=== PATIENT | female | born 1985 | race Caucasian/White ===

== ENCOUNTER 2020-10-06 16:06 | Emergency (ER) | payer MEDICARE, MEDICAID, SELFPAY ==
[2020-10-06 16:07] VITALS: BP 93/52; PULSE 62; RESP 19; TEMP 36.5; O2SAT 97; BMI 42.5
--- NOTE | 2020-10-06 16:35 | HMH.EDGENADL ---
ED Disposition Clinical Impression: Pleural effusion, Atypical chest pain Disposition: Home, Self-Care Condition on Discharge: Fair Instructions: DI for Atypical Chest Pain, DI for Pleural Effusion Additional Instructions: You have been evaluated for atypical chest pain. Possibly due to small pneumothorax on the right. Please follow-up with your ballistic technician as soon as available. Return to the emergency department at once if you have any new or worsening symptoms, difficulty breathing, worsening pain, other concerns. Referrals: PCP,No [Non-Staff] - Time of Disposition: 20:33 - Critical Care Critical Care Time: No Attestation: On 10/06/20, the high probability of a clinically significant, sudden or life threatening deterioration of the following system(s) required my full and direct attention, intervention and personal management. The time I documented below is in addition to time spent performing reported procedures but includes the following listed in this critical care notation. Medical Decision Making - Medical Records Medical records reviewed: Yes: I reviewed the patient's medical records. - Michele Inquiry Pt receiving controlled substance: No Vital Signs: 10/06/20 16:07 10/06/20 21:07 Temperature 97.7 F 97.9 F Temperature Source Oral Oral Pulse Rate 62 Pulse Rate [Left Radial] 62 Respiratory Rate 19 16 Blood Pressure 108/75 L Blood Pressure [Right Arm] 93/52 L Blood Pressure Mean [Right Arm] 65 Blood Pressure Source [Right Arm] Automatic Cuff Blood Pressure Position [Right Arm] Sitting 02 Sat by Pulse Oximetry 97 Oxygen Delivery Method Room Air Room Air - Lab Data Lab Results 10/06/20 16:57: WBC 9.4, RBC 4.58, Hgb 13.5, Hct 41.1, MCV 89.8, MCH 29.6, MCHC 32.9, RDW 14.0, Plt Count 184, MPV 7.9, Neut % (Auto) 56.4, Lymph % (Auto) 33.5, Burn[place] % (Auto) 6.9, Eos % (Auto) 2.7, Baso % (Auto) 0.6, Neut # (Auto) 5.3, Lymph # (Auto) 3.1, Burnet # (Auto) 0.6, Eos # (Auto) 0.3, Baso # (Auto) 0.1 10/06/20 16:57: Sodium 140, Potassium 4.0, Chloride 105, Carbon Dioxide 29, Anion Gap 10.0, BUN 13, Creatinine 1.00, Estimated Creat Clear 64, Estimated GFR 62, Est GFR ( Amer) 75, Glucose 74, Calcium 9.5, Total Bilirubin 1.0, AST 39 H, ALT 17, Alkaline Phosphatase 78, Total Protein 8.1, Albumin 4.3, Globulin 3.8 H, Albumin/Globulin Ratio 1.1, Lipase 54 10/06/20 18:10: Urine Color Yellow, Urine Appearance Clear, Urine pH 7.0, Ur Specific [place] 1.015, Urine Protein Negative, Urine Glucose (UA) Negative, Urine Ketones Negative, Urine Blood 1+, Urine Nitrate Negative, Urine Bilirubin Negative, Urine Urobilinogen 0.2, Ur Leukocyte Esterase Negative, Urine RBC 3-5, Urine WBC 5-10, Ur Squamous Epith Cells Tntc, Amorphous Sediment 1+, Urine Bacteria Trace 10/06/20 18:10: Urine HCG, Qual Negative Result diagrams: 10/06/20 16:57 10/06/20 16:57 Orders (Tests/Meds): ED MEDICATIONS Discontinued Medications Generic Name Dose Route Start Last Admin Trade Name Freq PRN Reason Stop Dose Admin Iopamidol 75 ml 10/06/20 19:10 10/06/20 19:11 Iopamidol-370 (76%);100ml Bottle IV 10/06/20 19:11 75 ml ONCE ONE Administration Ketorolac Tromethamine 15 mg 10/06/20 20:34 10/06/20 20:41 Ketorolac 30mg/Ml Vial IV 10/06/20 20:35 15 mg ONCE ONE Administration Lidocaine 1 each 10/06/20 20:34 10/06/20 20:41 Lidocaine 5% Transdermal Patch TP 10/06/20 20:35 1 each ONCE ONE Administration Sodium Chloride 10 ml 10/06/20 19:10 10/06/20 19:11 Sodium Chloride 0.9% 10ml Syr (Rad Only) IV 10/06/20 19:11 10 ml ONCE ONE Administration ORDERS Category Date Time Status CT abdomen pelvis w con Stat Cat Scan 10/06/20 18:[address] chest wo con Stat Cat Scan 10/06/20 20:02 Taken Medical Decision Narrative: In summary this is a 35-year-old female presenting to the emergency department with right upper quadrant abdominal pain and right flank pain. Patient clinically stable on
[2020-10-06 17:06] LABS: Basophils # 0.1 K/mm3 (0-0.2); Basophils % 0.6 % (0.1-2.0); Eosinophils # 0.3 K/mm3 (0.0-0.4); Eosinophils % 2.7 % (0.1-12.0); Hematocrit 41.1 % (37.0-47.0); Hemoglobin 13.5 g/dL (12.2-16.2); Lymphocytes # 3.1 K/mm3 (0.7-4.5); Lymphocytes % 33.5 % (10-50); Mean Corpuscular HGB Conc 32.9 g/dL (31.8-35.4); Mean Corpuscular Hemoglobin 29.6 pg (27.0-31.2); Mean Corpuscular Volume 89.8 fl (81-99); Mean Platelet Volume 7.9 fl (7.4-10.4); Monocytes # 0.6 K/mm3 (0.1-1.0); Monocytes % 6.9 % (1.7-9.3); Neutrophils # 5.3 K/mm3 (1.8-7.8); Neutrophils % 56.4 % (37.0-80.0); Platelet Count 184 K/mm3 (142-424); Red Blood Count 4.58 M/mm3 (4.20-5.40); White Blood Count 9.4 K/mm3 (4.8-10.8)
[2020-10-06 17:09] LABS: Chloride 105 mmol/L (98-107); Sodium 140 mmol/L (136-145)
[2020-10-06 17:11] LABS: Blood Urea Nitrogen 13 mg/dl (7-17); Creatinine Clearance Estimated 64 mL/min (50-200); Estimated Glomerular Filt Rate 62 ml/min (>60); GFR (African American) 75 ML/MIN (>60)
[2020-10-06 17:12] LABS: Alanine Aminotransferase 17 U/L (12-78); Albumin Level 4.3 g/dl (3.5-5.0); Albumin/Globulin Ratio 1.1 (1.1-1.8); Alkaline Phosphatase 78 U/L (38-126); Aspartate Amino Transferase 39 U/L (14-36); Calcium 9.5 mg/dl (8.4-10.2); Carbon Dioxide 29 mmol/L (22.0-30.0); Globulin 3.8 g/dL (1.3-3.2); Glucose 74 mg/dl (74-100); Lipase 54 U/L (23-300); Total Protein,Serum 8.1 g/dl (6.3-8.2)
--- NOTE | 2020-10-06 18:17 | CT_ITS ---
PROCEDURE: CT ABDOMEN PELVIS W CON CLINICAL INDICATION: abdominal pain Right upper quadrant and right flank pain COMPARISON: CT CT CHEST WO CON from 10/06/2020 TECHNIQUE: IV Contrast: 75ML Isovue 370 Oral Contrast None Axial images obtained with sagittal and coronal reformats. All CT scans at the facility use one or more dose reduction, viz: automated exposure control, ma/kV adjustment per patient size (including targeted exams where dose is matched to indication, i.e. head), or iterative reconstruction technique. FINDINGS: LOWER THORAX: Small loculated pneumothorax anteriorly with parietal and visceral pleural thickening with atelectatic or fibrotic change with a small loculated effusion. Small cystic areas present along the posterior aspect of this region of pleural thickening with a faint nodular opacity nonspecific. Bronchiectasis is present within the lingula and right lower lobe. ABDOMEN & PELVIS: There is a ventral abdominal wall hernia in the subxiphoid region containing fat. The gallbladder is contracted with minimal thickening of the wall. The liver, spleen, adrenal glands, and pancreas have an unremarkable appearance. There are punctate bilateral renal calculi 2 mm in the lower pole on the right and 2 mm in the upper pole on the left. No intestinal obstruction or free air. No evidence of appendicitis. No evidence of diverticulitis. There is an IUD in place. The proximal limbs are rotated 90 degrees not oriented in the normal parallel plane to the endometrial stripe. This is of questionable clinical significance. No pelvic mass or abnormal fluid collection. IMPRESSION: 1. No acute abdominal or pelvic findings. 2. Partially loculated right anterior pneumothorax as described above. 3. IUD in place. The 2 proximal limbs are oriented tangential to the normal expected course of the endometrium. 4. Other nonacute findings as described above. Dictated by: Darren Beltre MD 10/07/2020 10:31 Darren Beltre MD in [facility] 10/07/2020 10:31
[2020-10-06 18:47] LABS: Microscopic, Urine URINE MICROSCOPIC (MICROSCOPIC)
[2020-10-06 18:52] LABS: Appearance,Urine CLEAR (Clear); Bilirubin,Urine Negative (Negative); Blood, Urine 1+ (Negative); Color,Urine YELLOW (Yellow); Glucose,Urine (UA) Negative (Negative); Ketones,Urine Negative (Negative); Leukocyte Esterase,Urine Negative (Negative); Nitrate,Urine Negative (Negative); Protein,Urine Negative (Negative); Specific Gravity, Urine 1.015 (1.005-1.030); Urine Pregnancy, HCG Qual. Negative (Negative); Urobilinogen,Urine 0.2 EU/dl (0.2)
[2020-10-06 19:00] LABS: Amorphous Sediment,Urine 1+ /lpf; Bacteria,Urine Trace /lpf; Squamous Epithelial Cell,Urine TNTC #/hpf (0-5)
--- NOTE | 2020-10-06 20:02 | CT_ITS ---
PROCEDURE: CT CHEST WO CON CLINICAL INDICATION: chest pain Chest pain, follow-up pulmonary nodule which was seen on recent abdomen CT. Pain COMPARISON: CT CT ABDOMEN PELVIS W CON from 10/06/2020 TECHNIQUE: Axial images obtained with sagittal and coronal reformats. All CT scans at the facility use one or more dose reduction, viz: automated exposure control, ma/kV adjustment per patient size (including targeted exams where dose is matched to indication, i.e. head), or iterative reconstruction technique. FINDINGS: Prior tricuspid valve replacement. Status post median sternotomy. Subxiphoid ventral abdominal wall hernia noted. This contains fat. Pleural thickening is present in the right anterior hemithorax both parietal and visceral thickening with a small right-sided pneumothorax anteriorly measuring approximately 4 mm in thickness. There is associated small loculated effusion. There is associated atelectatic or fibrotic changes in this region. There is some atelectasis in the lung bases. 10 mm left upper lobe nodular opacity with some atelectatic changes series 3, image 30. Mild bronchiectasis in the lingula. There are mild degenerative changes in the thoracic spine. There is some stranding of the subcutaneous fat along the left upper abdominal wall laterally. IMPRESSION: 1. Pleural thickening in the right upper lobe anteriorly with a small pneumothorax and small loculated effusion. 2. Scattered atelectatic or and/or fibrotic changes with bronchiectasis. 3. Indeterminate 10 mm left upper lobe nodular opacity. Suggest 3 month follow-up. Dictated by: Darren Beltre MD 10/07/2020 10:17 Darren Beltre MD in [facility] 10/07/2020 10:17
[2020-10-06 21:07] VITALS: BP 108/75; PULSE 62; RESP 16; TEMP 36.6; O2SAT 97
== END 2020-10-06 21:09 | disposition home or self-care (01) ==
PROVIDERS: Emergency Provider Emergency Medicine
DX: J90 Pleural effusion, not elsewhere classified (principal); R07.89 Other chest pain
CPT/HCPCS: 71250; 74177; 80053; 81001; 81025; 83690; 85025; 96375; 99282; Q9967

== ENCOUNTER 2024-01-24 09:10 | Outpatient (CLI) | payer MEDICARE, MEDICAID, SELFPAY ==
--- NOTE | 2024-01-24 09:11 | CT_ITS ---
FINAL REPORT TECHNIQUE: Axial CT images of the abdomen and pelvis were obtained before and after the administration of IV contrast. This study was performed with techniques to keep radiation doses as low as reasonably achievable (ALARA). Individualized dose reduction techniques using automated exposure control or adjustment of mA and/or kV according to the patient''s size were employed. CLINICAL HISTORY: LUQ pain COMPARISON: None FINDINGS: Abdomen: There is atelectasis or scarring in the lung bases. The heart is normal in size. The liver has an unremarkable appearance, without evidence of mass or biliary duct dilatation. The patient is postcholecystectomy. The spleen is unremarkable. No adrenal masses present. The pancreas has an unremarkable appearance. The kidneys are unremarkable. The aorta is normal in caliber. There is no free fluid or adenopathy. There is a supraumbilical midline ventral hernia. Hernia orifice measures 6.3 cm in transverse dimension and the hernia sac measures 9 cm in transverse dimension. There is a small umbilical hernia containing fat. Precontrast images demonstrate multiple bilateral nonobstructing renal stones, the largest on the right measures 6 mm. There is no hydronephrosis. Pelvis: The appendix is not well visualized. The urinary bladder is unremarkable. An IUD is present in the uterus. No inflammatory process is seen. There is no evidence of mass or adenopathy. There is no evidence of bowel obstruction. IMPRESSION: Supraumbilical hernia as described. Renal stones without hydronephrosis or ureteral stone. Reviewed, Interpreted and Dictated by Federico De Souza III, MD Transcribed by Bushra Balbuena Authenticated and [facility]
[2024-01-24] MEDS: IOPAMIDOL-370 (76%);100ML BOTTLE 75 ML IV (10:24)
[2024-01-24] MEDS: SODIUM CHLORIDE 0.9% 10ML SYR (RAD ONLY) 10 ML IV (10:24)
== END 2024-01-24 23:59 | disposition home or self-care (01) ==
LOC: RAD 09:11
PROVIDERS: PCP Family Medicine; Visit Provider Family Medicine
DX: R10.12 Left upper quadrant pain (principal)
CPT/HCPCS: 74178; Q9967

== ENCOUNTER 2024-10-18 13:04 | Outpatient (CLI) | payer MEDICARE, MEDICAID, SELFPAY ==
--- NOTE | 2024-10-18 13:30 | US_ITS ---
PROCEDURE: US TRANSVAGINAL CLINICAL INDICATION: Check IUD Position COMPARISON: CT CT ABDOMEN PELVIS W CON from 10/06/[address] ABDOMEN PELVIS WO/W CON from 01/24/2024 FINDINGS: Transvaginal sonographic images of the pelvis were obtained. UTERUS: 8.3cm x 4.8 cmx 3.8 cm anteverted with a combined endometrial thickness of 5.3mm. There is an IUD within the uterine cavity in the lower uterine segment. Within the anterior myometrium there is a small linear structure that appears to be separate from IUD. It has posterior shadowing. It is not clear whether this may be an arm from the IUD penetrating into the myometrium or remnant from a previous IUD. LEFT OVARY: 4.9 cmx3.7 cmx3.8cm with a volume of 37.1ml. There is a simple appearing follicle in the left ovary that measures 4.8 cm x 3.4 cm RIGHT OVARY: 2.4cmx 1.5 cmx1.9 cm with a volume of 3.6ml. The right ovary is seen and appears normal. The left ovary has a large follicle. Doppler flow to both ovaries are seen. There is no fluid in the cul-de-sac. IMPRESSION: 1. Anteverted uterus normal in shape and size. The endometrium measures 5.3 mm. 2. There is an IUD within the uterine cavity in the lower uterine segment. Within the anterior myometrium there a linear hyperechoic area with posterior shadowing. This may be in arm of the IUD or possibly a remnant from a previous IUD. 3. The left ovary contains a follicle measuring 4.8 cm and would suggest follow-up in 8 weeks time. 4. The right ovary is seen and appears normal. 5. No fluid in the cul-de-sac Dictated by: Thiago Sharp MD 10/18/2024 14:13 Thiago Sharp MD in [facility] 10/18/2024 14:13
[2024-10-18 15:48] LABS: HIV Combo NEGATIVE (Negative)
[2024-10-18 15:55] LABS: Hepatitis C Ab Qual. W/ RFX REACTIVE (Negative)
== END 2024-10-18 23:59 | disposition home or self-care (01) ==
LOC: RAD 13:05
PROVIDERS: PCP Family Medicine; Visit Provider Obstetrics & Gynecology
DX: Z97.5 Presence of (intrauterine) contraceptive device (principal); B19.20 Unspecified viral hepatitis C without hepatic coma
CPT/HCPCS: 36415; 76830; 86803; 87389; 87522

== ENCOUNTER 2024-12-27 15:07 | Outpatient (CLI) | payer MEDICARE, MEDICAID, SELFPAY ==
--- OUTSIDE RECORDS SUMMARY | 2024-12-27 15:09 | XMS_ITS | Encounter Summary ---
Author Organization Healthcare Address [address] [place] [address] Care Team Providers Care Lock Setter Name Role Phone Ankur Main MD Primary Care Provider [phone] Reason for Visit * Reason Onset Date Comments Med Refill 11/06/2024 Encounter Details Date Type Department Care Team (Late st Contact Info) Description 11/06/2024 Refill [facility] [address] [place] [address] Elizabeth Rolle RN [facility] Chronic bronchitis with COPD (chronic obstructive pulmonary disease) (CMS/HCC); Moderate persistent asthma, unspecified whether complicated Social History Tobacco Use Types Packs/Day Years Used Date Smoking Tobacco: Former Cigarettes 1 19 0 06/21/2000 - 06/21/2019 Passive Smoke Exposure: Current Smokeless Tobacco: Never Alcohol Use Standard Drinks/Week Comments No 0 (1 standard drink = 0.6 oz pur e alcohol) Humiliation, Afraid, Rape, a nd Kick questionnaire Answer Date Recorded Within the last year, have y ou been afraid of your partner or ex-partner? Patient unable to answer 01/25/2024 Within the last year, have y ou been humiliated or emotionally abused in other ways by your partner or ex-partner? Patient unable to answer 01/25/2024 Within the last year, have y ou been kicked, hit, slapped, or otherwise physically hurt by your partner or ex-partner? Patient unable to answer 01/25/2024 Within the last year, have y ou been raped or forced to have any kind of sexual activity by your partner or ex-partner? Patient unable to answer 01/25/2024 PHQ-2 Answer Date Recorded Patient Health Questionnaire-2 Score 0 10/19/2024 Hunger Vital Sign Answer Date Recorded Within the past 12 months, y ou worried that your food would run out before you got the money to buy more. Never true 01/25/20 24 Within the past 12 months, t he food you bought just didn't last and you didn't have money to get more. Never true 01/25/2024 PRAPARE - Transportation Answer Date Re corded In the past 12 months, has l ack of transportation kept you from medical appointments or from getting medications? No 11/2023 In the past 12 months, has l ack of transportation kept you from meetings, work, or from getting things needed for daily living? No 01/25/2024 Housing Stability Vital Sign Answer Madhav e Recorded In the last 12 months, was t here a time when you were not able to pay the mortgage or rent on time? No 01/25/2024 In the last 12 months, how many places have you lived? 1 01/25/2024 In the last 12 months, was t here a time when you did not have a steady place to sleep or slept in a chcf (including now)? No 01/25/2024 PHQ-9 Answer Date Recorded Patient Health Questionnaire-9 Score 0 10/19/2024 Safety and Environment Answer Date Carlos rded Do you worry that your child may have been physically abused? Patient unable to answer 01/25/2024 Do you worry that your child may have been sexually abused? Patient unable to answer 01/25/2024 Are there any guns kept in o r around your home or where your child spends time? Patient unable to answer 01/25/2024 Guns Unloaded or Locked Away Not on file 11/2023 Utilities Answer Date Recorded In the past 12 months has th e electric, gas, oil, or water company threatened to shut off services in your home? No 01/25/2024 PHQ-2A Answer Date Recorded Depression Risk 0 10/11/2024 PHQ-9A Answer Date Recorded Depression Risk Score 0 10/11/2024 Comments No Sex and Gender Information Value Date Recorded Sex Assigned at Female 12/31/2020 2:44 PM EDT Legal Sex Female 7:46 PM EDT Gender Identity Female 12/31/2020 2:44 PM EDT Sexual Orientation Straight 12/31/2020 2: 44 PM EDT documented as of this encounter Plan of Treatment Upcoming Encounters Date Type Department Care Team (Late st Contact Info) Description 03/12/2025 10:20 AM EDT Office Visit [facility] [address] [place] [address] Bushra Graf PA [address] [place] [address] 03/20/2025 9:30 AM EDT Office Visit [facility] [address] [place] [address] Alicia Jennings MD [address] [place] [address] 04/02/2025 2:00 PM EDT Office Visit [facility] Sleep Disorder Center [address] [place] [phone] Kassandra Khan, APOLLO [address] [place] [phone] 04/18/2025 11:00 AM EDT Office Visit [facility] [address] [place] [address] Juventino Costa MD [address] [place] [address] 05/04/2025 1:00 PM EST Appointment Medical Office Building Cardiac Diagnostic Testing Medical Office Building Echo Lab [address], [address] [place] [address] 05/04/2025 1:45 PM EST Office Visit [facility] [place] [address], [address] [place] [address] Ruslan Sanderson MD [address] [place] [address] documented as of this encounter Visit Diagnoses Diagnosis Chronic bronchitis with COPD (chronic obstructive pulmonary disease) (CMS/HCC) Moderate persistent asthma, unspecified whether complicated documented in this encounter Additional Health Concerns Infection Onset Date Last Indicated Resolved Time MRSA Comment:respiratory culture Collection Date: 10-Oct-2019 08:43:00 Expanded Results: 2+ MIXED UPPER RESPIRATORY OTTO 3+ STAPHYLOCOCCUS AUREUS (MRSA) NOTE: Patient needs MRSA Protocol 10/10/2019 11/12/2020 ESBL Comment:Positive MDRT culture for ESBL Klebsiella pneumoniae MDRT collected 11/20/19 positive for ESBL Citrobacter Freundii. 10/23/2019 11/12/2020 Assessment Noted Time PHQ-9 Depression Total Score: 0 10/20/19 2:00 PM EDT A fall risk assessment has been complete d for the patient 10/19/2024 2:00 PM EDT A Body Mass Index follow-up plan has been documented for the patient 10/19/2024 2:52 PM EDT documented as of this encounter Care Teams Lock Setter Relationship Specialty Start Date End Date Ankur Main MD [address] [place] [address] PCP - General 11/01/20 12/18/24 documented as of this encounter
--- OUTSIDE RECORDS SUMMARY | 2024-12-27 15:09 | XMS_ITS | Encounter Summary ---
Author Organization Healthcare Address [address] [place] [address] Care Team Providers Care Glove Maker Name Role Phone Ankur Main MD Primary Care Provider [phone] Iman Cuevas MD Primary Care Provider [phone] Reason for Visit * Reason Onset Date Comments Med Refill 01/24/2021 Encounter Details Date Type Department Care Team (Late st Contact Info) Description 01/24/2021 Refill [facility] Internal Medicine [address] [place] [address] Ankur Main MD [address] [place] [address] Polyneuropathy associated with underlying disease (CMS/HCC) Social History Tobacco Use Types Packs/Day Years Used Date Smoking Tobacco: Former Smokeless Tobacco: Never Alcohol Use Standard Drinks/Week Comments No 0 (1 standard drink = 0.6 oz pur e alcohol) PHQ-2 Answer Date Recorded Patient Health Questionnaire-2 Score 3 01/17/2021 Comments Unknown Sex and Gender Information Value Date Recorded Sex Assigned at Female 12/31/2020 2:44 PM EDT Legal Sex Female 7:46 PM EDT Gender Identity Female 12/31/2020 2:44 PM EDT Sexual Orientation Straight 12/31/2020 2: 44 PM EDT COVID-19 Exposure Response Date Recorded In the last month, have you been in contact with someone who was confirmed or suspected to have Coronavirus / COVID-19? No / Unsure 01/17/2021 3:00 PM EDT documented as of this encounter Plan of Treatment Upcoming Encounters Date Type Department Care Team (Late st Contact Info) Description 03/12/2025 10:20 AM EDT Office Visit [facility] Specialties [address] [place] [phone] Bushra Graf PA [address] [place] [address] 03/20/2025 9:30 AM EDT Office Visit [facility] [address] [place] [phone] Alicia Jennings MD [address] [place] [address] 04/02/2025 2:00 PM EDT Office Visit [facility] Sleep Disorder Center [address] [place] [phone] Kassandra Khan, APOLLO [address] [place] [phone] 04/18/2025 11:00 AM EDT Office Visit [facility] [address] [place] [phone] Juventino Costa MD [address] [place] [address] 05/04/2025 1:00 PM EST Appointment Medical Office Building Cardiac Diagnostic Testing Medical Office Building Echo Lab [address], [address] [place] [phone] 05/04/2025 1:45 PM EST Office Visit [facility] [place] [address], [address] [place] [address] Ruslan Sanderson MD [address] [place] [address] documented as of this encounter Visit Diagnoses Diagnosis Polyneuropathy associated with underlying disease documented in this encounter Additional Health Concerns Infection Onset Date Last Indicated Resolved Time MRSA Comment:respiratory culture Collection Date: 10-Oct-2019 08:43:00 Expanded Results: 2+ MIXED UPPER RESPIRATORY OTTO 3+ STAPHYLOCOCCUS AUREUS (MRSA) NOTE: Patient needs MRSA Protocol 10/10/2019 11/12/2020 ESBL Comment:Positive MDRT culture for ESBL Klebsiella pneumoniae MDRT collected 11/20/19 positive for ESBL Citrobacter Freundii. 10/23/2019 11/12/2020 documented as of this encounter Care Teams Glove Maker Relationship Specialty Start Date End Date Ankur Main MD [address] [place] [address] PCP - General 11/01/20 12/18/24 Iman Cuevas MD [address] [place] [address] PCP - General Internal Medicine 12/19/24 documented as of this encounter
--- OUTSIDE RECORDS SUMMARY | 2024-12-27 15:09 | XMS_ITS | Encounter Summary ---
Author Organization Healthcare Address [address] [place] [address] Care Team Providers Care Artist'S Manager Name Role Phone Ankur Main MD Primary Care Provider [phone] Iman Cuevas MD Primary Care Provider [phone] Encounter Details Date Type Department Care Team (Late st Contact Info) Description 01/24/2024 Orders Only External Location [address] [place] [address] Skip Tineo MD Social History Tobacco Use Types Packs/Day Years [...] Date Recorded Patient Health Questionnaire-2 Score 0 01/27/2024 Hunger Vital Sign Answer Date Recorded Within [...] place to sleep or slept in a correction (including now)? No 01/25/2024 Safety and Environment Answer Date Carlos rded [...] home? No 01/25/2024 PHQ-2A Answer Date Recorded Patient Health Questionnaire-2 Score 0 03/09/2023 Comments No Sex and Gender Information Value Date Recorded Sex Assigned at Female 12/31/2020 2:44 PM EDT Legal Sex Female 7:46 PM EDT Gender Identity Female 12/31/2020 2:44 PM EDT Sexual Orientation Straight 12/31/2020 2: 44 PM EDT documented as of this encounter Functional Status * Over the past 2 weeks, how often have you been bothered by any of the following problems? Question Answer Date of Assessment Author Little interest or pleasure in doing things Not at all 01/27/2024 7:53 AM EDT Gabby Rolle CNA Feeling down, depressed, or hopeless Not at all 01/27/2024 7:53 AM EDT Gabby Rolle CNA Patient Health Questionnaire -2 Score 0 01/27/2024 7:53 AM EDT Gabby Rolle CNA * Calculated C-SSRS Risk Score (Lifetime/Recent) Answer Date of Assessment Author No Risk Indicated 01/25/2024 3:17 PM EDT Ever Mix * Question Answer Date of Assessment Author 1. Wish to be (Past 1 Month) No 024 3:17 PM EDT Ever Mix 2. Non-Specific Active Suici quin Thoughts (Past 1 Month) No 01/25/2024 3:17 PM EDT Norris Mix 6. Suicidal Behavior (Lifetime) No 3:17 PM EDT Ever Mix documented as of this encounter Plan of Treatment Upcoming Encounters Date Type Department Care Team (Late st Contact Info) Description 03/12/2025 10:20 AM EDT Office Visit [facility] Medicine Specialties [address], [address]nd [place] [address] Bushra Graf PA [address] [facility] [address] [place] [address] 03/20/2025 9:30 AM EDT Office Visit [facility] [address], 1st [place] [address] Alicia Jennings MD [address] [facility] [address] [place] [address] 04/02/2025 2:00 PM EDT Office Visit [facility] Sleep Disorder Center [address], 4th [place] [address] Kassandra Khan, MANAGER WOUND [address] [place] [address] 04/18/2025 11:00 AM EDT Office [facility] Medicine Specialties [address], 2nd [place] [address] Juventino Costa MD [address] [place] [address] 05/04/2025 1:00 PM EST Appointment Medical Office Building Cardiac Diagnostic Testing Medical Office Building Echo Lab [address] [facility], [address] [place] [address] 05/04/2025 1:45 PM EST Office Visit [facility] [place] [address] [facility], [address] [place] [address] Ruslan Sanderson MD [address] [place] [address] documented as of this encounter Procedures Procedure Name Priority Date/Time Associated Diagnosis Comments CT ABDOMEN OUTSIDE IMAGES 01/24/2024 10:12 AM EDT documented in this encounter Results * CT ABDOMEN OUTSIDE IMAGES (01/24/2024 10:12 AM EDT) Anatomical Region Laterality Modality Computed Tomogra phy 01/24/2024 10:1 2 AM EDT Skip Tineo MD IMG CT PROCEDURES Final Re sult documented in this encounter Visit Diagnoses Not on filedocumented in this encounter Additional Health Concerns Infection Onset Date Last Indicated Resolved Time MRSA Comment:respiratory culture Collection Date: 10-Oct-2019 08:43:00 Expanded Results: 2+ MIXED UPPER RESPIRATORY OTTO 3+ STAPHYLOCOCCUS AUREUS (MRSA) NOTE: Patient needs MRSA Protocol 10/10/2019 11/12/2020 ESBL Comment:Positive MDRT culture for ESBL Klebsiella pneumoniae MDRT collected 11/20/19 positive for ESBL Citrobacter Freundii. 10/23/2019 11/12/2020 Assessment Noted Time PHQ-9 Depression Total Score: 18 08 021 9:41 AM EDT A fall risk assessment has been complete d for the patient 11/10/2023 11:37 AM EDT A Body Mass Index follow-up plan has been documented for the patient 11/10/2023 12:15 PM EDT documented as of this encounter Care Teams Artist'S Manager Relationship Specialty Start Date End Date Ankur Main MD [address] [place] [address] PCP - General 11/01/20 12/18/24 Iman Cuevas MD [address] [place] [address] PCP - General Internal Medicine 12/19/24 documented as of this encounter
--- OUTSIDE RECORDS SUMMARY | 2024-12-27 15:09 | XMS_ITS | Encounter Summary ---
Author Organization Healthcare Address [address] [place] [address] Care Team Providers Care Marine Engineer Cpvec Name Role Phone Ankur Main MD Primary Care Provider [phone] Nancy Hernandez PYROTECHNIC MIXER Unavailable Unavailable Iman Cuevas MD Primary Care Provider [phone] Encounter Details Date Type Department Care Team (Late st Contact Info) Description 08/01/2018 Orders Only External Location [address] [place] [address] Social History Tobacco Use Types Packs/Day Years Used Date Smoking Tobacco: Never Assessed Comments Unknown Sex and Gender Information Value [...] Description 03/12/2025 10:20 AM EDT [facility] Medicine Specialties [address], 2[address] [place] [address] Bushra Graf PA [address] [place] [address] 03/20/2025 9:30 AM EDT [facility] [address], 1[address] [place] [address] Alicia Jennings MD [address] [place] [address] 04/02/2025 2:00 PM EDT Office Visit [facility] Sleep Disorder Center [address], [address]th [place] [address] Kassandra Khan, APOLLO [address] [place] [address] 04/18/2025 11:00 AM EDT Office Visit [facility] Medicine Specialties [address], 2[address] [place] [address] Juventino Costa MD [address] [place] [address] 05/04/2025 1:00 PM EST Appointment Medical Office Building Cardiac Diagnostic Testing Medical Office Building Echo Lab [address] [facility], [address] [place] [address] 05/04/2025 1:45 PM EST Office Visit [facility] [place] [address] [facility], [address] [place] [address] Ruslan Sanderson MD [address] [place] [address] documented as of this encounter Procedures Procedure Name Priority Date/Time Associated Diagnosis Comments US BREAST OUTSIDE IMAGES 08/01/2018 12:47 PM EST documented in this encounter Results * US BREAST OUTSIDE IMAGES (08/01/2018 12:47 PM EST) Anatomical Region Laterality Modality Breast Mammography 08/01/2018 12:4 7 PM EST us Unknown Unknown IMG BI PROCEDURES Final Result documented in this encounter Visit Diagnoses Not [...] positive for ESBL Citrobacter Freundii. 10/23/2019 11/12/2020 Meningitis Rule-Out 10/25/2019 10/25/2019 10/29/19 5:23 AM EDT C. difficile Rule-Out 11/03/2019 11/08/20192020 5:23 AM EDT C. difficile Comment:11/03/2019 11/03/2019 11/03/2019 12/20/2019 12:00 AM EDT documented as of this encounter Care Teams Marine Engineer Cpvec Relationship Specialty Start Date End Date Ankur Main MD [address] [place] [phone] PCP - General 11/01/20 12/18/24 Iman Cuevas MD [address] [place] [phone] PCP - General Internal Medicine 12/19/24 Nancy Hernandez, [place] [phone] Academic Affairs Vice President Beam Builder Helper 03/25/20 03/25/20 documented as of this encounter
--- OUTSIDE RECORDS SUMMARY | 2024-12-27 15:09 | XMS_ITS ---
Author Organization Unknown TREATMENT PLAN Planned Care Start Date Provider Encounter for Check-up [id number] [facility]
--- OUTSIDE RECORDS SUMMARY | 2024-12-27 15:09 | XMS_ITS | Encounter Summary ---
Author Organization Healthcare Address [address] [place] [address] Care Team Providers Care Collection Advisor Name Role Phone Ankur Main MD Primary Care Provider [phone] Iman Cuevas MD Primary Care Provider Reason for Visit * Reason Onset Date Comments Med Refill 06/29/2021 Encounter Details Date Type Department Care Team (Late st Contact Info) Description 06/29/2021 Refill [facility] Medicine Specialties [address], [address] [place] [address] Juventino Costa MD [address] [place] [address] Moderate persistent asthma, unspecified whether complicated Social History Tobacco Use Types Packs/Day Years Used Date Smoking Tobacco: Former Cigarettes 1 19 2 2019 Smokeless Tobacco: Never Alcohol Use Standard Drinks/Week Comments No 0 (1 standard drink = 0.6 oz pur e alcohol) PHQ-2 Answer Date Recorded Patient Health Questionnaire-2 Score 0 04/22/2021 Comments Unknown Sex and Gender Information Value [...] have Coronavirus / COVID-19? No / Unsure 06/11/2021 9:41 AM EST documented as of this encounter Miscellaneous Notes * Telephone Encounter - Domi Johnson RN - 06/30/2021 8:55 AM EST PCP refilling this medication per last office note. documented in this encounter Plan of Treatment Upcoming Encounters Date Type Department Care Team (Late st Contact Info) Description 03/12/2025 10:20 AM EDT Office Visit [facility] Medicine Specialties [address], 2nd [place] [phone] Bushra Graf PA [address] [facility] [address] [place] [address] 03/20/2025 9:30 AM EDT [facility] [address], 1st [place] [address] Alicia Jennings MD [address] [place] [address] 04/02/2025 2:00 PM EDT Office Visit [facility] Sleep Disorder Center [address], 4th [place] [address] Kassandra Khan, APOLLO [address] [place] [address] 04/18/2025 11:00 AM EDT Office Visit [facility] Medicine [facility] [address], 2nd [place] [address] Juventino Costa MD [address] [place] [address] 05/04/2025 1:00 PM EST Appointment Medical Office Building Cardiac Diagnostic Testing Medical Office Building Echo Lab [address] [facility], [address] [place] [address] 05/04/2025 1:45 PM EST Office Visit [facility] [place] [address] [facility], [address] [place] [address] Ruslan Sanderson MD [address] [place] [address] documented as of this encounter Visit Diagnoses Diagnosis Moderate persistent asthma, unspecified whether complicated documented [...] Noted Time PHQ-9 Depression Total Score: 18 021 9:41 AM EDT A fall risk assessment has been complete d for the patient 02/25/2021 7:04 PM EDT documented as of this encounter Care Teams Collection Advisor Relationship Specialty Start Date End Date Ankur Main MD [address] [place] [address] PCP - General 11/01/20 12/18/24 Iman Cuevas MD [address] [place] [address] PCP - General Internal Medicine 12/19/24 documented as of this encounter
--- OUTSIDE RECORDS SUMMARY | 2024-12-27 15:09 | XMS_ITS | Encounter Summary ---
Author Organization Healthcare Address [address] [place] [address] Care Team Providers Care Arc Welder Name Role Phone Ankur Main MD Primary Care Provider [phone] Iman Cuevas MD Primary Care Provider [phone] Reason for Visit * Reason Onset Date Comments Med Refill 06/19/2021 Encounter Details Date Type Department Care Team (Late st Contact Info) Description 06/19/2021 Refill [facility] Internal Medicine [address], [address]rd [place] [address] Ankur Main MD [address] [place] [address] Social History Tobacco Use Types Packs/Day Years [...] encounter Miscellaneous Notes * Telephone Encounter - WillYulisa John - 06/24/2021 3:44 PM EST Per protocol, 1 medication(s), levothyroxine, have been refused due to: Duplicate request sent 06/23 documented in this encounter Plan of Treatment Upcoming Encounters Date Type Department Care Team (Late st Contact Info) Description 03/12/2025 10:20 AM EDT Office Visit [facility] Medicine Specialties [address], 2nd [place] [address] Bushra Graf PA [address] [place] [address] 03/20/2025 9:30 AM EDT Office Visit [facility] [address], 1st [place] [address] Alicia Jennings MD [address] [place] [address] 04/02/2025 2:00 PM EDT Office Visit [facility] Sleep Disorder Center [address], 4th [place] [address] Kassandra Khan, APOLLO [address] [place] [address] 04/18/2025 11:00 AM EDT Office Visit [facility] Medicine Specialties [address], [address]nd [place] [address] Juventino Costa MD [address] [place] [address] 05/04/2025 1:00 PM EST Appointment Medical Office Building Cardiac Diagnostic Testing Medical Office Building Echo Lab [address] [facility], [address] [place] [address] 05/04/2025 1:45 PM EST Office Visit [facility] [place] [address] [facility], [address] [place] [address] Ruslan Sanderson MD [address] [place] [address] documented as of this encounter Visit Diagnoses Not on filedocumented [...] documented as of this encounter Care Teams Arc Welder Relationship Specialty Start Date End Date Ankur Main MD [address] [place] [address] PCP - General 11/01/20 12/18/24 Iman Cuevas MD [address] [place] [address] PCP - General Internal Medicine 12/19/24 documented as of this encounter
--- OUTSIDE RECORDS SUMMARY | 2024-12-27 15:09 | XMS_ITS | Encounter Summary ---
Author Organization Healthcare Address [address] [place] [address] Care Team Providers Care Chimney Builder Name Role Phone Ankur Main MD Primary Care Provider [phone] Iman Cuevas MD Primary Care Provider [phone] Reason for Visit * Reason Onset Date Comments Med Refill 02/28/2021 Encounter Details Date Type Department Care Team (Late st Contact Info) Description 02/28/2021 Refill [facility] Internal Medicine [address], 3rd [place] [address] Roxana Abdul MD [address] [place] [address] Polyneuropathy associated with underlying disease (CMS/HCC) Social History Tobacco Use Types Packs/Day Years Used Date Smoking Tobacco: Former Cigarettes 1 19 2 2019 Smokeless Tobacco: Never Alcohol Use Standard Drinks/Week Comments No 0 (1 standard drink = 0.6 oz pur e alcohol) PHQ-2 Answer Date Recorded Patient Health Questionnaire-2 Score 0 02/13/2021 Comments Unknown Sex and Gender Information Value [...] have Coronavirus / COVID-19? No / Unsure 02/25/2021 7:03 PM EDT documented as of this encounter Plan of Treatment Upcoming Encounters Date Type Department Care Team (Late st Contact Info) Description 03/12/2025 10:20 AM EDT Office Visit [facility] Medicine Specialties [address], 2nd [place] [address] Bushra Graf PA [address] [place] [address] 03/20/2025 9:30 AM EDT Office Visit [facility] [address], 1st [place] [address] Alicia Jennings MD [address] [place] [address] 04/02/2025 2:00 PM EDT Office Visit [facility] Sleep Disorder Center [address], 4th [place] [address] Kassandra Khan APRN [address] [place] [address] 04/18/2025 11:00 AM EDT Office Visit [facility] Medicine Specialties [address], 2[address] [place] [address] Juventino Costa MD [address] [place] [address] 05/04/2025 1:00 PM EST Appointment Medical Office Building Cardiac Diagnostic Testing Medical Office Building Echo Lab [address] [facility], [address] [place] [address] 05/04/2025 1:45 PM EST Office Visit [facility] [place] [address] [facility], [address] [place] [address] Ruslan Sanderson MD [address] [place] [address] documented as of this encounter [...] Noted Time PHQ-9 Depression Total Score: 18 08// 021 9:41 AM EDT A fall risk assessment has been complete d for the patient 02/25/2021 7:04 PM EDT documented as of this encounter Care Teams Chimney Builder Relationship Specialty Start Date End Date Ankur Main MD [address] [place] [address] PCP - General 11/01/20 12/18/24 Iman Cuevas MD [address] [place] [address] PCP - General Internal Medicine 12/19/24 documented as of this encounter
--- OUTSIDE RECORDS SUMMARY | 2024-12-27 15:09 | XMS_ITS | Encounter Summary ---
Author Organization Healthcare Address [address] [place] [address] Care Team Providers Care Communications Department Chairperson Name Role Phone Ankur Main MD Primary Care Provider Iman Cuevas MD Primary Care Provider [phone] Reason for Visit * Reason Onset Date Comments Med Refill 06/30/2021 Encounter Details Date Type Department Care Team (Late st Contact Info) Description 06/30/2021 Refill [facility] Medicine Specialties [address], [address] [place] [address] Juventino Costa MD [address] [place] [address] Moderate persistent asthma, unspecified whether [...] AM EST documented as of this encounter Plan of Treatment Upcoming Encounters Date Type Department Care Team (Late st Contact Info) Description 03/12/2025 10:20 AM EDT Office Visit [facility] Medicine Specialties [address], [address] [place] [phone] Bushra Graf PA [address] [place] [address] 03/20/2025 9:30 AM EDT [facility] [address], 1st [place] [address] Alicia Jennings MD [address] [place] [address] 04/02/2025 2:00 PM EDT Office Visit [facility] Sleep Disorder Center [address], 4th [place] [address] Kassandra Khan APRN [address] [place] [address] 04/18/2025 11:00 AM EDT Office Visit [facility] Medicine Specialties [address], 2nd [place] [address] Juventino Costa MD [address] [place] [address] 05/04/2025 1:00 PM EST Appointment Medical Office Building Cardiac Diagnostic Testing Medical Office Building Echo Lab [address] [facility], [address] [place] [address] 05/04/2025 1:45 PM EST Office Visit [facility] [place] [address] [facility], [address] [place] [address] Ruslan Sanderson MD [address] [place] [address] documented as of this encounter [...] Noted Time PHQ-9 Depression Total Score: 18 08/ 021 9:41 AM EDT A fall risk assessment has been complete d for the patient 02/25/2021 7:04 PM EDT documented as of this encounter Care Teams Communications Department Chairperson Relationship Specialty Start Date End Date Ankur Main MD [address] [place] [address] PCP - General 11/01/20 12/18/24 Iman Cuevas MD [address] [place] [address] PCP - General Internal Medicine 12/19/24 documented as of this encounter
--- OUTSIDE RECORDS SUMMARY | 2024-12-27 15:09 | XMS_ITS | Encounter Summary ---
Author Organization Healthcare Address [address] [place] [address] Care Team Providers Care Algebraist Name Role Phone Ankur Main MD Primary Care Provider [phone] Reason for Visit * Reason Comments Med Refill Encounter Details Date Type Department Care Team ([facility] st Contact Info) Description 11/06/2024 Refill [facility] [place] [address] [facility], [address] [place] [address] Donis Trujillo, MARKET RISK SPECIALIST [address] [place] [address] Chronic systolic (congestive) heart failure (CMS/HCC) Social History Tobacco Use Types Packs/Day [...] place to sleep or slept in a penitentiary (including now)? No 01/25/2024 PHQ-9 Answer Date [...] Description 03/12/2025 10:20 AM EDT Office Visit [facility] Medicine Specialties [address], [address] [place] [address] Bushra Graf PA [address] [place] [address] 03/20/2025 9:30 AM EDT Office Visit [facility] [address], 1[address] [place] [address] Alicia Jennings MD [address] [place] [address] 04/02/2025 2:00 PM EDT Office Visit [facility] Sleep Disorder Center [address], [address]th [place] [address] Kassandra Khan, MARKET RISK SPECIALIST [address] [place] [address] 04/18/2025 11:00 AM EDT Office Visit [facility] Medicine Specialties [address], [address] [place] [address] Juventino Costa MD [address] [place] [address] 05/04/2025 1:00 PM EST Appointment Medical Office Building Cardiac Diagnostic Testing Medical Office Building Echo Lab [address] [facility], [address] [place] [address] 05/04/2025 1:45 PM EST Office Visit [facility] [place] [address] [facility], [address] [place] [address] Ruslan Sanderson MD [address] [place] [address] documented as of this encounter Visit Diagnoses Diagnosis Chronic systolic (congestive) heart failure (CMS/HCC) documented in this encounter Additional Health Concerns [...] documented as of this encounter Care Teams Algebraist Relationship Specialty Start Date End Date Ankur Main MD [address] [place] [address] PCP - General 11/01/20 12/18/24 documented as of this encounter
--- OUTSIDE RECORDS SUMMARY | 2024-12-27 15:09 | XMS_ITS | Encounter Summary ---
Author Organization Healthcare Address [address] [place] [address] Care Team Providers Care Carpenters Supervisor Name Role Phone Ankur Main MD Primary Care Provider [phone] Iman Cuevas MD Primary Care Provider [phone] Reason for Visit * Reason Onset Date Comments Med Refill 02/19/2022 Encounter Details Date Type Department Care Team (Late st Contact Info) Description 02/19/2022 Refill [facility] Internal Medicine [address], [address] [place] [address] Ankur Main MD [address] [place] [address] Polyneuropathy associated with underlying disease (CMS/HCC) Social History Tobacco Use Types Packs/Day Years Used Date Smoking Tobacco: Former Cigarettes 1 19 0 06/21/2000 - 06/21/2019 Smokeless Tobacco: Current Comments:Vape Alcohol Use Standard Drinks/Week Comments No 0 (1 standard drink = 0.6 oz pur e alcohol) PHQ-2 Answer Date Recorded Patient Health Questionnaire-2 Score 0 10/23/2021 Comments Unknown Sex and Gender Information Value [...] Description 03/12/2025 10:20 AM EDT Office Visit [facility] Medicine Specialties [address] [place] [address] Bushra Graf PA [address] [place] [address] 03/20/2025 9:30 AM EDT Office Visit [facility] [address], [address] [place] [address] Alicia Jennings MD [address] [place] [address] 04/02/2025 2:00 PM EDT Office Visit [facility] Sleep Disorder Center [address], [address] [place] [phone] Kassandra Khan, [employer] [address] [place] [phone] 04/18/2025 11:00 AM EDT Office Visit [facility] Medicine Specialties [address], [address] [place] [address] Juventino Costa MD [address] [place] [address] 05/04/2025 1:00 PM EST Appointment Medical Office Building Cardiac Diagnostic Testing Medical Office Building Echo Lab [address] [facility], [address] [place] [address] 05/04/2025 1:45 PM EST Office Visit [facility] [place] [address], [address] [place] [address] Ruslan Sanderson MD [address] [place] [phone] documented as of this encounter Visit Diagnoses [...] has been complete d for the patient 12/31/2021 10:03 AM EDT documented as of this encounter Care Teams Carpenters Supervisor Relationship Specialty Start Date End Date Ankur Main MD [address] [address] PCP - General 11/01/20 12/18/24 Iman Cuevas MD [address] [place] [phone] PCP - General Internal Medicine 12/19/24 documented as of this encounter
--- OUTSIDE RECORDS SUMMARY | 2024-12-27 15:09 | XMS_ITS | Encounter Summary ---
Author Organization Healthcare Address [address] [place] [address] Care Team Providers Care Sports Editor Name Role Phone Ankur Main MD Primary Care Provider Reason for Visit * Reason Onset Date Comments Constipation 10/12/2024 Encounter Details Date Type Department Care Team (Late st Contact Info) Description 10/12/[address] [facility] Medicine Specialties [address] [place] [address] Vandana Dumont Constipation Social History Tobacco Use Types Packs/Day Years [...] place to sleep or slept in a [facility] (including now)? No 01/25/2024 PHQ-9 Answer Date [...] pleasure in doing things Not at all 10/19/2024 2:00 PM EDT Isi Cook Feeling down, depressed, or hopeless Not at all 10/19/2024 2:00 PM EDT Isi Hooks Patient Health Questionnaire-2 Score 0 10/19/2024 2:00 PM EDT Isi Hooks * Question Answer Date of Assessment Author Trouble falling or staying asleep, or sleeping too much Not at all 10/19/2024 2:00 PM EDT Isi Hooks Feeling tired or having little energy Not at all 10/19/2024 2:00 PM EDT Isi Hooks Poor appetite or overeating Not at all 10/19/2024 2: 00 PM EDT Isi Hooks Feeling bad about yourself - or that you are a failure or have let yourself or your family down Not at all 10/19/2024 2:00 PM EDT Isi Hooks Trouble concentrating on things, such as reading the newspaper or watching television Not at all 10/19/2024 2:00 PM EDT Isi Hooks Moving or speaking so slowly that other people could have noticed? Or the opposite - being so fidgety or restless that you have been moving around a lot more than usual. Not at all 10/19/2024 2:00 PM EDT Isi Hooks Thoughts that you would be better off or hurting yourself in some way Not at all 10/19/2024 2:00 PM EDT Isi Hooks Patient Health Questionnaire-9 Score 0 10/19/2024 2:00 PM EDT Isi Hooks * If you checked off any problems on this questionnaire so far, Question Answer Date of Assessment Author How difficult have these problems made it for you to do your work, take care of things at home, or get along with other people? Not difficult at all 10/19/2024 2:00 PM EDT Isi Hooks documented as of this encounter Miscellaneous Notes * Telephone Encounter - Citlaly Leonardo RN - 11/16/2024 1:08 PM EDT Reviewed pt's chart: - Pt seen for follow up appointment, as scheduled, on 10/16/2024 with Bushra Garf, PAC - See GI Clinic note for further information. * Telephone Encounter - Citlaly Leonardo RN - 10/13/2024 4:28 PM EDT Received a call back from pt and mother: - Pt states she has not had a bowel movement for 1 week, despite Linzess and Milk of Magnesium - Pt is nausea without vomiting - Pt denies any fevers - Pt states she has retirement history of constipation - Pt states she has a history of not having a bowel movement after 10 days - Pt states she is not eating much at this time, due to constipation - Pt completed colonoscopy as ordered - Discuss with pt recommendation to come to the ER for evaluation - Pt and mother discussed is there an option to increase Linzess medication - Reviewed with pt and mother that provider is out of the office and will return next week - Offered to move 11/15/2024 follow up appointment to 10/16/2024 at 140pm TH, log in to [employer] on 120pm to register - Reviewed with pt if pt has significant, worsening, or new, concerning symptoms, to please come tothe ER for evaluation - Pt states understanding. * Telephone Encounter - Vandana Dumont - 10/12/2024 11:22 AM EDT Patient called, she states she has been taking Linzess to help with constipation. She is still having problems and has taken milk of magnesia as well to try to have a bowel movement. She is having increased pain and her hernia is popping out. She is asking for a call back to discuss options. documented in this encounter Plan of Treatment Upcoming Encounters Date Type Department Care Team (Late st Contact Info) Description 03/12/2025 10:20 AM EDT Office Visit [facility] Medicine Specialties [address] [place] [address] Bushra Graf PA [address] [place] [address] 03/20/2025 9:30 AM EDT Office Visit [facility] [address] [place] [address] Alicia Jennings MD [address] [place] [address] 04/02/2025 2:00 PM EDT Office Visit [facility] Sleep Disorder Center [address] [place] [phone] Kassandra Khan, APOLLO [address] [place] [phone] 04/18/2025 11:00 AM EDT Office Visit [facility] [address] [place] [address] Juventino Costa MD [address] [place] [address] 05/04/2025 1:00 PM EST Appointment Medical Office Building Cardiac Diagnostic Testing Medical Office Building Echo Lab [address] [facility], [address] [place] [address] 05/04/2025 1:45 PM EST Office Visit [facility] [place] [address] [facility], [address] [place] [address] Ruslan Sanderson MD [address] [place] [address] documented as of this encounter [...] Noted Time PHQ-9 Depression Total Score: 0 10/12/19 10:59 AM EDT A fall risk assessment has been complete d for the patient 10/11/2024 11:00 AM EDT A Body Mass Index follow-up plan has been documented for the patient 10/11/2024 12:55 PM EDT documented as of this encounter Care Teams Sports Editor Relationship Specialty Start Date End Date Ankur Main MD [address] [facility] [address] [place] [address] PCP - General 11/01/20 12/18/24 documented as of this encounter
--- OUTSIDE RECORDS SUMMARY | 2024-12-27 15:10 | XMS_ITS | Clinical Summary ---
Author Organization Healthcare Address [address] [place] [address] Care Team Providers Care Hay Sorter Name Role Phone Iman Cuevas MD Primary Care Provider [phone] Allergies Active Allergy Reactions Criticality Noted Date Comments Wound Dressings Rash Low 09/10/2020 Rash/blisters Tetracycline Rash Low 10/05/2019 Medications aspirin 81 MG EC tablet Take by mouth in the morning. 04/04/20 20 Active levonorgestrel (Mirena, 52 MG,) 20 MCG/24HR IUD Take by mouth See administration instructions. Inserted on 09/04/2020 Lot Number: [id number] Expiration Date: Nov 2022 NDC: [id number] 09/05/19 21 Active magnesium oxide (Mag-Ox) 400 (241.3 Mg) MG tablet Take by mouth in the morning and before bedtime. 04/25/20 20 Active melatonin 3 MG tablet Take by mouth nightly. 04/25/20 20 Active cholecalciferol (Vitamin D-3) 25 MCG (1000 UT) tablet Take by mouth in the morning. Active alpha tocopherol (Vitamin E) 400 units capsule Take 1 capsule (400 Units) by mouth in the morning. Active cyanocobalamin (Vitamin B-12) 500 MCG tablet Take 1 tablet (500 mcg) by mouth in the morning. Active acetaminophen (Tylenol) 500 MG tablet Take 1 tablet (500 mg) by mouth every 6 hours as needed for mild pain. Active nystatin (Mycostatin) [id number] UNIT/GM powderIndication s:Healthcare maintenance Apply topically 1 (one) time each day. 60 g 11 11/01/19 22 Active lamoTRIgine (LaMICtal) 100 MG tablet Take 0.5 tablets (50 mg) by mouth in the morning and 0.5 tablets (50 mg) before bedtime. 06/04/20 22 Active sertraline (Zoloft) 100 MG tablet Take 1 tablet (100 mg) by mouth in the morning. 05/06/20 23 Active levETIRAcetam (Keppra) 500 MG tabletIndication s:Focal epilepsy ([facility]) Take 4 tablets (2,000 mg) by mouth 2 (two) times a day. 240 tablet 11 08/26/19 24 Active apixaban (Eliquis) 5 MG tabletIndication s:History of pulmonic valve replacement Take 1 tablet (5 mg) by mouth 2 (two) times a day. 180 tablet 3 10/14/19 24 Active albuterol (Ventolin HFA) 108 (90 Base) MCG/ACT inhalerIndicatio ns:Chronic bronchitis with COPD (chronic obstructive pulmonary disease) ([facility]),Modera te persistent asthma, unspecified whether complicated Inhale 2 puffs 4 (four) times a day. 18 g 11/10/19 24 Active albuterol (2.5 MG/3ML) 0.083% nebulizer solutionIndicati ons:Chronic bronchitis with COPD (chronic obstructive pulmonary disease) ([facility]),Modera te persistent asthma, unspecified whether complicated Take 3 mL (2.5 mg) by nebulization every 6 (six) hours if needed for shortness of breath. 75 mL 11/10/19 24 Active furosemide (Lasix) 40 MG tabletIndication s:Congestive heart failure, unspecified HF chronicity, unspecified heart failure type ([facility]) Take 2 tablets (80 mg) by mouth 2 (two) times a day. Patient is taking 80mg am and 80mg in pm 360 tablet 3 01/25/20 24 Active folic acid (Folvite) 1 MG tablet Take 1 tablet (1 mg) by mouth 1 (one) time each day. 90 tablet 3 01/25/20 24 Active empagliflozin (Jardiance) 10 MGIndications:Pr ediabetes Take 1 tablet (10 mg) by mouth 1 (one) time each day. 90 tablet 3 01/25/20 24 Active potassium chloride CR (Klor-Con M20) 20 MEQ ER tabletIndication s:Hypokalemia Take 1 tablet (20 mEq) by mouth 2 (two) times a day. DO NOT CRUSH OR CHEW. 180 tablet 3 01/25/20 24 Active levothyroxine (Synthroid, Levoxyl) 100 MCG tablet Take 1 tablet (100 mcg) by mouth 1 (one) time each day before breakfast. 90 tablet 3 01/25/20 24 Active fluticasone (Flonase) 50 MCG/ACT nasal sprayIndications :Allergic rhinitis, unspecified seasonality, unspecified trigger,Sleep apnea with use of continuous positive airway pressure (CPAP) Administer 1 spray into each nostril 1 (one) time each day. Shake gently. Before first use, prime pump. After use, clean tip and replace cap. Use at bedtime 16 g 12 01/25/20 24 Active QUEtiapine (SEROquel) 50 MG tablet Take 1 tablet (50 mg) by mouth in the morning. 04/24/20 24 Active gabapentin (Neurontin) 300 MG capsuleIndicatio ns:Polyneuropath y associated with underlying disease Take 1 capsule (300 mg) by mouth 3 (three) times a day. 90 capsule 5 07/11/19 25 Active triamcinolone (Kenalog) 0.025 % ointmentIndicati ons:Anxiety disorder, unspecified type Apply to hands 1-2 times daily as needed for dry skin. May use consistently up to two weeks and then as needed 454 g 1 08/01/19 25 Active hydrOXYzine pamoate (Vistaril) 25 MG capsuleIndicatio ns:Anxiety disorder, unspecified type Take 1 capsule (25 mg) by mouth 3 (three) times a day if needed for itching. 270 capsule 08/01/19 25 Active tiotropium-oloda terol (Stiolto Respimat) 2.5-2.5 MCG/ACT aerosol solution inhalerIndicatio ns:Chronic obstructive pulmonary disease, unspecified COPD type (CMS/HCC) Inhale 2 Inhalations daily. 4 g 11 10/12/19 25 Active lubiprostone (Amitiza) 24 MCG capsuleIndicatio ns:Irritable bowel syndrome with constipation Take 1 capsule by mouth 2 times a day with meals. Take with meals 60 capsule 11 10/21/19 25 026 Active metoprolol tartrate (Lopressor) 25 MG tabletIndication s:Chronic systolic (congestive) heart failure (CMS/HCC) TAKE 1 TABLET 2 TIMES EACH DAY 180 tablet 3 11/07/19 25 Active montelukast (Singulair) 10 MG tabletIndication s:Chronic bronchitis with COPD (chronic obstructive pulmonary disease) (CMS/HCC),Modera te persistent asthma, unspecified whether complicated Take 1 tablet by mouth nightly. Patient needs to be seen by September for any additional refills. 90 tablet 3 11/07/19 25 026 Active Active Problems Problem Noted Date Diagnosed Date Obesity, Class II, BMI 35-39.9 09/21/2024 Preoperative testing 07/13/2024 Shortness of breath on exertion 05/10/2024 Dyspepsia 05/10/2024 Heart disease 04/25/2024 Obesity, Class III, BMI 40-49.9 (morbid obesity) 04/25/2024 Diabetes 1.5, managed as type 2 04/25/2024 Pleural effusion 01/25/2024 Vaginal discharge 01/25/2024 Burn of mouth and pharynx, initial encounter Contact with hot food 12/10/2023 Pain in throat 12/10/2023 Moderate persistent asthma, uncomplicated 2023 Mixed obsessional thoughts and acts 10/13/2023 Allergic rhinitis, unspecified 06/08/2023 Dependence on other enabling machines and device s 06/08/2023 Nausea 06/08/2023 Prediabetes 06/08/2023 Mammographic calcification f ound on diagnostic imaging of breast 05/06/2023 Other signs and symptoms in breast 05/06/2023 Cardiomegaly 04/09/2023 Nonrheumatic tricuspid (valve) insufficiency Presence of prosthetic heart valve 04/09/2023 Unspecified abdominal hernia without obstruction or gangrene 03/09/2023 Incisional hernia, without obstruction or gangre ne 12/31/2021 Chronic systolic (congestive) heart failure 09/20 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 11/22/2020 Anxiety 11/22/2020 Mastalgia 10/25/2020 Hemorrhoid 08/30/2020 Peripheral neuropathy 08/23/2020 Chronic bronchitis with COPD (chronic obstructive pulmonary disease) 08/22/2020 Dermatitis 07/26/2020 Aammh-1-aakvhliyscjdedpw deficiency 06/28/2020 Depression 06/28/2020 Lung nodule 05/29/2020 Exertional asthma 05/28/2020 History of seizure 05/28/2020 History of pulmonic valve replacement 04/25/2020 S/P TVR (tricuspid valve replacement) 04/25/2020 Anemia 04/08/2020 Seizure disorder 04/05/2020 Sleep apnea 04/05/2020 History of deep vein thrombosis 04/05/2020 Chronic obstructive lung disease 04/05/2020 Chronic hepatitis C 04/05/2020 Bacterial endocarditis 01/03/2020 Chronic respiratory failure with hypoxia, on home O2 therapy 01/03/2020 Endocarditis of tricuspid valve 01/03/2020 GERD (gastroesophageal reflux disease) 0 Hypothyroid 01/03/2020 Class 3 severe obesity in adult 01/05/2019 Pneumonia 07/18/2018 Constipation due to opioid therapy 06/03/2018 Abdominal pain 06/03/2018 Congestive heart failure 06/01/2018 Chronic pneumothorax 05/12/2018 Opioid use disorder, severe, dependence 03/29/20 18 Septic pulmonary embolism 03/18/2018 Hypokalemia 12/23/2017 Resolved Problems Problem Noted Date Diagnosed Date Resolved Date Tobacco use disorder 01/11/2018 022 Encounters Date Type Department Care Team Description 11/06/2024 Refill [facility] [address] [place] [address] Elizabeth Rolle, completions manager bronchitis with COPD (chronic obstructive pulmonary disease) (CMS/HCC); Moderate persistent asthma, unspecified whether complicated 11/06/2024 Refill [facility] [address], [address] [place] [address] Donis Trujillo APRN Chronic systolic (congestive) heart failure (CMS/HCC) 10/19/2024 1:45 PM EDT Office Visit [facility] General & Weight Loss Surgery [address] [place] [address] Astrid Alvarez APRN Obesity, Class II, BMI 35-39.9 (Primary Dx); Sleep apnea, unspecified type; Shortness of breath on exertion; Heart disease; Diabetes 1.5, managed as type 2 ([facility]); Chronic obstructive pulmonary disease, unspecified COPD type ([facility]); Gastroesophageal reflux disease without esophagitis 10/19/2024 Travel 10/19/[address] [phone] Denise Andre reading coach Medication (PA request received for Motegrity 2 mg tablets/[facility]: [id number]) 10/17/[address] [phone] Denise Andre RN Prior-authorization/in surance Verification (PA request received for Prucalopride Succinate 2mg tablets [facility]: [id number]) 10/16/2024 1:40 PM EDT Office Visit [address] [address] Bushra Graf PA Chronic constipation (Primary Dx); LLQ pain; Hemorrhage of rectum and anus; Obesity, Class II, BMI 35-39.9 10/16/2024 Travel 10/12/[address] [phone] Vandana Dumont Constipation 10/11/2024 11:00 AM EDT Office Visit [address] [address] Juventino Costa MD Morbid obesity ([facility]) (Primary Dx); Exertional asthma; Lung nodule; Encounter for pre-operative respiratory clearance; Chronic obstructive pulmonary disease, unspecified COPD type ([facility]); Medication management 10/11/2024 Travel from Last 3 Months Immunizations Immunization Administration Dates Next Due Influenza, injectable, quadr ivalent, preservative free 03/09/2023,06/09/2022,04/22/2021,05/28 Influenza, seasonal, injectable 04/20/2019,03/09 Influenza, seasonal, injecta ble, preservative free 04/21/2024 Pneumococcal 20-giovanna Conj Vaccine 08/01/2024 Pneumococcal Polysaccharide PPV23 01/26/2019 Tdap 06/09/2022 Family History Medical History Relation Name Comments Conversions - Other Father endocard itis Breast cancer Father's Sister Diabetes Maternal Grandfather Danyelle Brody Colon cancer Maternal Grandmother Shelly Grijalva Diabetes Maternal Grandmother Shelly Grijalva Conversions - Other Mother Heidi Brody Health y adult Diabetes Mother Heidi Brody Hypertension Mother Heidi Brody Breast cancer Other MGA Relation Name Status Comments Father Father's Sister Maternal Grandfather Danyelle Brody Alive Maternal Grandmother Shelly Grijalva Alive Mother Heidi Brody Other MGA Social History Tobacco Use Types Packs/Day Years Used Date Smoking Tobacco: Former Cigarettes 1 19 0 06/21/2000 - 06/21/2019 Passive Smoke Exposure: Current Smokeless Tobacco: Never Tobacco Cessation:Counseling Given: Yes Alcohol Use Standard Drinks/Week Comments No 0 [...] place to sleep or slept in a alf (including now)? No 01/25/2024 PHQ-9 Answer Date [...] Orientation Straight 12/31/2020 2: 44 PM EDT Last Filed Vital Signs Vital Sign Reading Time Taken Comments Blood Pressure 108/73 10/19/2024 1:56 PM EDT Pulse 58 10/19/2024 1:56 PM EDT Temperature 36.6 C (97.9 F) 10/11/2024 10:57 AM EDT Respiratory Rate 16 10/19/2024 1:56 PM EDT Oxygen Saturation 93% 10/19/2024 1:56 PM EDT Inhaled Oxygen Concentration - - Weight 101 kg (222 lb 3.2 oz) 10/19/2024 1:56 PM EDT Height 160 cm (5' 3 ) 10/19/2024 1:56 PM EDT Body Mass Index 39.36 10/19/2024 1:56 PM EDT Plan of Treatment Upcoming Encounters Date Type Department Care Team (Late st Contact Info) Description 03/12/2025 10:20 AM EDT Office Visit [facility] Medicine Specialties [address] [place] [address] Bushra Graf PA [address] [place] [address] 03/20/2025 9:30 AM EDT [facility] [address] [place] [address] Alicia Jennings MD [address] [place] [phone] 04/02/2025 2:00 PM EDT Office Visit [facility] [address] [place] [phone] Kassandra Khan APRN [address] [place] [address] 04/18/2025 11:00 AM EDT Office Visit [facility] Medicine Specialties [address] [place] [address] Juventino Costa MD [address] [place] [phone] 05/04/2025 1:00 PM EST Appointment Medical Office Building Cardiac Diagnostic Testing Medical Office Building Echo Lab [address], [address] [place] [address] 05/04/2025 1:45 PM EST Office Visit [facility] [address], [address] [place] [address] Ruslan Sanderson MD [address] [place] [address] Health Maintenance Due Date Last Done Comments [facility]icare Annual Wellness (AWV) 1985 [id number] Vaccine (#1) 02/02/1988 Diabetes: Dental Exam 1993 HPV Vaccines (1 - 3-dose series) 1998 [facility]-Hepatitis A Vaccines (1 of 2 - Risk 2-dose series) 2002 [facility]-Hepatitis B Vaccines (1 of 3 - 19+ 3-dose series) 2002 [facility]-Pap Smear 09/05/2023 09/04/2020 [facility]- SDOH Screenings 07/27/2024 [facility]-Adult SDOH Screenings 07/27/2024 01/25/2024 [facility]-/Child/Adol SDOH Screenings 07/27/2024 01/25/2024 [facility]-Diabetes: Hemoglobin A1C 11/07/2024 05/10/2024, 01/25/2024, 06/08/2023, Additional history exists [facility]-Influenza Vaccine (#1) 02/19/202504/21, 03/09/2023, 06/09/2022, Additional history exists [facility]-Cervical Cancer Screening 09/04/2025 [facility]-HPV/Cotest 09/04/2025 09/04/2020 [facility]-Depression Screening 10/19/2025 025, 10/19/2024, 10/11/2024, Additional history exists [facility]-DTaP,Tdap,and Td Vaccines (2 - Td or Tdap) 06/09/2032 06/09/2022 [facility]-Zoster Vaccines (1 of 2) 2033 [facility]-HIV Screening Completed 04/28/2022, , 12/02/2019, Additional history exists [facility]-Pneumococcal Vaccine: Pediatrics (0 to 5 Years) and At-Risk Patients (6 to 49 Years) Completed 08/01/2024, 01/26/2019 [facility]-Obesity Intervention Completed 025, 10/16/2024, 10/11/2024, Additional history exists [facility]-HIB Vaccines Aged Out No longer e ligible based on patient's age to complete this topic [facility]-IPV Vaccines Aged Out No longer e ligible based on patient's age to complete this topic [facility]-Rotavirus Vaccines Aged Out No lo nger eligible based on patient's age to complete this topic [facility]-Varicella Vaccines Discontinued Procedures Procedure Name Priority Date/Time Associated Diagnosis Comments HEMOGLOBIN A1C Routine 05/10/2024 10:37 AM EST Morbid obesity with BMI of 40.0-44.9, adult (CMS/HCC) Sleep apnea, unspecified type Chronic obstructive pulmonary disease, unspecified COPD type (CMS/HCC) Congestive heart failure, unspecified HF chronicity, unspecified heart failure type (CMS/HCC) Shortness of breath on exertion Dyspepsia HIV 1/2 ANTIBODY/ANTIGEN SCREEN WITH REFLEX TO HIV I/II DIFFERENTIATION STAT 04/28/2022 1:47 PM EST CYTO DATA CONVERSION Routine 09/04/2020 12:00 AM EDT from Last 3 Months or Most Recently Relevant to Health Maintenance Results * Hemoglobin A1c (05/10/2024 10:37 AM EST) Hemoglobin A1c 5.3 <5.7 % 05/10/2024 1:14 PM EST [facility] Blood Venous blood specimen / Unknown Venipuncture / Unknown 05/10/2024 10:37 AM EST 05/10/2024 10:38 AM EST Narrative [facility] - 05/10/2024 1:14 PM EST HA1C Interpretive Data: Diagnosis of Diabetes: Diabetic > or = 6.5% Pre-diabetic 5.7 to 6.4% Non-diabetic < or = 5.6% Glycemic Targets for Type I and Type II Diabetics: Non- Adults <7.0% Adults <6.0% Children and Adolescents <7.5% Source: [place] [employer]. Standards of medical care in diabetes,2017. Diabetes Care.2017:40 (suppl 1):S1-S135. HbA1c assay performed by an ion-exchange chromatography method that is certified traceable to the DCCT. Astrid Alvarez APRN LAB BLOOD ORDERABLES Kaley l Result Performing Organization Address City/[facility]/ZIP Co de Phone Number [address] [address] * HIV 1 & 2 Antibody/Antigen Screen (04/28/2022 1:47 PM EST) Pathologist [facility] HIV 1 & 2 Antibody/Anti gen Screen Nonreactive Nonreactive 04/28/2022 4:48 PM EST [facility] Blood Venous blood specimen / Unknown Venipuncture / Unknown 04/28/2022 1:47 PM EST 04/28/2022 2:22 PM EST Carlos Rodriguez MD LAB BLOOD ORDERABLES Final Result Performing Organization Address City/[facility] [place] [address] * Cytology (09/04/2020 12:00 AM EDT) 09/04/2020 09/05/2020 8:5 1 AM EDT Narrative [facility] - 09/12/2020 12:05 PM EDT [facility] MR #: [id number] [facility] [address] [place] [address] 1985 (Age: 35) FW Collect Date: 09/04/2020 00:00 Receipt Date: 09/05/2020 08:51 Page 1 DEPARTMENT OF PATHOLOGY AND LABORATORY MEDICINE CYTOPATHOLOGY REPORT Email: [email or web address] ATTENDING MD/Practitioner: JOAN ROWE Service: CA0 Location: [facility] Reported: 09/12/2020 12:05 Collected: 09/04/2020 00:00 INTERPRETATION A. THIN PREP (CERVICAL/VAGINAL): ATYPICAL SQUAMOUS CELLS - UNDETERMINED SIGNIFICANCE(ASCUS) REACTIVE CELLULAR CHANGES. ORGANISMS PRESENT CONSISTENT WITH ACTINOMYCES SPECIES. SATISFACTORY FOR EVALUATION; ENDOCERVICAL/ TRANSFORMATION ZONE COMPONENT PRESENT. Slide scanned and imaged by [employer] ThinPrep Imaging System with manual review of all selected brandon. Electronically Signed Out ANGEL Byers (ASCP) Aixa Manning M.D. Cervical cytology is a screening test primarily for squamous cancers and precursors and has associated false negative and positive results. New technologies such as liquid based sampling may decrease but will not eliminate all false negative results. Regular screening and follow-up of unexplained clinical signs and symptoms are recommended to minimize false negative results. Please see the ASCCP website (www.asccp.org) for followup recommendations. If HPV testing was requested, correlation with the results is suggested (please call Microbiology at [phone] for results). CLINICAL INFORMATION: Menstrual History: Irregular Date of Last Menstrual Period: {Not Provided} Contraceptive History: Intrauterine device Other Clinical Conditions: Suspected or previous abnormality:: previous abnormal pap Abnormal pap results elsewhere HPV testing requested. SPECIMEN DESCRIPTION: A: THIN PREP (CERVICAL/VAGINAL) THIN PREP PROCESS CELLULAR ENHANCEMENT ICD: R87.610 Atyp squam cell of undet signfc cyto smr crvx (ASC-US) N72 Inflammatory disease of cervix uteri F: A; DX IMAGE 48921, 52319 C\V (PO) SNOMED CODES: A; [id number] E1070 [id number] M- 25182 [id number] [id number] M-[id number] In cases where a pathologist has signed out the report, the service has been rendered in part by a resident. The signing pathologist has performed and is responsible for the reported pathologic evaluation. Christie Chau ENVIRONMENTAL PROTECTION GEOLOGIST LAB PATHOLOGY ORDERABLES Fi nal Result [facility] from Last 3 Months or Most Recently Relevant to Health Maintenance Additional Health Concerns Infection Onset Date Last Indicated MRSA Comment:respiratory culture Collection Date: 10-Oct-2019 08:43:00 Expanded Results: 2+ MIXED UPPER RESPIRATORY OTTO 3+ STAPHYLOCOCCUS AUREUS (MRSA) NOTE: Patient needs MRSA Protocol 10/10/2019 11/12/2020 ESBL Comment:Positive MDRT culture for ESBL Klebsiella pneumoniae MDRT collected 11/20/19 positive for ESBL Citrobacter Freundii. 10/23/2019 11/12/2020 [place] [address] [facility] MEDIC[facility] [place] Advance Directives Documents on File Type Date Recorded Patient Finance Lead Expl anation Advance Directives and Living Will 12/31/2020 Care Teams Hay Sorter Relationship Specialty Start Date End Date Iman Cuevas MD [address] [address] PCP - General Internal Medicine 12/19/24
--- NOTE | 2024-12-27 15:30 | US_ITS ---
PROCEDURE: US TRANSVAGINAL CLINICAL INDICATION: AUB, Heavy Bleeding, Passing of BldClots- COMPARISON: CT CT ABDOMEN PELVIS WO/W CON from 01/24/2024 US US TRANSVAGINAL from 10/18/2024 FINDINGS: Transvaginal and trans abdominal sonographic images of the pelvis were obtained. UTERUS: 8.9cm x 5.2cmx 4.0cm anteverted with a combined endometrial thickness of 6.4mm. A nabothian cyst is seen in the cervix. LEFT OVARY: 3.5cmx2.4cmx1.4cm with a volume of 6.1ml. There is a small follicle left ovary measuring 1.2 cm x 0.8 cm x 1.1 cm RIGHT OVARY: 6.5cmx 6.9 cmx5.4cm with a volume of 126.7ml. There is a cyst in the right ovary measuring 5.6 cm x 4.1 cm x 6.1 cm. Both ovaries are seen. The left ovary is seen better transabdominally Doppler flow to both ovaries are seen. There is a small amount of fluid in the cul-de-sac. IMPRESSION: 1. Anteverted uterus normal in shape and size. The endometrium measures 6.4 mm. 2. The right ovary contains a simple appearing cyst measuring 6.1 cm in size. The left ovary appears normal in contains a small follicle. Suggest follow-up ultrasound of the right ovary in 8-12 weeks. 3. There is small amount of fluid in the cul-de-sac. Dictated by: Thiago Sharp MD 12/27/2024 16:38 Thiago Sharp MD in OV 12/27/2024 16:38
== END 2024-12-27 23:59 | disposition home or self-care (01) ==
LOC: RAD 15:08
PROVIDERS: PCP Family Medicine; Visit Provider Obstetrics & Gynecology
DX: N83.291 Other ovarian cyst, right side (principal); N83.02 Follicular cyst of left ovary; R93.89 Abnormal findings on diagnostic imaging of other specified body structures; E66.01 Morbid (severe) obesity due to excess calories
CPT/HCPCS: 76830

== ENCOUNTER 2025-01-01 15:08 | Outpatient (CLI) | payer MEDICARE, MEDICAID, SELFPAY ==
--- OUTSIDE RECORDS SUMMARY | 2025-01-01 15:10 | XMS_ITS | Encounter Summary ---
Author Organization Healthcare Address [address] [place] [address] Care Team Providers Care Greens Tier Name Role Phone Ankur Main MD Primary Care Provider [phone] Iman Cuevas MD Primary Care Provider [phone] Reason for Visit * Reason Onset Date Comments Med Refill 01/24/2021 Encounter Details Date Type Department Care Team (Late st Contact Info) Description 01/24/2021 Refill [facility] Internal Medicine [address], [address]rd [place] [address] Ankur Main MD [address] [place] [address] Polyneuropathy associated with underlying disease [...] Description 03/12/2025 10:20 AM EDT Office Visit [facility] Medicine Specialties [address], 2nd [place] [address] Bushra Graf PA [address] [place] [address] 03/20/2025 9:30 AM EDT Office Visit [facility] [address], 1st [place] [address] Alicia Jennings MD [address] [facility] [address] [place] [address] 04/02/2025 2:00 PM EDT Office Visit [facility] Sleep Disorder Center [address], 4th [place] [address] Kassandra Khan, APOLLO [address] [place] [address] 04/18/2025 11:00 AM EDT Office Visit [facility] Medicine Specialties [address], 2nd [place] [address] Juventino Costa MD [address] [place] [address] 05/04/2025 1:00 PM EST Appointment Medical Office Building Cardiac Diagnostic Testing Medical Office Building Echo Lab [address], [address] [place] [address] 05/04/2025 1:45 PM EST Office Visit [facility] [place] [address], [address] [place] [address] Ruslan Sanderson MD [address] [place] [address] documented as of this encounter [...] documented as of this encounter Care Teams Greens Tier Relationship Specialty Start Date End Date Ankur Main MD [address] [place] [address] PCP - General 11/01/20 12/18/24 Iman Cuevas MD [address] [place] [address] PCP - General Internal Medicine 12/19/24 documented as of this encounter
--- OUTSIDE RECORDS SUMMARY | 2025-01-01 15:10 | XMS_ITS | Encounter Summary ---
Author Organization Healthcare Address [address] [place] [address] Care Team Providers Care Video Production Specialist Name Role Phone Ankur Main MD Primary Care Provider [phone] Iman Cuevas MD Primary Care Provider [phone] Reason for Visit * Reason Onset Date Comments Med Refill 02/28/2021 Encounter Details Date Type Department Care Team (Late st Contact Info) Description 02/28/2021 Refill [facility] Internal Medicine [address], 3rd [place] [address] Roxana Abdul MD [address] [place] [address] Polyneuropathy associated with underlying disease [...] Description 03/12/2025 10:20 AM EDT Office Visit [facility] Medicine Specialties [address], 2nd [place] [address] Bushra Graf PA [address] [place] [address] 03/20/2025 9:30 AM EDT Office Visit [facility] [address], 1st [place] [address] Alicia Jennings MD [address] [place] [address] 04/02/2025 2:00 PM EDT Office Visit [facility] Sleep Disorder Center [address], 4th [place] [address] Kassandra Khan APRN [address] [place] [address] 04/18/2025 11:00 AM EDT Office Visit [facility] Medicine Specialties [address], 2nd [place] [address] Juventino Costa MD [address] [place] [address] 05/04/2025 1:00 PM EST Appointment Medical Office Building Cardiac Diagnostic Testing Medical Office Building Echo Lab [address], [address] [place] [address] 05/04/2025 1:45 PM EST Office Visit [facility] [place] [address], [address] [place] [address] Ruslan Sanderson MD [address] [place] [address] documented as of this encounter [...] documented as of this encounter Care Teams Video Production Specialist Relationship Specialty Start Date End Date Ankur Main MD [address] [place] [address] PCP - General 11/01/20 12/18/24 Iman Cuevas MD [address] [place] [address] PCP - General Internal Medicine 12/19/24 documented as of this encounter
--- OUTSIDE RECORDS SUMMARY | 2025-01-01 15:10 | XMS_ITS | Encounter Summary ---
Author Organization Healthcare Address [address] [place] [address] Care Team Providers Care Conche Operator Name Role Phone Ankur Main MD Primary Care Provider [phone] Reason for Visit * Reason Comments Med Refill Encounter Details Date Type Department Care Team ([facility] st Contact Info) Description 11/06/2024 Refill [facility] [place] [address] [facility], [address] [place] [address] Donis Trujillo, GLOVE FINISHER [address] [place] [address] Chronic systolic (congestive) heart failure [...] place to sleep or slept in a senior living (including now)? No 01/25/2024 PHQ-9 Answer Date [...] Description 03/12/2025 10:20 AM EDT Office Visit [facility] Medicine Specialties [address], 2nd [place] [address] Bushra Graf PA [address] [place] [address] 03/20/2025 9:30 AM EDT Office Visit [facility] [address], 1st [place] [address] Alicia Jennings MD [address] [place] [address] 04/02/2025 2:00 PM EDT Office Visit [facility] Sleep Disorder Center [address], 4th [place] [address] Kassandra Khan, GLOVE FINISHER [address] [place] [address] 04/18/2025 11:00 AM EDT Office Visit [facility] Medicine Specialties [address], 2nd [place] [address] Juventino Costa MD [address] [place] [address] 05/04/2025 1:00 PM EST Appointment Medical Office Building Cardiac Diagnostic Testing Medical Office Building Echo Lab [address] [facility], [address] [place] [address] 05/04/2025 1:45 PM EST Office Visit [facility] [place] [address] [facility], [address] [place] [address] Ruslan Sanderson MD [address] [place] [address] documented as of this encounter [...] documented as of this encounter Care Teams Conche Operator Relationship Specialty Start Date End Date Ankur Main MD [address] [place] [address] PCP - General 11/01/20 12/18/24 documented as of this encounter
--- OUTSIDE RECORDS SUMMARY | 2025-01-01 15:10 | XMS_ITS | Encounter Summary ---
Author Organization Healthcare Address [address] [place] [address] Care Team Providers Care Gasoline Tester Name Role Phone Ankur Main MD Primary Care Provider [phone] Iman Cuevas MD Primary Care Provider [phone] Encounter Details Date Type Department Care Team (Late st Contact Info) Description 01/24/2024 Orders Only External Location [address] [place] [address] Skip Tineo MD Social History Tobacco Use [...] place to sleep or slept in a mcc (including now)? No 01/25/2024 Safety and Environment [...] Description 03/12/2025 10:20 AM EDT Office Visit [facility] Medicine Specialties [address], 2nd [place] [address] Bushra Graf PA [address] [facility] [address] [place] [address] 03/20/2025 9:30 AM EDT Office Visit [facility] [address], 1st [place] [address] Alicia Jennings MD [address] [facility] [address] [place] [address] 04/02/2025 2:00 PM EDT Office Visit [facility] Sleep Disorder Center [address], 4th [place] [address] Kassandra Khan, SHALE PLANER OPERATOR [address] [place] [address] 04/18/2025 11:00 AM EDT Office Visit [facility] Medicine Specialties [address], 2nd [place] [address] Juventino Costa MD [address] [place] [address] 05/04/2025 1:00 PM EST Appointment Medical Office Building Cardiac Diagnostic Testing Medical Office Building Echo Lab [address] [facility], [address] [place] [address] 05/04/2025 1:45 PM EST Office Visit [facility] [place] [address] [facility], [address] [place] [address] Ruslan Sanderson MD [address] [place] [address] documented as of this encounter [...] documented as of this encounter Care Teams Gasoline Tester Relationship Specialty Start Date End Date Ankur Main MD [address] [place] [address] PCP - General 11/01/20 12/18/24 Iman Cuevas MD [address] [place] [address] PCP - General Internal Medicine 12/19/24 documented as of this encounter
--- OUTSIDE RECORDS SUMMARY | 2025-01-01 15:10 | XMS_ITS | Encounter Summary ---
Author Organization Healthcare Address [address] [place] [address] Care Team Providers Care Technical Support Director Name Role Phone Ankur Main MD Primary Care Provider [phone] Reason for Visit * Reason Onset Date Comments Constipation 10/12/2024 Encounter Details Date Type Department Care Team (Late st Contact Info) Description 10/12/2024 Telephone [facility] Medicine Specialties [address], 2nd [place] [address] Vandana Dumont Constipation Social History [...] place to sleep or slept in a intermediate (including now)? No 01/25/2024 PHQ-9 Answer Date [...] appointment, as scheduled, on 10/16/2024 with Bushra Graf, PAC - See [facility] Clinic note for [...] any fevers - Pt states she has skilled nursing history of constipation - Pt states she [...] 10/16/2024 at 140pm TH, log in to Tripping on 120pm to register - Reviewed with [...] 10:20 AM EDT Office Visit [facility] Medicine Specialties [address], 2nd [place] [address] Bushra Graf PA [address] [place] [address] 03/20/2025 9:30 AM EDT Office Visit [facility] [address], 1st [place] [address] Alicia Jennings MD [address] [place] [address] 04/02/2025 2:00 PM EDT Office Visit [facility] Sleep Disorder Center [address], 4th [place] [address] Kassandra Khan, APOLLO [address] [place] [address] 04/18/2025 11:00 AM EDT Office Visit [facility] [address], 2nd [place] [address] Juventino Costa MD [address] [place] [address] 05/04/2025 1:00 PM EST Appointment Medical Office Building Cardiac Diagnostic Testing Medical Office Building Echo Lab [address] [facility], [address] [place] [address] 05/04/2025 1:45 PM EST Office Visit [facility] [place] [address] [facility] [address] [facility], [address] [place] [address] Ruslan Sanderson MD [address] [place] [address] documented as of this encounter [...] documented as of this encounter Care Teams Technical Support Director Relationship Specialty Start Date End Date Ankur Main MD [address] [facility] [address] [place] [address] PCP - General 11/01/20 12/18/24 documented as of this encounter
--- OUTSIDE RECORDS SUMMARY | 2025-01-01 15:10 | XMS_ITS | Encounter Summary ---
Author Organization Healthcare Address [address] [place] [address] Care Team Providers Care Rental Clerk Name Role Phone Ankur Main MD Primary Care Provider [phone] Iman Cuevas MD Primary Care Provider [phone] Reason for Visit * Reason Onset Date Comments Med Refill 06/30/2021 Encounter Details Date Type Department Care Team (Late st Contact Info) Description 06/30/2021 Refill [facility] Medicine Specialties [address], 2nd [place] [address] Juventino Costa MD [address] [place] [address] Moderate persistent asthma, unspecified whether [...] Description 03/12/2025 10:20 AM EDT Office Visit [facility] Medicine Specialties [address], 2nd [place] [address] Bushra Graf PA [address] [place] [address] 03/20/2025 9:30 AM EDT [facility] [address], 1st [place] [address] Alicia Jennings MD [address] [place] [address] 04/02/2025 2:00 PM EDT Office Visit [facility] Sleep Disorder Center [address], 4th [place] [address] Kassandra Khan APRN [address] [place] [address] 04/18/2025 11:00 AM EDT Office Visit [facility] Medicine Specialties [address], 2nd [place] [address] Juventino Costa MD [address] [place] [address] 05/04/2025 1:00 PM EST Appointment Medical Office Building Cardiac Diagnostic Testing Medical Office Building Echo Lab [address] [facility], [address] [place] [address] 05/04/2025 1:45 PM EST Office Visit [facility] [place] [address] [facility], [address] [place] [address] Ruslan Sanderson MD [address] [place] [address] documented as of this encounter [...] documented as of this encounter Care Teams Rental Clerk Relationship Specialty Start Date End Date Ankur Main MD [address] [place] [address] PCP - General 11/01/20 12/18/24 Iman Cuevas MD [address] [place] [address] PCP - General Internal Medicine 12/19/24 documented as of this encounter
--- OUTSIDE RECORDS SUMMARY | 2025-01-01 15:10 | XMS_ITS | Encounter Summary ---
Author Organization Healthcare Address [address] [place] [address] Care Team Providers Care Experimental Physicist Name Role Phone Ankur Main MD Primary Care Provider [phone] Iman Cuevas MD Primary Care Provider [phone] Reason for Visit * Reason Onset Date Comments Med Refill 06/29/2021 Encounter Details Date Type Department Care Team (Late st Contact Info) Description 06/29/2021 Refill [facility] Medicine Specialties [address], 2nd [place] [address] Juventino Costa MD [address] [place] [address] Moderate persistent asthma, unspecified whether [...] Description 03/12/2025 10:20 AM EDT Office Visit [facility] Medicine Specialties [address], 2nd [place] [address] Bushra Graf PA [address] [facility] [address] [place] [address] 03/20/2025 9:30 AM EDT [facility] [address], 1st [place] [address] Alicia Jennings MD [address] [place] [address] 04/02/2025 2:00 PM EDT Office Visit [facility] Sleep Disorder Center [address], 4th [place] [address] Kassandra Khan, APOLLO [address] [place] [address] 04/18/2025 11:00 AM EDT Office Visit [facility] Medicine [facility] [address], 2nd [place] [address] Juventino Costa MD [address] [place] [address] 05/04/2025 1:00 PM EST Appointment Medical Office Building Cardiac Diagnostic Testing Medical Office Building Echo Lab [address] [facility], [address] [place] [address] 05/04/2025 1:45 PM EST Office Visit [facility] [place] [address] [facility], [address] [place] [address] Ruslan Sanderson MD [address] [place] [address] documented as of this encounter [...] documented as of this encounter Care Teams Experimental Physicist Relationship Specialty Start Date End Date Ankur Main MD [address] [place] [address] PCP - General 11/01/20 12/18/24 Iman Cuevas MD [address] [place] [address] PCP - General Internal Medicine 12/19/24 documented as of this encounter
--- OUTSIDE RECORDS SUMMARY | 2025-01-01 15:10 | XMS_ITS | Encounter Summary ---
Author Organization Healthcare Address [address] [place] [address] Care Team Providers Care Firer Marine Name Role Phone Ankur Main MD Primary Care Provider [phone] Iman Cuevas MD Primary Care Provider [phone] Reason for Visit * Reason Onset Date Comments Med Refill 06/19/2021 Encounter Details Date Type Department Care Team (Late st Contact Info) Description 06/19/2021 Refill [facility] Internal Medicine [address], 3rd [place] [address] Ankur Main MD [address] [place] [address] Social History Tobacco Use Types [...] Description 03/12/2025 10:20 AM EDT Office Visit [facility] Medicine Specialties [address], 2nd [place] [address] Bushra Graf PA [address] [place] [address] 03/20/2025 9:30 AM EDT Office Visit [facility] [address], 1st [place] [address] Alicia Jennings MD [address] [place] [address] 04/02/2025 2:00 PM EDT Office Visit [facility] Sleep Disorder Center [address], 4th [place] [address] Kassandra Khan, APOLLO [address] [place] [address] 04/18/2025 11:00 AM EDT Office Visit [facility] Medicine Specialties [address], 2nd [place] [address] Juventino Costa MD [address] [place] [address] 05/04/2025 1:00 PM EST Appointment Medical Office Building Cardiac Diagnostic Testing Medical Office Building Echo Lab [address] [facility] [facility], [address] [place] [address] 05/04/2025 1:45 PM EST Office Visit [facility] [place] [address] [facility] [facility], [address] [place] [address] Ruslan Sanderson MD [address] [place] [address] documented as of this encounter [...] documented as of this encounter Care Teams Firer Marine Relationship Specialty Start Date End Date Ankur Main MD [address] [place] [address] PCP - General 11/01/20 12/18/24 Iman Cuevas MD [address] [place] [address] PCP - General Internal Medicine 12/19/24 documented as of this encounter
--- OUTSIDE RECORDS SUMMARY | 2025-01-01 15:11 | XMS_ITS | Encounter Summary ---
Author Organization Healthcare Address [address] [place] [address] Care Team Providers Care Course Instructor Name Role Phone Ankur Main MD Primary Care Provider [phone] Reason for Visit * Reason Onset Date Comments Med Refill 11/06/2024 Encounter Details Date Type Department Care Team (Late st Contact Info) Description 11/06/2024 Refill [facility] Medicine Specialties [address], [address]nd [place] [address] Elizabeth Rolle RN CH-VASCULAR & [...] Description 03/12/2025 10:20 AM EDT Office Visit [facility] Medicine Specialties [address], [address] [place] [address] Bushra Graf PA [address] [place] [address] 03/20/2025 9:30 AM EDT Office Visit [facility] [address], 1[address] [place] [address] Alicia Jennings MD [address] [place] [address] 04/02/2025 2:00 PM EDT Office Visit [facility] Sleep Disorder Center [address], 4th [place] [address] Kassandra Khan, APOLLO [address] [place] [address] 04/18/2025 11:00 AM EDT Office Visit [facility] Medicine Specialties [address], [address] [place] [address] Juventino Costa MD [address] [place] [address] 05/04/2025 1:00 PM EST Appointment Medical Office Building Cardiac Diagnostic Testing Medical Office Building Echo Lab [address] [facility], [address] [place] [address] 05/04/2025 1:45 PM EST Office Visit [facility] [place] [address] [facility], [address] [place] [address] Ruslan Sanderson MD [address] [place] [address] documented as of this encounter [...] documented as of this encounter Care Teams Course Instructor Relationship Specialty Start Date End Date Ankur Main MD [address] [place] [address] PCP - General 11/01/20 12/18/24 documented as of this encounter
--- OUTSIDE RECORDS SUMMARY | 2025-01-01 15:11 | XMS_ITS | Clinical Summary ---
Author Organization Healthcare Address [address] [place] [address] Care Team Providers Care Semiconductor Packages Leak Tester Name Role Phone Iman Cuevas MD Primary Care Provider Allergies Active Allergy Reactions Criticality Noted Date Comments Wound Dressings Rash Low 09/10/2020 Rash/blisters Tetracycline Rash Low 10/05/2019 Medications aspirin 81 MG EC tablet Take by mouth in the morning. 04/04/20 20 Active levonorgestrel (Mirena, 52 MG,) 20 MCG/24HR IUD Take by mouth See administration instructions. Inserted on 09/04/2020 Lot Number: [id number] Expiration Date: Nov 2022 NDC: [id number] 09/05/19 21 Active magnesium oxide (Mag-Ox) 400 [...] needed for mild pain. Active nystatin (Mycostatin) 065381 UNIT/GM powderIndication s:Healthcare maintenance Apply topically 1 [...] levETIRAcetam (Keppra) 500 MG tabletIndication s:Focal epilepsy ([facility]) Take 4 tablets (2,000 mg) by mouth 2 (two) times a day. 240 tablet 11 08/26/19 24 Active apixaban (Eliquis) 5 MG tabletIndication s:History of pulmonic valve replacement Take 1 tablet (5 mg) by mouth 2 (two) times a day. 180 tablet 3 10/14/19 24 Active albuterol (Ventolin HFA) 108 (90 Base) MCG/ACT inhalerIndicatio ns:Chronic bronchitis with COPD (chronic obstructive pulmonary disease) ([facility]),Modera te persistent asthma, unspecified whether complicated Inhale 2 puffs 4 (four) times a day. 18 g 11/10/19 24 Active albuterol (2.5 MG/3ML) 0.083% nebulizer solutionIndicati ons:Chronic bronchitis with COPD (chronic obstructive pulmonary disease) ([facility]),Modera te persistent asthma, unspecified whether complicated Take 3 mL (2.5 mg) by nebulization every 6 (six) hours if needed for shortness of breath. 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 Depression 06/28/2020 Lung nodule 05/29/2020 [...] Type Department Care Team Description 11/06/2024 Refill [facility] [address], [address]nd [place] [address] Elizabeth Rolle, eeo officer bronchitis with COPD (chronic obstructive pulmonary disease) (CMS/HCC); Moderate persistent asthma, unspecified whether complicated 11/06/2024 Refill [facility] [place] [address] [facility], [address] [place] [address] Donis Trujillo APRN Chronic systolic (congestive) heart failure (CMS/HCC) 10/19/2024 1:45 PM EDT Office Visit [facility] [address] [place] [address] Astrid Alvarez APRN Obesity, Class II, BMI 35-39.9 (Primary Dx); Sleep apnea, unspecified type; Shortness of breath on exertion; Heart disease; Diabetes 1.5, managed as type 2 ([facility]); Chronic obstructive pulmonary disease, unspecified COPD type ([facility]); Gastroesophageal reflux disease without esophagitis 10/19/2024 Travel 10/19/[address] [phone] Denise Andre animal doctor Medication (PA request received for Motegrity 2 mg tablets/[facility]: [id number]) 10/17/[address] [phone] Denise Andre RN Prior-authorization/in surance Verification (PA request received for Prucalopride Succinate 2mg tablets [facility]: [id number]) 10/16/2024 1:40 PM EDT Office Visit [address] [address] Bushra Graf PA Chronic constipation (Primary Dx); LLQ pain; Hemorrhage of rectum and anus; Obesity, Class II, BMI 35-39.9 10/16/2024 Travel 10/12/[address] [phone] Vandana Dumont Constipation 10/11/2024 11:00 AM EDT Office Visit [address] [address] Juventino Costa MD Morbid obesity ([facility]) (Primary Dx); Exertional asthma; Lung nodule; Encounter for pre-operative respiratory clearance; Chronic obstructive pulmonary disease, unspecified COPD type ([facility]); Medication management 10/11/2024 Travel from Last [...] place to sleep or slept in a longterm (including now)? No 01/25/2024 PHQ-9 Answer Date [...] Description 03/12/2025 10:20 AM EDT Office Visit [facility] [address]nd [place] [address] Bushra Graf PA [address] [place] [address] 03/20/2025 9:30 AM EDT [facility] [address], 1st [place] [address] Alicia Jennings MD [address] [place] [phone] 04/02/2025 2:00 PM EDT Office Visit [facility] Sleep Disorder Center [address] 4th [place] [phone] Kassandra Khan APRN [address] [place] [address] 04/18/2025 11:00 AM EDT Office Visit [facility] [address], 2[address] [place] [address] Juventino Costa MD [address] [place] [phone] 05/04/2025 1:00 PM EST Appointment Medical Office Building Cardiac Diagnostic Testing Medical Office Building Echo Lab [address] [facility], [address] [place] [address] 05/04/2025 1:45 PM EST Office Visit [facility] [place] [address] [facility], [address] [place] [address] Ruslan Sanderson MD [address] [place] [address] Health Maintenance Due Date Last Done Comments [employer] Annual Wellness (AWV) 1985 [id number] Vaccine (#1) 02/02/1988 Diabetes: Dental Exam 1993 [...] 5.3 <5.7 % 05/10/2024 1:14 PM EST [facility] Blood Venous blood specimen / Unknown Venipuncture / Unknown 05/10/2024 10:37 AM EST 05/10/2024 10:38 AM EST Narrative [facility] - 05/10/2024 1:14 PM EST HA1C Interpretive Data: Diagnosis of Diabetes: Diabetic > or = 6.5% Pre-diabetic 5.7 to 6.4% Non-diabetic < or = 5.6% Glycemic Targets for Type I and Type II Diabetics: Non- Adults <7.0% Adults <6.0% Children and Adolescents <7.5% Source: [place] [employer]. Standards of medical care in diabetes,2017. Diabetes Care.2017:40 (suppl 1):S1-S135. HbA1c assay performed by an ion-exchange chromatography method that is certified traceable to the DCCT. Astrid Alvarez APRN LAB BLOOD ORDERABLES Kaley l Result Performing Organization Address City/[facility]/ZIP Co de Phone Number [address] [address] * HIV 1 & 2 Antibody/Antigen Screen (04/28/2022 1:47 PM EST) Pathologist [facility] HIV 1 & 2 Antibody/Anti gen Screen Nonreactive Nonreactive 04/28/2022 4:48 PM EST [facility] Blood Venous blood specimen / Unknown Venipuncture / Unknown 04/28/2022 1:47 PM EST 04/28/2022 2:22 PM EST Carlos Rodriguez MD LAB BLOOD ORDERABLES Final Result Performing Organization Address City/[facility] [place] [address] * Cytology (09/04/2020 12:00 AM EDT) 09/04/2020 09/05/2020 8:5 1 AM EDT Narrative COPATH - 09/12/2020 12:05 PM EDT [facility] MR #: [id number] [facility] [address] [place] [place] [address] 1985 (Age: 35) FW Collect Date: 09/04/2020 00:00 Receipt Date: 09/05/2020 08:51 Page 1 DEPARTMENT OF PATHOLOGY AND LABORATORY MEDICINE CYTOPATHOLOGY REPORT Email: [email or web address] ATTENDING MD/Practitioner: JOAN ROWE Service: CA0 Location: [facility] Reported: 09/12/2020 12:05 Collected: 09/04/2020 00:00 INTERPRETATION A. THIN PREP (CERVICAL/VAGINAL): ATYPICAL SQUAMOUS CELLS - UNDETERMINED SIGNIFICANCE(ASCUS) REACTIVE CELLULAR CHANGES. ORGANISMS PRESENT CONSISTENT WITH ACTINOMYCES SPECIES. SATISFACTORY FOR EVALUATION; ENDOCERVICAL/ TRANSFORMATION ZONE COMPONENT PRESENT. Slide scanned and imaged by [employer] ThinPrep Imaging System with manual review of [...] results is suggested (please call Microbiology at [phone] for results). CLINICAL INFORMATION: Menstrual History: Irregular [...] of cervix uteri F: A; DX IMAGE 12985, 17805 C\V (PO) SNOMED CODES: A; K3G103 E1070 B16298 M- 12941 [id number] M-[id number] [id number] In cases where a pathologist has signed out the report, the service has been rendered in part by a resident. The signing pathologist has performed and is responsible for the reported pathologic evaluation. Christie Chau CARPENTER HELPER [facility] PATHOLOGY ORDERABLES Fi nal Result COPATH [...] Citrobacter Freundii. 10/23/2019 11/12/2020 [place] [address] [facility] [place] [address] [place] Advance Directives Documents on File Type Date Recorded Patient Chainer Expl anation Advance Directives and Living Will 12/31/2020 Care Teams Semiconductor Packages Leak Tester Relationship Specialty Start Date End Date Iman Cuevas MD [address] [address] PCP - General Internal Medicine 12/19/24
--- OUTSIDE RECORDS SUMMARY | 2025-01-01 15:11 | XMS_ITS | Encounter Summary ---
Author Organization Healthcare Address [address] [place] [address] Care Team Providers Care Electroplating Worker Name Role Phone Ankur Main MD Primary Care Provider [phone] Iman Cuevas MD Primary Care Provider [phone] Reason for Visit * Reason Onset Date Comments Med Refill 02/19/2022 Encounter Details Date Type Department Care Team (Late st Contact Info) Description 02/19/2022 Refill [facility] Internal Medicine [address], [address] [place] [address] Ankur Main MD [address] [place] [address] Polyneuropathy associated with underlying disease [...] Visit [facility] [address], [address] [place] [address] Bushra Graf PA [address] [place] [address] 03/20/2025 9:30 AM EDT Office Visit [facility] [address], [address] [place] [address] Alicia Jennings MD [address] [place] [address] 04/02/2025 2:00 PM EDT Office Visit [facility] Sleep Disorder Center [address], [address]th [place] [phone] Kassandra Khan, RIG MANAGER [address] [place] [phone] 04/18/2025 11:00 AM EDT Office Visit [facility] [address], 2nd [place] [address] Juventino Costa MD [address] [place] [address] 05/04/2025 1:00 PM EST Appointment Medical Office Building Cardiac Diagnostic Testing Medical Office Building Echo Lab [address] [facility], [address] [place] [address] 05/04/2025 1:45 PM EST Office Visit [facility] [place] [address] [facility], [address] [place] [address] Ruslan Sanderson MD [address] [place] [phone] documented as of this encounter Visit Diagnoses [...] documented as of this encounter Care Teams Electroplating Worker Relationship Specialty Start Date End Date Ankur Main MD [address] [address] PCP - General 11/01/20 12/18/24 Iman Cuevas MD [address] [place] [phone] PCP - General Internal Medicine 12/19/24 documented as of this encounter
--- OUTSIDE RECORDS SUMMARY | 2025-01-01 15:11 | XMS_ITS | Encounter Summary ---
Author Organization Healthcare Address [address] [place] [address] Care Team Providers Care Diesel Mechanic Farm Name Role Phone Ankur Main MD Primary Care Provider [phone] Nancy Hernandez CLOTH PRINTING BACK TENDER Unavailable Unavailable Iman uCevas MD Primary Care Provider [phone] Encounter Details Date Type Department Care Team (Late st Contact Info) Description 08/01/2018 Orders Only External Location [address] [place] [address] Social History Tobacco Use Types Packs/Day Years [...] Description 03/12/2025 10:20 AM EDT [facility] [address], [address]nd [place] [address] Bushra Graf PA [address] [place] [address] 03/20/2025 9:30 AM EDT [facility] [address], 1st [place] [address] Alicia Jennings MD [address] [place] [address] 04/02/2025 2:00 PM EDT Office Visit [facility] Sleep Disorder Center [address], 4th [place] [address] Kassandra Khan, APOLLO [address] [place] [address] 04/18/2025 11:00 AM EDT Office Visit [facility] Medicine Specialties [address], [address] [place] [address] Juventino Costa MD [address] [place] [address] 05/04/2025 1:00 PM EST Appointment Medical Office Building Cardiac Diagnostic Testing Medical Office Building Echo Lab [address] [facility], [address] [place] [address] 05/04/2025 1:45 PM EST Office Visit [facility] [place] [address] [facility], [address] [place] [address] Ruslan Sanderson MD [address] [place] [address] documented as of this encounter [...] documented as of this encounter Care Teams Diesel Mechanic Farm Relationship Specialty Start Date End Date Ankur Main MD [address] [place] [phone] PCP - General 11/01/20 12/18/24 Iman Cuevas MD [address] [place] [phone] PCP - General Internal Medicine 12/19/24 Nancy Hernandez, [place] [phone] Hay Stacker Operator Name Plate Stamper 03/25/20 03/25/20 documented as of this encounter
== END 2025-01-01 23:59 | disposition home or self-care (01) ==
LOC: LAB 15:08
PROVIDERS: PCP Family Medicine; Visit Provider Obstetrics & Gynecology
DX: N83.202 Unspecified ovarian cyst, left side (principal)
CPT/HCPCS: 36415

== ENCOUNTER 2025-01-03 10:45 | Outpatient (CLI) | payer MEDICARE, MEDICAID, SELFPAY ==
[2025-01-03 17:29] LABS: Thyroid Stimulating Hormone 4.41 uIU/mL (0.465-4.68)
[2025-01-03 19:03] LABS: Hemoglobin A1C 6.5 % (4.0-6.0)
--- OUTSIDE RECORDS SUMMARY | 2025-01-04 10:08 | XMS_ITS | Encounter Summary ---
Author Organization [facility] Address [address] [place] [id number] Care Team Providers Care Supervisor Garment Manufacturing Name Role Phone Iman Cuevas MD Primary Care Provider [phone] Reason for Visit * Reason Onset Date Comments New Med Request 01/02/2025 Encounter Details Date Type Department Care Team (Late st Contact Info) Description 01/02/2025 Telephone [facility] Medicine Specialties [address], [address] [place] [address] [place] [address] New Med Request Social History Tobacco Use Types Packs/Day Years [...] 0 10/19/2024 Safety and Environment Answer Date Calros rded Do you worry that your child [...] PM EDT documented as of this encounter Miscellaneous Notes * Addendum Note - Bushra Max PA - 01/03/2025 2:53 PM EDTAddended by: BUSHRA MAX on: 01/03/2025 02:53 PM Modules accepted: Orders * Telephone Encounter - Jocelyn Arevalo - 01/02/2025 3:03 PM EDT Received call from patient's mother with patient in the background Mother is asking for a new script for motigrety sent into pharmacy Mother states that she has tried and failed amitiza, linzess Mother states that patient has changed her diet with no relief of having a complete BM Patient states that she drinks a lot of water, OTC stool softeners and enema's with no relief Verified pharmacy with patient's mother- [facility] CB: [phone] documented in this encounter Plan of Treatment Upcoming Encounters Date Type Department Care Team (Late st Contact Info) Description 03/12/2025 10:20 AM EDT Office Visit [facility] Medicine Specialties [address], [address] [place] [address] Bushra Max PA [address] [place] [address] 03/20/2025 9:30 AM EDT Office Visit [facility] [address], [address] [place] [address] Alicia Jennings MD [address] [place] [address] 04/02/2025 2:00 PM EDT Office Visit [facility] Sleep Disorder Center [address], 4th [place] [address] Kassandra Khan APRN [address] [place] [address] 04/18/2025 11:00 AM EDT Office Visit [facility] [address], [address] [place] [address] Juventino Costa MD [address] [place] [address] 05/04/2025 1:00 PM EST Appointment Medical Office Building Cardiac Diagnostic Testing Medical Office Building Echo Lab [address] [facility], [address] [place] [address] 05/04/2025 1:45 PM EST Office Visit [facility] [place] [address] [facility], [address] [place] [address] Ruslan Sanderson MD [address] [place] [address] documented as of this encounter Visit Diagnoses Diagnosis Chronic idiopathic constipation- Primary Unspecified constipation documented in this encounter Additional Health Concerns [...] documented as of this encounter Care Teams Supervisor Garment Manufacturing Relationship Specialty Start Date End Date Iman Cuevas MD [address] [phone] PCP - General Internal Medicine 12/19/24 documented as of this encounter
--- OUTSIDE RECORDS SUMMARY | 2025-01-04 10:08 | XMS_ITS | Encounter Summary ---
Author Organization Healthcare Address [address] [place] [address] Care Team Providers Care Shift Supervisor Name Role Phone Ankur Main MD Primary Care Provider [phone] Iman Cuevas MD Primary Care Provider [phone] Reason for Visit * Reason Onset Date Comments Med Refill 02/19/2022 Encounter Details Date Type Department Care Team (Late st Contact Info) Description 02/19/2022 Refill [facility] Internal Medicine [address], [address]rd [place] [address] Ankur Main MD [address] [place] [address] Polyneuropathy associated with underlying disease [...] Description 03/12/2025 10:20 AM EDT Office Visit [facility] Medicine Specialties [address], [address] [place] [address] Bushra Graf PA [address] [place] [address] 03/20/2025 9:30 AM EDT Office Visit [facility] [address], [address] [place] [address] Alicia Jennings MD [address] [place] [address] 04/02/2025 2:00 PM EDT Office Visit [facility] Sleep Disorder Center [address], [address]th [place] [phone] Kassandra Khan, BOTTOM POUNDER CEMENT SHOES [address] [place] [phone] 04/18/2025 11:00 AM EDT Office Visit [facility] Medicine Specialties [address], [address]nd [place] [address] Juventino Costa MD [address] [place] [address] 05/04/2025 1:00 PM EST Appointment Medical Office Building Cardiac Diagnostic Testing Medical Office Building Echo Lab [address] [facility], [address] [place] [address] 05/04/2025 1:45 PM EST Office Visit [facility] [place] [address] [facility], [address] [place] [address] Ruslan Sanderson MD [address] [place] [phone] documented as of this encounter Visit Diagnoses [...] documented as of this encounter Care Teams Shift Supervisor Relationship Specialty Start Date End Date Ankur Main MD [address] [address] PCP - General 11/01/20 12/18/24 Iman Cuevas MD [address] [place] [phone] PCP - General Internal Medicine 12/19/24 documented as of this encounter
--- OUTSIDE RECORDS SUMMARY | 2025-01-04 10:08 | XMS_ITS | Encounter Summary ---
Author Organization Healthcare Address [address] [place] [address] Care Team Providers Care Winch Runner Name Role Phone Ankur Main MD Primary Care Provider [phone] Iman Cuevas MD Primary Care Provider [phone] Reason for Visit * Reason Onset Date Comments Med Refill 02/28/2021 Encounter Details Date Type Department Care Team (Late st Contact Info) Description 02/28/2021 Refill [facility] Internal Medicine [address], [address]rd [place] [address] Roxana Abdul MD [address] [place] [address] Polyneuropathy associated with underlying disease [...] [facility] Medicine Specialties [address], [address] [place] [phone] Bushra Graf PA [address] [place] [phone] 03/20/2025 9:30 AM EDT Office Visit [facility] [address], 1st [place] [phone] Alicia Jennings MD [address] [place] [address] 04/02/2025 2:00 PM EDT Office Visit [facility] Sleep Disorder Center [address], 4th [place] [phone] Kassandra Khan APRN [address] [place] [phone] 04/18/2025 11:00 AM EDT Office Visit [facility] Medicine Specialties [address], [address]nd [place] [phone] Juventino Costa MD [address] [place] [phone] 05/04/2025 1:00 PM EST Appointment Medical Office Building Cardiac Diagnostic Testing Medical Office Building Echo Lab [address] [facility], [address] [place] [phone] 05/04/2025 1:45 PM EST Office Visit [facility] [place] [address] [facility], [address] [place] [address] Ruslan Sanderson MD [address] [place] [address] documented as of this encounter [...] documented as of this encounter Care Teams Winch Runner Relationship Specialty Start Date End Date Ankur Main MD [address] [place] [address] PCP - General 11/01/20 12/18/24 Iman Cuevas MD [address] [place] [address] PCP - General Internal Medicine 12/19/24 documented as of this encounter
--- OUTSIDE RECORDS SUMMARY | 2025-01-04 10:08 | XMS_ITS | Encounter Summary ---
Author Organization Healthcare Address [address] [place] [address] Care Team Providers Care Railway Traction Line Worker Name Role Phone Ankur Main MD Primary Care Provider [phone] Reason for Visit * Reason Onset Date Comments Constipation 10/12/2024 Encounter Details Date Type Department Care Team (Late st Contact Info) Description 10/12/2024 Telephone [facility] Medicine Specialties [address], [address] [place] [address] Vandana Dumont Constipation Social History [...] place to sleep or slept in a assisted (including now)? No 01/25/2024 PHQ-9 Answer Date [...] any fevers - Pt states she has long-term history of constipation - Pt states she [...] 10/16/2024 at 140pm TH, log in to [employer] on 120pm to register - Reviewed with [...] Description 03/12/2025 10:20 AM EDT Office Visit [facility] Medicine Specialties [address], [address] [place] [address] Bushra Graf PA [address] [place] [address] 03/20/2025 9:30 AM EDT Office Visit [facility] [address], 1st [place] [address] Alicia Jennings MD [address] [place] [address] 04/02/2025 2:00 PM EDT Office Visit [facility] Sleep Disorder Center [address], [address]th [place] [address] Kassandra Khan, APOLLO [address] [place] [address] 04/18/2025 11:00 AM EDT Office Visit [facility] [address] 2nd [place] [address] Juventino Costa MD [address] [place] [address] 05/04/2025 1:00 PM EST Appointment Medical Office Building Cardiac Diagnostic Testing Medical Office Building Echo Lab [address] [facility], [address] [place] [address] 05/04/2025 1:45 PM EST Office Visit [facility] [place] [address], [address] [place] [address] Ruslan [place] MD [address] [place] [address] documented as of this encounter [...] documented as of this encounter Care Teams Railway Traction Line Worker Relationship Specialty Start Date End Date Ankur Main MD [address] [facility] [address] [place] [address] PCP - General 11/01/20 12/18/24 documented as of this encounter
--- OUTSIDE RECORDS SUMMARY | 2025-01-04 10:08 | XMS_ITS | Encounter Summary ---
Author Organization Healthcare Address [address] [place] [address] Care Team Providers Care Inside Barrel Lathe Operator Name Role Phone Ankur Main MD Primary Care Provider Iman Cuevas MD Primary Care Provider [phone] Reason for Visit * Reason Onset Date Comments Med Refill 06/29/2021 Encounter Details Date Type Department Care Team (Late st Contact Info) Description 06/29/2021 Refill [facility] Medicine Specialties [address], [address] [place] [address] Juventino Costa MD [address] [place] [address] Moderate persistent asthma, unspecified whether [...] [facility] Medicine Specialties [address], [address] [place] [address] Bushra Graf PA [address] [facility] [address] [place] [address] 03/20/2025 9:30 AM EDT [facility] [address], [address] [place] [address] Alicia Jennings MD [address] [place] [address] 04/02/2025 2:00 PM EDT Office Visit [facility] Sleep Disorder Center [address], [address]th [place] [address] Kassandra Khan, APOLLO [address] [place] [address] 04/18/2025 11:00 AM EDT Office Visit [facility] Medicine [facility] [address], [address] [place] [address] Juventino Costa MD [address] [place] [address] 05/04/2025 1:00 PM EST Appointment Medical Office Building Cardiac Diagnostic Testing Medical Office Building Echo Lab [address] [facility], [address] [place] [address] 05/04/2025 1:45 PM EST Office Visit [facility] [place] [address] [facility], [address] [place] [address] Ruslan [place] MD [address] [place] [address] documented as of this encounter [...] documented as of this encounter Care Teams Inside Barrel Lathe Operator Relationship Specialty Start Date End Date Ankur Main MD [address] [place] [address] PCP - General 11/01/20 12/18/24 Iman Cuevas MD [address] [place] [address] PCP - General Internal Medicine 12/19/24 documented as of this encounter
--- OUTSIDE RECORDS SUMMARY | 2025-01-04 10:08 | XMS_ITS | Encounter Summary ---
Author Organization Healthcare Address [address] [place] [address] Care Team Providers Care Provider Scribe Name Role Phone Ankur Main MD Primary Care Provider [phone] Reason for Visit * Reason Comments Med Refill Encounter Details Date Type Department Care Team ([facility] st Contact Info) Description 11/06/2024 Refill [facility] [place] [address] [facility], [address] [place] [address] Donis Trujillo, SPANISH LITERATURE PROFESSOR [address] [place] [address] Chronic systolic (congestive) heart failure [...] No 01/25/2024 Housing Stability Vital Sign Answer Madahv e Recorded In the last 12 months, [...] Description 03/12/2025 10:20 AM EDT Office Visit [facility] Medicine Specialties [address], [address] [place] [address] Bushra Graf PA [address] [place] [address] 03/20/2025 9:30 AM EDT Office Visit [facility] [address], 1st [place] [address] Alicia Jennings MD [address] [place] [address] 04/02/2025 2:00 PM EDT Office Visit [facility] Sleep Disorder Center [address], 4th [place] [address] Kassandra Khan, SPANISH LITERATURE PROFESSOR [address] [place] [address] 04/18/2025 11:00 AM EDT Office Visit [facility] Medicine Specialties [address], 2nd [place] [address] Juventino Costa MD [address] [place] [address] 05/04/2025 1:00 PM EST Appointment Medical Office Building Cardiac Diagnostic Testing Medical Office Building Echo Lab [address] [facility], [address] [place] [address] 05/04/2025 1:45 PM EST Office Visit [facility] [place] [address] [facility], [address] [place] [address] Ruslan [place] MD [address] [place] [address] documented as of this encounter [...] documented as of this encounter Care Teams Provider Scribe Relationship Specialty Start Date End Date Ankur Main MD [address] [place] [address] PCP - General 11/01/20 12/18/24 documented as of this encounter
--- OUTSIDE RECORDS SUMMARY | 2025-01-04 10:08 | XMS_ITS | Encounter Summary ---
Author Organization Healthcare Address [address] [place] [address] Care Team Providers Care Acid Retort Operator Name Role Phone Ankur Main MD Primary Care Provider [phone] Iman Cuevas MD Primary Care Provider [phone] Reason for Visit * Reason Onset Date Comments Med Refill 06/19/2021 Encounter Details Date Type Department Care Team (Late st Contact Info) Description 06/19/2021 Refill [facility] Internal Medicine [address] [place] [address] Ankur Main MD [address] [place] [address] Social History Tobacco Use Types [...] Description 03/12/2025 10:20 AM EDT Office Visit [facility] Medicine Specialties [address], [address] [place] [address] Bushra Graf PA [address] [place] [address] 03/20/2025 9:30 AM EDT Office Visit [facility] [address], 1[address] [place] [address] Alicia Jennings MD [address] [place] [address] 04/02/2025 2:00 PM EDT Office Visit [facility] Sleep Disorder Center [address], 4th [place] [address] Kassandra Khan, APOLLO [address] [place] [address] 04/18/2025 11:00 AM EDT Office Visit [facility] Medicine Specialties [address] [place] [address] Juventino Costa MD [address] [place] [address] 05/04/2025 1:00 PM EST Appointment Medical Office Building Cardiac Diagnostic Testing Medical Office Building Echo Lab [address] [facility], [address] [place] [address] 05/04/2025 1:45 PM EST Office Visit [facility] [place] [address] [facility], [address] [place] [address] Ruslan [place] MD [address] [place] [address] documented as of this encounter [...] documented as of this encounter Care Teams Acid Retort Operator Relationship Specialty Start Date End Date Ankur Main MD [address] [place] [address] PCP - General 11/01/20 12/18/24 Iman Cuevas MD [address] [place] [address] PCP - General Internal Medicine 12/19/24 documented as of this encounter
--- OUTSIDE RECORDS SUMMARY | 2025-01-04 10:08 | XMS_ITS | Encounter Summary ---
Author Organization Healthcare Address [address] [place] [address] Care Team Providers Care Senior Network Engineer Name Role Phone Ankur Main MD Primary Care Provider [phone] Iman Cuevas MD Primary Care Provider [phone] Encounter Details Date Type Department Care Team (Late st Contact Info) Description 01/24/2024 Orders Only External Location [address] [place] [address] Skip Tineo MD Social History Tobacco Use [...] place to sleep or slept in a detention (including now)? No 01/25/2024 Safety and Environment [facility] [address] [place] [address] Bushra Graf PA [address] [facility] [address] [place] [address] 03/20/2025 9:30 AM EDT Office Visit [facility] [address], 1[address] [place] [address] Alicia Jennings MD [address] [facility] [address] [place] [address] 04/02/2025 2:00 PM EDT Office Visit [facility] Sleep Disorder Center [address], [address]th [place] [address] Kassandra Khan, COMPRESSOR REPAIRER [address] [place] [address] 04/18/2025 11:00 AM EDT Office Visit [facility] Medicine Specialties [address] [place] [address] Juventino Costa MD [address] [place] [address] 05/04/2025 1:00 PM EST Appointment Medical Office Building Cardiac Diagnostic Testing Medical Office Building Echo Lab [address] [facility], [address] [place] [address] 05/04/2025 1:45 PM EST Office Visit [facility] [place] [address] [facility], [address] [place] [address] Ruslan [place] MD [address] [place] [address] documented as of this encounter [...] documented as of this encounter Care Teams Senior Network Engineer Relationship Specialty Start Date End Date Ankur Main MD [address] [place] [address] PCP - General 11/01/20 12/18/24 Iman Cuevas MD [address] [place] [address] PCP - General Internal Medicine 12/19/24 documented as of this encounter
--- OUTSIDE RECORDS SUMMARY | 2025-01-04 10:08 | XMS_ITS | Encounter Summary ---
Author Organization Healthcare Address [address] [place] [address] Care Team Providers Care Tufter Hand Name Role Phone Ankur Main MD Primary Care Provider [phone] Nancy Hernandez SEAT TRIMMER Unavailable Unavailable Iman Cuevas MD Primary Care Provider Encounter Details Date Type Department Care Team (Late st Contact Info) Description 08/01/2018 Orders Only External Location [address] [place] [address] Social History Tobacco Use Types Packs/Day Years [...] Description 03/12/2025 10:20 AM EDT Office Visit [facility] Medicine Specialties [address] [place] [address] Bushra Graf PA [address] [place] [address] 03/20/2025 9:30 AM EDT Office Visit [facility] [address] [place] [address] Alicia eJnnings MD [address] [place] [address] 04/02/2025 2:00 PM EDT Office Visit [facility] Sleep Disorder Center [address], [address]th [place] [address] Kassandra Khan, APOLLO [address] [place] [address] 04/18/2025 11:00 AM EDT Office Visit [facility] Medicine Specialties [address] [place] [address] Juventino Costa MD [address] [place] [address] 05/04/2025 1:00 PM EST Appointment Medical Office Building Cardiac Diagnostic Testing Medical Office Building Echo Lab [address] [facility], [address] [place] [address] 05/04/2025 1:45 PM EST Office Visit [facility] [place] [address] [facility], [address] [place] [address] Ruslan [place] MD [address] [place] [address] documented as of this encounter [...] documented as of this encounter Care Teams Tufter Hand Relationship Specialty Start Date End Date Ankur Main MD [address] [place] [phone] PCP - General 11/01/20 12/18/24 Iman Cuevas MD [address] [place] [phone] PCP - General Internal Medicine 12/19/24 Nancy Hernandez, [place] [id number] Cad Programmer Vp Of Marketing 03/25/20 03/25/20 documented as of this encounter
--- OUTSIDE RECORDS SUMMARY | 2025-01-04 10:08 | XMS_ITS | Encounter Summary ---
Author Organization Healthcare Address [address] [place] [address] Care Team Providers Care System Sales Consultant Name Role Phone Ankur Main MD Primary Care Provider [phone] Reason for Visit * Reason Onset Date Comments Med Refill 11/06/2024 Encounter Details Date Type Department Care Team (Late st Contact Info) Description 11/06/2024 Refill [facility] Medicine Specialties [address] [place] [address] Elizabeth Rolle RN CH-VASCULAR & [...] place to sleep or slept in a halfway (including now)? No 01/25/2024 PHQ-9 Answer Date [...] Description 03/12/2025 10:20 AM EDT Office Visit [facility] Medicine Specialties [address] [place] [address] Bushra Graf PA [address] [place] [address] 03/20/2025 9:30 AM EDT Office Visit [facility] [address] [place] [address] Alicia Jennings MD [address] [place] [address] 04/02/2025 2:00 PM EDT Office Visit [facility] Sleep Disorder Center [address], 4th [place] [address] Kassandra Khan, APOLLO [address] [place] [address] 04/18/2025 11:00 AM EDT Office Visit [facility] Medicine Specialties [address] [place] [address] Juventino Costa MD [address] [place] [address] 05/04/2025 1:00 PM EST Appointment Medical Office Building Cardiac Diagnostic Testing Medical Office Building Echo Lab [address] [facility], [address] [place] [address] 05/04/2025 1:45 PM EST Office Visit [facility] [place] [address] [facility], [address] [place] [address] Ruslan [place] MD [address] [place] [address] documented as of this encounter [...] documented as of this encounter Care Teams System Sales Consultant Relationship Specialty Start Date End Date Ankur Main MD [address] [place] [address] PCP - General 11/01/20 12/18/24 documented as of this encounter
--- OUTSIDE RECORDS SUMMARY | 2025-01-04 10:08 | XMS_ITS | Clinical Summary ---
Author Organization Healthcare Address [address] [place] [address] Care Team Providers Care Rn Physician Office Name Role Phone Iman Cuevas MD Primary Care Provider [phone] Allergies Active Allergy Reactions Criticality Noted Date Comments Wound Dressings Rash Low 09/10/2020 Rash/blisters Tetracycline Rash Low 10/05/2019 Medications aspirin 81 MG EC tablet Take by mouth in the morning. Active levonorgestrel (Mirena, 52 MG,) 20 MCG/24HR IUD Take by mouth See administration instructions. Inserted on 09/04/2020 Lot Number: [id number] Expiration Date: Nov 2022 NDC: [id number] Active magnesium oxide (Mag-Ox) 400 (241.3 Mg) MG tablet Take by mouth in the morning and before bedtime. Active melatonin 3 MG tablet Take by mouth nightly. Active cholecalciferol (Vitamin D-3) 25 MCG (1000 [...] needed for mild pain. Active nystatin (Mycostatin) 901482 UNIT/GM powderIndicatio ns:Healthcare maintenance Apply topically 1 (one) time each day. 60 g 022 Active lamoTRIgine (LaMICtal) 100 MG tablet Take 0.5 tablets (50 mg) by mouth in the morning and 0.5 tablets (50 mg) before bedtime. Active sertraline (Zoloft) 100 MG tablet Take 1 tablet (100 mg) by mouth in the morning. 023 Active levETIRAcetam (Keppra) 500 MG tabletIndicatio ns:Focal epilepsy ([facility]/HCC) Take 4 tablets (2,000 mg) by mouth 2 (two) times a day. 240 tablet 024 Active apixaban (Eliquis) 5 MG tabletIndicatio ns:History of pulmonic valve replacement Take 1 tablet (5 mg) by mouth 2 (two) times a day. 180 tablet 024 Active albuterol (Ventolin HFA) 108 (90 Base) MCG/ACT inhalerIndicati ons:Chronic bronchitis with COPD (chronic obstructive pulmonary disease) ([facility]/HCC),Moder ate persistent asthma, unspecified whether complicated Inhale 2 puffs 4 (four) times a day. 18 g 024 Active albuterol (2.5 MG/3ML) 0.083% nebulizer solutionIndicat ions:Chronic bronchitis with COPD (chronic obstructive pulmonary disease) ([facility]),Moder ate persistent asthma, unspecified whether complicated Take 3 mL (2.5 mg) by nebulization every 6 (six) hours if needed for shortness of breath. 75 mL 024 Active furosemide (Lasix) 40 MG tabletIndicatio ns:Congestive heart failure, unspecified HF chronicity, unspecified heart failure type ([facility]) Take 2 tablets (80 mg) by mouth 2 (two) times a day. Patient is taking 80mg am and 80mg in pm 360 tablet 3 024 Active folic acid (Folvite) 1 MG tablet Take 1 tablet (1 mg) by mouth 1 (one) time each day. 90 tablet 3 024 Active empagliflozin (Jardiance) 10 MGIndications:P rediabetes Take 1 tablet (10 mg) by mouth 1 (one) time each day. 90 tablet 3 024 Active potassium chloride CR (Klor-Con M20) 20 MEQ ER tabletIndicatio ns:Hypokalemia Take 1 tablet (20 mEq) by mouth 2 (two) times a day. DO NOT CRUSH OR CHEW. 180 tablet 3 024 Active levothyroxine (Synthroid, Levoxyl) 100 MCG tablet Take 1 tablet (100 mcg) by mouth 1 (one) time each day before breakfast. 90 tablet 3 024 Active fluticasone (Flonase) 50 MCG/ACT nasal sprayIndication s:Allergic rhinitis, unspecified seasonality, unspecified trigger,Sleep apnea with use of continuous positive airway pressure (CPAP) Administer 1 spray into each nostril 1 (one) time each day. Shake gently. Before first use, prime pump. After use, clean tip and replace cap. Use at bedtime 16 g 12 024 Active QUEtiapine (SEROquel) 50 MG tablet Take 1 tablet (50 mg) by mouth in the morning. 024 Active gabapentin (Neurontin) 300 MG capsuleIndicati ons:Polyneuropa thy associated with underlying disease Take 1 capsule (300 mg) by mouth 3 (three) times a day. 90 capsule 5 025 Active triamcinolone (Kenalog) 0.025 % ointmentIndicat ions:Anxiety disorder, unspecified type Apply to hands 1-2 times daily as needed for dry skin. May use consistently up to two weeks and then as needed 454 g 1 025 Active hydrOXYzine pamoate (Vistaril) 25 MG capsuleIndicati ons:Anxiety disorder, unspecified type Take 1 capsule (25 mg) by mouth 3 (three) times a day if needed for itching. 270 capsule 025 Active tiotropium-olod aterol (Stiolto Respimat) 2.5-2.5 MCG/ACT aerosol solution inhalerIndicati ons:Chronic obstructive pulmonary disease, unspecified COPD type (CMS/HCC) Inhale 2 Inhalations daily. 4 g 11 025 Active metoprolol tartrate (Lopressor) 25 MG tabletIndicatio ns:Chronic systolic (congestive) heart failure (CMS/HCC) TAKE 1 TABLET 2 TIMES EACH DAY 180 tablet 3 Active montelukast (Singulair) 10 MG tabletIndicatio ns:Chronic bronchitis with COPD (chronic obstructive pulmonary disease) (CMS/HCC),Moder ate persistent asthma, unspecified whether complicated Take 1 tablet by mouth nightly. Patient needs to be seen by Ella for any additional refills. 90 tablet 3 025 2025 Active Prucalopride Succinate (Motegrity) 2 MG tabletIndicatio ns:Chronic idiopathic constipation Take 1 tablet by mouth daily. 90 tablet 3 025 2025 Active lubiprostone (Amitiza) 24 MCG capsuleIndicati ons:Irritable bowel syndrome with constipation Take 1 capsule by mouth 2 times a day with meals. 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 Depression 06/28/2020 Lung nodule 05/29/2020 [...] Encounters Date Type Department Care Team Description 01/02/2025 Telephone [facility] [address] [place] [address] Jocelyn Arevalo New Med Request 11/06/2024 [facility]ill [place] [facility] [address], [address] [place] [address] Elizabeth Rolle, soap slabber bronchitis with COPD (chronic obstructive pulmonary disease) ([facility]); Moderate persistent asthma, unspecified whether complicated 11/06/2024 Refill [facility] [address], [address] [place] [address] Donis Trujillo APRN Chronic systolic (congestive) heart failure (CMS/HCC) 10/19/2024 1:45 PM EDT Office Visit [facility] General [facility] Weight [facility] Surgery [address] [place] [address] Astrid Alvarez APRN Obesity, Class II, BMI 35-39.9 (Primary Dx); Sleep apnea, unspecified type; Shortness of breath on exertion; Heart disease; Diabetes 1.5, managed as type 2 ([facility]); Chronic obstructive pulmonary disease, unspecified COPD type ([facility]); Gastroesophageal reflux disease without esophagitis 10/19/2024 Travel 10/19/2024 Telephone [facility] [address] [address] Denise Andre RNadvertising operations manager Medication (PA request received for Motegrity 2 mg tablets/[facility]: [id number]) 10/17/2024 Telephone [facility] [address] [address] Denise Andre RN Prior-authorization/in surance Verification (PA request received for Prucalopride Succinate 2mg tablets [facility]: [id number]) 10/16/2024 1:40 PM EDT Office Visit [facility] [address] [address] Bushra Graf, PA Chronic constipation (Primary Dx); LLQ pain; Hemorrhage of rectum and anus; Obesity, Class II, BMI 35-39.9 10/16/2024 Travel 10/12/2024 Telephone [facility] [address] [address] Vandana Dumont Constipation 10/11/2024 11:00 AM EDT Office Visit [facility] Specialties [address], [address]nd [place] [address] Juventino Costa MD Morbid obesity ([facility]) (Primary Dx); Exertional asthma; Lung nodule; Encounter for pre-operative respiratory clearance; Chronic obstructive pulmonary disease, unspecified COPD type ([facility]); Medication management 10/11/2024 Travel from Last 3 [...] Grandfather Danyelle Brody Colon cancer Maternal Grandmother Shellydontae Grijalva Diabetes Maternal Grandmother Shellydontae Grijalva Conversions - Other Mother Heidi Brody [...] place to sleep or slept in a fpc (including now)? No 01/25/2024 PHQ-9 Answer Date [...] Description 03/12/2025 10:20 AM EDT Office Visit [facility] [address], [address] [place] [address] Bushra Graf PA [address] [place] [address] 03/20/2025 9:30 AM EDT Office Visit [facility] [address], [address] [place] [address] Alicia Jennings MD [address] [place] [address] 04/02/2025 2:00 PM EDT Office Visit [facility] Sleep Disorder Center [address]th [place] [phone] Kassandra Khan, LEGAL OFFICER [address] [place] [address] 04/18/2025 11:00 AM EDT [facility] [place] [facility] [address], [address] [place] [address] Juventino Costa MD [address] [place] [address] 05/04/2025 1:00 PM EST Appointment Medical Office Building Cardiac Diagnostic Testing Medical Office Building Echo Lab [address], [address] [place] [address] 05/04/2025 1:45 PM EST Office Visit [facility] [address], [address] [place] [address] Ruslan Sanderson MD [address] [place] [address] Health Maintenance Due Date Last Done Comments [facility]-Medicare Annual Wellness (AWV) 1985 [id number] Vaccine (#1) 02/02/1988 Diabetes: Dental Exam 1993 HPV Vaccines (1 - 3-dose series) 1998 [facility]-Hepatitis A Vaccines (1 of 2 - Risk 2-dose series) 2002 [facility]-Hepatitis B Vaccines (1 of 3 - 19+ 3-dose series) 2002 [facility]-Pap Smear 09/05/2023 09/04/2020 [facility]- SDOH Screenings 07/27/2024 [facility]-Adult SDOH Screenings 07/27/2024 01/25/2024 [facility]-Infant/Child/Adol SDOH Screenings 07/27/2024 01/25/2024 [facility]-Diabetes: Hemoglobin A1C 11/07/2024 05/10/2024, 01/25/2024, 06/08/2023, Additional history exists [facility]-Influenza Vaccine (#1) 02/19/202504/214, 03/09/2023, 06/09/2022, Additional history exists [facility]-Cervical Cancer [...] Morbid obesity with BMI of 40.0-44.9, adult ([facility]) Sleep apnea, unspecified type Chronic obstructive pulmonary [...] 5.3 <5.7 % 05/10/2024 1:14 PM EST [facility] Blood Venous blood specimen / Unknown Venipuncture / Unknown 05/10/2024 10:37 AM EST 05/10/2024 10:38 AM EST Narrative [facility] - 05/10/2024 1:14 PM EST HA1C Interpretive Data: Diagnosis of Diabetes: Diabetic > or = 6.5% Pre-diabetic 5.7 to 6.4% Non-diabetic < or = 5.6% Glycemic Targets for Type I and Type II Diabetics: Non- Adults <7.0% Adults <6.0% Children and Adolescents <7.5% Source: [place] [employer]. Standards of medical care in diabetes,2017. Diabetes Care.2017:40 (suppl 1):S1-S135. HbA1c assay performed by an ion-exchange chromatography method that is certified traceable to the DCCT. us Astrid Alvarez APRN LAB BLOOD ORDERABLES Kaley l Result [facility] [address] [place] [address] * HIV 1 & 2 Antibody/Antigen Screen (04/28/2022 1:47 PM EST) Pathologist [facility] HIV 1 & 2 Antibody/Anti gen Screen Nonreactive Nonreactive 04/28/2022 4:48 PM EST [facility] Blood Venous blood specimen / Unknown Venipuncture / Unknown 04/28/2022 1:47 PM EST 04/28/2022 2:22 PM EST Carlos Rodriguez MD LAB BLOOD ORDERABLES Final Result [facility] [address] [place] [address] * Cytology (09/04/2020 12:00 AM EDT) 09/04/2020 09/05/2020 8:5 1 AM EDT Narrative [facility] - 09/12/2020 12:05 PM EDT [facility] MR #: [id number] [facility] [place] [place], [place] [address] 1985 (Age: 35) FW Collect Date: 09/04/2020 00:00 Receipt Date: 09/05/2020 08:51 Page 1 DEPARTMENT OF PATHOLOGY AND LABORATORY MEDICINE CYTOPATHOLOGY REPORT Email: [email or web address] ATTENDING MD/Practitioner: JOAN ROWE Service: CA0 Location: [facility] Reported: 09/12/2020 12:05 Collected: 09/04/2020 00:00 INTERPRETATION A. THIN PREP (CERVICAL/VAGINAL): ATYPICAL SQUAMOUS CELLS - UNDETERMINED SIGNIFICANCE(ASCUS) REACTIVE CELLULAR CHANGES. ORGANISMS PRESENT CONSISTENT WITH ACTINOMYCES SPECIES. SATISFACTORY FOR EVALUATION; ENDOCERVICAL/ TRANSFORMATION ZONE COMPONENT PRESENT. Slide scanned and imaged by O[employer]v ThinPrep Imaging System with manual review of all selected brandon. Electronically Signed Out ANGEL Byers ([facility]) Aixa Manning M.D. Cervical cytology is a [...] results is suggested (please call Microbiology at [phone] for results). CLINICAL INFORMATION: Menstrual History: Irregular [...] of cervix uteri F: A; DX IMAGE 13495, 58665 C\V (PO) SNOMED CODES: A; [id number] M- [id number] In cases where a pathologist has signed out the report, the service has been rendered in part by a resident. The signing pathologist has performed and is responsible for the reported pathologic evaluation. Christie Chau LEGAL OFFICER LAB PATHOLOGY ORDERABLES Fi nal Result COPATH [...] for ESBL Citrobacter Freundii. 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
--- OUTSIDE RECORDS SUMMARY | 2025-01-04 10:08 | XMS_ITS | Encounter Summary ---
Author Organization Healthcare Address [address] [place] [address] Care Team Providers Care Teacher Of The Sight Impaired Name Role Phone Ankur Main MD Primary Care Provider [phone] Iman Cuevas MD Primary Care Provider [phone] Reason for Visit * Reason Onset Date Comments Med Refill 06/30/2021 Encounter Details Date Type Department Care Team (Late st Contact Info) Description 06/30/2021 Refill [place] [facility] [address], [address] [place] [address] Juventino Costa MD [address] [place] [address] Moderate persistent asthma, unspecified whether [...] 03/12/2025 10:20 AM EDT Office Visit [facility] Medicine Specialties [address], [address] [place] [address] Bushra Graf PA [address] [place] [address] 03/20/2025 9:30 AM EDT [facility] [address], [address]st [place] [address] Alicia Jennings MD [address] [place] [address] 04/02/2025 2:00 PM EDT Office Visit [facility] Sleep Disorder Center [address] [place] [address] Kassandra Khan APRN [address] [place] [address] 04/18/2025 11:00 AM EDT Office Visit [facility] Medicine Specialties [address], [address]nd [place] [address] Juventino Costa MD [address] [place] [address] 05/04/2025 1:00 PM EST Appointment Medical Office Building Cardiac Diagnostic Testing Medical Office Building Echo Lab [address], [address] [place] [address] 05/04/2025 1:45 PM EST Office Visit [facility] Barry Penasco [address], [address] [place] [address] Ruslan Sanderson MD [address] [place] [address] documented as of this [...] documented as of this encounter Care Teams Teacher Of The Sight Impaired Relationship Specialty Start Date End Date Ankur Main MD [address] [place] [address] PCP - General 11/01/20 12/18/24 Iman Cuevas MD [address] [place] [address] PCP - General Internal Medicine 12/19/24 documented as of this encounter
--- OUTSIDE RECORDS SUMMARY | 2025-01-04 10:08 | XMS_ITS | Encounter Summary ---
Author Organization Healthcare Address [address] [place] [address] Care Team Providers Care Lead Ingot Molder Name Role Phone Ankur Main MD Primary Care Provider [phone] Iman Cuevas MD Primary Care Provider [phone] Reason for Visit * Reason Onset Date Comments Med Refill 01/24/2021 Encounter Details Date Type Department Care Team (Late st Contact Info) Description 01/24/2021 Refill [facility] Internal Medicine [address]rd [place] [address] Ankur Main MD [address] [place] [address] Polyneuropathy associated with underlying disease [...] Description 03/12/2025 10:20 AM EDT Office Visit [facility] Medicine Specialties [address], [address] [place] [address] Bushra Graf PA [address] [place] [address] 03/20/2025 9:30 AM EDT Office Visit [facility] [address], [address]st [place] [address] Alicia Jennings MD [address] [facility] [address] [place] [address] 04/02/2025 2:00 PM EDT Office Visit [facility] Sleep Disorder Center [address]th [place] [address] Kassandra Khan, APOLLO [address] [place] [address] 04/18/2025 11:00 AM EDT Office Visit [facility] Medicine Specialties [address], [address] [place] [address] Juventino Costa MD [address] [place] [address] 05/04/2025 1:00 PM EST Appointment Medical Office Building Cardiac Diagnostic Testing Medical Office Building Echo Lab [address], [address] [place] [address] 05/04/2025 1:45 PM EST Office Visit [facility] Marinette Morris [address], [address] [place] [address] Ruslan Sanderson MD [address] [place] [address] documented as of this encounter [...] documented as of this encounter Care Teams Lead Ingot Molder Relationship Specialty Start Date End Date Ankur Main MD [address] [place] [address] PCP - General 11/01/20 12/18/24 Iman Cuevas MD [address] [place] [address] PCP - General Internal Medicine 12/19/24 documented as of this encounter
[2025-01-04 10:25] LABS: Hepatitis B Surface Antigen Negative (Negative)
== END 2025-01-03 23:59 | disposition home or self-care (01) ==
LOC: LAB.DROPOF 01-04 10:04
PROVIDERS: PCP Family Medicine; Visit Provider Family Medicine
DX: Z11.59 Encounter for screening for other viral diseases (principal); E11.9 Type 2 diabetes mellitus without complications; E03.9 Hypothyroidism, unspecified
CPT/HCPCS: 83036; 84443; 87340

== ENCOUNTER 2025-01-19 13:37 | Outpatient (CLI) | payer MEDICARE, MEDICAID, SELFPAY ==
--- OUTSIDE RECORDS SUMMARY | 2025-01-19 13:41 | XMS_ITS | Clinical Summary ---
Author Organization Healthcare Address [address] [place] [address] Care Team Providers Care Flavoring Machine Operator Name Role Phone Iman Cuevas MD Primary Care Provider [phone] Allergies Active Allergy Reactions Criticality Noted Date Comments Wound Dressings Rash Low 09/10/2020 Rash/blisters Tetracycline Rash Low 10/05/2019 Medications aspirin 81 MG EC tablet Take by mouth in the morning. 020 Active levonorgestrel (Mirena, 52 MG,) 20 MCG/24HR IUD Take by mouth See administration instructions. Inserted on 09/04/2020 Lot Number: [id number] Expiration Date: Nov 2022 NDC: [id number] 021 Active magnesium oxide (Mag-Ox) 400 (241.3 [...] needed for mild pain. Active nystatin (Mycostatin) 163536 UNIT/GM powderIndicatio ns:Healthcare maintenance Apply topically 1 (one) time each day. 60 g 11 022 Active lamoTRIgine (LaMICtal) 100 MG tablet Take 0.5 tablets (50 mg) by mouth in the morning and 0.5 tablets (50 mg) before bedtime. 022 Active sertraline (Zoloft) 100 MG tablet Take 1 tablet (100 mg) by mouth in the morning. 023 Active apixaban (Eliquis) 5 MG tabletIndicatio ns:History of pulmonic valve replacement Take 1 tablet (5 mg) by mouth 2 (two) times a day. 180 tablet 3 024 Active albuterol (Ventolin HFA) 108 (90 Base) MCG/ACT inhalerIndicati ons:Chronic bronchitis with COPD (chronic obstructive pulmonary disease) ([facility]/HCC),Moder ate persistent asthma, unspecified whether complicated [...] unspecified HF chronicity, unspecified heart failure type ([facility]/HCC) Take 2 tablets (80 mg) by mouth [...] 2 TIMES EACH DAY 180 tablet 3 025 Active montelukast (Singulair) 10 MG tabletIndicatio ns:Chronic [...] daily. 90 tablet 3 025 2025 Active levETIRAcetam (Keppra) 500 MG tabletIndicatio ns:Focal epilepsy (CMS/HCC) Take 4 tablets by mouth 2 times a day. 240 tablet 2 025 Active levETIRAcetam (Keppra) 500 MG tabletIndicatio ns:Focal epilepsy (CMS/HCC) Take 4 tablets (2,000 mg) by mouth 2 (two) times a day. 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 Depression 06/28/2020 Lung nodule 05/29/2020 [...] Encounters Date Type Department Care Team Description 01/08/2025 Telephone [facility] [address], [address] [place] [phone] Marybel Dunne 01/05/2025 Refill [place] [facility] [address], [address] [place] [address] Calista Jacobs APRN Focal epilepsy ([facility]) 01/02/2025 Telephone [facility] Medicine Specialties [address], [address]nd [place] [address] Jocelyn Arevalo New Med Request 11/06/2024 Refill [facility] Medicine Specialties [address], [address]nd [place] [address] Elizabeth Rolle, dictating machine typist bronchitis with COPD (chronic obstructive pulmonary disease) ([facility]); Moderate persistent asthma, unspecified whether complicated 11/06/2024 Refill [facility] [place] [address], [address] [place] [address] Donis Trujillo, TAILOR APPRENTICE Chronic systolic (congestive) heart failure ([facility]) 10/19/2024 1:45 PM EDT Office Visit [facility] General & Weight Loss Surgery [address] [place] [address] Astrid Alvarez, TAILOR APPRENTICE Obesity, Class II, BMI 35-39.9 (Primary Dx); Sleep apnea, unspecified type; Shortness of breath on exertion; Heart disease; Diabetes 1.5, managed as type 2 ([facility]); Chronic obstructive pulmonary disease, unspecified COPD type ([facility]); Gastroesophageal reflux disease without esophagitis 10/19/2024 Travel 10/19/2024 Telephone [facility] Medicine Specialties [address], [facility] [place] [address] Denise Andre, forestry workers Medication (PA request received for Motegrity 2 mg tablets/HOPKINS: [id number]) from Last 3 Months Immunizations Immunization Administration Dates Next Due Influenza, injectable, quadr ivalent, preservative free 03/09/2023,06/09/2022,04/22/2021,05/28 Influenza, seasonal, injectable 04/20/2019,03/09 Influenza, seasonal, injecta ble, preservative free 04/21/2024 Pneumococcal 20-giovanna Conj Vaccine 08/01/2024 Pneumococcal Polysaccharide PPV23 01/26/2019 Tdap 06/09/2022 Family History Medical History Relation Name Comments Conversions - Other Father shoaib itis Breast cancer Father's Sister Diabetes Maternal [...] to sleep or slept in a senior care (including now)? No 01/25/2024 PHQ-9 Answer Date [...] Description 03/12/2025 10:20 AM EDT Office Visit [facility] Medicine Specialties [address], [address] [place] [address] Bushra Graf PA [address] [place] [address] 03/20/2025 9:30 AM EDT Office Visit [facility] [address], 1[address] [place] [address] Alicia Jennings MD [address] [place] [address] 04/02/2025 2:00 PM EDT Office Visit [facility] [address]th [place] [address] Kassandra Khan, TAILOR APPRENTICE [address] [place] [address] 04/18/2025 11:00 AM EDT Office Visit [facility] Medicine Specialties [address], [address] [place] [address] Juventino Costa MD [address] [place] [address] 05/04/2025 1:00 PM EST Appointment Medical Office Building Cardiac Diagnostic Testing Medical Office Building Echo Lab [address], [address] [place] [address] 05/04/2025 1:45 PM EST Office Visit [facility] [place] [address], [address] [place] [address] Ruslan Sanderson MD [address] [place] [address] Health Maintenance Due Date Last Done Comments [facility] Annual Wellness (AWV) 1985 [id number]-[id number] Vaccine (#1) 02/02/1988 Diabetes: Dental Exam 1993 [...] 5.3 <5.7 % 05/10/2024 1:[address] [facility] Blood Venous blood specimen / Unknown Venipuncture / Unknown 05/10/2024 10:37 AM EST 05/10/2024 10:[address] [facility] - 05/10/2024 1:14 PM EST HA1C Interpretive Data: Diagnosis of Diabetes: Diabetic > or = 6.5% Pre-diabetic 5.7 to 6.4% Non-diabetic < or = 5.6% Glycemic Targets for Type I and Type II Diabetics: Non- Adults <7.0% Adults <6.0% Children and Adolescents <7.5% Source: [place] [employer]. Standards of medical care in diabetes,2017. Diabetes Care.2017:40 (suppl 1):S1-S135. HbA1c assay performed by an ion-exchange chromatography method that is certified traceable to the DCCT. us Astrid Alvarez APRN LAB BLOOD ORDERABLES Kaley l Result [facility] [address] [place] [address] * HIV 1 & 2 Antibody/Antigen Screen (04/28/2022 1:47 PM EST) HIV 1 & 2 Antibody/Anti gen Screen Nonreactive Nonreactive 04/28/2022 4:48 PM EST [facility] Blood Venous blood specimen / Unknown Venipuncture / Unknown 04/28/2022 1:47 PM EST 04/28/2022 2:22 PM EST Carlos Rodriguez MD LAB BLOOD ORDERABLES Final Result Performing Organization Address [facility] Co de Phone Number [facility] [address] [place] [address] * Cytology (09/04/2020 12:00 AM EDT) 09/04/2020 09/05/2020 8:5 1 AM EDT Narrative [facility] - 09/12/2020 12:05 PM EDT [facility] MR #: [id number] [facility] [address] [place] [address] 1985 (Age: 35) FW Collect Date: 09/04/2020 00:00 Receipt Date: 09/05/2020 08:51 Page 1 DEPARTMENT OF PATHOLOGY AND LABORATORY MEDICINE CYTOPATHOLOGY REPORT Email: [email or web address] ATTENDING MD/Practitioner: JOAN ROWE Service: CA0 Location: [facility] Reported: 09/12/2020 12:05 Collected: 09/04/2020 00:00 INTERPRETATION A. THIN PREP (CERVICAL/VAGINAL): ATYPICAL SQUAMOUS CELLS - UNDETERMINED SIGNIFICANCE(ASCUS) REACTIVE CELLULAR CHANGES. ORGANISMS PRESENT CONSISTENT WITH ACTINOMYCES SPECIES. SATISFACTORY FOR EVALUATION; ENDOCERVICAL/ TRANSFORMATION ZONE COMPONENT PRESENT. Slide scanned and imaged by [employer] ThinPrep Imaging System with manual review of all selected brandon. Electronically Signed Out ANGEL Byers (ASC) Aixa Manning M.D. Cervical cytology is a [...] results is suggested (please call Microbiology at [phone] for results). CLINICAL INFORMATION: Menstrual History: Irregular [...] of cervix uteri F: A; DX IMAGE 10501, 65232 C\V (PO) SNOMED CODES: A; H4O531 E1070 [id number] M- 54936 [id number] [id number] [id number] In cases where a pathologist has signed out the report, the service has been rendered in part by a resident. The signing pathologist has performed and is responsible for the reported pathologic evaluation. Christie Chau TAILOR APPRENTICE LAB PATHOLOGY ORDERABLES Fi nal Result [facility] [...] for ESBL Citrobacter Freundii. 10/23/2019 11/12/2020 Insurance [employer] [place] Advance Directives Documents on File Type Date Recorded Patient Studio Operations Manager Expl anation Advance Directives and Living Will 12/31/2020 Care Teams Flavoring Machine Operator Relationship Specialty Start Date End Date Iman Cuevas MD [address] [address] PCP - General Internal Medicine 12/19/24
--- OUTSIDE RECORDS SUMMARY | 2025-01-19 13:41 | XMS_ITS | Encounter Summary ---
Author Organization Healthcare Address [address] [place] [address] Care Team Providers Care Motor And Generator Brush Cutter Name Role Phone Ankur Main MD Primary Care Provider [phone] Iman Cuevas MD Primary Care Provider [phone] Encounter Details Date Type Department Care Team (Late st Contact Info) Description 01/24/2024 Orders Only External Location [address] [place] [address] Skip Tineo MD Social History Tobacco Use [...] place to sleep or slept in a fci (including now)? No 01/25/2024 Safety and Environment [...] Description 03/12/2025 10:20 AM EDT Office Visit [facility] Medicine Specialties [address], [address] [place] [address] Bushra Graf PA [address] [place] [address] 03/20/2025 9:30 AM EDT Office Visit [facility] [address], [address] [place] [address] Alicia Jennings MD [address] [facility] [address] [place] [address] 04/02/2025 2:00 PM EDT Office Visit [facility] Sleep Disorder Center [address] 4th [place] [address] Kassandra Khan, BUSINESS SUPPORT ASSOCIATE [address] [place] [address] 04/18/2025 11:00 AM EDT Office Visit [facility] Medicine Specialties [address], [address] [place] [address] Juventino Costa MD [address] [place] [address] 05/04/2025 1:00 PM EST Appointment Medical Office Building Cardiac Diagnostic Testing Medical Office Building Echo Lab [address] [place] [address] 05/04/2025 1:45 PM EST Office Visit [facility] [place] [address], [address] [place] [address] Ruslan Sanderson MD [address] [place] [address] documented as of this encounter [...] documented as of this encounter Care Teams Motor And Generator Brush Cutter Relationship Specialty Start Date End Date Ankur Main MD [address] [place] [address] PCP - General 11/01/20 12/18/24 Iman Cuevas MD [address] [place] [address] PCP - General Internal Medicine 12/19/24 documented as of this encounter
--- OUTSIDE RECORDS SUMMARY | 2025-01-19 13:41 | XMS_ITS | Encounter Summary ---
Author Organization Healthcare Address [address] [place] [address] Care Team Providers Care Screen Printing Machine Operator Name Role Phone Ankur Main MD Primary Care Provider [phone] Iman Cuevas MD Primary Care Provider Reason for Visit * Reason Onset Date Comments Med Refill 02/28/2021 Encounter Details Date Type Department Care Team (Late st Contact Info) Description 02/28/2021 Refill [facility] Internal Medicine [address], [address]rd [place] [address] Roxana Abdul MD [address] [place] [address] Polyneuropathy associated with underlying disease [...] Description 03/12/2025 10:20 AM EDT Office Visit [facility] Medicine Specialties [address], [address] [place] [address] Bushra Graf PA [address] [place] [address] 03/20/2025 9:30 AM EDT Office Visit [facility] [address], 1st [place] [address] Alicia Jennings MD [address] [place] [address] 04/02/2025 2:00 PM EDT Office Visit [facility] Sleep Disorder Center [address], 4[address] [place] [address] Kassandra Khan APRN [address] [place] [address] 04/18/2025 11:00 AM EDT Office Visit [facility] Medicine Specialties [address], 2nd [place] [address] Juventino Costa MD [address] [place] [address] 05/04/2025 1:00 PM EST Appointment Medical Office Building Cardiac Diagnostic Testing Medical Office Building Echo Lab [address] [place] [address] 05/04/2025 1:45 PM EST Office Visit [facility] [place] [address], [address] [place] [address] Ruslan Sanderson MD [address] [place] [address] documented as of this encounter [...] documented as of this encounter Care Teams Screen Printing Machine Operator Relationship Specialty Start Date End Date Ankur Main MD [address] [place] [address] PCP - General 11/01/20 12/18/24 Iman Cuevas MD [address] [place] [address] PCP - General Internal Medicine 12/19/24 documented as of this encounter
--- OUTSIDE RECORDS SUMMARY | 2025-01-19 13:41 | XMS_ITS | Encounter Summary ---
Author Organization [facility] Address [address] [place] [address] Care Team Providers Care Gear Hobber Name Role Phone Iman Cuevas MD Primary Care Provider [phone] Encounter Details Date Type Department Care Team (Late st Contact Info) Description 01/08/2025 Telephone [place] [facility] Medicine Specialties [address] [place] [address] [place] [address] Social History Tobacco Use Types Packs/Day Years [...] place to sleep or slept in a retirement (including now)? No 01/25/2024 PHQ-9 Answer Date [...] encounter Miscellaneous Notes * Telephone Encounter - Marybel Dunne - 01/08/2025 11:44 AM EDT Prior Authorization request received via covermymeds Date received: 01/03/25 Louis: [email or web address] Medication: Prucalopride Succinate 2 mg Next appointment: 03/12/25 documented in this encounter Plan of Treatment Upcoming Encounters Date Type Department Care Team (Late st Contact Info) Description 03/12/2025 10:20 AM EDT Office Visit [facility] Medicine Specialties [address], [address] [place] [address] Bushra Graf PA [address] [place] [address] 03/20/2025 9:30 AM EDT Office Visit [facility] [address], [address]st [place] [address] Alicia Jennings MD [address] [place] [address] 04/02/2025 2:00 PM EDT Office Visit [facility] Sleep Disorder Center [address], 4th [place] [address] Kassandra Khan APRN [address] [place] [address] 04/18/2025 11:00 AM EDT Office Visit [facility] Medicine Specialties [address], [address] [place] [address] Juventino Costa MD [address] [place] [address] 05/04/2025 1:00 PM EST Appointment Medical Office Building Cardiac Diagnostic Testing Medical Office Building Echo Lab [address], [address] [place] [address] 05/04/2025 1:45 PM EST Office Visit [facility] [place] [address], [address] [place] [address] Ruslan Sanderson MD [address] [place] [address] documented as of this encounter [...] documented as of this encounter Care Teams Gear Hobber Relationship Specialty Start Date End Date Iman Cuevas MD [address] [place] [address] PCP - General Internal Medicine 12/19/24 documented as of this encounter
--- OUTSIDE RECORDS SUMMARY | 2025-01-19 13:41 | XMS_ITS | Encounter Summary ---
Author Organization Healthcare Address [address] [place] [address] Care Team Providers Care Cardiology Associate Name Role Phone Iman Cuevas MD Primary Care Provider [phone] Reason for Visit * Reason Onset Date Comments Med Refill 01/05/2025 Encounter Details Date Type Department Care Team (Late st Contact Info) Description 01/05/2025 Refill [place] [facility] [address], [address] [place] [address] Calista Jacobs, DIRECTOR OF BUSINESS SERVICES [address] [place] [address] Focal epilepsy (CMS/HCC) Social History Tobacco Use Types Packs/Day [...] encounter Miscellaneous Notes * Telephone Encounter - Mary Álvarez, PharmD - 01/05/2025 1:18 PM EDT 1 medication(s) has been approved per protocol. Patient needs to keep upcoming appt for additional refills. documented in this encounter Plan of Treatment Upcoming Encounters Date Type Department Care Team (Late st Contact Info) Description 03/12/2025 10:20 AM EDT Office Visit [facility] Medicine Specialties [address], [address] [place] [address] Bushra Graf PA [address] [place] [address] 03/20/2025 9:30 AM EDT Office Visit [facility] [address], [address] [place] [address] Alicia Jennings MD [address] [place] [address] 04/02/2025 2:00 PM EDT Office Visit [facility] Sleep Disorder Center [address], 4th [place] [address] Kassandra Khan APRN [address] [place] [address] 04/18/2025 11:00 AM EDT Office Visit [facility] Medicine Specialties [address], [address] [place] [address] Juventino Costa MD [address] [place] [address] 05/04/2025 1:00 PM EST Appointment Medical Office Building Cardiac Diagnostic Testing Medical Office Building Echo Lab [address], [address] [place] [address] 05/04/2025 1:45 PM EST Office Visit [facility] [place] [address] [facility], [address] [place] [address] Ruslan Sanderson MD [address] [place] [address] documented as of this encounter Visit Diagnoses Diagnosis Focal epilepsy (CMS/HCC) documented in this encounter Additional Health [...] documented as of this encounter Care Teams Cardiology Associate Relationship Specialty Start Date End Date Iman Cuevas MD [address] [place] [address] PCP - General Internal Medicine 12/19/24 documented as of this encounter
--- OUTSIDE RECORDS SUMMARY | 2025-01-19 13:41 | XMS_ITS | Encounter Summary ---
Author Organization Healthcare Address [address] [place] [address] Care Team Providers Care Spiral Runner Name Role Phone Ankur Main MD Primary Care Provider [phone] Iman Cuevas MD Primary Care Provider [phone] Reason for Visit * Reason Onset Date Comments Med Refill 06/30/2021 Encounter Details Date Type Department Care Team (Late st Contact Info) Description 06/30/2021 Refill [facility] Medicine Specialties [address], [address] [place] [address] Juventino Costa MD [address] [place] [address] Moderate persistent asthma, unspecified whether [...] Description 03/12/2025 10:20 AM EDT Office Visit [facility] Medicine Specialties [address], [address] [place] [address] Bushra Graf PA [address] [place] [address] 03/20/2025 9:30 AM EDT [facility] [address], [address]st [place] [address] Alicia Jennings MD [address] [place] [address] 04/02/2025 2:00 PM EDT Office Visit [facility] Sleep Disorder Center [address], 4th [place] [address] Kassandra Khan APRN [address] [place] [address] 04/18/2025 11:00 AM EDT Office Visit [facility] Medicine Specialties [address], [address] [place] [address] Juventino Costa MD [address] [place] [address] 05/04/2025 1:00 PM EST Appointment Medical Office Building Cardiac Diagnostic Testing Medical Office Building Echo Lab [address] [place] [address] 05/04/2025 1:45 PM EST Office Visit [facility] [place] [address], [address] [place] [address] Ruslan Sanderson MD [address] [place] [address] documented as of this encounter [...] documented as of this encounter Care Teams Spiral Runner Relationship Specialty Start Date End Date Ankur Main MD [address] [place] [address] PCP - General 11/01/20 12/18/24 Iman Cuevas MD [address] [place] [address] PCP - General Internal Medicine 12/19/24 documented as of this encounter
--- OUTSIDE RECORDS SUMMARY | 2025-01-19 13:41 | XMS_ITS | Encounter Summary ---
Author Organization Healthcare Address [address] [place] [address] Care Team Providers Care Clinic Charge Nurse Name Role Phone Ankur Main MD Primary Care Provider Iman Cuevas MD Primary Care Provider [phone] Reason for Visit * Reason Onset Date Comments Med Refill 01/24/2021 Encounter Details Date Type Department Care Team (Late st Contact Info) Description 01/24/2021 Refill [facility] Internal Medicine [address], 3rd [place] [address] Ankur Main MD [address] [place] [address] Polyneuropathy associated with underlying disease [...] Description 03/12/2025 10:20 AM EDT Office Visit [facility] Medicine Specialties [address], 2nd [place] [address] Bushra Graf PA [address] [place] [address] 03/20/2025 9:30 AM EDT Office Visit [facility] [address], 1st [place] [address] Alicia Jennings MD [address] [place] [address] 04/02/2025 2:00 PM EDT Office Visit [facility] Sleep Disorder Center [address], 4th [place] [address] Kassandra Khan, APOLLO [address] [place] [address] 04/18/2025 11:00 AM EDT Office Visit [facility] Medicine Specialties [address], 2nd [place] [address] Juventino Costa MD [address] [place] [address] 05/04/2025 1:00 PM EST Appointment Medical Office Building Cardiac Diagnostic Testing Medical Office Building Echo Lab [address] [facility], [address] [place] [address] 05/04/2025 1:45 PM EST Office Visit [facility] Helena Dodson [address] [facility], [address] [place] [address] Ruslan Sanderson MD [address] [place] [address] documented as of this [...] documented as of this encounter Care Teams Clinic Charge Nurse Relationship Specialty Start Date End Date Ankur Mani MD [address] [place] [address] PCP - General 11/01/20 12/18/24 Iman Cuevas MD [address] [place] [address] PCP - General Internal Medicine 12/19/24 documented as of this encounter
--- OUTSIDE RECORDS SUMMARY | 2025-01-19 13:41 | XMS_ITS | Encounter Summary ---
Author Organization Healthcare Address [address] [place] [address] Care Team Providers Care Timber Surveyor Name Role Phone Ankur Main MD Primary Care Provider [phone] Nancy Hernandez STOCK BROKER SUPERVISOR Unavailable Unavailable Iman Cuevas MD Primary Care Provider [phone] Encounter Details Date Type Department Care Team (Late st Contact Info) Description 08/01/2018 Orders Only External Location [address] [place] [address] Social History Tobacco Use Types Packs/Day Years [...] Visit [facility] Medicine Specialties [address], 2nd [place] [address] Bushra Graf PA [address] [place] [address] 03/20/2025 9:30 AM EDT Office Visit [facility] [address], 1st [place] [address] Alicia Jennings MD [address] [place] [address] 04/02/2025 2:00 PM EDT Office Visit [facility] Sleep Disorder Center [address], 4th [place] [address] Kassandra Khan, APOLLO [address] [place] [address] 04/18/2025 11:00 AM EDT Office Visit [facility] Medicine Specialties [address], 2nd [place] [address] Juventino Costa MD [address] [place] [address] 05/04/2025 1:00 PM EST Appointment Medical Office Building Cardiac Diagnostic Testing Medical Office Building Echo Lab [address] [facility], [address] [place] [address] 05/04/2025 1:45 PM EST Office Visit [facility] [place] Printer [address] [facility], [address] [place] [address] Ruslan Sanderson MD [address] [place] [address] documented as of this encounter [...] documented as of this encounter Care Teams Timber Surveyor Relationship Specialty Start Date End Date Ankur Main MD [address] [place] [phone] PCP - General 11/01/20 12/18/24 Iman Cuevas MD [address] [place] [phone] PCP - General Internal Medicine 12/19/24 Nancy Hernandez, [place] [phone] Hygiene Teacher Sports Agent 03/25/20 03/25/20 documented as of this encounter
--- OUTSIDE RECORDS SUMMARY | 2025-01-19 13:41 | XMS_ITS | Encounter Summary ---
Author Organization Healthcare Address [address] [place] [address] Care Team Providers Care Seed Potato Arranger Name Role Phone Ankur Main MD Primary Care Provider [phone] Imna Cuevas MD Primary Care Provider [phone] Reason for Visit * Reason Onset Date Comments Med Refill 02/19/2022 Encounter Details Date Type Department Care Team (Late st Contact Info) Description 02/19/2022 Refill [facility] Internal Medicine [address], 3rd [place] [address] Aknur Main MD [address] [place] [address] Polyneuropathy associated with underlying disease [...] Description 03/12/2025 10:20 AM EDT Office Visit [facility] Medicine Specialties [address], 2nd [place] [address] Bushra Graf PA [address] [place] [address] 03/20/2025 9:30 AM EDT Office Visit [facility] [address], 1st [place] [address] Alicia Jennings MD [address] [place] [address] 04/02/2025 2:00 PM EDT Office Visit [facility] Sleep Disorder Center [address], 4th [place] [address] Kassandra Khan, TOBACCO SIZER [address] [place] [address] 04/18/2025 11:00 AM EDT Office Visit [facility] Medicine Specialties [address], 2nd [place] [address] Juventino Costa MD [address] [place] [address] 05/04/2025 1:00 PM EST Appointment Medical Office Building Cardiac Diagnostic Testing Medical Office Building Echo Lab [address] [facility], [address] [place] [address] 05/04/2025 1:45 PM EST Office Visit [facility] [place] [address] [facility], [address] [place] [address] Ruslan Sanderson MD [address] [place] [phone] documented as of this encounter Visit Diagnoses [...] documented as of this encounter Care Teams Seed Potato Arranger Relationship Specialty Start Date End Date Ankur Main MD [address] [address] PCP - General 11/01/20 12/18/24 Iman Cuevas MD [address] [place] [phone] PCP - General Internal Medicine 12/19/24 documented as of this encounter
--- OUTSIDE RECORDS SUMMARY | 2025-01-19 13:41 | XMS_ITS | Encounter Summary ---
Author Organization Healthcare Address [address] [place] [address] Care Team Providers Care Contact Printer Dry Film Name Role Phone Ankur Main MD Primary Care Provider [phone] Iman Cuevas MD Primary Care Provider [phone] Reason for Visit * Reason Onset Date Comments Med Refill 06/19/2021 Encounter Details Date Type Department Care Team (Late st Contact Info) Description 06/19/2021 Refill [facility] Internal Medicine [address], 3rd [place] [address] Ankur Main MD [address] [place] [address] Social History Tobacco Use Types [...] Visit [facility] Medicine Specialties [address], 2nd [place] [phone] Bushra Graf PA [address] [place] [address] 03/20/2025 9:30 AM EDT Office Visit [facility] [address], 1st [place] [address] Alicia Jennings MD [address] [place] [address] 04/02/2025 2:00 PM EDT Office Visit [facility] Sleep Disorder Center [address], 4th [place] [address] Kassandra Khan, APOLLO [address] [place] [address] 04/18/2025 11:00 AM EDT Office Visit [facility] Medicine Specialties [address], 2nd [place] [address] Juventino Costa MD [address] [place] [address] 05/04/2025 1:00 PM EST Appointment Medical Office Building Cardiac Diagnostic Testing Medical Office Building Echo Lab [address] [facility], [address] [place] [address] 05/04/2025 1:45 PM EST Office Visit [facility] [place] [address] [facility], [address] [place] [address] Ruslan Sanderson MD [address] [place] [address] documented as of this encounter [...] documented as of this encounter Care Teams Contact Printer Dry Film Relationship Specialty Start Date End Date Ankur Main MD [address] [place] [address] PCP - General 11/01/20 12/18/24 Iman Cuevas MD [address] [place] [address] PCP - General Internal Medicine 12/19/24 documented as of this encounter
--- OUTSIDE RECORDS SUMMARY | 2025-01-19 13:41 | XMS_ITS | Encounter Summary ---
Author Organization [facility] Address [address] [place] [id number] Care Team Providers Care Healthcare Management Consultant Name Role Phone Iman Cuevas MD Primary Care Provider [phone] Reason for Visit * Reason Onset Date Comments New Med Request 01/02/2025 Encounter Details Date Type Department Care Team (Late st Contact Info) Description 01/02/2025 Telephone [facility] Medicine Specialties [address], 2nd [place] [address] [place] [address] New Med Request Social History Tobacco Use [...] place to sleep or slept in a residential (including now)? No 01/25/2024 PHQ-9 Answer Date [...] PA - 01/03/2025 2:53 PM EDTAddended by: BUSRHA MAX on: 01/03/2025 02:53 PM Modules accepted: [...] no relief Verified pharmacy with patient's mother- [facility] CB: [phone] documented in this encounter Plan of Treatment Upcoming Encounters Date Type Department Care Team (Late st Contact Info) Description 03/12/2025 10:20 AM EDT Office Visit [facility] Medicine Specialties [address], 2nd [place] [address] Bushra Max PA [address] [place] [address] 03/20/2025 9:30 AM EDT Office Visit [facility] [address], 1st [place] [address] Alicia Jennings MD [address] [place] [address] 04/02/2025 2:00 PM EDT Office Visit [facility] Sleep Disorder Center [address], 4th [place] [address] Kassandra Khan APRN [address] [place] [address] 04/18/2025 11:00 AM EDT Office [facility] Specialties [address], 2nd [place] [address] Juventino Costa MD [address] [place] [address] 05/04/2025 1:00 PM EST Appointment Medical Office Building Cardiac Diagnostic Testing Medical Office Building Echo Lab [address] [facility], [address] [place] [address] 05/04/2025 1:45 PM EST Office Visit [facility] [place] [address] [facility], [address] [place] [address] Ruslan Sanderson MD [address] [place] [address] documented as of this encounter [...] documented as of this encounter Care Teams Healthcare Management Consultant Relationship Specialty Start Date End Date Iman Cuevas MD [address] [phone] PCP - General Internal Medicine 12/19/24 documented as of this encounter
--- OUTSIDE RECORDS SUMMARY | 2025-01-19 13:41 | XMS_ITS | Encounter Summary ---
Author Organization Healthcare Address [address] [place] [address] Care Team Providers Care Combat Control Name Role Phone Ankur Main MD Primary Care Provider [phone] Iman Cuevas MD Primary Care Provider Reason for Visit * Reason Onset Date Comments Med Refill 06/29/2021 Encounter Details Date Type Department Care Team (Late st Contact Info) Description 06/29/2021 Refill [facility] Medicine Specialties [address], 2nd [place] [address] Juventino Costa MD [address] [place] [address] Moderate persistent asthma, unspecified whether [...] 10:20 AM EDT Office Visit [facility] Medicine Specialties [address], 2nd [place] [address] Bushra Graf PA [address] [facility] [address] [place] [address] 03/20/2025 9:30 AM EDT [facility] [address], 1st [place] [address] Alicia Jennings MD [address] [place] [address] 04/02/2025 2:00 PM EDT Office Visit [facility] Sleep Disorder Center [address], 4th [place] [address] Kassandra Khan, APOLLO [address] [place] [address] 04/18/2025 11:00 AM EDT Office [facility] Medicine [facility] [address], 2nd [place] [address] Juventino Costa MD [address] [place] [address] 05/04/2025 1:00 PM EST Appointment Medical Office Building Cardiac Diagnostic Testing Medical Office Building Echo Lab [address] [facility], [address] [place] [address] 05/04/2025 1:45 PM EST Office Visit [facility] [place] [address] [facility], [address] [place] [address] Ruslan Sanderson MD [address] [place] [address] documented as of this encounter [...] documented as of this encounter Care Teams Combat Control Relationship Specialty Start Date End Date Ankur Main MD [address] [place] [address] PCP - General 11/01/20 12/18/24 Iman Cuevas MD [address] [place] [address] PCP - General Internal Medicine 12/19/24 documented as of this encounter
--- NOTE | 2025-01-19 13:45 | US_ITS ---
PROCEDURE: US TRANSVAGINAL CLINICAL INDICATION: evaluate ovarian cyst laterality COMPARISON: CT CT ABDOMEN PELVIS WO/W CON from 01/24/2024 US US TRANSVAGINAL from 10/18/2024 US US TRANSVAGINAL from 12/27/2024 FINDINGS: Transvaginal sonographic images of the pelvis were obtained. UTERUS: 9.4cm x 5.0cmx 4.0cm anteverted with a combined endometrial thickness of 6.1mm. LEFT OVARY: Not visualized today transvaginally or transabdominally. RIGHT OVARY: 4.0cmx 3.1cmx3.4cm with a volume of 21.9ml. Right ovary is seen and appears normal. Doppler flow to right ovary is seen. There is trace fluid in the cul-de-sac. IMPRESSION: 1. Anteverted uterus, upper limits of normal in size. The endometrium is normal measuring 6.1 mm. 2. Left ovary is not visualized today. The right ovary is seen and contains multiple follicles. The largest is 2.65 cm. Previously described 6.1 cm right ovarian cyst has now resolved. 3. There is trace fluid in the cul-de-sac. Dictated by: Thiago Sharp MD 01/20/2025 19:09 Thiago Sharp MD in [place] 01/20/2025 19:09
== END 2025-01-19 23:59 | disposition home or self-care (01) ==
LOC: RAD 13:38
PROVIDERS: PCP Family Medicine; Visit Provider Obstetrics & Gynecology
DX: N83.01 Follicular cyst of right ovary (principal); R93.89 Abnormal findings on diagnostic imaging of other specified body structures
CPT/HCPCS: 76830

== ENCOUNTER 2025-03-07 09:54 | Outpatient (CLI) | payer MEDICARE, MEDICAID, SELFPAY ==
--- OUTSIDE RECORDS SUMMARY | 2025-03-07 09:57 | XMS_ITS | Encounter Summary ---
Author Organization Healthcare Address [address] [place] [address] Care Team Providers Care Biomedical Engineering Technician Name Role Phone Ankur Main MD Primary Care Provider [phone] Iman Cuevas MD Primary Care Provider [phone] Reason for Visit * Reason Onset Date Comments Med Refill 01/24/2021 Encounter Details Date Type Department Care Team (Late st Contact Info) Description 01/24/2021 Refill [facility] Internal Medicine [address], 3rd [place] [address] Ankur Main MD [address] [place] [address] Polyneuropathy associated with underlying disease [...] Visit [facility] Medicine Specialties [address], 2nd [place] [address] Bushra Graf PA [address] [facility] [address] [place] [address] 03/20/2025 9:30 AM EDT Office Visit [facility] [address], 1st [place] [address] Alicia Jennings MD [address] [facility] [address] [place] [address] 04/18/2025 11:00 AM EDT Office Visit [facility] Medicine Specialties [address], 2nd [place] [address] Juventino Costa MD [address] [facility] [address] [place] [address] 05/04/2025 1:00 PM EST Appointment Medical Office Building Cardiac Diagnostic Testing Medical Office Building Echo Lab [address] [facility], [address] [place] [address] 05/04/2025 1:45 PM EST Office Visit [facility] [place] [address] [facility], [address] [place] [address] Ruslan Sanderson MD [address] [place] [address] 07/23/2025 2:00 PM EST Office Visit [facility] Sleep Disorder Center [address], 4th [place] [address] Kassandra Khan, PIPE FITTER SOFT COPPER [address] [place] [address] documented as of this encounter Visit Diagnoses [...] documented as of this encounter Care Teams Biomedical Engineering Technician Relationship Specialty Start Date End Date Ankur Main MD [address] [place] [address] PCP - General 11/01/20 12/18/24 Iman Cuevas MD [address] [place] [address] PCP - General Internal Medicine 12/19/24 documented as of this encounter
--- OUTSIDE RECORDS SUMMARY | 2025-03-07 09:57 | XMS_ITS | Encounter Summary ---
Author Organization Healthcare Address [address] [place] [address] Care Team Providers Care Applied Marine Physics Professor Name Role Phone Ankur Main MD Primary Care Provider [phone] Iman Cuevas MD Primary Care Provider [phone] Reason for Visit * Reason Onset Date Comments Med Refill 02/28/2021 Encounter Details Date Type Department Care Team (Late st Contact Info) Description 02/28/2021 Refill [facility] Internal Medicine [address], 3rd [place] [address] Roxana Abdul MD [address] [place] [address] Polyneuropathy associated with underlying disease [...] [facility] Medicine Specialties [address], 2nd [place] [address] Bushra Graf PA [address] [facility] [address] [place] [address] 03/20/2025 9:30 AM EDT Office Visit [facility] [address], 1st [place] [address] Alicai Jennings MD [address] [facility] [address] [place] [address] 04/18/2025 11:00 AM EDT Office Visit [facility] Medicine Specialties [address], 2nd [place] [address] Juventino Costa MD [address] [facility] [address] [place] [address] 05/04/2025 1:00 PM EST Appointment Medical Office Building Cardiac Diagnostic Testing Medical Office Building Echo Lab [address] [facility], [address] [place] [address] 05/04/2025 1:45 PM EST Office Visit [facility] [place] [address] [facility], [address] [place] [address] Ruslan Sanderson MD [address] [place] [address] 07/23/2025 2:00 PM EST Office Visit [facility] Sleep Disorder Center [address], 4th [place] [address] Kassandra Khan APRN [address] [place] [address] documented as of this encounter [...] documented as of this encounter Care Teams Applied Marine Physics Professor Relationship Specialty Start Date End Date Ankur Main MD [address] [place] [address] PCP - General 11/01/20 12/18/24 Iman Cuevas MD [address] [place] [address] PCP - General Internal Medicine 12/19/24 documented as of this encounter
--- OUTSIDE RECORDS SUMMARY | 2025-03-07 09:57 | XMS_ITS | Encounter Summary ---
Author Organization Healthcare Address [address] [place] [address] Care Team Providers Care Powder Expert Name Role Phone Ankur Main MD Primary Care Provider [phone] Iman Cuevas MD Primary Care Provider [phone] Reason for Visit * Reason Onset Date Comments Med Refill 06/29/2021 Encounter Details Date Type Department Care Team (Late st Contact Info) Description 06/29/2021 Refill [facility] Special[facility] [address], 2nd [place] [address] Juventino Costa MD [address] [place] [address] Moderate persistent asthma, unspecified whether [...] Miscellaneous Notes * Telephone Encounter - Domi Johnson, RN - 06/30/2021 8:55 AM EST PCP refilling this medication per last office note. documented in this encounter Plan of Treatment Upcoming Encounters Date Type Department Care Team (Late st Contact Info) Description 03/12/2025 10:20 AM EDT Office Visit [facility] Medicine Specialties [address], 2nd [place] [address] Bushra Graf PA [address] [facility] [address] [place] [address] 03/20/2025 9:30 AM EDT Office Visit [facility] [address], 1st [place] [address] Alicia Jennings MD [address] [facility] [address] [place] [address] 04/18/2025 11:00 AM EDT Office Visit [facility] [place] Specialties [address], 2nd [place] [address] Juventino Costa MD [address] [facility] [address] [place] [address] 05/04/2025 1:00 PM EST Appointment Medical Office Building Cardiac Diagnostic Testing Medical Office Building Echo Lab [address] [facility], [address] [place] [address] 05/04/2025 1:45 PM EST Office Visit [facility] [place] [address] [facility], [address] [place] [address] Ruslan Sanderson MD [address] [place] [address] 07/23/2025 2:00 PM EST Office Visit [facility] [address], 4th [place] [address] Kassandra Khan APRN [address] [place] [address] documented as of this encounter [...] documented as of this encounter Care Teams Powder Expert Relationship Specialty Start Date End Date Ankur Main MD [address] [address] PCP - General 11/01/20 12/18/24 Iman Cuevas MD [address] [place] [address] PCP - General Internal Medicine 12/19/24 documented as of this encounter
--- OUTSIDE RECORDS SUMMARY | 2025-03-07 09:57 | XMS_ITS | Encounter Summary ---
Author Organization Healthcare Address [address] [place] [address] Care Team Providers Care Soil Specialist Name Role Phone Iman Cuevas MD Primary Care Provider [phone] Reason for Visit * Reason Comments Med Refill Encounter Details Date Type Department Care Team ([facility] st Contact Info) Description 01/23/2025 Refill [facility] [place] [address], [address] [place] [address] Ruslan Sanderson MD [address] [place] [address] History of pulmonic valve replacement Social History Tobacco Use Types Packs/Day Years [...] place to sleep or slept in a [place] health care facility (including now)? No 01/25/2024 PHQ-9 Answer Date [...] [facility] Medicine Specialties [address], [address]nd [place] [address] Bushra Graf PA [address] [place] [address] 03/20/2025 9:30 AM EDT [facility] [address], 1[address] [place] [address] Alicia Jennings MD [address] [place] [address] 04/18/2025 11:00 AM EDT Office Visit [facility] Medicine Specialties [address], 2nd [place] [address] Juventino Costa MD [address] [facility] [address] [place] [address] 05/04/2025 1:00 PM EST Appointment Medical Office Building Cardiac Diagnostic Testing Medical Office Building Echo Lab [address], [address] [place] [address] 05/04/2025 1:45 PM EST Office Visit [facility] [place] [address], [address] [place] [address] Ruslan Sanderson MD [address] [place] [address] 07/23/2025 2:00 PM EST Office Visit [facility] [address], [address]th [place] [address] Kassandra Khan APRN [address] [place] [address] documented as of this encounter Visit Diagnoses Diagnosis History of pulmonic valve replacement documented in this encounter Additional Health Concerns [...] documented as of this encounter Care Teams Soil Specialist Relationship Specialty Start Date End Date Iman Cuevas MD [address] [place] [address] PCP - General Internal Medicine 12/19/24 documented as of this encounter
--- OUTSIDE RECORDS SUMMARY | 2025-03-07 09:57 | XMS_ITS | Encounter Summary ---
Author Organization Healthcare Address [address] [place] [address] Care Team Providers Care Electrician Underground Name Role Phone Ankur Main MD Primary Care Provider Iman Cuevas MD Primary Care Provider [phone] Reason for Visit * Reason Onset Date Comments Med Refill 06/30/2021 Encounter Details Date Type Department Care Team (Late st Contact Info) Description 06/30/2021 Refill [facility] Special[facility] [address], [address] [place] [address] Juventino Costa MD [address] [place] [address] Moderate persistent asthma, unspecified whether [...] Description 03/12/2025 10:20 AM EDT Office Visit [facility] Medicine Specialties [address], 2[address] [place] [address] Bushra Graf PA [address] [facility] [address] [place] [address] 03/20/2025 9:30 AM EDT Office Visit [facility] [address], 1st [place] [address] Alicia Jennings MD [address] [facility] [address] [place] [address] 04/18/2025 11:00 AM EDT Office Visit [facility] Medicine Specialties [address], 2nd [place] [address] Juventino Costa MD [address] [place] [address] 05/04/2025 1:00 PM EST Appointment Medical Office Building Cardiac Diagnostic Testing Medical Office Building Echo Lab [address], [address] [place] [address] 05/04/2025 1:45 PM EST Office Visit [facility] [place] [address], [address] [place] [address] Ruslan Sanderson MD [address] [place] [address] 07/23/2025 2:00 PM EST Office Visit [facility] Sleep Disorder Center [address], 4th [place] [address] Kassandra Khan APRN [address] [place] [address] documented as of this encounter [...] documented as of this encounter Care Teams Electrician Underground Relationship Specialty Start Date End Date Ankur Main MD [address] [place] [address] PCP - General 11/01/20 12/18/24 Iman Cuevas MD [address] [place] [address] PCP - General Internal Medicine 12/19/24 documented as of this encounter
--- OUTSIDE RECORDS SUMMARY | 2025-03-07 09:57 | XMS_ITS | Encounter Summary ---
Author Organization Healthcare Address [address] [place] [address] Care Team Providers Care Brim Blocker Name Role Phone Ankur Main MD Primary Care Provider [phone] Iman Cuevas MD Primary Care Provider [phone] Reason for Visit * Reason Onset Date Comments Med Refill 06/19/2021 Encounter Details Date Type Department Care Team (Late st Contact Info) Description 06/19/2021 Refill [facility] Internal Medicine [address], 3rd [place] [address] Ankur Main MD [address] [place] [address] Social History Tobacco Use Types [...] encounter Miscellaneous Notes * Telephone Encounter - Will Yulisa John - 06/24/2021 3:44 PM EST Per protocol, 1 medication(s), levothyroxine, have been refused due to: Duplicate request sent 06/23 documented in this encounter Plan of Treatment Upcoming Encounters Date Type Department Care Team (Late st Contact Info) Description 03/12/2025 10:20 AM EDT Office Visit [facility] Medicine Specialties [address], 2nd [place] [address] Bushra Graf PA [address] [facility] [address] [place] [address] 03/20/2025 9:30 AM EDT [facility] [address], 1st [place] [address] Alicia Jennings MD [address] [place] [address] 04/18/2025 11:00 AM EDT Office Visit [facility] Medicine Specialties [address], 2nd [place] [address] Juventino Costa MD [address] [place] [address] 05/04/2025 1:00 PM EST Appointment Medical Office Building Cardiac Diagnostic Testing Medical Office Building Echo Lab [address], [address] [place] [address] 05/04/2025 1:45 PM EST Office Visit [facility] [place] [address], [address] [place] [address] Ruslan Sanderson MD [address] [place] [address] 07/23/2025 2:00 PM EST Office Visit [facility] Disorder Center [address], 4th [place] [address] Kassandra Khan APRN [address] [place] [address] documented as of this encounter [...] documented as of this encounter Care Teams Brim Blocker Relationship Specialty Start Date End Date Ankur Main MD [address] [place] [address] PCP - General 11/01/20 12/18/24 Iman Cuevas MD [address] [place] [address] PCP - General Internal Medicine 12/19/24 documented as of this encounter
--- OUTSIDE RECORDS SUMMARY | 2025-03-07 09:57 | XMS_ITS | Encounter Summary ---
Author Organization Healthcare Address [address] [place] [address] Care Team Providers Care Closing Manager Name Role Phone Ankur Main MD Primary Care Provider [phone] Iman Cuevas MD Primary Care Provider [phone] Encounter Details Date Type Department Care Team (Late st Contact Info) Description 01/24/2024 Orders Only External Location [address] [place] [address] Skip Tineo MD Social History Tobacco Use [...] in a intermediate (including now)? No 01/25/2024 Safety and Environment [...] Description 03/12/2025 10:20 AM EDT Office Visit [facility] [address], [address] [place] [address] Bushra Graf PA [address] [facility] [address] [place] [address] 03/20/2025 9:30 AM EDT Office Visit [facility] [address], 1st [place] [address] Alicia Jennings MD [address] [place] [address] 04/18/2025 11:00 AM EDT Office Visit [facility] [address], 2nd [place] [address] Juventino Costa MD [address] [place] [address] 05/04/2025 1:00 PM EST Appointment Medical Office Building Cardiac Diagnostic Testing Medical Office Building Echo Lab [address], [address] [place] [address] 05/04/2025 1:45 PM EST Office Visit [facility] [place] [address], [address] [place] [address] Ruslan Sanderson MD [address] [place] [address] 07/23/2025 2:00 PM EST Office Visit [facility] Sleep Disorder Center [address], 4th [place] [address] Kassandra Khan APRN [address] [place] [address] documented as of this encounter Procedures Procedure [...] documented as of this encounter Care Teams Closing Manager Relationship Specialty Start Date End Date Ankur Main MD [address] [place] [address] PCP - General 11/01/20 12/18/24 Iman Cuevas MD [address] [place] [address] PCP - General Internal Medicine 12/19/24 documented as of this encounter
--- OUTSIDE RECORDS SUMMARY | 2025-03-07 09:57 | XMS_ITS | Encounter Summary ---
Author Organization Healthcare Address [address] [place] [address] Care Team Providers Care Dredge Boat Engineer Name Role Phone Ankur Main MD Primary Care Provider [phone] Nancy Hernandez LUMBER HANDLER Unavailable Unavailable Iman Cuevas MD Primary Care Provider [phone] Encounter Details Date Type Department Care Team (Late st Contact Info) Description 08/01/2018 Orders Only External Location [address] [place] [address] Social History Tobacco Use Types Packs/Day Years [...] Description 03/12/2025 10:20 AM EDT [facility] Medicine [facility] [address] 2nd [place] [address] Bushra Graf PA [address] [place] [address] 03/20/2025 9:30 AM EDT [facility] [address], 1[address] [place] [address] Alicia Jennings MD [address] [place] [address] 04/18/2025 11:00 AM EDT Office Visit [facility] Medicine Specialties [address], [address] [place] [address] Juventino Costa MD [address] [place] [address] 05/04/2025 1:00 PM EST Appointment Medical Office Building Cardiac Diagnostic Testing Medical Office Building Echo Lab [address], [address] [place] [address] 05/04/2025 1:45 PM EST Office Visit [facility] [place] [address], [address] [place] [address] Ruslan Sanderson MD [address] [place] [address] 07/23/2025 2:00 PM EST Office Visit [facility] Sleep Disorder Center [address], 4th [place] [address] Kassandra Khan, APOLLO [address] [place] [address] documented as of this encounter [...] documented as of this encounter Care Teams Dredge Boat Engineer Relationship Specialty Start Date End Date Ankur Main MD [address] [place] [address] PCP - General 11/01/20 12/18/24 Iman Cuevas MD [address] [place] [address] PCP - General Internal Medicine 12/19/24 Nancy Hernandez, [place] [phone] Manager Security And Safety Actuary 03/25/20 03/25/20 documented as of this encounter
--- OUTSIDE RECORDS SUMMARY | 2025-03-07 09:58 | XMS_ITS | Clinical Summary ---
Author Organization Healthcare Address [address] [place] [address] Care Team Providers Care Pest Control Service Technician Name Role Phone Iman Cuevas MD Primary Care Provider [phone] Allergies Active Allergy Reactions Criticality Noted Date Comments Wound Dressings Rash Low 09/10/2020 Rash/blisters Tetracycline Rash Low 10/05/2019 Medications aspirin 81 MG EC tablet Take by mouth in the morning. 04/04/20 20 Active levonorgestrel (Mirena, 52 MG,) 20 MCG/24HR IUD Take by mouth See administration instructions. Inserted on 09/04/2020 Lot Number: [id number] Expiration Date: Nov 2022 NDC: 8902292587 09/05/19 21 Active magnesium oxide (Mag-Ox) 400 [...] needed for mild pain. Active nystatin (Mycostatin) 813891 UNIT/GM powderIndication s:Healthcare maintenance Apply topically 1 (one) time each day. 60 g 11/01/19 22 Active lamoTRIgine (LaMICtal) 100 MG tablet Take 0.5 tablets (50 mg) by mouth in the morning and 0.5 tablets (50 mg) before bedtime. 06/04/20 22 Active sertraline (Zoloft) 100 MG tablet Take 1 tablet (100 mg) by mouth in the morning. 05/06/20 23 Active albuterol (Ventolin HFA) 108 (90 Base) MCG/ACT inhalerIndicatio ns:Chronic bronchitis with COPD (chronic obstructive pulmonary disease) ([facility]),Modera te persistent asthma, unspecified whether complicated Inhale 2 puffs 4 (four) times a day. 18 g 11/10/19 24 Active albuterol (2.5 MG/3ML) 0.083% nebulizer solutionIndicati ons:Chronic bronchitis with COPD (chronic obstructive pulmonary disease) ([facility]),Modera te persistent asthma, unspecified whether complicated Take 3 mL (2.5 mg) by nebulization every 6 (six) hours if needed for shortness of breath. 75 mL 11/10/19 24 Active furosemide (Lasix) 40 MG tabletIndication s:Congestive heart failure, unspecified HF chronicity, unspecified heart failure type ([facility]) Take 2 tablets (80 mg) by mouth 2 (two) times a day. Patient is taking 80mg am and 80mg in pm 360 tablet 01/25/20 24 Active folic acid (Folvite) 1 MG tablet Take 1 tablet (1 mg) by mouth 1 (one) time each day. 90 tablet 01/25/20 24 Active empagliflozin (Jardiance) 10 MGIndications:Pr ediabetes Take 1 tablet (10 mg) by mouth 1 (one) time each day. 90 tablet 01/25/20 24 Active potassium chloride CR (Klor-Con M20) 20 MEQ ER tabletIndication s:Hypokalemia Take 1 tablet (20 mEq) by mouth 2 (two) times a day. DO NOT CRUSH OR CHEW. 180 tablet 01/25/20 24 Active levothyroxine (Synthroid, Levoxyl) 100 [...] daily. 4 g 11 10/12/19 25 Active metoprolol tartrate (Lopressor) 25 MG tabletIndication [...] 90 tablet 3 11/07/19 25 026 Active Prucalopride Succinate (Motegrity) 2 MG tabletIndication s:Chronic idiopathic constipation Take 1 tablet by mouth daily. 90 tablet 3 01/04/20 25 026 Active levETIRAcetam (Keppra) 500 MG tabletIndication s:Focal epilepsy (CMS/HCC) Take 4 tablets by mouth 2 times a day. 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 Depression 06/28/2020 Lung nodule 05/29/2020 [...] Encounters Date Type Department Care Team Description 02/28/2025 Telephone [facility] [address] [place] [address] Ruslan Sanderson MD [facility] Clinical Concern/Question 01/23/2025 Refill [facility] [address] [place] [address] Ruslan Sanderson MD History of pulmonic valve replacement 01/08/2025 Telephone [facility] Medicine Specialties [address], [address] [place] [address] Marybel Dunne 01/05/2025 [facility]ill [facility] [address], [address]st [place] [address] Calista Jacobs APRN Focal epilepsy (CMS/HCC) 01/02/2025 Telephone [facility] Special[facility] [address], 2nd [place] [address] Jocelyn Arevalo [facility] Request from Last 3 Months Immunizations Immunization Administration [...] [facility] Medicine Specialties [address], 2nd [place] [address] Bushra Graf PA [address] [place] [address] 03/20/2025 9:30 AM EDT Office Visit [facility] [address], [address] [place] [address] Alicia Jennings MD [address] [place] [address] 04/18/2025 11:00 AM EDT Office Visit [facility] Medicine Specialties [address], [address] [place] [address] Juventino Costa MD [address] [place] [address] 05/04/2025 1:00 PM EST Appointment Medical Office Building Cardiac Diagnostic Testing Medical Office Building Echo Lab [address], [address] [place] [address] 05/04/2025 1:45 PM EST Office Visit [facility] [place] [address], [address] [place] [address] Ruslan Sanderson MD [address] [place] [address] 07/23/2025 2:00 PM EST Office Visit [facility] Sleep Disorder Center [address]th [place] [address] Kassandra Khan APRN [address] [place] [address] Health Maintenance Due Date Last Done Comments [facility]-Medicare Annual Wellness (AWV) 1985 [facility]-/Child/Adol SDOH Screenings 1983 [id number] Vaccine (#1) 02/02/1988 Diabetes: Dental Exam 1993 [facility]- SDOH Screenings 2001 [facility]-Adult SDOH Screenings 2001 [facility]-Hepatitis A Vaccines (1 of 2 - Risk 2-dose series) 2002 [facility]-Hepatitis B Vaccines (1 of 3 - 19+ 3-dose series) 2002 HPV Vaccines (1 - 3-dose SCDM series) 2010 [facility]-Pap Smear 09/05/2023 09/04/2020 [facility]-Diabetes: Hemoglobin A1C 11/07/2024 05/10/2024, 01/25/2024, 06/08/2023, Additional history exists [facility]-Influenza Vaccine (#1) 02/19/202504/21, 03/09/2023, 06/09/2022, Additional history exists [facility]-Cervical Cancer Screening 09/04/2025 [facility]-HPV/Cotest 09/04/2025 09/04/2020, 09/04/2020 [facility]-Depression Screening 10/19/2025 025, 10/19/2024, 10/11/2024, [...] 5.3 <5.7 % 05/10/2024 1:14 PM EST [facility] Blood Venous blood specimen / Unknown Venipuncture / Unknown 05/10/2024 10:37 AM EST 05/10/2024 10:38 AM EST Narrative [facility] - 05/10/2024 1:14 PM EST HA1C Interpretive Data: Diagnosis of Diabetes: Diabetic > or = 6.5% Pre-diabetic 5.7 to 6.4% Non-diabetic < or = 5.6% Glycemic Targets for Type I and Type II Diabetics: Non- Adults <7.0% Adults <6.0% Children and Adolescents <7.5% Source: [place] [employer]. Standards of medical care in diabetes,2017. Diabetes Care.2017:40 (suppl 1):S1-S135. HbA1c assay performed by an ion-exchange chromatography method that is certified traceable to the DCCT. us Astrid Alvarez APRN LAB BLOOD ORDERABLES Kaley l Result Performing Organization Address City/[facility]/ZIP Co de Phone Number [facility] [address] [place] [address] * HIV 1 & 2 Antibody/Antigen Screen (04/28/2022 1:47 PM EST) [facility] HIV 1 & 2 Antibody/Anti gen Screen Nonreactive Nonreactive 04/28/2022 4:48 PM EST [facility] Blood Venous blood specimen / Unknown Venipuncture / Unknown 04/28/2022 1:47 PM EST 04/28/2022 2:22 PM EST us Carlos Rodriguez MD LAB BLOOD ORDERABLES Final Result [facility] [address] [place] [address] * Cytology (09/04/2020 12:00 AM EDT) 09/04/2020 09/05/2020 8:5 1 AM EDT Narrative [facility] - 09/12/2020 12:05 PM EDT [facility] MR #: [id number] [facility] [address] [place] [id number] 1985 (Age: 35) FW Collect Date: 09/04/2020 00:00 Receipt Date: 09/05/2020 08:51 Page 1 DEPARTMENT OF PATHOLOGY AND LABORATORY MEDICINE CYTOPATHOLOGY REPORT Email: [email or web address] ATTENDING MD/Practitioner: JOAN ROWE Service: PR0 Location: [facility] Reported: 09/12/2020 12:05 Collected: 09/04/2020 00:00 INTERPRETATION A. THIN PREP (CERVICAL/VAGINAL): ATYPICAL SQUAMOUS CELLS - UNDETERMINED SIGNIFICANCE(ASCUS) REACTIVE CELLULAR CHANGES. ORGANISMS PRESENT CONSISTENT WITH ACTINOMYCES SPECIES. SATISFACTORY FOR EVALUATION; ENDOCERVICAL/ TRANSFORMATION ZONE COMPONENT PRESENT. Slide scanned and imaged by [employer] ThinPrep Imaging System with manual review of [...] results is suggested (please call Microbiology at [phone] for results). CLINICAL INFORMATION: Menstrual History: Irregular [...] of cervix uteri F: A; DX IMAGE [id number], 38860 C\V (PO) SNOMED CODES: A; [id number] E1070 [id number] M- [id number] [id number] [id number] In cases where a pathologist has signed out the report, the service has been rendered in part by a resident. The signing pathologist has performed and is responsible for the reported pathologic evaluation. us Christie Chau MANAGER RENTAL LAB PATHOLOGY ORDERABLES Fi nal Result [facility] [...] Documents on File Type Date Recorded Patient Hospital Social Worker Expl anation Advance Directives and Living Will 12/31/2020 Care Teams Pest Control Service Technician Relationship Specialty Start Date End Date Iman Cuevas MD [address] [place] [address] PCP - General Internal Medicine 12/19/24
--- OUTSIDE RECORDS SUMMARY | 2025-03-07 09:58 | XMS_ITS | Encounter Summary ---
Author Organization Healthcare Address [address] [place] [address] Care Team Providers Care Echo Technician Name Role Phone Iman Cuevas MD Primary Care Provider [phone] Reason for Visit * Reason Onset Date Comments HCN Clinical Concern/Question 02/28/2025 Encounter Details Date Type Department Care Team ([facility] st Contact Info) Description 02/28/2025 Telephone [facility] Jessie [place] [address] [facility] [address], [address] [place] [address] Ruslan Sanderson MD [address] [place] [address] HCN Clinical Concern/Question Social History Tobacco Use Types Packs/Day Years [...] in a mcc (including now)? No 01/25/2024 PHQ-9 Answer Date [...] encounter Miscellaneous Notes * Telephone Encounter - Jenna Modi RN - 03/02/2025 8:21 AM EDT Letter faxed to [phone] * Telephone Encounter - Ruslan Sanderson MD - 03/01/2025 11:13 AM EDT Ok to proceed with surgery from cardiac stand point. * Telephone Encounter - Ilana Rolle - 02/28/2025 2:51 PM EDT Clinical Concern/Question Reason for Call: Patient is needing cardiac clearance for [facility] FAX: [phone] Best contact number: [phone] (home) Optimal time of day to reach caller: ANYTIME Additional comments/information from caller: None Note: Please do not reply to this message. Follow-up communication and further actions as a result of this message need to be communicated with the patient directly, if the patient is not active onMyChart. If the patient is active on MyChart, they will receive notification of the communication/outcome via [employer]Basish[employer]. documented in this encounter Plan of Treatment Upcoming Encounters Date Type Department Care Team (Late st Contact Info) Description 03/12/2025 10:20 AM EDT Office Visit [facility] Medicine Specialties [address], 2nd [place] [address] Bushra Graf PA [address] [place] [address] 03/20/2025 9:30 AM EDT Office Visit [facility] [address], 1st [place] [address] Alicia Jennings MD [address] [place] [address] 04/18/2025 11:00 AM EDT Office Visit [facility] Medicine Specialties [address], 2nd [place] [address] Juventino Costa MD [address] [place] [address] 05/04/2025 1:00 PM EST Appointment Medical Office Building Cardiac Diagnostic Testing Medical Office Building Echo Lab [address] [facility] [address], [address] [place] [address] 05/04/2025 1:45 PM EST Office Visit [facility] Jessie [place] [address] [facility] [address], [address] [place] [address] Ruslan Sanderson MD [address] [place] [address] 07/23/2025 2:00 PM EST Office Visit [facility] Sleep Disorder Center [address], [address]th [place] [address] Kassandra Khan APRN [address] [place] [address] documented as of this encounter Visit Diagnoses [...] documented as of this encounter Care Teams Echo Technician Relationship Specialty Start Date End Date Iman Cuevas MD [address] [address] PCP - General Internal Medicine 12/19/24 documented as of this encounter
--- OUTSIDE RECORDS SUMMARY | 2025-03-07 09:58 | XMS_ITS | Encounter Summary ---
Author Organization [facility] Address [address] [place] [address] Care Team Providers Care Crop Roller Name Role Phone Iman Cuevas MD Primary Care Provider [phone] Encounter Details Date Type Department Care Team (Late st Contact Info) Description 01/08/2025 Telephone [facility] Medicine Specialties [address], [address] [place] [id number] [place] [address] Social History Tobacco Use Types Packs/Day Years [...] place to sleep or slept in a snf (including now)? No 01/25/2024 PHQ-9 Answer Date [facility] [address], [address] [place] [address] Bushra Graf PA [address] [place] [address] 03/20/2025 9:30 AM EDT Office Visit [facility] [address], 1[address] [place] [address] Alicia Jennings MD [address] [place] [address] 04/18/2025 11:00 AM EDT Office Visit [facility] Medicine Specialties [address], [address] [place] [address] Juventino Costa MD [address] [place] [address] 05/04/2025 1:00 PM EST Appointment Medical Office Building Cardiac Diagnostic Testing Medical Office Building Echo Lab [address] [facility], [address] [place] [address] 05/04/2025 1:45 PM EST Office Visit [facility] [place] [address] [facility] [address], [address] [place] [address] Ruslan Sanderson MD [address] [place] [address] 07/23/2025 2:00 PM EST Office Visit [facility] [address], 4th [place] [address] Kassandra Khan APRN [address] [place] [address] documented as of this encounter [...] documented as of this encounter Care Teams Crop Roller Relationship Specialty Start Date End Date Iman Cuevas MD [address] [place] [address] PCP - General Internal Medicine 12/19/24 documented as of this encounter
--- OUTSIDE RECORDS SUMMARY | 2025-03-07 09:58 | XMS_ITS | Encounter Summary ---
Author Organization Healthcare Address [address] [place] [address] Care Team Providers Care Mincemeat Maker Name Role Phone Ankur Main MD Primary Care Provider [phone] Iman Cuevas MD Primary Care Provider Reason for Visit * Reason Onset Date Comments Med Refill 02/19/2022 Encounter Details Date Type Department Care Team (Late st Contact Info) Description 02/19/2022 Refill [facility] Internal Medicine [address], 3rd [place] [address] Ankur Main MD [address] [place] [address] Polyneuropathy associated with underlying disease [...] Description 03/12/2025 10:20 AM EDT Office Visit [facility] Medicine Specialties [address], [address] Floor [address] [place] [phone] Bushra Graf PA [address] [place] [address] 03/20/2025 9:30 AM EDT Office Visit [facility] [address], 1[address] [place] [address] Alicia Jennings MD [address] [place] [address] 04/18/2025 11:00 AM EDT Office Visit [facility] Medicine Specialties [address], 2[address] [place] [address] Juventino Costa MD [address] [facility] [address] [place] [address] 05/04/2025 1:00 PM EST Appointment Medical Office Building Cardiac Diagnostic Testing Medical Office Building Echo Lab [address] [facility], [address] [place] [address] 05/04/2025 1:45 PM EST Office Visit [facility] [place] [address] [facility], [address] [place] [address] Ruslan Sanderson MD [address] [place] [address] 07/23/2025 2:00 PM EST Office Visit [facility] Sleep Disorder Center [address], [address]th [place] [address] Kassandra Khan, WATER TENDER [address] [place] [address] documented as of this encounter Visit Diagnoses [...] documented as of this encounter Care Teams Mincemeat Maker Relationship Specialty Start Date End Date Ankur Main MD [address] [address] PCP - General 11/01/20 12/18/24 Iman Cuevas MD [address] [place] [address] PCP - General Internal Medicine 12/19/24 documented as of this encounter
--- NOTE | 2025-03-07 10:43 | ECG_ITS ---
APPROVED REPORT Exam: Resting ECG HR:47 bpm ECG Measurements Heart Rate 47 AXES DC 142 P 74 QRSd 91 QRS 99 QT 462 T -26 QTc 425 Conclusion SINUS BRADYCARDIA BORDERLINE RIGHT AXIS DEVIATION [QRS AXIS > 90] LOW QRS VOLTAGE IN PRECORDIAL LEADS [QRS DEFLECTION < 1.0 mV IN CHEST LEADS] NONSPECIFIC ST & T-WAVE ABNORMALITY ABNORMAL ECG UNCONFIRMED REPORT Electronically signed by : Fredo Sharif MD 03/07/2025 17:24:01
== END 2025-03-07 23:59 | disposition home or self-care (01) ==
LOC: PREOP 09:55
PROVIDERS: PCP Family Medicine; Visit Provider Obstetrics & Gynecology
DX: Z01.810 Encounter for preprocedural cardiovascular examination (principal); R94.31 Abnormal electrocardiogram [ECG] [EKG]; R00.1 Bradycardia, unspecified
CPT/HCPCS: 93005

== ENCOUNTER 2025-03-14 06:16 | Inpatient (IN) | payer MEDICARE, MEDICAID, SELFPAY ==
[2025-03-07 12:28] VITALS: BMI 42.1
--- OUTSIDE RECORDS SUMMARY | 2025-03-12 10:20 | XMS_ITS | Encounter Summary ---
Author Organization Healthcare Address [address] [place] [address] Care Team Providers Care Vacuum Cooker Operator Name Role Phone Iman Cuevas MD Primary Care Provider [phone] Reason for Referral * Consultation (Routine) - Authorized Specialty Diagnoses / Procedures Referred By Miah lucas Referred To Contact Diagnoses Chronic constipation Bushra Graf PA [address] [facility] [address] [place] [phone] Phone: tel: fax: Referral ID Status Reason Start Date Expiration Date V isits Requested Visits Authorized [id number] Authorized 03/12/2025 09/11/2026 1 1 Reason for Visit * Reason Comments Chronic constipation * Consultation (Routine) - Closed Specialty Diagnoses / Procedures Referred By Miah lucas Referred To Contact Diagnoses Chronic constipation Bushra Graf PA [address] [facility] [address] [place] [address] Phone: tel: fax: Referral ID Status Reason Start Date Expiration Date Visits Re quested Visits Authorized [id number] Closed 10/16/2024 04/17/2026 1 1 Encounter Details Date Type Department Care Team (Late st Contact Info) Description 03/12/2025 10:20 AM EDT Office Visit [place] [facility] Medicine Specialties [address] [place] [address] Bushra Graf, SHELBY [address] [place] [address] Chronic constipation (Primary Dx); Hemorrhage [...] Recorded In the past 12 months has [facility], gas, oil, or water [employer] threatened to shut off services in your [...] Patient confirms they are physically located in [place]? Yes If the patient is not physically located in [place], the provider has confirmed with [employer] [...] Description 04/18/2025 11:00 AM EDT Office Visit [facility] Medicine Specialties [address] [place] [address] Juventino Costa MD [address] [place] [address] 05/04/2025 1:00 PM EST Appointment Medical Office Building Cardiac Diagnostic Testing Medical Office Building Echo Lab [address] [facility], [address] [place] [address] 05/04/2025 1:45 PM EST Office Visit [facility] [place] [address] [facility], [address] [place] [address] Ruslan Sanderson MD [address] [place] [address] 07/23/2025 2:00 PM EST Office Visit [facility] Sleep Disorder Center [address] [place] [address] Kassandra Khan APRN [address] [place] [address] 08/21/2025 3:30 PM EST Office Visit [facility] [address] [place] [address] Alicia Jennings MD [address] [place] [address] 09/10/2025 10:40 AM EDT Office Visit [place] Clinic Medicine Specialties [address] [place] [address] Bushra Graf, SHELBY [address] [place] [address] Scheduled Referrals Name Type Priority [...] documented as of this encounter Care Teams Vacuum Cooker Operator Relationship Specialty Start Date End Date Iman Cuevas MD [address] [place] [phone] PCP - General Internal Medicine 12/19/24 documented as of this encounter
--- OUTSIDE RECORDS SUMMARY | 2025-03-12 10:20 | XMS_ITS | Encounter Summary ---
Author Organization Healthcare Address [address] [place] [address] Care Team Providers Care Release Manager Name Role Phone Iman Cuevas MD Primary Care Provider [phone] Reason for Referral * Consultation (Routine) - Authorized Specialty Diagnoses / Procedures Referred By Miah lucas Referred To Contact Diagnoses Chronic constipation Bushra Graf PA [address] [facility] [address] [place] [phone] Phone: tel: fax: Referral ID Status Reason Start Date Expiration Date V isits Requested Visits Authorized [id number] Authorized 03/12/2025 09/11/2026 1 1 Reason for Visit * Reason Comments Chronic constipation * Consultation (Routine) - Closed Specialty Diagnoses / Procedures Referred By Miah lucas Referred To Contact Diagnoses Chronic constipation Bushra Graf PA [address] [facility] [address] [place] [address] Phone: tel: fax: Referral ID Status Reason Start Date Expiration Date Visits Re quested Visits Authorized [id number] Closed 10/16/2024 04/17/2026 1 1 Encounter Details Date Type Department Care Team (Late st Contact Info) Description 03/12/2025 10:20 AM EDT Office Visit [place] [facility] Medicine [facility] [address] [place] [address] Bushra Graf, SHELBY [address] [place] [address] Chronic constipation (Primary Dx); Hemorrhage [...] place to sleep or slept in a skilled nursing (including now)? No 01/25/2024 PHQ-9 Answer Date [...] Recorded In the past 12 months has [facility] [employer], gas, oil, or water [employer] threatened to shut off services in your [...] Not at all 03/12/2025 10:36 AM EDT [facility] [place] Thoughts that you would be better [...] Patient confirms they are physically located in [place]? Yes If the patient is not physically located in [place], the provider has confirmed with [employer] [...] Description 04/18/2025 11:00 AM EDT Office Visit [facility] Medicine Specialties [address] [place] [address] Juventino Costa MD [address] [place] [address] 05/04/2025 1:00 PM EST Appointment Medical Office Building Cardiac Diagnostic Testing Medical Office Building Echo Lab [address] [facility], [address] [place] [address] 05/04/2025 1:45 PM EST Office Visit [facility] [place] [address] [facility], [address] [place] [address] Ruslan Sanderson MD [address] [place] [address] 07/23/2025 2:00 PM EST Office Visit [facility] Sleep Disorder Center [address] [place] [address] Kassandra Khan APRN [address] [place] [address] 08/21/2025 3:30 PM EST Office Visit [facility] [address] [place] [address] Alicia Jennings MD [address] [place] [address] 09/10/2025 10:40 AM EDT Office Visit [facility] Medicine [facility] [address] [place] [address] Bushra Graf, SHELBY [address] [place] [address] Scheduled Referrals Name Type Priority [...] documented as of this encounter Care Teams Release Manager Relationship Specialty Start Date End Date Iman Cuevas MD [address] [place] [phone] PCP - General Internal Medicine 12/19/24 documented as of this encounter
[2025-03-14] VITALS (27 sets, daily range): BP systolic 90–135; BP diastolic 44–75; PULSE 52–99; RESP 14–24; TEMP 36.3–43; O2SAT 90–96; BMI 42.1
[2025-03-14] MEDS: LACTATED RINGERS 1000ML 1,000 ML 25 ML IV (06:25)
[2025-03-14] MEDS: ACETAMINOPHEN 500MG TAB 1000 MG PO ×3 (06:42→20:09)
[2025-03-14] MEDS: GABAPENTIN 600MG TABLET 600 MG PO (06:44)
[2025-03-14] MEDS: CELECOXIB 100MG CAPSULE 400 MG PO (06:48)
--- NOTE | 2025-03-14 07:10 | P.PNANES_ITS ---
[facility] Disclaimer: The information contained in this section may have been updated after the patient was seen, as this information can be updated by other users. Medical History Hypothyroid Diabetes mellitus Allergies Tachycardia Low potassium syndrome Bipolar 1 disorder Neuropathy Stroke Seizures Asthma Chronic kidney disease COPD (chronic obstructive pulmonary disease) Surgical History Aortic valve replaced History of lung surgery History of cholecystectomy History of open heart surgery Family History Other Family history of cancer Family history of diabetes mellitus type II Family history of myocardial infarction Social History Smoking Status: Former smoker tobacco type: cigarettes smoking status stop date: year of quit is 2019 alcohol intake: former substance use type: IV drugs current occupational status: unemployed Travel in the last 8 weeks?: None Have you lived/traveled outside [place] in past 30 days?: No Contact w/someone who lives/traveled outside US past 30 days?: No Exposure to someone with infectious disease in past 14 days?: No Do you have a fever (greater than 100.4 F or 38 C)?: No Have you tested positive for COVID-19?: No Exposed to someone with COVID-19 in past 14 days?: No Do you have a sore throat?: No Do you have a cough?: No Do you have any weakness?: No Are you experiencing any nausea/vomitting?: No Do you have any diarrhea?: No Are you experiencing any unusual bleeding?: No Do you have any muscle aches/pain?: No Do you have any abdominal pain?: No Are you experiencing loss of taste or smell?: No [facility] Anesthesia Checklist Patient Identification Patient Identification: Arm Band and Verbal (Name & ) Structural Data Admitted From: Home Planned Operative Procedure/s: total abdominal hyserectomy Consent for Planned Operative Procedure(s) Verified: Yes Verified Documents: Surgical Consent and History and Physical NPO Status Verified Time NPO: 00:00 Additional verifications Patient : No Anesthesia Reactions: No Hx Blood Transfusions: Yes Blood Transfusion Reaction: No Airway Assessment Mallampati Score:: Class II Dentition: Edentulous Neurological Assessment Level of Consciousness: Awake, Alert and Appropriate Hx Seizures: Yes Anesthesia Plan Anesthesia Risk discussed: Yes Anesthesia Plan: Verified ASA Class: IV Anesthesia Type: General
--- NOTE | 2025-03-14 07:48 | HMH.PHAINT1 ---
Pharmacy Intervention Comments: MEDICATION RECONCILIATION COMPLETED ON PATIENT USING EXTERNAL FILL HISTORY FROM PHARMACY AND LIST FROM PCP OFFICE. -KELLY COLUNGA, VALD
[2025-03-14] MEDS: METRONIDAZ/SOD CHL 500 MG/100 ML PIGGYBACK 100 MG IV (08:06)
[2025-03-14] MEDS: WATER FOR IRRIGATION,STERILE 3,000 ML 200 ML IR (09:07)
--- NOTE | 2025-03-14 11:40 | EXP.HP ---
History of Present Illness *Admission Date: 03/14/25 *Reason for visit:: hysterectomy *History of present illness: Elizabeth Milian is a 40yo G0 who presents for hysterectomy. - she has tried and failed IUD insertion - She is not a great candidate for estrogen given her 3 pulmonary embolisms. - Reports she still having some lower pelvic pain. Discussed ovarian cyst and patint requets ovarian removal. she had epithelial cell cancer markers properatively that were negative. History from previous visit carried forward: - Reports she is having bleeding with her Mirena IUD. Reports that she has been bleeding heavily for the last 2 to 3 weeks and states that now she is just spotting. It was put in in 2020 at - Reports a history of 2 open heart surgeries, 3 lung surgeries, 3 pulmonary embolisms. 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 - Reports a family history of cervical, breast, and ovarian cancer - Reports her last Pap smear was in 2020. States that this was normal. Reports she does have a history of having something froze off of her cervix in 2018. - Endorses a history of hot flashes and night sweats. - Denies current use of tobacco, alcohol, illicit drug use. - Reports she is currently seeking treatment at a weight loss clinic - Reports that she is not sexually active. Reports she has a history of HPV but has since cleared up. Denies any history of other STIs. - Reports a history of hepatitis C reports that she was diagnosed twice and is unsure if she has ever been treated. She has been told that she has a low viral load to undetectable viral load. - The patient is on chronic Eliquis and follows with cardiology. She will need a cardiology visit for cardiac clearance prior to hysterectomy She received cardiac clearance for bariatric surgery as well as hernia surgery and has called her sterile processing manager to see if they will fax over cardiac clearance letter. She needs to see our hematology team prior to surgery in order to discuss anticoagulation and I discussed with the patient that this would likely require bridging therapy with Lovenox. I reviewed that her [place] score was benign and negative. The patient currently has a very large hernia below her diaphragm in the midline and in addition to this has had several surgeries. [facility] Disclaimer: The information contained in this section may have been updated after the patient was seen, as this information can be updated by other users. Medical History Hypothyroid Diabetes mellitus Allergies Tachycardia Low potassium syndrome Bipolar 1 disorder Neuropathy Stroke Seizures Asthma Chronic kidney disease COPD (chronic obstructive pulmonary disease) Surgical History Aortic valve replaced History of lung surgery History of cholecystectomy History of open heart surgery Family History Other Family history of cancer Family history of diabetes mellitus type II Family history of myocardial infarction Social History Smoking Status: Former smoker tobacco type: cigarettes smoking status stop date: year of quit is 2019 alcohol intake: former substance use type: IV drugs current occupational status: unemployed Travel in the last 8 weeks?: None Have you lived/traveled outside US in past 30 days?: No Contact w/someone who lives/traveled outside US past 30 days?: No Exposure to someone with infectious disease in past 14 days?: No Do you have a fever (greater than 100.4 F or 38 C)?: No Have you tested positive for COVID-19?: No Exposed to someone with COVID-19 in past 14 days?: No Do you have a sore throat?: No Do you have a cough?: No Do you have any weakness?: No Are you experiencing any nausea/vomitting?: No Do you have any diarrhea?: No Are you experiencing any unusual bleeding?: No Do you have any muscle aches/pain?: No Do you have any abdominal pain?: No Are you experiencing loss of taste or smell?: No Other Medical History Have you received the Flu Vaccine for this season: No Have you received the Pneumonia Vaccine: No Review of Systems Review of Systems Review of systems (narrative): Review of Systems Constitutional: Denies fever, chills, and sweats Eyes: Denies vision change/ pain Respiratory: Denies cough and shortness of breath Cardiovascular: Denies chest pain and lightheadedness Gastrointestinal: denies abdominal pain. Denies nausea, vomiting. Genitourinary: +pelvic pain. Denies dysuria and incontinence Musculoskeletal: Denies shoulder pain and back pain Neurological: Denies change in speech or headaches Meds Home Medications and Allergies Home Medications ?Medication ?Instructions ?Recorded ?Confirmed ?Type apixaban 5 mg tablet (Eliquis) 5 mg PO BID 12/10/23 03/14/25 History lamotrigine 100 mg tablet 50 mg PO BID 12/10/23 03/14/25 History levetiracetam 500 mg tablet 2,000 mg PO BID 12/10/23 03/14/25 History metoprolol tartrate 25 mg tablet 25 mg PO BID 12/10/23 03/14/25 History montelukast 10 mg tablet 10 mg PO HS 12/10/23 03/14/25 History sertraline 100 mg tablet 100 mg PO DAILY 12/10/23 03/14/25 History quetiapine 50 mg tablet 50 mg PO DAILY 10/10/24 03/14/25 History tiotropium 2.5 mcg-olodaterol 2.5 2 inh inhalation DAILY 11/14/24 03/14/25 History mcg/actuation mist for inhalation (Stiolto Respimat) prucalopride 2 mg tablet 2 mg PO DAILY 01/11/25 03/14/25 History empagliflozin 10 mg tablet 10 mg PO DAILY 90 days #90 tabs 02/05/25 03/14/25 Rx (Jardiance) folic acid 1 mg tablet 1 mg PO DAILY 90 days #90 tabs 02/05/25 03/14/25 Rx furosemide 40 mg tablet 80 mg (2 x 40 mg) PO BID 90 days 02/05/25 03/14/25 Rx #360 tabs potassium chloride 20 mEq 20 meq PO BID 90 days #180 tabs 02/05/25 03/14/25 Rx tablet,extended release(part/cryst) levothyroxine 100 mcg tablet 100 mcg PO DAILY 30 days #30 tabs 02/07/25 03/14/25 Rx gabapentin 300 mg capsule 300 mg PO TID #90 caps 03/07/25 03/14/25 Rx New Prescriptions to Start Prescriptions: Allergies Allergy/AdvReac Type Severity Reaction Status Date / Time tetracycline Allergy Hives Verified 03/07/25 13:18 Exam Data for Last 24 hours Vital signs and Labs for Last 24 Hours: Temp Pulse Resp BP Pulse Ox O2 Del Method 97.4 F L 52 L 16 108/60 L 94 L Room Air 03/14/25 07:11 03/14/25 07:11 03/14/25 07:11 03/14/25 07:11 03/14/25 07:11 03/14/25 07:11 Laboratory Results - last 24 hr 03/07/25 10:15: Urine HCG, Qual Cancelled 03/14/25 06:42: Blood Type O Positive, Antibody Screen Negative I & O for Last 24 hours: Intake & Output 03/11/25 03/12/25 03/13/25 03/14/25 23:59 23:59 23:59 23:59 Intake Total 200 / 200 Balance 200 / 200 Weight 238 lb Constitutional Constitutional: no acute distress *Routine HEENT Exam Head: Present normocephalic Eye: Present EOMI and PERRL ENT: Present mucous membranes moist *Routine Neck Exam Neck: Present supple; Absent lymphadenopathy *Routine Respiratory Exam Respiratory: Present CTA bilaterally *Routine Cardiovascular Exam Cardiovascular: Present RRR *Routine Abdominal Exam Abdominal: Present soft and normoactive bowel sounds; Absent tenderness *Routine Rectal Exam Rectal:: deferred *Routine Genitalia Exam Genitalia:: deferred *Routine Extremities Exam Extremities: Absent cyanosis, clubbing or edema *Routine Skin Exam Skin: Present warm; Absent rash *Routine Neurological Exam Neurological: Present alert and oriented X3 Assessment and Plan *Assessment and plan (1) History of pulmonary embolism: Status: Acute Category: Medical Code(s): Z86.711 - Personal history of pulmonary embolism (2) Hypothyroid: Status: Acute Category: Medical Code(s): E03.9 - Hypothyroidism, unspecified (3) Diabetes mellitus: Status: Acute Category: Medical Code(s): E11.9 - Type 2 diabetes mellitus without complications (4) Left ovarian cyst: Status: Acute Category: Medical Code(s): N83.202 - Unspecified ovarian cyst, left side (5) Vasomotor symptoms due to menopause: Status: Acute Category: Medical Code(s): N95.1 - Menopausal and female climacteric states (6) Hepatitis C: Status: Acute Category: Medical Code(s): B19.20 - Unspecified viral hepatitis C without hepatic coma (7) Obesity, morbid: Status: Acute Category: Medical Code(s): E66.01 - Morbid (severe) obesity due to excess calories (8) Aortic valve replaced: Status: Acute Category: Surgical Code(s): Z95.2 - Presence of prosthetic heart valve (9) Bipolar 1 disorder: Status: Acute Category: Medical Code(s): F31.9 - Bipolar disorder, unspecified (10) Chronic kidney disease: Status: Acute Qualifiers: Chronic kidney disease stage: unspecified stage Qualified Code(s): N18.9 - Chronic kidney disease, unspecified Category: Medical Code(s): N18.9 - Chronic kidney disease, unspecified (11) COPD (chronic obstructive pulmonary disease): Status: Acute Qualifiers: COPD type: unspecified COPD Qualified Code(s): J44.9 - Chronic obstructive pulmonary disease, unspecified Category: Medical Code(s): J44.9 - Chronic obstructive pulmonary disease, unspecified (12) Abnormal uterine bleeding (AUB): Status: Acute Category: Medical Code(s): N93.9 - Abnormal uterine and vaginal bleeding, unspecified (13) Dysmenorrhea: Status: Acute Category: Medical Code(s): N94.6 - Dysmenorrhea, unspecified Plan Ovarian cyst appears to resolved Plan for KADEEM, BSO, cystoscopy -TVUS: Uterus: 9.4 x 5.0 x 4.0 cm. The endometrium measures 6.1 mm. Ovaries: The appear normal size bilaterally there does appear to be an ovarian cyst but it is unclear on the laterality on which it arises. On ultrasound in September it appeared there was a left ovarian cyst that measured 4.8 cm and was simple appearing. December the right ovary had a volume of 126 mL and there appeared to be a 6.1 cm cyst. In January transvaginal ultrasound did not visualize the left ovary but noted a right ovarian cyst of 2.6 cm. These are likely follicular cyst -The patient is requesting definitive surgical management with hysterectomy. -Diagnosis: Abnormal uterine bleeding, dysmenorrhea, dyspareunia, pelvic pain -She declines continued medical intervention. Secondary to past medical history she is not a candidate for estrogen and she has had a malpositioned IUD and declines further IUD use -Reviewed the risks of major gynecologic surgery with the pt to include bleeding, infection and risk of damage to surrounding structures. I assessed the patient's understanding from her last visit and she was able to review most of the risk that I reviewed with her at the last visit. She thoroughly understands the risk of hysterectomy. Discussed risks of Hemorrhage requiring life saving blood transfusion that carries a risk of viral infection was explained to the pt and she consented to transfusion if deemed medically necessary. Discussed risks of infection, and the use of antibiotics for infection ppx. Discussed risks of injury to the surrounding structures to include her bowel, bladder, ureters, and neurovascular bundles. Discussed that this could require further surgeries and prolong recovery and hospital stay. Discussed risk of fistula formation. She voiced understanding of all risks. I ensured she understood with teachback method of risks. -Pap smear: 10/13/2024: Negative for intraepithelial lesion or malignancy. Transformation zone present. Negative HPV. -CBC, test, type and screen ordered. -Infection prophylactic antibiotics ordered: Ancef 2g and metronidazole -Reviewed with the pt the risk that hysterectomy would not alleviate her pelvic pain. Pt voiced understanding of the risks and consented to hysterectomy. -Postoperative course reviewed with the patient: Patient will stay overnight at least 1 if not 2 nights since this will be an open abdominal procedure At follow-up evaluate hot flashes and night sweats further. Patient is not a great candidate for estrogen replacement therapy.
--- NOTE | 2025-03-14 11:48 | EXP.OP.NOTE ---
Date of procedure: 03/14/25 Pre-op Diagnosis:: 1. Perimenopausal uterine bleeding 2. abnormal uterine bleeding 3. dysmenorrhea Post-op Diagnosis:: 1. Perimenopausal uterine bleeding 2. abnormal uterine bleeding 3. dysmenorrhea Procedure performed:: 1. Total abdominal hysterectomy with bilateral salpingo-oophorectomy 2. Cystoscopy Surgeon:: Renea Landry DO Maintenance Planning Clerk(s):: Ximena Covarrubias DO Anesthesia: GETA Estimated blood loss (mL): 500 Operative findings:: - EUA revealed normal appearing vulva and vagina. Bimanual exam nonrevealing secondary to habitus. Introitus is narrowed and atrophic. No uterine descent or mobility noted - Operative findings demonstrated a approximately 7 weeks size perimenopausal uterus. No adnexal masses. There were adhesions of the left colon to the pelvic sidewall. Operative note:: After informed consent was obtained and all questions were answered to the patient?s satisfaction in layman?s terms. She was taken to the Operating Room where general anesthesia was obtained without any difficulty. Pt was placed in dorsal lithotomy position using yellowfin stirrups. EUA revealed findings above and the decision was made to proceed with KADEEM. The vagina and abdomen were prepped and draped in normal sterile fashion. A Pfannenstiel skin incision was made and carried down to the fascia with the bovie. The fascia was knicked in the midline and sharply extended laterally. Annamaria were used to grasp the anterior aspect of the fascia and the rectus muscle was bluntly and gently dissected free. There were two small areas of bleeding that were made hemostatic with the bovie. This process was repeated inferiorly. The rectus muscles were in the midline and the peritoneum was entered bluntly. Entry to the abdominal cavity was confirmed and the O'George-O'Delgado retractor was placed. The bowel was packed away with 3 moist lap sponges. The uterus was evident upon entering the peritoneal cavity. The uterus was then exteriorized and noted to have the findings as above. Bilateral adnexa had thin filmy adhesions to the bowel. The left adnexa had thick adhesions to the left colon. These adhesions were dissected off of the ovary. 2 Nancy clamps were used to grasp the fallopian tube and round ligament complex at the cornua of the uterus. Metzenbaum scissors were used to carefully dissect the bowel and adnexal adhesions freeing the bilateral adnexa. The round ligaments were identified bilaterally, grasped with the LigaSure, coagulated and transected. Decision to use a laparoscopic LigaSure secondary to the adhesions in the scarred and mobile pelvis. The LigaSure was used to work down the body of the uterus coagulating and transecting the broad ligament down to the cardinal's. This process was repeated on the contralateral side. Straight clamps proximal to the uterus were placed across the uterine vessels and cardinal ligaments were cut and suture ligated bilaterally with 0-vicryl. Secondary to how deep in the pelvis we were and the significant amount of adipose tissue the ureters were not able to be palpated. Then the bladder was sharply and bluntly dissected off the underlying cervix with a moist Ray-Vicki sponge distal to the level of the cervix. Given poor exposure we completed the bilateral oophorectomy to allow for additional exposure to the operative field. The infundibulopelvic ligament was clamped, transected, and suture-ligated bilaterally. The ovaries were passed off the field to be sent to pathology for further evaluation. There was a small amount of bleeding at the left IP which was grasped and suture-ligated with a tie on a pass. There was bleeding along the peritoneal edges at the right IP which was closed in a running locked fashion superficially. Irrigation revealed bilateral hemostasis at the IP ligament. The uterus and cervix were so deep in the pelvis that our instruments were not long enough to reach below the cervix. We were starting to have bleeding at the level of the internal cervical os. Given limited exposure, a scarred immobile pelvis visulazition was poor. The O'George-O'Delgado retractor was removed the anterior/superior aspect of the fascia was further dissected and the incision was extended by an inch and a half in each direction. The Christopher O retractor was replaced. The cervix was still too deep for the instruments to securely get below the cervical tissue and a decision was made to do a supracervical hysterectomy. The uterus was treansected and passed off the operative field. The cervical canal was extensively cauterized to prevent further bleeding and the cervical stump was closed in a running locking fashion with 0 Vicryl. There is a small amount of bleeding along the posterior cuff which was cauterized. They continued to ooze and a degree of 8 stitch was placed it was noted to be hemostatic. Copious irrigation of the pelvis revealed hemostasis without any bleeding or oozing noted. Gelfoam was placed for added prophylaxis. The sigmoid colon was replaced back into the hollow of the sacrum. All instruments and laps were returned from the abdominal cavity. The Christopher O retractor was removed. Lap count was correct. The omentum was pulled over the bowel. The peritoneum was reapproximated with 2-0 Monocryl. The rectus muscles were noted to be hemostatic and nicely returned to midline. The fascia was then closed in a running fashion with 0-vicryl. No gaps or defects were appreciated. The subcutaneous tissue was irrigated. Any bleeders were made hemostatic with the bovie. The subcutaneous tissue was reapproximated in 2 layers with 0 Vicryl. The skin was closed in a subcuticular fashion with INSORB stapler. Cystoscopy: The Nagy catheter was removed.? A diagnostic cystoscope was placed and bladder distended with sterile water.? Inspection of the bladder showed a normal-looking, smooth bladder mucosa with no evidence of injury, suture, puckering, or other abnormalities.? Both ureteral meatuses were visualized and were noted to be expelling urine in routine fashion.? Cystoscope was removed and Nagy catheter was once again replaced, draining clear urine. The patient tolerated the procedure well. The sponge, lap, and needle counts were correct, per nursing. Condition: stable Disposition: PACU Specimens:: Uterine body, bilateral fallopian tubes and ovaries Complications:: none
--- NOTE | 2025-03-14 11:58 | EXP.ANES.I ---
[facility] Anesthesia Record Part I Anesthesia Record I Intake, IV Amount: 1,250 Hydration: Adequate Estimated blood loss (mL): 200 Urine output (mL): 200 Blood Products used (#): none Blood Pressure: 98/56 SaO2: 93 Pulse Rate: 70 Airway Patency: Patent Respiratory Rate: 24 Temperature: 97.4 F Patient is:: Drowsy and Stable Stable to PACU at:: 11:45
[2025-03-14] MEDS: ALBUTEROL 0.083% 2.5 MG/3 ML NEB IH (12:10)
--- OUTSIDE RECORDS SUMMARY | 2025-03-14 12:24 | XMS_ITS | Encounter Summary ---
Author Organization Healthcare Address [address] [place] [address] Care Team Providers Care Sales And Marketing Associate Name Role Phone Ankur Main MD Primary Care Provider [phone] Iman Cuevas MD Primary Care Provider [phone] Reason for Visit * Reason Onset Date Comments Med Refill 06/30/2021 Encounter Details Date Type Department Care Team (Late st Contact Info) Description 06/30/2021 Refill [facility] [address] [place] [address] Juventino Costa MD [address] [place] [address] Moderate persistent asthma, unspecified whether [...] Description 04/18/2025 11:00 AM EDT Office Visit [facility] Medicine Specialties [address] [place] [address] Juventino Costa MD [address] [place] [phone] 05/04/2025 1:00 PM EST Appointment Medical Office Building Cardiac Diagnostic Testing Medical Office Building Echo Lab [address], [address] [place] [phone] 05/04/2025 1:45 PM EST Office Visit [facility] [place] [address], [address] [place] [id number] Ruslan Sanderson MD [address] [place] [address] 07/23/2025 2:00 PM EST Office Visit [facility] Sleep Disorder Center [address] [place] [phone] Kassandra Khan, DIRECTOR OF TRANSPORTATION [address] [place] [phone] 08/21/2025 3:30 PM EST Office Visit [facility] [address] [place] [address] Alicia Jennings MD [address] [place] [address] 09/10/2025 10:40 AM EDT Office Visit [facility] Medicine Specialties [address] [place] [address] Bushra Graf, SHELBY [address] [place] [address] documented as of this encounter Visit Diagnoses [...] documented as of this encounter Care Teams Sales And Marketing Associate Relationship Specialty Start Date End Date Ankur Main MD [address] [place] [address] PCP - General 11/01/20 12/18/24 Iman Cuevas MD [address] [place] [address] PCP - General Internal Medicine 12/19/24 documented as of this encounter
--- OUTSIDE RECORDS SUMMARY | 2025-03-14 12:24 | XMS_ITS | Encounter Summary ---
Author Organization Healthcare Address [address] [place] [address] Care Team Providers Care Fast Food Worker Name Role Phone Ankur Main MD Primary Care Provider [phone] Nancy Hernandez RETAIL WAREHOUSE SUPERVISOR Unavailable Unavailable Iman Cuevas MD Primary Care Provider [phone] Encounter Details Date Type Department Care Team (Late st Contact Info) Description 08/01/2018 Orders Only External Location [address] [place] [address] Social History Tobacco Use Types Packs/Day Years [...] Description 04/18/2025 11:00 AM EDT Office Visit [facility] Special[facility] [address] [place] [address] Juventino Costa MD [address] [place] [address] 05/04/2025 1:00 PM EST Appointment Medical Office Building Cardiac Diagnostic Testing Medical Office Building Echo Lab [address], [address] [place] [address] 05/04/2025 1:45 PM EST Office Visit [facility] Rodessa Beccaria [address], [address] [place] [address] Ruslan Sanderson MD [address] [place] [address] 07/23/2025 2:00 PM EST Office Visit [facility] Sleep Disorder Center [address] [place] [address] Kassandra Khan APRN [address] [place] [address] 08/21/2025 3:30 PM EST Office Visit [facility] [address] [place] [address] Alicia Jennings MD [address] [place] [address] 09/10/2025 10:40 AM EDT Office Visit [facility] Medicine Specialties [address] [place] [address] Bushra Graf PA [address] [place] [address] documented as of this encounter Procedures Procedure [...] documented as of this encounter Care Teams Fast Food Worker Relationship Specialty Start Date End Date Ankur Main MD [address] [address] PCP - General 11/01/20 12/18/24 Iman Cuevas MD [address] [place] [address] PCP - General Internal Medicine 12/19/24 Nancy Hernandez, [place] [id number] Meat Apprentice Spanish Translator 03/25/20 03/25/20 documented as of this encounter
--- OUTSIDE RECORDS SUMMARY | 2025-03-14 12:24 | XMS_ITS | Encounter Summary ---
Author Organization Healthcare Address [address] [place] [address] Care Team Providers Care Conservation Scientist Name Role Phone Iman Cuevas MD Primary Care Provider [phone] Encounter Details Date Type Department Care Team (Latest Contact Info) Description 03/12/2025 Travel Social History Tobacco Use Types Packs/Day Years [...] the past 12 months has th e [employer], gas, oil, or water [employer] threatened to shut off services in your [...] things Not at all 03/12/2025 10:36 AM LUDYT Harvey Hurtado Feeling down, depressed, or hopeless [...] television Not at all 03/12/2025 10:36 AM LUDYT Harvey Hurtado Moving or speaking so slowly that other people could have noticed? Or the opposite - being so fidgety or restless that you have been moving around a lot more than usual. Not at all 03/12/2025 10:36 AM Harvey Mckeon Thoughts that you would be better off [...] Blas Breen documented as of this encounter Plan of Treatment Upcoming Encounters Date Type Department Care Team (Late st Contact Info) Description 04/18/2025 11:00 AM EDT Office Visit [facility] Medicine Specialties [address], [address] [place] [address] Juventino Costa MD [address] [place] [address] 05/04/2025 1:00 PM EST Appointment Medical Office Building Cardiac Diagnostic Testing Medical Office Building Echo Lab [address] [facility] [address] [facility], [address] [place] [address] 05/04/2025 1:45 PM EST Office Visit [facility] [place] [facility] [address] [facility] [address] [facility], [address] [place] [address] Ruslan Sanderson MD [address] [place] [address] 07/23/2025 2:00 PM EST Office Visit [facility] Sleep Disorder Center [address], [address]th [place] [address] Kassandra Khan, TRUCK LOADER AND UNLOADER [address] [place] [address] 08/21/2025 3:30 PM EST Office Visit [facility] [address], [address] [place] [address] Alicia Jennings MD [address] [place] [address] 09/10/2025 10:40 AM EDT Office Visit [facility] Medicine Specialties [address], 2[address] [place] [address] Bushra Graf PA [address] [place] [address] documented as of this encounter [...] documented as of this encounter Care Teams Conservation Scientist Relationship Specialty Start Date End Date Iman Cuevas MD [address] [place] [phone] PCP - General Internal Medicine 12/19/24 documented as of this encounter
--- OUTSIDE RECORDS SUMMARY | 2025-03-14 12:24 | XMS_ITS | Encounter Summary ---
Author Organization Healthcare Address [address] [place] [address] Care Team Providers Care Rough Carpenter Name Role Phone Ankur Main MD Primary Care Provider [phone] Iman Cuevas MD Primary Care Provider [phone] Reason for Visit * Reason Onset Date Comments Med Refill 06/19/2021 Encounter Details Date Type Department Care Team (Late st Contact Info) Description 06/19/2021 Refill [facility] Internal Medicine [address], [address]rd [place] [address] Ankur Main MD [address] [place] [address] Social History Tobacco Use Types [...] encounter Miscellaneous Notes * Telephone Encounter - Yulisa Solis - 06/24/2021 3:44 PM EST Per protocol, 1 medication(s), levothyroxine, have been refused due to: Duplicate request sent 06/23 documented in this encounter Plan of Treatment Upcoming Encounters Date Type Department Care Team (Late st Contact Info) Description 04/18/2025 11:00 AM EDT Office Visit [facility] Medicine Specialties [address], [address] [place] [address] Juventino Costa MD [address] [place] [address] 05/04/2025 1:00 PM EST Appointment Medical Office Building Cardiac Diagnostic Testing Medical Office Building Echo Lab [address], [address] [place] [address] 05/04/2025 1:45 PM EST Office Visit [facility] [place] [address], [address] [place] [address] Ruslan Sanderson MD [address] [place] [address] 07/23/2025 2:00 PM EST Office Visit [facility] Sleep Disorder Center [address], 4th [place] [address] Kassandra Khan APRN [address] [place] [address] 08/21/2025 3:30 PM EST Office Visit [facility] [address], [address] [place] [address] Alicia Jennings MD [address] [place] [address] 09/10/2025 10:40 AM EDT Office Visit [facility] Medicine Specialties [address], [address] [place] [address] Bushra Grfa, PA [address] [place] [address] documented as of this encounter [...] documented as of this encounter Care Teams Rough Carpenter Relationship Specialty Start Date End Date Ankur Main MD [address] [place] [address] PCP - General 11/01/20 12/18/24 Iman Cuevas MD [address] [place] [address] PCP - General Internal Medicine 12/19/24 documented as of this encounter
--- OUTSIDE RECORDS SUMMARY | 2025-03-14 12:24 | XMS_ITS | Encounter Summary ---
Author Organization Healthcare Address [address] [place] [address] Care Team Providers Care Per Diem Clerk Name Role Phone Iman Cuevas MD Primary Care Provider [phone] Reason for Visit * Reason Onset Date Comments HCN Clinical Concern/Question 02/28/2025 Encounter Details Date Type Department Care Team ([facility] st Contact Info) Description 02/28/2025 Telephone [facility] [place] [address] [facility] [address], [address] [place] [address] Ruslan Sanderson MD [address] [place] [address] HCN Clinical Concern/Question Social History [...] 03/02/2025 8:21 AM EDT Letter faxed to [phone] * Telephone Encounter - Ruslan Sanderson MD - 03/01/2025 11:13 AM EDT Ok to proceed with surgery from cardiac stand point. * Telephone Encounter - Ilana Rolle - 02/28/2025 2:51 PM EDT Clinical Concern/Question Reason for Call: Patient is needing cardiac clearance for hysterectomy being done at [facility] on 03/14. FAX: [phone] Best contact number: [phone] (home) Optimal time of day to reach caller: ANYTIME Additional comments/information from caller: None Note: Please do not reply to this message. Follow-up communication and further actions as a result of this message need to be communicated with the patient directly, if the patient is not active onMyChart. If the patient is active on MyChart, they will receive notification of the communication/outcome via [facility]. documented in this encounter Plan of Treatment Upcoming Encounters Date Type Department Care Team (Late st Contact Info) Description 04/18/2025 11:00 AM EDT Office Visit [facility] Medicine Specialties [address], [address]nd [place] [address] Juventino Costa MD [address] [place] [address] 05/04/2025 1:00 PM EST Appointment Medical Office Building Cardiac Diagnostic Testing Medical Office Building Echo Lab [address] [facility], [address] [place] [address] 05/04/2025 1:45 PM EST Office Visit [facility] [place] [address] [facility], [address] [place] [address] Ruslan Sanderson MD [address] [place] [address] 07/23/2025 2:00 PM EST Office Visit [facility] Sleep Disorder Center [address], 4th [place] [address] Kassandra Khan APRN [address] [place] [address] 08/21/2025 3:30 PM EST [facility] [address], [address] [place] [address] Alicia Jennings MD [address] [place] [address] 09/10/2025 10:40 AM EDT [facility] Medicine Specialties [address], [address] [place] [address] Bushra Graf PA [address] [place] [address] documented as of this encounter [...] documented as of this encounter Care Teams Per Diem Clerk Relationship Specialty Start Date End Date Iman Cuevas MD [address] [phone] PCP - General Internal Medicine 12/19/24 documented as of this encounter
--- OUTSIDE RECORDS SUMMARY | 2025-03-14 12:24 | XMS_ITS | Encounter Summary ---
Author Organization Healthcare Address [address] [place] [address] Care Team Providers Care Youth Services Librarian Name Role Phone Ankur Main MD Primary Care Provider Iman Cuevas MD Primary Care Provider [phone] Reason for Visit * Reason Onset Date Comments Med Refill 01/24/2021 Encounter Details Date Type Department Care Team (Late st Contact Info) Description 01/24/2021 Refill [facility] Internal Medicine [address], [address]rd [place] [address] Ankur Main MD [address] [place] [address] Polyneuropathy associated with underlying disease [...] Upcoming Encounters Date Type Department Care Team ([facility] st Contact Info) Description 04/18/2025 11:00 AM EDT Office Visit [facility] Medicine Specialties [address], [address] [place] [address] Juventino Costa MD [address] [place] [address] 05/04/2025 1:00 PM EST Appointment Medical Office Building Cardiac Diagnostic Testing Medical Office Building Echo Lab [address] [facility] [address], [address] [place] [address] 05/04/2025 1:45 PM EST Office Visit [facility] [place] [facility] [address] [facility] [address], [address] [place] [address] Ruslan Sanderson MD [address] [place] [address] 07/23/2025 2:00 PM EST Office Visit [facility] [address], 4th [place] [address] Kassandra Khan, APOLLO [address] [place] [address] 08/21/2025 3:30 PM EST Office Visit [facility] [address], [address] [place] [address] Alicia Jennings MD [address] [place] [address] 09/10/2025 10:40 AM EDT Office Visit [facility] Medicine Specialties [address], [address] [place] [address] Bushra Graf, SHELBY [address] [place] [address] documented as of this encounter [...] documented as of this encounter Care Teams Youth Services Librarian Relationship Specialty Start Date End Date Ankur Main MD [address] [place] [address] PCP - General 11/01/20 12/18/24 Iman Cuevas MD [address] [place] [address] PCP - General Internal Medicine 12/19/24 documented as of this encounter
--- OUTSIDE RECORDS SUMMARY | 2025-03-14 12:24 | XMS_ITS | Encounter Summary ---
Author Organization Healthcare Address [address] [place] [address] Care Team Providers Care Employee Placement Specialist Name Role Phone Ankur Main MD Primary Care Provider [phone] Iman Cuevas MD Primary Care Provider [phone] Encounter Details Date Type Department Care Team (Late st Contact Info) Description 01/24/2024 Orders Only External Location [address] [place] [address] Skip Tineo MD Social History Tobacco Use [...] place to sleep or slept in a custodial (including now)? No 01/25/2024 Safety and Environment [...] Description 04/18/2025 11:00 AM EDT Office Visit [facility] Medicine Specialties [address], [address] [place] [address] Juventino Costa MD [address] [facility] [address] [place] [address] 05/04/2025 1:00 PM EST Appointment Medical Office Building Cardiac Diagnostic Testing Medical Office Building Echo Lab [address] [facility], [address] [place] [address] 05/04/2025 1:45 PM EST Office Visit [facility] [place] [address] [facility], [address] [place] [address] Ruslan Sanderson MD [address] [place] [address] 07/23/2025 2:00 PM EST Office Visit [facility] Sleep Disorder Center [address], 4th [place] [address] Kassandra Khan APRN [address] [place] [address] 08/21/2025 3:30 PM EST Office Visit [facility] [address], [address] [place] [address] Alicia Jennings MD [address] [place] [address] 09/10/2025 10:40 AM EDT Office Visit [facility] Medicine Specialties [address], [address] [place] [address] Bushra Graf PA [address] [place] [address] documented as of this encounter [...] documented as of this encounter Care Teams Employee Placement Specialist Relationship Specialty Start Date End Date Ankur Main MD [address] [place] [address] PCP - General 11/01/20 12/18/24 Iman Cuevas MD [address] [place] [address] PCP - General Internal Medicine 12/19/24 documented as of this encounter
--- OUTSIDE RECORDS SUMMARY | 2025-03-14 12:24 | XMS_ITS | Encounter Summary ---
Author Organization Healthcare Address [address] [place] [address] Care Team Providers Care Cruise Agent Name Role Phone Iman Cuevas MD Primary Care Provider [phone] Reason for Visit * Reason Comments Med Refill Encounter Details Date Type Department Care Team ([facility] st Contact Info) Description 01/23/2025 Refill [facility] [place] [address] [facility] [address] [facility] [address] [facility] [address], [address] [place] [address] Ruslan Sanderson MD [address] [place] [address] History of pulmonic valve replacement [...] place to sleep or slept in a usp (including now)? No 01/25/2024 PHQ-9 Answer Date [...] Description 04/18/2025 11:00 AM EDT Office Visit [facility] Medicine Specialties [address] [place] [address] Juventino Costa MD [address] [place] [address] 05/04/2025 1:00 PM EST Appointment Medical Office Building Cardiac Diagnostic Testing Medical Office Building Echo Lab [address] [facility], [address] [place] [address] 05/04/2025 1:45 PM EST Office Visit [facility] [place] [address] [facility], [address] [place] [address] Ruslan Sanderson MD [address] [place] [address] 07/23/2025 2:00 PM EST Office Visit [facility] Sleep Disorder Center [address] 4th [place] [address] Kassandra Khan, APOLLO [address] [place] [address] 08/21/2025 3:30 PM EST Office [facility] [address] 1[address] [place] [address] Alicia Jennings MD [address] [place] [address] 09/10/2025 10:40 AM EDT Office Visit [facility] Medicine Specialties [address], [address] [place] [address] Bushra Graf PA [address] [place] [address] documented as of this encounter [...] documented as of this encounter Care Teams Cruise Agent Relationship Specialty Start Date End Date Iman Cuevas MD [address] [place] [address] PCP - General Internal Medicine 12/19/24 documented as of this encounter
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
--- OUTSIDE RECORDS SUMMARY | 2025-03-14 12:24 | XMS_ITS | Encounter Summary ---
Author Organization Healthcare Address [address] [place] [address] Care Team Providers Care Photography Instructor Name Role Phone Ankur Main MD Primary Care Provider [phone] Iman Cuevas MD Primary Care Provider [phone] Reason for Visit * Reason Onset Date Comments Med Refill 06/29/2021 Encounter Details Date Type Department Care Team (Late st Contact Info) Description 06/29/2021 Refill [facility] [address] [place] [address] Juventino Costa MD [address] [place] [address] Moderate persistent asthma, unspecified whether [...] [facility] Medicine Specialties [address] [place] [address] Juventino Costa MD [address] [place] [address] 05/04/2025 1:00 PM EST Appointment Medical Office Building Cardiac Diagnostic Testing Medical Office Building Echo Lab [address], [address] [place] [address] 05/04/2025 1:45 PM EST Office Visit [facility] [place] [address], [address] [place] [address] Ruslan Sanderson MD [address] [place] [address] 07/23/2025 2:00 PM EST Office Visit [facility] Sleep Disorder Center [address] [place] [address] Kassandra Khan APRN [address] [place] [address] 08/21/2025 3:30 PM EST Office Visit [facility] [address], [address] [place] [address] Alicia Jennings MD [address] [place] [address] 09/10/2025 10:40 AM EDT [facility] [address] [place] [address] Bushra Graf PA [address] [place] [address] documented as of this encounter [...] documented as of this encounter Care Teams Photography Instructor Relationship Specialty Start Date End Date Ankur Main MD [address] [place] [address] PCP - General 11/01/20 12/18/24 Iman Cuevas MD [address] [place] [address] PCP - General Internal Medicine 12/19/24 documented as of this encounter
--- OUTSIDE RECORDS SUMMARY | 2025-03-14 12:24 | XMS_ITS | Encounter Summary ---
Author Organization Healthcare Address [address] [place] [address] Care Team Providers Care Desk Monitor Name Role Phone Ankur Main MD Primary Care Provider [phone] Iman Cuevas MD Primary Care Provider [phone] Reason for Visit * Reason Onset Date Comments Med Refill 02/19/2022 Encounter Details Date Type Department Care Team (Late st Contact Info) Description 02/19/2022 Refill [facility] Internal Medicine [address] [place] [address] Ankur Main MD [address] [place] [address] Polyneuropathy associated with underlying disease [...] Description 04/18/2025 11:00 AM EDT Office Visit [facility] Medicine Specialties [address], [address] [place] [address] Juventino Costa MD [address] [place] [address] 05/04/2025 1:00 PM EST Appointment Medical Office Building Cardiac Diagnostic Testing Medical Office Building Echo Lab [address] [place] [address] 05/04/2025 1:45 PM EST Office Visit [facility] [place] [address], [address] [place] [address] Ruslan Sanderson MD [address] [place] [address] 07/23/2025 2:00 PM EST Office Visit [facility] Sleep Disorder Center [address]th [place] [address] Kassandra Khan, APOLLO [address] [place] [address] 08/21/2025 3:30 PM EST [facility] [address] [place] [address] Alicia Jennings MD [address] [place] [address] 09/10/2025 10:40 AM EDT Office Visit [facility] Medicine Specialties [address], [address] [place] [address] Bushra Graf PA [address] [place] [address] documented as of this encounter Visit Diagnoses [...] documented as of this encounter Care Teams Desk Monitor Relationship Specialty Start Date End Date Ankur Main MD [address] [place] [address] PCP - General 11/01/20 12/18/24 Iman Cuevas MD [address] [place] [address] PCP - General Internal Medicine 12/19/24 documented as of this encounter
--- OUTSIDE RECORDS SUMMARY | 2025-03-14 12:24 | XMS_ITS | Encounter Summary ---
Author Organization Healthcare Address [address] [place] [address] Care Team Providers Care Plum Packer Name Role Phone Ankur Main MD Primary Care Provider [phone] Iman Cuevas MD Primary Care Provider [phone] Reason for Visit * Reason Onset Date Comments Med Refill 02/28/2021 Encounter Details Date Type Department Care Team (Late st Contact Info) Description 02/28/2021 Refill [facility] Internal Medicine [address] [place] [address] Roxana Abdul MD [address] [place] [address] Polyneuropathy associated with underlying disease [...] [facility] Medicine Specialties [address] [place] [address] Juventino Costa MD [address] [place] [address] 05/04/2025 1:00 PM EST Appointment Medical Office Building Cardiac Diagnostic Testing Medical Office Building Echo Lab [address], [address] [place] [address] 05/04/2025 1:45 PM EST Office Visit [facility] [place] [address], [address] [place] [address] Ruslan Sanderson MD [address] [place] [address] 07/23/2025 2:00 PM EST Office Visit [facility] Sleep Disorder Center [address] [place] [address] Kassandra Khan, ELEVATOR REPAIR MECHANIC [address] [place] [address] 08/21/2025 3:30 PM EST Office Visit [facility] [address] [place] [address] Alicia Jennings MD [address] [place] [address] 09/10/2025 10:40 AM EDT Office Visit [facility] Medicine Specialties [address], [address] [place] [address] Bushra Graf, PA [address] [place] [address] documented as of this encounter [...] documented as of this encounter Care Teams Plum Packer Relationship Specialty Start Date End Date Ankur Main MD [address] [place] [address] PCP - General 11/01/20 12/18/24 Iman Cuevas MD [address] [place] [address] PCP - General Internal Medicine 12/19/24 documented as of this encounter
[2025-03-14] MEDS: FAMOTIDINE 20MG/2ML VIAL 20 MG IV (12:38)
[2025-03-14] MEDS: METHYLPREDNISOLONE SOD SUCC 125MG VIAL 125 MG IV (12:38)
[2025-03-14] MEDS: MORPHINE 2MG/ML SYRINGE 2 MG IV (12:56)
--- NOTE | 2025-03-14 13:11 | PC.NURSE ---
Report received from Cris (CUSTOMER ACCOUNT MANAGER)
[2025-03-14] MEDS: KETOROLAC 30MG/ML VIAL 30 MG IV ×2 (13:58→20:09)
[2025-03-14] MEDS: ONDANSETRON 4MG/2ML VIAL 4 MG IV (13:58)
[2025-03-14] MEDS: GABAPENTIN 300MG CAPSULE 300 MG PO ×2 (13:59→21:47)
[2025-03-14] MEDS: LACTATED RINGERS 1000ML 1,000 ML 125 ML IV (14:02)
--- NOTE | 2025-03-14 14:39 | SUR.PHASEI ---
Patient arrived to PACU at 1145, during bedside report per OR staff, rash noted to BUCW that extended to LAC IV site, rash also noted to lower portion of neck. Per OR staff, rash r/t joshua hugger gown. Once patient woke up, patient reported having trouble breathing. o2sat noted 92% on RA, RR noted WNL, lungs noted CTA. 2lnc applied. Denise Will RN made aware of c/o difficulty in breathing, with noted rash and OR staff stated it was r/t joshua hugger. Denise Will RN spoke with Jesus anesthesia and Jesus ordered an albuterol neb treatment, RT was called and came to PACU and administered neb treatment. Following administration of neb treatment patient remained c/o difficulty in breathing. oxygen titrated to 4lnc, nursing staff spoke with Rosario with anesthesia regarding the above assessment findings and patient's complaint of difficulty in breathing. Rosario ordered benadryl, solumedrol and pepcid. Nursing administered medications per AUG. following administrations of medications, patient reported it is easier to breathe. the rash to BUCW noted with improvements prior to patient's discharge from PACU. report was given to OB nurse, Mary at 1253 and the above information was included in report. Patient transported to OB department at 1308.
[2025-03-14 14:45] LABS: Microscopic,Cath URINE MICROSCOPIC (MICROSCOPIC)
--- NOTE | 2025-03-14 16:06 | EXP.ANES.II ---
[facility] Anesthesia Record Part II Anesthesia Record Part II Discharge Time: 13:05 Destination: Obstetric PACU nurse assessment reviewed?: Yes Patient Condition:: Good Anesthesia Complications:: None Swallowing reflex intact?: Yes Airway Patency: Patent Cyanosis?: No Blood Pressure: 100/62 SaO2: 91 Respiratory Rate: 18 Pulse Rate: 70 Temperature: 97.8 F Mental Status: Alert & Oriented Pain level:: 9 Nausea and/or vomitting:: None Intake, IV Amount: 0 Hydration: Adequate
[2025-03-14] MEDS: FUROSEMIDE 80 MG TABLET PO (16:45)
[2025-03-14 18:01] LABS: Hematocrit 36.9 % (37.0-47.0); Hemoglobin 12.4 g/dL (12.2-16.2); Immature Granulocytes % 0.5 %; Mean Corpuscular HGB Conc 33.6 g/dL (31.8-35.4); Mean Corpuscular Hemoglobin 31.1 pg (27.0-31.2); Mean Corpuscular Volume 92.5 fl (81-99); Nucleated Red Blood Cells % 0 %; Platelet Count 175 K/mm3 (142-424); Red Blood Count 3.99 M/mm3 (4.20-5.40); Red Cell Distribution Width-SD 43.1 fL; White Blood Count 14.9 K/mm3 (4.8-10.8)
--- NOTE | 2025-03-14 19:00 | PC.NURSE ---
Report received from Davey Rondon RN
--- NOTE | 2025-03-14 20:09 | PC.NURSE ---
Pt has just ambulated to the bedside comode and voided. She is now requesting pain medication. Tylenol 1000mg po and toradol 30mg IV push given per order. Pt has her nurse call button within reach. Her mom is present at the bedside
[2025-03-14 21:04] LABS: Appearance,Urine/Cath CLEAR (Clear); Bilirubin,Cath Negative (Negative); Blood, Urine/Cath Negative (Negative); Color,Urine/Cath YELLOW (Yellow); Glucose,Urine/Cath (UA) TRACE (Negative); Ketones,Urine/Cath Negative (Negative); Leukocyte Esterase,Cath Negative (Negative); Nitrate,Cath Negative (Negative); PH,Urine/Cath 6.0 (5.0-8.5); Protein,Urine/Cath Negative (Negative); Specific Gravity, Urine/Cath 1.020 (1.005-1.030); Urobilinogen,Cath 0.2 EU/dl (0.2)
[2025-03-14] MEDS: ENOXAPARIN 120MG/0.8ML SYRINGE 110 MG SUBCUT (21:46)
[2025-03-14 21:47] LABS: Bacteria,Urine/Cath TRACE /lpf; Mucus,Urine/Cath Trace /lpf; RBC,Urine/Cath Occasional # /hpf (0-3)
[2025-03-14] MEDS: POTASSIUM CHLORIDE 20MEQ TAB 20 MEQ PO (21:48)
[2025-03-14] MEDS: MONTELUKAST SODIUM 10MG TAB 10 MG PO (21:48)
[2025-03-14] MEDS: METOPROLOL TARTRATE 25MG TABLET 25 MG PO (21:49)
[2025-03-14] MEDS: QUETIAPINE 100MG TABLET 50 MG PO (21:49)
[2025-03-14] MEDS: HYDROMORPHONE 2MG/ML SYRINGE 1 MG IV (22:03)
--- NOTE | 2025-03-14 22:03 | PC.NURSE ---
Pt given dilaudid 1mg IV push for her abdominal pain rated 7 out of 10. Pt also given a juice and some crackers. Pt is sitting up in her room, playing cards with her mom. Pt denies any further needs.
[2025-03-15] VITALS: BP 91/44; PULSE 62; RESP 16; TEMP 36.4; O2SAT 93
[2025-03-15] MEDS: KETOROLAC 30MG/ML VIAL 30 MG IV ×4 (02:04→20:59)
[2025-03-15] MEDS: ACETAMINOPHEN 500MG TAB 1000 MG PO ×4 (02:04→21:00)
--- NOTE | 2025-03-15 02:04 | PC.NURSE ---
Upon this RN entering pt's room, pt is standing at the bedside and moving around. She reports abdominal pain is 7 out of 10 and she is requesting pain medication. Pt assisted back to the bed and her Thigh high SCUDs remain on, pt demonstrated the incentive spirometer = 2500mmhg.
[2025-03-15] MEDS: OXYCODONE 5MG IMMEDIATE RELEASE TABLET 5 MG PO (02:15)
[2025-03-15] MEDS: SENNOSIDES 8.6MG/DOCUSATE 50MG TABLET 1 TAB PO (03:15)
[2025-03-15] MEDS: HYDROMORPHONE 2MG/ML SYRINGE 1 MG IV ×2 (03:16→09:19)
[2025-03-15 04:00] VITALS: BP 97/52; PULSE 69; RESP 14; TEMP 36.4; O2SAT 88
[2025-03-15 04:05] VITALS: O2SAT 93
--- NOTE | 2025-03-15 04:05 | PC.NURSE ---
Nasal cannula at 2 lpm applied due to SPO2= 88% on room air. DPO2 increased to 93% with the nasal cannula on. Pt is sleeping off and on
[2025-03-15 06:09] LABS: Hematocrit 37.8 % (37.0-47.0); Hemoglobin 12.4 g/dL (12.2-16.2); Immature Granulocytes % 0.5 %; Mean Corpuscular HGB Conc 32.8 g/dL (31.8-35.4); Mean Corpuscular Hemoglobin 30.8 pg (27.0-31.2); Mean Corpuscular Volume 93.8 fl (81-99); Nucleated Red Blood Cells % 0 %; Platelet Count 172 K/mm3 (142-424); Red Blood Count 4.03 M/mm3 (4.20-5.40); Red Cell Distribution Width-SD 44.6 fL; White Blood Count 17.4 K/mm3 (4.8-10.8)
--- NOTE | 2025-03-15 07:10 | PC.NURSE ---
Report given to Sania [place] RN
[2025-03-15] MEDS: LEVOTHYROXINE 100MCG (0.1MG) TAB 100 MCG PO (09:09)
[2025-03-15] MEDS: FOLIC ACID 1MG TABLET 1 MG PO (09:09)
[2025-03-15] MEDS: FUROSEMIDE 80 MG TABLET PO ×2 (09:09→16:24)
[2025-03-15] MEDS: GABAPENTIN 300MG CAPSULE 300 MG PO ×3 (09:09→22:05)
[2025-03-15] MEDS: SERTRALINE 100MG TABLET 100 MG PO (09:09)
[2025-03-15] MEDS: EMPAGLIFLOZIN 10MG TABLET 10 MG PO (09:09)
[2025-03-15] MEDS: POTASSIUM CHLORIDE 20MEQ TAB 20 MEQ PO ×2 (09:09→22:01)
[2025-03-15] MEDS: METOPROLOL TARTRATE 25MG TABLET 25 MG PO ×2 (09:10→22:04)
[2025-03-15 09:20] VITALS: BP 96/58; PULSE 60; RESP 17; TEMP 36.7; O2SAT 94
[2025-03-15] MEDS: OXYCODONE 5MG IMMEDIATE RELEASE TABLET 10 MG PO ×3 (11:07→19:55)
[2025-03-15] MEDS: ENOXAPARIN 120MG/0.8ML SYRINGE 110 MG SUBCUT ×2 (11:07→22:03)
[2025-03-15] MEDS: POLYETHYLENE GLYCOL 3350 17 GM PACKET PO ×2 (11:13→22:02)
--- NOTE | 2025-03-15 11:15 | PC.NURSE ---
Spoke to Dr. Covarrubias at 1040, asked her if we could chnage dose of oxycodone to 10mg PO Q4 hrs PRN for mod-severe pain, she stated yes and to order miralax BID orally as well as Simethicone 160mg PO PRN. orders verified and read back.
--- NOTE | 2025-03-15 15:54 | PC.NURSE ---
Patient up ambulating around unit at this time, abdominal binder placed on patient before she got out of bed.
[2025-03-15 16:00] VITALS: BP 103/47; PULSE 50; RESP 19; TEMP 36.7; O2SAT 93
--- NOTE | 2025-03-15 16:42 | PC.NURSE ---
Pt sitting up on side of bed, pt rates pain 4/10 states its worse when she gets up. vitals have been stable this shift, lung sounds clear bilaterally throughout, bowel sounds active in all quadrants, pt has ambulated around unit and room this shift. pt has voided regularly with out difficulty. incision clean and dry, dressing removed in shower and open to air, no s/s of infection noted. pt denies needs at this time, linens changed and trash removed from room.
--- NOTE | 2025-03-15 16:50 | EXP.PN ---
Subjective *Date: 03/15/25 *Time: 16:50 Interval history: Elizabeth Milian is a 40yo POD#1 from a supracervical abdominal hysterectomy with bilateral salpingo-oophorectomy and cystoscopy. Her procedure was relatively uncomplicated with an appropriate amount of blood loss. She is ambulating, tolerating p.o., and voiding without problems. Her pain is well-controlled. We have transitioned her to oxycodone 10 mg p.o. and this is controlling her pain. She has no questions or concerns at this time Exam Data for Last 24 hours Vital signs and Labs for Last 24 Hours: Temp Pulse Resp BP Pulse Ox O2 Del Method O2 Flow Rate 98.1 F 50 L 19 103/47 L 93 L Room Air 2 03/15/25 16:00 03/15/25 16:00 03/15/25 16:00 03/15/25 16:00 03/15/25 16:00 03/15/25 16:00 03/15/25 06:00 Laboratory Results - last 24 hr 03/14/25 07:45: Urine Color Yellow, Urine Appearance Clear, Urine pH 6.0, Ur Specific Clifford 1.020, Urine Protein Negative, Urine Glucose (UA) Trace, Urine Ketones Negative, Urine Blood Negative, Urine Nitrate Negative, Urine Bilirubin Negative, Urine Urobilinogen 0.2, Ur Leukocyte Esterase Negative, Urine RBC Occasional, Ur Squamous Epith Cells 3-5, Urine Bacteria Trace 03/14/25 17:49: WBC 14.9 H, RBC 3.99 L, Hgb 12.4, Hct 36.9 L, MCV 92.5, MCH 31.1, MCHC 33.6, RDW 12.8, Plt Count 175, MPV 9.9, Neut % (Auto) 91.5 H, Lymph % (Auto) 5.0 L, [place] % (Auto) 2.8, Eos % (Auto) 0.0 L, Baso % (Auto) 0.2, Neut # (Auto) 13.6 H, Lymph # (Auto) 0.7, [place] # (Auto) 0.4, Eos # (Auto) 0.0, Baso # (Auto) 0.0 03/15/25 05:40: WBC 17.4 H, RBC 4.03 L, Hgb 12.4, Hct 37.8, MCV 93.8, MCH 30.8, MCHC 32.8, RDW 13.1, Plt Count 172, MPV 10.4, Neut % (Auto) 87.1 H, Lymph % (Auto) 5.9 L, [place] % (Auto) 6.4, Eos % (Auto) 0.0 L, Baso % (Auto) 0.1, Neut # (Auto) 15.2 H, Lymph # (Auto) 1.0, [place] # (Auto) 1.1 H, Eos # (Auto) 0.0, Baso # (Auto) 0.0 I & O for Last 24 hours: Intake & Output 03/12/25 03/13/25 03/14/25 03/15/25 23:59 23:59 23:59 23:59 Intake Total 1852.083 / 1852.083 Output Total 250 / 250 800 / 800 Balance 1602.083 / 1602.083 -800 / -800 Weight 238 lb Narrative: General: patient is alert oriented in no acute distress and responds appropriately to questions. Appears to be in minimal pain. Ambulating to and from the bathroom this morning when I visited her HEENT: NCAT, EOMI, moist mucous membranes, neck supple with full ROM Cardiovascular: RRR +S1/S2, no murmurs or rubs Pulmonary: Clear to auscultation bilaterally, nonlabored breathing, symmetric chest rise Abdominal: Incision is covered by a dressing she will get a shower later today and the dressing will be removed. Minimal appropriate postoperative tenderness in the abdomen Extremities: trace edema, no tenderness or cyanosis noted Skin: Normal turgor, intact, warm. Negative for erythema, pallor, petechia, or lesions Neurologic: Negative for sensory or motor deficit Psychiatric: Normal affect, normal thought process, good judgment and insight, no depression or anxious mood appreciated. Assessment and Plan *Assessment and plan (1) H/O abdominal supracervical subtotal hysterectomy: Status: Acute Category: Surgical Code(s): Z90.711 - Acquired absence of uterus with remaining cervical stump (2) Hx of BSO (bilateral salpingo-oophorectomy): Status: Acute Category: Surgical Code(s): Z90.79 - Acquired absence of other genital organ(s); Z90.722 - Acquired absence of ovaries, bilateral (3) Hepatitis C: Status: Acute Category: Medical Code(s): B19.20 - Unspecified viral hepatitis C without hepatic coma (4) Chronic kidney disease: Status: Acute Qualifiers: Chronic kidney disease stage: unspecified stage Qualified Code(s): N18.9 - Chronic kidney disease, unspecified Category: Medical Code(s): N18.9 - Chronic kidney disease, unspecified Plan - Monitor vitals - Continue monitoring pain and using oxycodone for pain management - Encourage incentive spirometer - Encouraged ambulation and showering - Voiding and tolerating p.o. well - Anticipate discharge home tomorrow
--- NOTE | 2025-03-15 19:05 | PC.NURSE ---
Report received from Sania Wellington RN
[2025-03-15 20:00] VITALS: BP 94/50; PULSE 53; RESP 16; TEMP 36.6; O2SAT 93
--- NOTE | 2025-03-15 20:56 | PC.NURSE ---
Pt is ambulating around the nurse's station independently at this time
[2025-03-15] MEDS: MONTELUKAST SODIUM 10MG TAB 10 MG PO (22:04)
[2025-03-15] MEDS: QUETIAPINE 100MG TABLET 50 MG PO (22:04)
[2025-03-16] VITALS (9 sets, daily range): BP systolic 86–138; BP diastolic 41–58; PULSE 46–58; RESP 16–18; TEMP 36.1–36.9; O2SAT 92–98
[2025-03-16] MEDS: SIMETHICONE 80MG CHEWABLE TABLET 160 MG PO ×2 (00:16→20:14)
[2025-03-16] MEDS: OXYCODONE 5MG IMMEDIATE RELEASE TABLET 10 MG PO ×5 (00:16→21:44)
[2025-03-16] MEDS: ACETAMINOPHEN 500MG TAB 1000 MG PO ×3 (03:18→16:17)
[2025-03-16] MEDS: KETOROLAC 30MG/ML VIAL 30 MG IV (03:18)
--- NOTE | 2025-03-16 06:58 | PC.NURSE ---
Report given to Sania Banda RN
[2025-03-16] MEDS: LEVOTHYROXINE 100MCG (0.1MG) TAB 100 MCG PO (07:03)
--- NOTE | 2025-03-16 08:25 | PC.NURSE ---
Dr. Landry here rounding- patient laying in bed. drowsy. Oriented x4. Blood pressure 90/48 manually- md aware of bp and heart rate of 46. Patient reports pain 9/10- from her incision. Reports passing gas, no bowel movement. Lungs CTA and bowel sounds active x4. Bleeding noted from lovenox injection sites. Low transverse incision open to air- no s/s of infection. Scant vaginal bleeding. Trace ble edema noted. IV to right foot. Orders to hold lasix, lovenox, metoprolol. all orders r/v
--- NOTE | 2025-03-16 08:40 | PC.NURSE ---
Oxygen at 2l placed on patient at this time per dr. martin.
[2025-03-16] MEDS: POTASSIUM CHLORIDE 20MEQ TAB 20 MEQ PO ×2 (08:51→20:13)
[2025-03-16] MEDS: FOLIC ACID 1MG TABLET 1 MG PO (08:51)
[2025-03-16] MEDS: EMPAGLIFLOZIN 10MG TABLET 10 MG PO (08:51)
[2025-03-16] MEDS: POLYETHYLENE GLYCOL 3350 17 GM PACKET PO ×2 (08:51→20:14)
[2025-03-16] MEDS: SERTRALINE 100MG TABLET 100 MG PO (08:51)
[2025-03-16] MEDS: GABAPENTIN 300MG CAPSULE 300 MG PO ×3 (08:52→20:14)
[2025-03-16 09:01] LABS: Hematocrit 32.0 % (37.0-47.0); Hemoglobin 10.5 g/dL (12.2-16.2); Immature Granulocytes % 0.4 %; Mean Corpuscular HGB Conc 32.8 g/dL (31.8-35.4); Mean Corpuscular Hemoglobin 31.6 pg (27.0-31.2); Mean Corpuscular Volume 96.4 fl (81-99); Nucleated Red Blood Cells % 0 %; Platelet Count 175 K/mm3 (142-424); Red Blood Count 3.32 M/mm3 (4.20-5.40); Red Cell Distribution Width-SD 47.0 fL; White Blood Count 11.8 K/mm3 (4.8-10.8)
[2025-03-16 09:12] LABS: Alanine Aminotransferase 15 U/L (12-78); Albumin Level 4.0 g/dl (3.5-5.0); Albumin/Globulin Ratio 1.4 (1.1-1.8); Alkaline Phosphatase 63 U/L (38-126); Anion Gap 13.3 mEq/L (5-15); Aspartate Amino Transferase 38 U/L (14-36); Bilirubin,Total 0.7 mg/dl (0.2-1.3); Blood Urea Nitrogen 44 mg/dl (7-17); Calcium 9.2 mg/dl (8.4-10.2); Carbon Dioxide 28 mmol/L (22.0-30.0); Chloride 101 mmol/L (98-107); Creatinine Clearance Estimated 38 mL/min (50-200); Creatinine,Serum 1.60 mg/dl (0.52-1.04); Estimated Glomerular Filt Rate 35 ml/min (>60); GFR (African American) 43 ML/MIN (>60); Globulin 2.8 g/dL (1.3-3.2); Glucose 92 mg/dl (74-100); Potassium 4.3 mmoL/L (3.5-5.1); Sodium 138 mmol/L (136-145); Total Protein,Serum 6.8 g/dl (6.3-8.2)
[2025-03-16 09:15] LABS: Activated Partial Thrombo Time 32.6 seconds (22.8-30.6); INR 1.03 (0.9-1.1); Prothrombin Time 11.4 seconds (10.1-12.5)
--- NOTE | 2025-03-16 09:17 | PC.NURSE ---
Dr Landry on unit- orders given for 1 gm calcium gluconate iv, 500 ml bolus lr, hold lovenox, lasix and metoprolol. Orders for a one time dose of 1mg dilaudid iv. all orders r/v
--- NOTE | 2025-03-16 09:33 | P.PN_ITS ---
Subjective *Date: 03/16/25 *Time: 17:19 Interval history: Elizabeth Milian is a 40yo POD#2 from a supracervical abdominal hysterectomy with bilateral salpingo-oophorectomy and cystoscopy. She appears to be in moderate pain this morning, stating that he has not been able to get comfortable and that her abdomen has been hurting. Upon abdominal assessment, there were multiple sites that were bruised and bleeding from her Lovenox 120mg injection. The last injection site was covered in a blood-soaked gauze, that had also saturated a portion of the front of her gown. - Pt states she has increased pain but attributes a signifiant amount of her pain to her upper abdominal hernia. She also states she cant get comfortable in bed. Laying down hurts the hernia and sitting up causes postoperative discomfort to her lower abdomen. - Pt reports she is voiding without dysuria. She has not had a bowel movement. Her pain was better conrolled until this morning. She was eating without nausea and vomiting. States she lost her appetite this morning, per pt primarily secondary to discomfort. She took a shower yesterday and ambulated the labor floor halls and around her room. Her pain was controlled and she was doing well until this morning. Exam Data for Last 24 hours Vital signs and Labs for Last 24 Hours: Temp Pulse Resp BP Pulse Ox O2 Del Method O2 Flow Rate 97.0 F L 48 L 16 86/45 L 96 Room Air 2 03/16/25 04:00 03/16/25 08:20 03/16/25 04:00 03/16/25 04:00 03/16/25 08:20 03/16/25 08:20 03/15/25 06:00 Laboratory Results - last 24 hr 03/16/25 08:50: WBC 11.8 H D, RBC 3.32 L, Hgb 10.5 L, Hct 32.0 L, MCV 96.4, MCH 31.6 H, MCHC 32.8, RDW 13.3, Plt Count 175, MPV 10.4, Neut % (Auto) 69.2, Lymph % (Auto) 20.3, [place] % (Auto) 7.2, Eos % (Auto) 2.5, Baso % (Auto) 0.4, Neut # (Auto) 8.2 H, Lymph # (Auto) 2.4, [place] # (Auto) 0.9, Eos # (Auto) 0.3, Baso # (Auto) 0.1, PT 11.4, INR 1.03, APTT 32.6 H, Sodium 138, Potassium 4.3, Chloride 101, Carbon Dioxide 28, Anion Gap 13.3, BUN 44 H, Creatinine 1.60 H, Estimated Creat Clear 38, Estimated GFR 35 L, Est GFR ( Amer) 43 L, Glucose 92, Calcium 9.2, Total Bilirubin 0.7, AST 38 H, ALT 15, Alkaline Phosphatase 63, Total Protein 6.8, Albumin 4.0, Globulin 2.8, Albumin/Globulin Ratio 1.4 I & O for Last 24 hours: Intake & Output 03/13/25 03/14/25 03/15/25 03/16/25 23:59 23:59 23:59 23:59 Intake Total 1852.083 / 1852.083 Output Total 250 / 250 803 / 803 2 / 2 Balance 1602.083 / 1602.083 -803 / -803 -2 / -2 Weight 238 lb Narrative: General: Patient is alert oriented. She responds appropriately to questions. Appears to be in acute moderate pain. Ambulating to and from the bathroom yesterday during the day, but has stopped ambulating this morning d/t pain. HEENT: NCAT, EOMI, moist mucous membranes, neck supple with full ROM Cardiovascular: RRR +S1/S2, no murmurs or rubs. Hypotensive to 80s/40s when I was in the room. Bradycardic to the 40s. Pulmonary: Clear to auscultation bilaterally, nonlabored breathing, symmetric chest rise, appropriate O2 saturation Abdominal: Incision is intact and appropriate. Moderate appropriate p ostoperative tenderness in the abdomen. Multiple bruising/bleeding sites from Lovenox injections. [bowel sounds] Extremities: trace edema, no tenderness or cyanosis noted Skin: Normal turgor, intact, warm. Negative for erythema, pallor, petechia, or lesions Neurologic: Negative for sensory or motor deficit Assessment and Plan *Assessment and plan (1) H/O abdominal supracervical subtotal hysterectomy: Status: Acute Category: Surgical Code(s): Z90.711 - Acquired absence of uterus with remaining cervical stump (2) Hx of BSO (bilateral salpingo-oophorectomy): Status: Acute Category: Surgical Code(s): Z90.79 - Acquired absence of other genital organ(s); Z90.722 - Acquired absence of ovaries, bilateral (3) Hepatitis C: Status: Acute Category: Medical Code(s): B19.20 - Unspecified viral hepatitis C without hepatic coma (4) Chronic kidney disease: Status: Acute Qualifiers: Chronic kidney disease stage: unspecified stage Qualified Code(s): N18.9 - Chronic kidney disease, unspecified Category: Medical Code(s): N18.9 - Chronic kidney disease, unspecified Plan Elizabeth Rukhsana is a 40yo POD#2 from a supracervical abdominal hysterectomy with bilateral salpingo-oophorectomy and cystoscopy POD#2 Hx of VTE Hypotension and Bradycardia KALYANI with Cr - DIC, electrolyte, renal function, cbc labs order this morning. - Low threshold for CT abdomen/ pelvis given risk for postop hematoma with therapeutic dosing LMWH and bleeding from injection sites this morning. - Hold nephrotoxic drugs : Torodal, lasix - IV site infiltrated, obtain new IV - follow I&Os to ensure output is >0.5mL/Kg/hr - Follow labs and clinically Upon vital signs assessment, Elizabeth was noted to have hypotension of 90s/40s and bradycardia to the 40s. She still has good perfusion and mentation, in no acute distress. A decision was made to repeat her CBC, CMP, PT, INR, and APTT. Her labs revealed an KALYANI with a BUN of 44 and Creatinine of 1.6. Consideration to her hemodynamics and KALYANI were made, and the Lovenox, Lasix, Metoprolol, and Toradol will be held this morning. Dolores discussed this case with Hi, Pharmacist and Dr. Barrera, and we collectively agreed on a management plan for this patient's blood pressure, KALYANI, and Lovenox management. Elizabeth will receive a 1000mL fluid bolus of LR for blood pressure, 1g of IV dilaudid for acute pain management, and Calcium Gluconate for blood pressure. Her Lovenox will be held this morning and then decreased to 40mg BID for prophylactic dos ing, instead of 120mg BID for therapeutic dosing. She will be discharged once stable on her home dose of DOAC. Elizabeth will need to be monitored in the hospital for another 24 hours. A decision was made to hold her morning Lovenox dose for concern of postoperative bleeding.
[2025-03-16] MEDS: ALBUTEROL 0.083% 2.5 MG/3 ML NEB IH (09:41)
[2025-03-16] MEDS: LACTATED RINGERS 1000ML 500 ML 999 ML IV ×2 (09:52→10:23)
[2025-03-16 10:07] LABS: Fibrinogen 416 mg/dL (229.9-363.5)
[2025-03-16] MEDS: CALCIUM GLUC IN NACL, ISO-OSM 1 GM/50 ML BAG IV (11:57)
[2025-03-16] MEDS: HYDROMORPHONE 2MG/ML SYRINGE 0.5 MG IV (12:22)
[2025-03-16] MEDS: SENNOSIDES 8.6MG/DOCUSATE 50MG TABLET 1 TAB PO ×2 (13:32→20:14)
--- NOTE | 2025-03-16 14:19 | PC.NURSE ---
Patient just finished lunch. Patient states that she feels better at this time. Oxygen remains at 2L per NC. IV to left upper arm saline locked. Second dressing to abd from [facility] site c/d/i. low transverse incision open to air. Denies any needs. Up ad brown.,
--- NOTE | 2025-03-16 16:10 | PC.NURSE ---
Reassessment completed at this time. Patient reports pain 7/10 throughout the day. PRn meds given. Output has been adequate today. Patient has been tolerating diet well. IV to left ua saline locked. low transverse incision c/d/i. lovenox site dressing with old blood noted. bruising to stomach noted. a/ox4. oxygen turned down to 1.5 liter. scant vaginal bleeding. Patient ambulating well my shift. Lungs remain cta and bowel sounds active x4.
[2025-03-16] MEDS: MONTELUKAST SODIUM 10MG TAB 10 MG PO (20:14)
[2025-03-16] MEDS: QUETIAPINE 100MG TABLET 50 MG PO (20:16)
[2025-03-16] MEDS: HYDROMORPHONE 0.5 MG/0.5 ML IV (20:22)
[2025-03-16 20:29] LABS: Hematocrit 31.3 % (37.0-47.0); Hemoglobin 10.2 g/dL (12.2-16.2); Immature Granulocytes % 0.6 %; Mean Corpuscular HGB Conc 32.6 g/dL (31.8-35.4); Mean Corpuscular Hemoglobin 31.2 pg (27.0-31.2); Mean Corpuscular Volume 95.7 fl (81-99); Nucleated Red Blood Cells % 0 %; Platelet Count 188 K/mm3 (142-424); Red Blood Count 3.27 M/mm3 (4.20-5.40); Red Cell Distribution Width-SD 46.5 fL; White Blood Count 10.5 K/mm3 (4.8-10.8)
[2025-03-16 20:54] LABS: Alanine Aminotransferase 19 U/L (12-78); Albumin Level 3.9 g/dl (3.5-5.0); Albumin/Globulin Ratio 1.4 (1.1-1.8); Alkaline Phosphatase 66 U/L (38-126); Anion Gap 13.3 mEq/L (5-15); Aspartate Amino Transferase 46 U/L (14-36); Bilirubin,Total 0.7 mg/dl (0.2-1.3); Blood Urea Nitrogen 37 mg/dl (7-17); Calcium 8.9 mg/dl (8.4-10.2); Carbon Dioxide 25 mmol/L (22.0-30.0); Chloride 103 mmol/L (98-107); Creatinine Clearance Estimated 47 mL/min (50-200); Creatinine,Serum 1.30 mg/dl (0.52-1.04); Estimated Glomerular Filt Rate 45 ml/min (>60); Fibrinogen 442 mg/dL (229.9-363.5); GFR (African American) 54 ML/MIN (>60); Globulin 2.8 g/dL (1.3-3.2); Glucose 104 mg/dl (74-100); Potassium 4.3 mmoL/L (3.5-5.1); Sodium 137 mmol/L (136-145); Total Protein,Serum 6.7 g/dl (6.3-8.2)
[2025-03-16 21:00] LABS: Activated Partial Thrombo Time 29.5 seconds (22.8-30.6); INR 1.00 (0.9-1.1); Prothrombin Time 11.1 seconds (10.1-12.5)
--- NOTE | 2025-03-16 22:25 | PC.NURSE ---
Patient has been trying to urinate, only abl eto urinate small amount at a time. Bladder is slightly able to be palpated. Patient agreeable to gannon. Gannon placed using sterile technique. Patient tolerated well. 400ml of dark cloudy urine in bag after insertion. Patient reports relief.
[2025-03-17] VITALS (10 sets, daily range): BP systolic 98–116; BP diastolic 42–76; PULSE 55–69; RESP 14–20; TEMP 36.4–37; O2SAT 93–100
--- NOTE | 2025-03-17 01:56 | PC.NURSE ---
Patient sleeping, respirations even and unlabored. No signs of discomfort at this time. Call light within reach
[2025-03-17] MEDS: ACETAMINOPHEN 500MG TAB 1000 MG PO ×5 (02:35→23:32)
[2025-03-17] MEDS: OXYCODONE 5MG IMMEDIATE RELEASE TABLET 10 MG PO ×4 (02:35→20:30)
--- NOTE | 2025-03-17 02:35 | PC.NURSE ---
Patient wakes to nurse entering room after RN hears patient coughing. Patient reports pain 12/28. Medicated per AUG. Patient denies any other needs at this time. Call light within reach
--- NOTE | 2025-03-17 04:00 | PC.NURSE ---
Reassessment completed at this time. c/d/open to air . bruising to stomach noted. a/ox4. oxygen turned down at 2 liter, Patient ambulated 100ft and tolerated well but was noted to have oxygen sat at 88 so NC reapplied. . Patient ambulating well my shift. Lungs remain cta and bowel sounds active x4.
--- NOTE | 2025-03-17 05:10 | PC.NURSE ---
Dr. Sharp at bedside, incision assessed by physician, cleaned,. Pressure dressing applied with carol wrap. Bleeding slowed.
--- NOTE | 2025-03-17 05:35 | EXP.ACUTE.PN ---
Subjective *Date: 03/17/25 *Time: 05:35 Interval history: She is postop day 3 from a supracervical abdominal hysterectomy. I was asked to see the patient at 5 AM this morning because she was gushing blood from her incision. She has a history of Eliquis use as well as having had Lovenox prior to surgery for history of pulmonary emboli and heart valve replacement. She is not currently on blood thinners. On examination she had a significant amount old blood oozing from the right side of her incision. There is a small 1 cm opening in the incision. We applied pressure and I suspect she had a hematoma that was under pressure and made its way through the incision. The blood was old appearing, burgundy in color and not bright red. Her hemoglobin has been stable for the last 24 hours. Hgb was 10.0 last night. Blood pressure is normal. Medical Exam Vital signs and Labs for Last 24 Hours: Vital Signs Temp Pulse Resp BP Pulse Ox O2 Del Method O2 Flow Rate 03/17/25 04:15 97.9 F 64 18 110/68 93 L Nasal Cannula 2 03/17/25 04:00 Nasal Cannula 1 03/17/25 02:35 Nasal Cannula 1 03/17/25 01:18 Nasal Cannula 1 03/17/25 00:30 98 F 69 18 112/63 94 L Nasal Cannula 2 03/16/25 23:30 Room Air 03/16/25 22:30 Nasal Cannula 1 03/16/25 21:30 Nasal Cannula 1 03/16/25 19:40 94 L Room Air 03/16/25 19:10 98.4 F 58 L 18 138/57 L 92 L Room Air 03/16/25 17:40 Nasal Cannula 1 03/16/25 16:00 97.7 F 54 L 17 127/58 L 98 Nasal Cannula 1.5 03/16/25 15:00 Nasal Cannula 2 03/16/25 13:37 119/56 L 03/16/25 13:30 Nasal Cannula 2 03/16/25 12:00 97.5 F L 50 L 16 107/44 L 95 Nasal Cannula 2 03/16/25 11:10 Nasal Cannula 2 03/16/25 09:00 Nasal Cannula 2 03/16/25 08:25 97.7 F 46 L 16 90/48 L 96 Room Air 03/16/25 08:20 48 L 96 Room Air 03/16/25 07:15 Room Air 03/16/25 06:00 Room Air Intake and Output 03/16/25 03/17/25 03/17/25 19:59 03:59 11:59 Intake Total 290 / 890 600 / 890 Output Total 1225 / 2700 1075 / 2700 400 / 2700 Balance -935 / -1810 -475 / -1810 -400 / -1810 Intake: Intake, Oral Amount 240 / 840 600 / 840 Intake, Total IV Amount 50 / 50 Calcium Gluc in NaCl, Iso-Osm 1 50 / 50 gm In 50 ml @ 50 mls/hr IV ONCE ONE Rx#:[id number] Output: Output, Urine Amount 1225 / 2700 1075 / 2700 400 / 2700 Other: Number of Unmeasured Voids 0 0 Laboratory Results - last 24 hr 03/16/25 08:50: WBC 11.8 H D, RBC 3.32 L, Hgb 10.5 L, Hct 32.0 L, MCV 96.4, MCH 31.6 H, MCHC 32.8, RDW 13.3, Plt Count 175, MPV 10.4, Neut % (Auto) 69.2, Lymph % (Auto) 20.3, [place] % (Auto) 7.2, Eos % (Auto) 2.5, Baso % (Auto) 0.4, Neut # (Auto) 8.2 H, Lymph # (Auto) 2.4, [place] # (Auto) 0.9, Eos # (Auto) 0.3, Baso # (Auto) 0.1, PT 11.4, INR 1.03, APTT 32.6 H, Fibrinogen 416 H, Sodium 138, Potassium 4.3, Chloride 101, Carbon Dioxide 28, Anion Gap 13.3, BUN 44 H, Creatinine 1.60 H, Estimated Creat Clear 38, Estimated GFR 35 L, Est GFR ( Amer) 43 L, Glucose 92, Calcium 9.2, Total Bilirubin 0.7, AST 38 H, ALT 15, Alkaline Phosphatase 63, Total Protein 6.8, Albumin 4.0, Globulin 2.8, Albumin/Globulin Ratio 1.4 03/16/25 20:14: WBC 10.5, RBC 3.27 L, Hgb 10.2 L, Hct 31.3 L, MCV 95.7, MCH 31.2, MCHC 32.6, RDW 13.3, Plt Count 188, MPV 10.2, Neut % (Auto) 63.1, Lymph % (Auto) 23.2, [place] % (Auto) 7.8, Eos % (Auto) 4.8, Baso % (Auto) 0.5, Neut # (Auto) 6.6, Lymph # (Auto) 2.4, [place] # (Auto) 0.8, Eos # (Auto) 0.5 H, Baso # (Auto) 0.1, PT 11.1, INR 1.00, APTT 29.5, Fibrinogen 442 H, Sodium 137, Potassium 4.3, Chloride 103, Carbon Dioxide 25, Anion Gap 13.3, BUN 37 H, Creatinine 1.30 H, Estimated Creat Clear 47, Estimated GFR 45 L, Est GFR ( Amer) 54 L D, Glucose 104 H, Calcium 8.9, Total Bilirubin 0.7, AST 46 H, ALT 19 D, Alkaline Phosphatase 66, Total Protein 6.7, Albumin 3.9, Globulin 2.8, Albumin/Globulin Ratio 1.4 I & O for Labs for Last 24 Hours: Intake & Output 03/14/25 03/15/25 03/16/25 03/17/25 11:59 11:59 11:59 11:59 Intake Total 200 / 200 1652.083 / 1997.353 5922 / 1240 890 / 890 Output Total 1050 / 1050 80 / 80 2700 / 2700 Balance 200 / 200 602.083 / 812.420 0394 / 1160 -1810 / -1810 Weight 238 lb Head: Present atraumatic and normocephalic Neck: Present normal inspection Respiratory: Present normal respiratory effort; Absent accessory muscle use GI: Present soft and tenderness; Absent distention or rebound Comments:: Incision is otherwise clean and dry. She does have multiple areas of bruising on her abdominal wall. Assessment and Plan *Assessment and plan (1) Hx of BSO (bilateral salpingo-oophorectomy): Status: Acute Category: Surgical Code(s): Z90.79 - Acquired absence of other genital organ(s); Z90.722 - Acquired absence of ovaries, bilateral (2) H/O abdominal supracervical subtotal hysterectomy: Status: Acute Category: Surgical Code(s): Z90.711 - Acquired absence of uterus with remaining cervical stump (3) Abnormal uterine bleeding (AUB): Status: Acute Category: Medical Code(s): N93.9 - Abnormal uterine and vaginal bleeding, unspecified (4) History of pulmonary embolism: Status: Acute Category: Medical Code(s): Z86.711 - Personal history of pulmonary embolism (5) Diabetes mellitus: Status: Acute Qualifiers: Diabetes mellitus type: type 2 Diabetes mellitus long-term insulin use: with superintendent container terminal use Diabetes mellitus complication status: with kidney complications Diabetes mellitus complication detail: with other kidney complication Qualified Code(s): E11.29 - Type 2 diabetes mellitus with other diabetic kidney complication; Z79.4 - joint terminal attack controller (current) use of insulin Category: Medical Code(s): E11.9 - Type 2 diabetes mellitus without complications (6) Hepatitis C: Status: Acute Qualifiers: Viral hepatitis chronicity: chronic Hepatic coma status: without hepatic coma Qualified Code(s): B18.2 - Chronic viral hepatitis C Category: Medical Code(s): B19.20 - Unspecified viral hepatitis C without hepatic coma (7) Obesity, morbid: Status: Acute Category: Medical Code(s): E66.01 - Morbid (severe) obesity due to excess calories (8) Aortic valve replaced: Status: Acute Category: Surgical Code(s): Z95.2 - Presence of prosthetic heart valve (9) COPD (chronic obstructive pulmonary disease): Status: Acute Qualifiers: COPD type: unspecified COPD Qualified Code(s): J44.9 - Chronic obstructive pulmonary disease, unspecified Category: Medical Code(s): J44.9 - Chronic obstructive pulmonary disease, unspecified Plan 1. She seems to be doing a little better this morning and then had this incident where her hematoma started oozing through the incision. 2. We have applied pressure to her incision and abdomen. I have cleaned the external incision with Hibiclens. We have wrapped her belly with an Erick bandage as well as sterile 4 x 4's and ABD pads. We will put an abdominal binder on her as well. 3. At this point in time she is stable hemodynamically. I do not believe that she is actively bleeding. She continues to have a small amount of ooze from the right side of her incision. 4. She has been having difficulty voiding and it may be related to this hematoma or possibly narcotic pain medication. She has had a Nagy catheter and we will take this out this morning. 5. We will plan to keep her for today and possibly send her home tomorrow or the next day. 6. She has been having issues with pain control and takes 10 mg of oxycodone every 4 hours. She has had Dilaudid 0.5 mg for breakthrough pain but has only had 1 dose of this throughout the night.
[2025-03-17] MEDS: HYDROMORPHONE 0.5 MG/0.5 ML IV (06:06)
[2025-03-17] MEDS: LEVOTHYROXINE 100MCG (0.1MG) TAB 100 MCG PO (06:06)
--- NOTE | 2025-03-17 06:20 | PC.NURSE ---
Low transverserve dressing assessed. Bleeding had stopped at this time. ABD binder added for extra pressure. Patient bruises marked with marker per MD request to monitor bruising. Patient reports pain is improving. Oxygen in place related to oxygen sats at 88 RA.
--- NOTE | 2025-03-17 07:13 | PC.NURSE ---
Report given to Yenni Mahoney RN
--- NOTE | 2025-03-17 07:15 | PC.NURSE ---
REPORT RECEIVED FROM BONI DELEON
[2025-03-17 07:53] LABS: Hematocrit 28.2 % (37.0-47.0); Hemoglobin 9.3 g/dL (12.2-16.2); Immature Granulocytes % 0.6 %; Mean Corpuscular HGB Conc 33.0 g/dL (31.8-35.4); Mean Corpuscular Hemoglobin 31.3 pg (27.0-31.2); Mean Corpuscular Volume 94.9 fl (81-99); Nucleated Red Blood Cells % 0 %; Platelet Count 170 K/mm3 (142-424); Red Blood Count 2.97 M/mm3 (4.20-5.40); Red Cell Distribution Width-SD 45.3 fL; White Blood Count 8.2 K/mm3 (4.8-10.8)
--- NOTE | 2025-03-17 08:00 | PC.NURSE ---
LTV INCISION C/D/I. SCANT AMOUNT OF DARK BLOODY DRAINAGE NOTED TO RIGHT SIDE OF INCISION. ABDOMINAL BINDER IN PLACE.
[2025-03-17] MEDS: FOLIC ACID 1MG TABLET 1 MG PO (08:13)
[2025-03-17] MEDS: SERTRALINE 100MG TABLET 100 MG PO (08:13)
[2025-03-17] MEDS: POTASSIUM CHLORIDE 20MEQ TAB 20 MEQ PO ×2 (08:13→20:29)
[2025-03-17] MEDS: EMPAGLIFLOZIN 10MG TABLET 10 MG PO (08:14)
[2025-03-17] MEDS: POLYETHYLENE GLYCOL 3350 17 GM PACKET PO ×2 (08:15→20:28)
[2025-03-17] MEDS: METOPROLOL TARTRATE 25MG TABLET 25 MG PO ×2 (08:15→20:28)
[2025-03-17] MEDS: GABAPENTIN 300MG CAPSULE 300 MG PO ×3 (08:59→20:30)
--- NOTE | 2025-03-17 09:09 | PC.NURSE ---
PT SITTING UP IN BED, MEDICATED PER EMAR. CALL LIGHT WITHIN REACH. NO NEEDS AT THIS TIME
--- NOTE | 2025-03-17 16:15 | PC.NURSE ---
PT HAS RESTED WELL THIS SHIFT. PAIN CONTROLLED WITH PRN MEDS, PER EMAR. BUSTOS CATH REMOVED AT THIS TIME. JENNIFER-CARE PROVIDED. PT USING INCENTIVE SPIROMETER. LTV UNCHANGED, SCANT DRAINAGE TO RIGHT SIDE, ABDOMINAL BINDER IN PLACE. PT CONTINUES TO WEAR 02 AT 2L/NC. CALL LIGHT WITHIN REACH, NO NEEDS AT THIS TIME
--- NOTE | 2025-03-17 19:00 | PC.NURSE ---
REPORT GIVEN TO BONI DELEON
--- NOTE | 2025-03-17 19:40 | PC.NURSE ---
Patient resting in bed with eyes closed, respirations WNL. Oxygen in place per NC at 2L. Call light within reach.
[2025-03-17] MEDS: MONTELUKAST SODIUM 10MG TAB 10 MG PO (20:28)
[2025-03-17] MEDS: QUETIAPINE 100MG TABLET 50 MG PO (20:29)
--- NOTE | 2025-03-17 21:26 | PC.NURSE ---
Low transverse surgical incision cleaned with hibiclense and dryed well. No bleeding noted at this time. Nonadhesive dressing applied, and cover with telfa. VIN bandaged placed for abdominal pressure. No signs of infection noted. Patient remains Afrebrile. Patient tolerated well
[2025-03-18] VITALS (8 sets, daily range): BP systolic 107–128; BP diastolic 42–69; PULSE 56–69; RESP 14–18; TEMP 36.4–36.7; O2SAT 91–94
--- NOTE | 2025-03-18 00:04 | PC.NURSE ---
Low Transverse incision dressing CDI no bleeding noted at this time.
[2025-03-18] MEDS: OXYCODONE 5MG IMMEDIATE RELEASE TABLET 10 MG PO ×3 (04:29→20:33)
--- NOTE | 2025-03-18 04:50 | PC.NURSE ---
while reassessing low transverse incision dressing noted to be saturated with blood. Patient reports she was unaware. RN cleaned and assessed incision site. No active bleeding noted. Site cleaned with hibiclens and dried. Pressure dressing applied. Patient tolerated well. Bed alarm set due to patient getting out of bed multiple times without using call light and verbalizing she understands she is a fall risk. Call light within reach
--- NOTE | 2025-03-18 06:56 | PC.NURSE ---
report given to Leola Wellington RN and Eric Burns RN
[2025-03-18] MEDS: LEVOTHYROXINE 100MCG (0.1MG) TAB 100 MCG PO (07:32)
[2025-03-18] MEDS: ACETAMINOPHEN 500MG TAB 1000 MG PO ×3 (07:32→20:17)
--- NOTE | 2025-03-18 08:50 | PC.NURSE ---
Dr. Sharp called the unit at this time to check on patient, this RN informed him of patients lab results from 03/17, stated to repeat cbc&cmp now and then again in the AM. orders verified and read back.
[2025-03-18] MEDS: FOLIC ACID 1MG TABLET 1 MG PO (09:05)
[2025-03-18] MEDS: METOPROLOL TARTRATE 25MG TABLET 25 MG PO ×2 (09:05→20:16)
[2025-03-18] MEDS: EMPAGLIFLOZIN 10MG TABLET 10 MG PO (09:05)
[2025-03-18] MEDS: SERTRALINE 100MG TABLET 100 MG PO (09:05)
[2025-03-18] MEDS: POTASSIUM CHLORIDE 20MEQ TAB 20 MEQ PO ×2 (09:05→20:16)
[2025-03-18] MEDS: GABAPENTIN 300MG CAPSULE 300 MG PO ×3 (09:05→21:10)
[2025-03-18] MEDS: POLYETHYLENE GLYCOL 3350 17 GM PACKET PO ×2 (09:05→20:18)
[2025-03-18 09:12] LABS: Hematocrit 28.3 % (37.0-47.0); Hemoglobin 9.1 g/dL (12.2-16.2); Immature Granulocytes % 0.7 %; Mean Corpuscular HGB Conc 32.2 g/dL (31.8-35.4); Mean Corpuscular Hemoglobin 31.3 pg (27.0-31.2); Mean Corpuscular Volume 97.3 fl (81-99); Nucleated Red Blood Cells % 0.5 %; Platelet Count 178 K/mm3 (142-424); Red Blood Count 2.91 M/mm3 (4.20-5.40); Red Cell Distribution Width-SD 48.0 fL; White Blood Count 7.3 K/mm3 (4.8-10.8)
[2025-03-18 09:20] LABS: Alanine Aminotransferase 33 U/L (12-78); Albumin Level 3.7 g/dl (3.5-5.0); Albumin/Globulin Ratio 1.4 (1.1-1.8); Alkaline Phosphatase 76 U/L (38-126); Anion Gap 11.5 mEq/L (5-15); Aspartate Amino Transferase 44 U/L (14-36); Bilirubin,Total 1.2 mg/dl (0.2-1.3); Blood Urea Nitrogen 18 mg/dl (7-17); Calcium 8.8 mg/dl (8.4-10.2); Carbon Dioxide 24 mmol/L (22.0-30.0); Chloride 107 mmol/L (98-107); Creatinine Clearance Estimated 76 mL/min (50-200); Creatinine,Serum 0.80 mg/dl (0.52-1.04); Estimated Glomerular Filt Rate 79 ml/min (>60); GFR (African American) 95 ML/MIN (>60); Globulin 2.6 g/dL (1.3-3.2); Glucose 121 mg/dl (74-100); Potassium 4.5 mmoL/L (3.5-5.1); Sodium 138 mmol/L (136-145); Total Protein,Serum 6.3 g/dl (6.3-8.2)
--- NOTE | 2025-03-18 12:03 | P.PN_ITS ---
Subjective *Date: 03/18/25 *Time: 12:03 Interval history: She is doing little better this morning. She denies any shortness of breath, chest pain or calf tenderness. She is no longer bleeding from her incision. The bruising on her abdomen seems to be stable. Her hemoglobin has declined from 9.3-9.1 overnight. She is hemodynamically stable. Medical Exam Vital signs and Labs for Last 24 Hours: Vital Signs Temp Pulse Resp BP Pulse Ox O2 Del Method O2 Flow Rate 03/18/25 11:00 Room Air 03/18/25 09:10 Room Air 03/18/25 07:39 97.6 F 56 L 18 110/42 L 93 L Room Air 03/18/25 07:39 93 L Room Air 03/18/25 07:38 Room Air 03/18/25 06:19 Nasal Cannula 2 03/18/25 05:00 Nasal Cannula 2 03/18/25 04:31 94 L Nasal Cannula 03/18/25 04:29 98.0 F 57 L 18 120/60 94 L Nasal Cannula 2 03/18/25 03:22 Nasal Cannula 2 03/18/25 02:30 Nasal Cannula 2 03/18/25 01:43 Nasal Cannula 2 03/18/25 00:45 Nasal Cannula 2 03/17/25 23:33 98.6 F 61 16 116/52 L 95 Nasal Cannula 2 03/17/25 23:08 Nasal Cannula 2 03/17/25 22:03 Room Air 03/17/25 21:05 Nasal Cannula 2 03/17/25 20:27 98.0 F 60 16 116/42 L 94 L Room Air 03/17/25 20:10 94 L Nasal Cannula 2 03/17/25 18:58 Nasal Cannula 2 03/17/25 17:00 Nasal Cannula 2 03/17/25 16:00 97.9 F 62 18 109/54 L 96 Nasal Cannula 2 03/17/25 15:00 Nasal Cannula 2 03/17/25 13:00 Nasal Cannula 2 Intake and Output 03/18/25 03/18/25 03/18/25 03:59 11:59 19:59 Intake Total 480 / 480 Output Total 700 / 2200 900 / 2200 Balance -220 / -1720 -900 / -1720 Intake: Intake, Oral Amount 480 / 480 Output: Output, Urine Amount 700 / 2200 900 / 2200 Other: Number of Unmeasured Voids 1 Number of Bowel Movements 1 Laboratory Results - last 24 hr 03/18/25 09:05: WBC 7.3, RBC 2.91 L, Hgb 9.1 L, Hct 28.3 L, MCV 97.3, MCH 31.3 H , MCHC 32.2, RDW 13.6, Plt Count 178, MPV 10.2, Neut % (Auto) 60.3, Lymph % (Auto) 24.1, [place] % (Auto) 9.3, Eos % (Auto) 5.2, Baso % (Auto) 0.4, Neut # (Auto) 4.4, Lymph # (Auto) 1.8, [place] # (Auto) 0.7, Eos # (Auto) 0.4, Baso # (Auto) 0.0, Sodium 138, Potassium 4.5, Chloride 107, Carbon Dioxide 24, Anion Gap 11.5, BUN 18 H D, Creatinine 0.80 D, Estimated Creat Clear 76, Estimated GFR 79, Est GFR ( Amer) 95 D, Glucose 121 H, Calcium 8.8, Total Bilirubin 1.2, AST 44 H, ALT 33 D, Alkaline Phosphatase 76, Total Protein 6.3, Albumin 3.7, Globulin 2.6, Albumin/Globulin Ratio 1.4 I & O for Labs for Last 24 Hours: Intake & Output 03/16/25 03/17/25 03/18/25 03/19/25 11:59 11:59 11:59 11:59 Intake Total 1240 / 1240 1130 / 1130 480 / 480 Output Total 80 / 80 3550 / 3550 2200 / 2200 Balance 1160 / 1160 -2420 / -2420 -1720 / -1720 Head: Present atraumatic and normocephalic Neck: Present normal inspection Respiratory: Present normal respiratory effort; Absent accessory muscle use Cardiac: Present Reg Rate and Rhythm GI: Present soft; Absent distention, rebound or rigidity Comments:: Her incision is dry and is no longer leaking blood. Rectal (female): Present deferred (female): Present deferred Extremities: Present normal inspection; Absent tenderness or calf tenderness Assessment and Plan *Assessment and plan (1) Hx of BSO (bilateral salpingo-oophorectomy): Status: Acute Category: Surgical Code(s): Z90.79 - Acquired absence of other genital organ(s); Z90.722 - Acquired absence of ovaries, bilateral (2) H/O abdominal supracervical subtotal hysterectomy: Status: Acute Category: Surgical Code(s): Z90.711 - Acquired absence of uterus with remaining cervical stump (3) Dysmenorrhea: Status: Acute Category: Medical Code(s): N94.6 - Dysmenorrhea, unspecified (4) Abnormal uterine bleeding (AUB): Status: Acute Category: Medical Code(s): N93.9 - Abnormal uterine and vaginal bleeding, unspecified (5) History of pulmonary embolism: Status: Acute Category: Medical Code(s): Z86.711 - Personal history of pulmonary embolism (6) Diabetes mellitus: Status: Acute Qualifiers: Diabetes mellitus type: type 2 Diabetes mellitus usp insulin use: with termite technician use Diabetes mellitus complication status: with kidney complications Diabetes mellitus complication detail: with other kidney complication Qualified Code(s): E11.29 - Type 2 diabetes mellitus with other diabetic kidney complication; Z79.4 - exterminator termite (current) use of insulin Category: Medical Code(s): E11.9 - Type 2 diabetes mellitus without complications (7) Hepatitis C: Status: Acute Qualifiers: Viral hepatitis chronicity: chronic Hepatic coma status: without hepatic coma Qualified Code(s): B18.2 - Chronic viral hepatitis C Category: Medical Code(s): B19.20 - Unspecified viral hepatitis C without hepatic coma (8) Obesity, morbid: Status: Acute Category: Medical Code(s): E66.01 - Morbid (severe) obesity due to excess calories (9) Aortic valve replaced: Status: Acute Category: Surgical Code(s): Z95.2 - Presence of prosthetic heart valve (10) COPD (chronic obstructive pulmonary disease): Status: Acute Qualifiers: COPD type: unspecified COPD Qualified Code(s): J44.9 - Chronic obstructive pulmonary disease, unspecified Category: Medical Code(s): J44.9 - Chronic obstructive pulmonary disease, unspecified (11) Chronic kidney disease: Status: Acute Qualifiers: Chronic kidney disease stage: unspecified stage Qualified Code(s): N18.9 - Chronic kidney disease, unspecified Category: Medical Code(s): N18.9 - Chronic kidney disease, unspecified (12) Abdominal wall hernia: Status: Acute Category: Medical Code(s): K43.9 - Ventral hernia without obstruction or gangrene Plan 1. She is doing much better this morning and is no longer having any bleeding from her incision. 2. She is taking oxycodone but we have not given her any Dilaudid for 24 hours. 3. Given her history, we will go ahead and restart her Lovenox today. We will just start a low-dose at 40 mg initially. 4. We will continue to monitor her blood counts. 5. If she does well today we will consider sending her home tomorrow. 6. She will restart her Eliquis after she goes home. 7. We will go ahead and have home health come in to keep her incision clean daily.
--- NOTE | 2025-03-18 17:15 | PC.NURSE ---
Patient resting in bed, she has voided multiple times with out difficulty today and had a bowel movement, vitals have been stable this shift, lung sounds clear bilaterally throughout, bowel sounds active in all quadrants. she has ambulated multiple times today. pain has been well controlled, dinner tray taken into patient at this time, she denies other needs at this time.
[2025-03-18] MEDS: SENNOSIDES 8.6MG/DOCUSATE 50MG TABLET 1 TAB PO (20:16)
[2025-03-18] MEDS: QUETIAPINE 100MG TABLET 50 MG PO (20:17)
--- NOTE | 2025-03-18 20:40 | PC.NURSE ---
Low transverse surgical incision assessed. Dressing removed. Scant amount of serosanguinous drainage noted. Area cleased with hibiclense. Pad applied to site and secured. No sign of infection noted. Patient tolerated well
[2025-03-18] MEDS: MONTELUKAST SODIUM 10MG TAB 10 MG PO (21:10)
[2025-03-19] MEDS: ACETAMINOPHEN 500MG TAB 1000 MG PO ×3 (03:27→18:53)
[2025-03-19] MEDS: OXYCODONE 5MG IMMEDIATE RELEASE TABLET 10 MG PO ×4 (03:28→18:53)
[2025-03-19 03:31] VITALS: BP 105/57; PULSE 58; RESP 16; TEMP 36.6; O2SAT 94
[2025-03-19 04:15] VITALS: O2SAT 91
--- NOTE | 2025-03-19 06:05 | PC.NURSE ---
Patient sleeping at this itme. RR even and unlabored. Patient on RA. No signs of distress. Call light within reach. safety measures in place per protocol
[2025-03-19 06:32] LABS: Hematocrit 26.7 % (37.0-47.0); Hemoglobin 8.6 g/dL (12.2-16.2); Immature Granulocytes % 1.0 %; Mean Corpuscular HGB Conc 32.2 g/dL (31.8-35.4); Mean Corpuscular Hemoglobin 31.2 pg (27.0-31.2); Mean Corpuscular Volume 96.7 fl (81-99); Nucleated Red Blood Cells % 1.1 %; Platelet Count 168 K/mm3 (142-424); Red Blood Count 2.76 M/mm3 (4.20-5.40); Red Cell Distribution Width-SD 47.7 fL; White Blood Count 7.2 K/mm3 (4.8-10.8)
[2025-03-19 06:47] LABS: Alanine Aminotransferase 24 U/L (12-78); Albumin Level 3.3 g/dl (3.5-5.0); Albumin/Globulin Ratio 1.2 (1.1-1.8); Alkaline Phosphatase 68 U/L (38-126); Anion Gap 10.8 mEq/L (5-15); Aspartate Amino Transferase 36 U/L (14-36); Bilirubin,Total 1.3 mg/dl (0.2-1.3); Blood Urea Nitrogen 13 mg/dl (7-17); Calcium 8.5 mg/dl (8.4-10.2); Carbon Dioxide 25 mmol/L (22.0-30.0); Chloride 106 mmol/L (98-107); Creatinine Clearance Estimated 76 mL/min (50-200); Creatinine,Serum 0.80 mg/dl (0.52-1.04); Estimated Glomerular Filt Rate 79 ml/min (>60); GFR (African American) 95 ML/MIN (>60); Globulin 2.8 g/dL (1.3-3.2); Glucose 95 mg/dl (74-100); Potassium 4.8 mmoL/L (3.5-5.1); Sodium 137 mmol/L (136-145); Total Protein,Serum 6.1 g/dl (6.3-8.2)
--- NOTE | 2025-03-19 07:02 | PC.NURSE ---
report given to Leola Banda RN, and leola Wellington RN
[2025-03-19] MEDS: LEVOTHYROXINE 100MCG (0.1MG) TAB 100 MCG PO (08:21)
[2025-03-19] MEDS: POTASSIUM CHLORIDE 20MEQ TAB 20 MEQ PO ×2 (08:21→20:24)
[2025-03-19] MEDS: EMPAGLIFLOZIN 10MG TABLET 10 MG PO (08:22)
[2025-03-19] MEDS: SERTRALINE 100MG TABLET 100 MG PO (08:22)
[2025-03-19] MEDS: FOLIC ACID 1MG TABLET 1 MG PO (08:22)
[2025-03-19] MEDS: GABAPENTIN 300MG CAPSULE 300 MG PO ×3 (08:22→20:23)
[2025-03-19] MEDS: POLYETHYLENE GLYCOL 3350 17 GM PACKET PO ×2 (08:23→20:23)
[2025-03-19] MEDS: METOPROLOL TARTRATE 25MG TABLET 25 MG PO ×2 (08:23→20:23)
[2025-03-19 08:30] VITALS: BP 98/57; PULSE 68; RESP 16; TEMP 36.5; O2SAT 98
--- NOTE | 2025-03-19 08:30 | PC.NURSE ---
Patient a/o x4, during my morning assessment. Lungs cta and bowel sounds active x4- patient does admit to having a bowel movement last night. Pulses 2+, and trace edema BLE. Low transverse incision with dressing over- removed dressing incision c/d/i. Brusing noted above incision- hard in some areas. Bruising also noted on both sides of abdomen r/t lovenox injection. Patient does not have an IV this am. Patient ambulates independently well. Reports urinating has been easier for her. Rates her pain 7/10 this am and requests prn meds. Call light within reach.
--- NOTE | 2025-03-19 11:26 | PC.NURSE ---
Dr. gonzalez in room
[2025-03-19 12:05] VITALS: BP 98/55; PULSE 60; RESP 17; O2SAT 96
--- NOTE | 2025-03-19 12:08 | P.PN_ITS ---
Subjective *Date: 03/19/25 *Time: 12:08 Interval history: She feels a little better today. She says that her pain is improved and she is taking less narcotics. She denies any chest pain, shortness of breath or calf tenderness. She is eating and drinking and ambulating. She is voiding well. Her hemoglobin has dropped overnight from 9.1-8.6. She denies any further blood loss from her incision. Medical Exam Vital signs and Labs for Last 24 Hours: Vital Signs Temp Pulse Resp BP Pulse Ox O2 Del Method O2 Flow Rate 03/19/25 12:05 60 17 98/55 L 96 Nasal Cannula 2 03/19/25 11:45 Room Air 03/19/25 10:12 Room Air 03/19/25 09:30 Room Air 03/19/25 08:43 Room Air 03/19/25 08:30 97.7 F 68 16 98/57 L 98 Room Air 03/19/25 08:30 68 98 Room Air 03/19/25 07:00 Room Air 03/19/25 05:02 Room Air 03/19/25 04:15 91 L Room Air 03/19/25 03:40 Room Air 03/19/25 03:31 97.9 F 58 L 16 105/57 L 94 L Room Air 03/19/25 02:30 Room Air 03/19/25 01:15 Room Air 03/19/25 00:11 Room Air 03/18/25 23:43 97.7 F 69 18 127/68 91 L Room Air 03/18/25 23:20 Room Air 03/18/25 22:20 Room Air 03/18/25 21:10 Room Air 03/18/25 20:25 60 14 126/69 92 L Room Air 03/18/25 20:21 93 L Room Air 03/18/25 17:14 Room Air 03/18/25 17:14 98.0 F 57 L 17 107/60 L 93 L Room Air 03/18/25 15:00 Room Air 03/18/25 13:44 Room Air 03/18/25 12:44 97.6 F 63 17 128/47 L 93 L Room Air Intake and Output 03/19/25 03/19/25 03/19/25 03:59 11:59 19:59 Intake Total 480 / 1440 960 / 1440 Output Total 800 / 1900 800 / 1900 Balance -320 / -460 160 / -460 Intake: Intake, Oral Amount 480 / 1440 960 / 1440 Output: Output, Urine Amount 800 / 1900 800 / 1900 Other: Number of Bowel Movements 1 Laboratory Results - last 24 hr 03/19/25 06:21: WBC 7.2, RBC 2.76 L, Hgb 8.6 L, Hct 26.7 L, MCV 96.7, MCH 31.2, MCHC 32.2, RDW 14.0, Plt Count 168, MPV 10.2, Neut % (Auto) 56.4, Lymph % (Auto) 27.5, [place] % (Auto) 10.2 H, Eos % (Auto) 4.8, Baso % (Auto) 0.1, Neut # (Auto) 4.1, Lymph # (Auto) 2.0, [place] # (Auto) 0.7, Eos # (Auto) 0.4, Baso # (Auto) 0.0, Sodium 137, Potassium 4.8, Chloride 106, Carbon Dioxide 25, Anion Gap 10.8, BUN 13 D, Creatinine 0.80, Estimated Creat Clear 76, Estimated GFR 79, Est GFR ( Amer) 95, Glucose 95 D, Calcium 8.5, Total Bilirubin 1.3, AST 36, ALT 24 D, Alkaline Phosphatase 68, Total Protein 6.1 L, Albumin 3.3 L D, Globulin 2.8, Albumin/Globulin Ratio 1.2 I & O for Labs for Last 24 Hours: Intake & Output 03/17/25 03/18/25 03/19/25 03/20/25 11:59 11:59 11:59 11:59 Intake Total 1130 / 1130 480 / 480 1440 / 1440 Output Total 3550 / 3550 2200 / 2200 1900 / 1900 Balance -2420 / -2420 -1720 / -1720 -460 / -460 Constitutional: Present no acute distress and obese Head: Present atraumatic ENT: Present normal exam Respiratory: Present CTA bilaterally and normal respiratory effort; Absent accessory muscle use Cardiac: Present Reg Rate and Rhythm GI: Present soft; Absent distention Comments:: She has significant bruising seen on her abdominal wall. There is bruising above the incision. There is no further leakage from the vision. Assessment and Plan *Assessment and plan (1) Hx of BSO (bilateral salpingo-oophorectomy): Status: Acute Category: Surgical Code(s): Z90.79 - Acquired absence of other genital organ(s); Z90.722 - Acquired absence of ovaries, bilateral (2) H/O abdominal supracervical subtotal hysterectomy: Status: Acute Category: Surgical Code(s): Z90.711 - Acquired absence of uterus with remaining cervical stump (3) Dysmenorrhea: Status: Acute Category: Medical Code(s): N94.6 - Dysmenorrhea, unspecified (4) Abnormal uterine bleeding (AUB): Status: Acute Category: Medical Code(s): N93.9 - Abnormal uterine and vaginal bleeding, unspecified (5) History of pulmonary embolism: Status: Acute Category: Medical Code(s): Z86.711 - Personal history of pulmonary embolism (6) Hypothyroid: Status: Acute Qualifiers: Hypothyroidism type: acquired Qualified Code(s): E03.9 - Hypothyroidism, unspecified Category: Medical Code(s): E03.9 - Hypothyroidism, unspecified (7) Diabetes mellitus: Status: Acute Qualifiers: Diabetes mellitus type: type 2 Diabetes mellitus chcf insulin use: with terminal gauger supervisor use Diabetes mellitus complication status: with kidney complications Diabetes mellitus complication detail: with other kidney complication Qualified Code(s): E11.29 - Type 2 diabetes mellitus with other diabetic kidney complication; Z79.4 - assisted (current) use of insulin Category: Medical Code(s): E11.9 - Type 2 diabetes mellitus without complications (8) Hepatitis C: Status: Acute Qualifiers: Viral hepatitis chronicity: chronic Hepatic coma status: without hepatic coma Qualified Code(s): B18.2 - Chronic viral hepatitis C Category: Medical Code(s): B19.20 - Unspecified viral hepatitis C without hepatic coma (9) Obesity, morbid: Status: Acute Category: Medical Code(s): E66.01 - Morbid (severe) obesity due to excess calories (10) Aortic valve replaced: Status: Acute Category: Surgical Code(s): Z95.2 - Presence of prosthetic heart valve (11) COPD (chronic obstructive pulmonary disease): Status: Acute Qualifiers: COPD type: unspecified COPD Qualified Code(s): J44.9 - Chronic obstructive pulmonary disease, unspecified Category: Medical Code(s): J44.9 - Chronic obstructive pulmonary disease, unspecified Plan 1. She shows improvement on a daily basis. She denies any shortness of breath, chest pain or calf tenderness. 2. Her hemoglobin has gone down from 9.1-8.6 overnight and given that I would like to continue observation and see what her hemoglobin is tomorrow. She may require a transfusion. 3. She has significant bruising on her abdominal wall and I am going to go ahead and order a CT scan to see if she has a large hematoma. 4. Her incision seems to be clean and dry and there is no further episodes of bleeding from the incision. 5. She continues with Lovenox 40 mg daily. I am concerned about increasing her Lovenox given her hemoglobin drop. 6. We will continue observation until she is stable to go home. I suspect she can be managed as an outpatient in the next couple of days.
--- NOTE | 2025-03-19 13:38 | CT_ITS ---
FINAL REPORT TECHNIQUE: Axial images through the abdomen and pelvis were performed without contrast. This study was performed with techniques to keep radiation doses as low as reasonably achievable, (ALARA). Individualized dose reduction techniques using automated exposure control or adjustment of mA and/or kV according to the patient's size were employed. CLINICAL HISTORY: Assess hematoma COMPARISON: 01/24/2024 FINDINGS: Abdomen: Scarring is seen at the lung bases. The liver is homogeneous. The gallbladder is surgically absent. The spleen, pancreas, and adrenal glands are unremarkable. There is a nonobstructing stone in the lower pole of the right kidney measuring 6 mm. Small nonobstructing stones are seen in the left kidney. There is moderate body wall edema. A supraumbilical hernia is present which now contains a segment of mid transverse colon. Pelvis: The urinary bladder is decompressed. There is hazy stranding surrounding the urinary bladder. No evidence of bladder stone. Calcified phleboliths are seen in the floor the pelvis. The appendix is not visualized. Density in the subcutaneous fat inferior to the anterior pelvic wall measures up to 22 cm in craniocaudal dimension and up to 2.2 cm in AP dimension. This may represent postoperative seroma or hematoma. The uterus is not identified on this current exam, probably surgically absent. IMPRESSION: Bilateral nonobstructing kidney stones. Increased body wall edema. Herniated transverse colon into supraumbilical hernia. Possible seroma or hematoma anterior pelvic wall. Reviewed, Interpreted and Dictated by Bay Lin MD Transcribed by Bushra Balbuena Authenticated and . [facility]
--- NOTE | 2025-03-19 13:58 | PC.NURSE ---
Off unit for CT scan- Bed linens changed for patient.
[2025-03-19 16:45] VITALS: BP 100/60; PULSE 57; RESP 16; TEMP 36.7; O2SAT 95
--- NOTE | 2025-03-19 16:45 | PC.NURSE ---
No changed noted in assessment. Lungs cta and bowel sounds active x4. Pulses 2+. IV to right upper arm saline locked. Bruising noted right/let abd- unchanged. Brusing noted above incision- hard area noted. no changes in this. Low transverse incision c/d/i and cleaned with hibiclens. dressing reapplied. scant vaginal bleeding noted. patient has been ambulating to and from bathroom. no distress noted while in room
--- NOTE | 2025-03-19 19:10 | PC.NURSE ---
report recieved from Sania Banda RN
--- NOTE | 2025-03-19 19:30 | PC.NURSE ---
Patient on toilet at this time. Alert and independent. Denies any needs.
[2025-03-19 20:20] VITALS: O2SAT 96
[2025-03-19] MEDS: MONTELUKAST SODIUM 10MG TAB 10 MG PO (20:23)
[2025-03-19] MEDS: QUETIAPINE 100MG TABLET 50 MG PO (20:24)
[2025-03-19] MEDS: SENNOSIDES 8.6MG/DOCUSATE 50MG TABLET 1 TAB PO (20:25)
--- NOTE | 2025-03-19 20:40 | PC.WOUNDNOTE ---
Low Transverse incision dressing removed for assessment. Incision cleansed with hibiclense and dried. No signs in infection or increased bruising. abdominal pad applied and secured. Scant serosanguinous drainage noted on old dressing. No active bleeding. excoriation noted in groin related to patient abdominal fold. Cleaned and dried well and skin protectant applied and pad placed to maintain area dryness. Patient tolerated well.
--- NOTE | 2025-03-19 21:00 | PC.NURSE ---
Patient resting in bed, Call light within reach. Water pitcher filled, bedtime snack provided. RR WNL. No needs voiced. Encouraged to call RN with needs
--- NOTE | 2025-03-19 23:10 | PC.NURSE ---
Patient resting in bed, No distress noted. Sleeping. RR WNL. Call light within reach. Patient remains on Room air
[2025-03-20] VITALS (8 sets, daily range): BP systolic 91–114; BP diastolic 46–60; PULSE 54–65; RESP 14–17; TEMP 36.5–36.8; O2SAT 92–95
--- NOTE | 2025-03-20 03:25 | PC.NURSE ---
Patient continues to sleep, resting comfortably. no signs of distress. RR even and unlabored. Call light within reach
[2025-03-20] MEDS: OXYCODONE 5MG IMMEDIATE RELEASE TABLET 10 MG PO ×4 (04:27→22:02)
[2025-03-20] MEDS: ACETAMINOPHEN 500MG TAB 1000 MG PO ×3 (04:27→17:04)
--- NOTE | 2025-03-20 06:12 | PC.NURSE ---
Patient in bed resting. Wakes to nurse entering room. Denies any needs at this time. Reports pain in controlled. Call light within reach
[2025-03-20 06:22] LABS: Hematocrit 28.4 % (37.0-47.0); Hemoglobin 8.9 g/dL (12.2-16.2); Immature Granulocytes % 1.9 %; Mean Corpuscular HGB Conc 31.3 g/dL (31.8-35.4); Mean Corpuscular Hemoglobin 30.8 pg (27.0-31.2); Mean Corpuscular Volume 98.3 fl (81-99); Nucleated Red Blood Cells % 1.1 %; Platelet Count 190 K/mm3 (142-424); Red Blood Count 2.89 M/mm3 (4.20-5.40); Red Cell Distribution Width-SD 49.8 fL; White Blood Count 6.4 K/mm3 (4.8-10.8)
--- NOTE | 2025-03-20 08:15 | PC.NURSE ---
Assessment completed at this time- Lungs cta and bowel sounds active x4. Pulses 2+, trace edema ble. Bruising noted to bilat sides of stomach and above low transverse incision. outlined with marker. no change. patient ambulating well independently. low transverse incision with dressing over it. no drainage. denies any needs.
[2025-03-20] MEDS: POLYETHYLENE GLYCOL 3350 17 GM PACKET PO ×2 (08:17→20:19)
[2025-03-20] MEDS: LEVOTHYROXINE 100MCG (0.1MG) TAB 100 MCG PO (08:18)
[2025-03-20] MEDS: METOPROLOL TARTRATE 25MG TABLET 25 MG PO ×2 (08:18→20:21)
[2025-03-20] MEDS: EMPAGLIFLOZIN 10MG TABLET 10 MG PO (08:18)
[2025-03-20] MEDS: SERTRALINE 100MG TABLET 100 MG PO (08:18)
[2025-03-20] MEDS: POTASSIUM CHLORIDE 20MEQ TAB 20 MEQ PO ×2 (08:18→20:20)
[2025-03-20] MEDS: GABAPENTIN 300MG CAPSULE 300 MG PO ×3 (08:18→20:21)
[2025-03-20] MEDS: FOLIC ACID 1MG TABLET 1 MG PO (08:19)
--- NOTE | 2025-03-20 10:18 | PC.NURSE ---
Dr. Landry at bedside- ordered 1 unit of PRBC to transfuse. All orders r/v
--- NOTE | 2025-03-20 12:12 | P.PN_ITS ---
Subjective *Date: 03/20/25 *Time: 12:12 Interval history: She feels a little better today. States her pain is increased as she is trying to space out her narcotic use. Her hematoma has expanded slightly. She is having BM and tolerating PO. She is ambulating to the restroom. She denies any chest pain, shortness of breath or calf tenderness. She is eating and drinking and ambulating. She is voiding well. She denies any further blood loss from her incision. She did not have her SCDs on. Exam Data for Last 24 hours Vital signs and Labs for Last 24 Hours: Temp Pulse Resp BP Pulse Ox O2 Del Method O2 Flow Rate 97.9 F 61 17 111/55 L 95 Room Air 2 03/20/25 08:30 03/20/25 08:30 03/20/25 08:30 03/20/25 08:30 03/20/25 08:30 03/20/25 10:44 03/19/25 12:30 Laboratory Results - last 24 hr 03/20/25 05:43: WBC 6.4, RBC 2.89 L, Hgb 8.9 L, Hct 28.4 L, MCV 98.3, MCH 30.8, MCHC 31.3 L, RDW 14.4, Plt Count 190, MPV 10.3, Neut % (Auto) 59.0, Lymph % (Auto) 23.3, [place] % (Auto) 10.5 H, Eos % (Auto) 5.0, Baso % (Auto) 0.3, Neut # (Auto) 3.8, Lymph # (Auto) 1.5, [place] # (Auto) 0.7, Eos # (Auto) 0.3, Baso # (Auto) 0.0 03/20/25 11:03: Crossmatch (AHG) See Detail I & O for Last 24 hours: Intake & Output 03/17/25 03/18/25 03/19/25 03/20/25 23:59 23:59 23:59 23:59 Intake Total 1080 / 1080 480 / 480 1940 / 1940 240 / 240 Output Total 3025 / 3025 1800 / 1800 1800 / 1800 200 / 200 Balance -1945 / -1945 -1320 / -1320 140 / 140 40 / 40 Narrative: General: Patient is alert oriented. She responds appropriately to questions. Appears to be in acute moderate pain. HEENT: NCAT, EOMI, moist mucous membranes, neck supple with full ROM Cardiovascular: RRR +S1/S2, no murmurs or rubs. Pulmonary: Clear to auscultation bilaterally, nonlabored breathing, symmetric chest rise, appropriate O2 saturation Abdominal: Incision is intact and appropriate. Moderate appropriate postoperative tenderness in the abdomen. Multiple bruising/bleeding sites from Lovenox injections. Outlined hematoma in the lower abdomen. bowel sounds present x4 quadrants Extremities: trace edema, no tenderness or cyanosis noted Skin: Normal turgor, intact, warm. Negative for erythema, pallor, petechia, or lesions Neurologic: Negative for sensory or motor deficit Assessment and Plan *Assessment and plan (1) Hx of BSO (bilateral salpingo-oophorectomy): Status: Acute Category: Surgical Code(s): Z90.79 - Acquired absence of other genital organ(s); Z90.722 - Acquired absence of ovaries, bilateral (2) H/O abdominal supracervical subtotal hysterectomy: Status: Acute Category: Surgical Code(s): Z90.711 - Acquired absence of uterus with remaining cervical stump (3) Dysmenorrhea: Status: Acute Category: Medical Code(s): N94.6 - Dysmenorrhea, unspecified (4) Abnormal uterine bleeding (AUB): Status: Acute Category: Medical Code(s): N93.9 - Abnormal uterine and vaginal bleeding, unspecified (5) History of pulmonary embolism: Status: Acute Category: Medical Code(s): Z86.711 - Personal history of pulmonary embolism (6) Hypothyroid: Status: Acute Qualifiers: Hypothyroidism type: acquired Qualified Code(s): E03.9 - Hypothyroidism, unspecified Category: Medical Code(s): E03.9 - Hypothyroidism, unspecified (7) Diabetes mellitus: Status: Acute Qualifiers: Diabetes mellitus type: type 2 Diabetes mellitus detention insulin use: with terminal superintendent use Diabetes mellitus complication status: with kidney complications Diabetes mellitus complication detail: with other kidney complication Qualified Code(s): E11.29 - Type 2 diabetes mellitus with other diabetic kidney complication; Z79.4 - FPC (current) use of insulin Category: Medical Code(s): E11.9 - Type 2 diabetes mellitus without complications (8) Hepatitis C: Status: Acute Qualifiers: Viral hepatitis chronicity: chronic Hepatic coma status: without hepatic coma Qualified Code(s): B18.2 - Chronic viral hepatitis C Category: Medical Code(s): B19.20 - Unspecified viral hepatitis C without hepatic coma (9) Obesity, morbid: Status: Acute Category: Medical Code(s): E66.01 - Morbid (severe) obesity due to excess calories (10) Aortic valve replaced: Status: Acute Category: Surgical Code(s): Z95.2 - Presence of prosthetic heart valve (11) COPD (chronic obstructive pulmonary disease): Status: Acute Qualifiers: COPD type: unspecified COPD Qualified Code(s): J44.9 - Chronic obst ructive pulmonary disease, unspecified Category: Medical Code(s): J44.9 - Chronic obstructive pulmonary disease, unspecified Plan 1. She shows improvement on a daily basis. She denies any shortness of breath, chest pain or calf tenderness. Discussed keeping her SCDs on while she was in bed and discussed the indicated therapeutic dose vs the ppx dose of lovenox we were giving her may not provide adequate coverage for VTE prevention. She will start her DOAC at disharge 2. Her hemoglobin has gone down, 1u PRBC ordered for transfusion. 3. large hematoma noted on abdominal wall 4. Her incision seems to be clean and dry and there is no further episodes of bleeding from the incision. 5. She continues with Lovenox 40 mg daily. I am concerned about increasing her Lovenox given her hemoglobin drop and hematoma. 6. We will continue observation until she is stable to go home. I suspect she can be managed as an outpatient in the next couple of days.
--- NOTE | 2025-03-20 16:50 | PC.NURSE ---
Reassessment completed at this time. Patient has done well today with pain control until now- rates 02/28- states she can't move or get up in bed. When this RN went into room patient was resting in bed on phone- no distress noted. Lungs remain cta and bowel sounds active x4. PUlses 2+. Bruising noted bilat abd- unchanged from previous assessment. Bruising above low transverse incision unchanged. Low transverse incision dressing changed- cleansed with hibeclens. 0.5in separation noted on right side of incision- md aware and states he to release pressure form bleeding on wednesday. Green/yellow drainage noted on left side of incision. no redness noted or warmth noted. MD AWARE. patient ambluating independently this shift. Output adequate. Iv saline locked to right upper arm. call light within reach.
[2025-03-20] MEDS: FUROSEMIDE 40 MG TABLET PO (17:04)
[2025-03-20] MEDS: HYDROMORPHONE 2MG/ML SYRINGE 0.5 MG IV (18:21)
--- NOTE | 2025-03-20 19:40 | PC.NURSE ---
Patient using restroom at this time. No needs voiced
--- NOTE | 2025-03-20 20:00 | PC.NURSE ---
Patient ambulated independently with staff for 3 laps around unit. tolerated well. educated patient that ambulation is important and not walking may contribute to increased pain. Patient VU
--- NOTE | 2025-03-20 20:00 | PC.NURSE ---
Room tidyed, trash removed, bed linens changed. Patient was offered a shower but declines at this time. hat replaced in toilet for accurate I/O
[2025-03-20] MEDS: SIMETHICONE 80MG CHEWABLE TABLET 160 MG PO (20:20)
[2025-03-20] MEDS: MONTELUKAST SODIUM 10MG TAB 10 MG PO (20:20)
[2025-03-20] MEDS: SENNOSIDES 8.6MG/DOCUSATE 50MG TABLET 1 TAB PO (20:20)
[2025-03-20] MEDS: QUETIAPINE 100MG TABLET 50 MG PO (20:21)
--- NOTE | 2025-03-20 20:30 | PC.NURSE ---
Old incision dressing removed. Scant serosanginous drainage noted. No foul oder present. No signs of infection of purulent drainaing. Incision appears closed. Steri strips noted to right side of incision. Site cleansed with Hibeclense. Allowed to dry. Pad placed over incision to prevent moisture, skin breakdown from abd fold, and friction. Patient tolerated well. Bruising appears improved from previous marking. Patient doesnt flinch or grimace with care or report increased pain with abdominal incsion care
--- NOTE | 2025-03-20 21:45 | PC.NURSE ---
Patient resting in bed, eyes closed at this time. No signs of distress of pain. Call light within reach
[2025-03-21 00:44] VITALS: BP 101/48; PULSE 58; RESP 18; TEMP 36.7; O2SAT 92
--- NOTE | 2025-03-21 01:34 | PC.NURSE ---
Patient resting in bed, no distress noted Call light within reach
[2025-03-21] MEDS: OXYCODONE 5MG IMMEDIATE RELEASE TABLET 10 MG PO ×2 (04:32→13:12)
[2025-03-21] MEDS: ACETAMINOPHEN 500MG TAB 1000 MG PO ×2 (04:32→11:01)
[2025-03-21 04:33] VITALS: BP 93/54; PULSE 61; RESP 20; TEMP 36.8; O2SAT 95
[2025-03-21 04:52] VITALS: O2SAT 94
--- NOTE | 2025-03-21 05:19 | PC.NURSE ---
patient resting in bd, no needs voiced at this time. Pain easing with meds and abd binder. Call light within reach
[2025-03-21] MEDS: LEVOTHYROXINE 100MCG (0.1MG) TAB 100 MCG PO (08:56)
[2025-03-21] MEDS: GABAPENTIN 300MG CAPSULE 300 MG PO ×2 (08:56→13:12)
[2025-03-21] MEDS: EMPAGLIFLOZIN 10MG TABLET 10 MG PO (08:56)
[2025-03-21] MEDS: SERTRALINE 100MG TABLET 100 MG PO (08:56)
[2025-03-21] MEDS: POTASSIUM CHLORIDE 20MEQ TAB 20 MEQ PO (08:56)
[2025-03-21] MEDS: FOLIC ACID 1MG TABLET 1 MG PO (08:56)
[2025-03-21] MEDS: POLYETHYLENE GLYCOL 3350 17 GM PACKET PO (08:56)
[2025-03-21] MEDS: FUROSEMIDE 40 MG TABLET PO (08:56)
[2025-03-21] MEDS: METOPROLOL TARTRATE 25MG TABLET 25 MG PO (08:56)
[2025-03-21 09:00] VITALS: BP 99/46; PULSE 63; RESP 18; TEMP 36.4; O2SAT 93
[2025-03-21 09:26] LABS: Hematocrit 27.4 % (37.0-47.0); Hemoglobin 8.8 g/dL (12.2-16.2); Immature Granulocytes % 2.6 %; Mean Corpuscular HGB Conc 32.1 g/dL (31.8-35.4); Mean Corpuscular Hemoglobin 31.5 pg (27.0-31.2); Mean Corpuscular Volume 98.2 fl (81-99); Nucleated Red Blood Cells % 2.1 %; Platelet Count 202 K/mm3 (142-424); Red Blood Count 2.79 M/mm3 (4.20-5.40); Red Cell Distribution Width-SD 50.2 fL; White Blood Count 6.6 K/mm3 (4.8-10.8)
--- NOTE | 2025-03-21 11:41 | PC.NURSE ---
Dr. Sharp here to see pt, he stated he is going to try to discharge her today.
--- OUTSIDE RECORDS SUMMARY | 2025-03-21 12:40 | XMS_ITS | Encounter Summary ---
Author Organization Healthcare Address [address] [place] [address] Care Team Providers Care Alumni Secretary Name Role Phone Ankur Main MD Primary Care Provider [phone] Nancy Hernandez TRAFFIC CLERK Unavailable Unavailable Iman Cuevas MD Primary Care Provider [phone] Encounter Details Date Type Department Care Team (Late st Contact Info) Description 08/01/2018 Orders Only External Location [address] [place] [address] Social History Tobacco Use Types Packs/Day Years [...] Description 04/18/2025 11:00 AM EDT [facility] [address], [address]nd [place] [address] Juventino Costa MD [address] [place] [address] 05/04/2025 1:00 PM EST Appointment Medical Office Building Cardiac Diagnostic Testing Medical Office Building Echo Lab [address], [address] [place] [address] 05/04/2025 1:45 PM EST Office Visit [facility] [place] [address] [facility], [address] [place] [address] Ruslan Sanderson MD [address] [place] [address] 07/23/2025 2:00 PM EST Office Visit [facility] Sleep Disorder Center [address], [address]th [place] [address] Kassandra Khan APRN [address] [place] [address] 08/21/2025 3:30 PM EST Office Visit [facility] [address], 1[address] [place] [address] Alicia Jennings MD [address] [place] [address] 09/10/2025 10:40 AM EDT Office Visit [facility] Medicine Specialties [address], [address] [place] [address] Bushra Graf PA [address] [place] [address] documented as of this encounter [...] documented as of this encounter Care Teams Alumni Secretary Relationship Specialty Start Date End Date Ankur Main MD [address] [address] PCP - General 11/01/20 12/18/24 Iman Cuevas MD [address] [place] [address] PCP - General Internal Medicine 12/19/24 Nancy Hernandez, [place] [id number] Music Composition Teacher Spooler Rubber Strand 03/25/20 03/25/20 documented as of this encounter
--- OUTSIDE RECORDS SUMMARY | 2025-03-21 12:40 | XMS_ITS | Encounter Summary ---
Author Organization Healthcare Address [address] [place] [address] Care Team Providers Care Mingle Operator Name Role Phone Ankur Main MD Primary Care Provider [phone] Iman Cuevas MD Primary Care Provider [phone] Reason for Visit * Reason Onset Date Comments Med Refill 06/29/2021 Encounter Details Date Type Department Care Team (Late st Contact Info) Description 06/29/2021 Refill [facility] [address], [address]nd [place] [address] Juventino Costa MD [address] [place] [address] Moderate persistent asthma, unspecified whether [...] Description 04/18/2025 11:00 AM EDT Office Visit [facility] Medicine Specialties [address], [address] [place] [address] Juventino Costa MD [address] [place] [address] 05/04/2025 1:00 PM EST Appointment Medical Office Building Cardiac Diagnostic Testing Medical Office Building Echo Lab [address] [facility], [address] [place] [address] 05/04/2025 1:45 PM EST Office Visit [facility] [place] [address] [facility], [address] [place] [address] Ruslan Sanderson MD [address] [place] [address] 07/23/2025 2:00 PM EST Office Visit [facility] Sleep Disorder Center [address], 4th [place] [address] Kassandra Khan APRN [address] [place] [address] 08/21/2025 3:30 PM EST Office Visit [facility] [address], 1[address] [place] [address] Alicia Jennings MD [address] [place] [address] 09/10/2025 10:40 AM EDT Office Visit [facility] [address], 2[address] [place] [address] Bushra Graf PA [address] [place] [address] documented as of this encounter [...] documented as of this encounter Care Teams Mingle Operator Relationship Specialty Start Date End Date Ankur Main MD [address] [place] [address] PCP - General 11/01/20 12/18/24 Iman Cuevas MD [address] [place] [address] PCP - General Internal Medicine 12/19/24 documented as of this encounter
--- OUTSIDE RECORDS SUMMARY | 2025-03-21 12:40 | XMS_ITS | Encounter Summary ---
Author Organization Healthcare Address [address] [place] [address] Care Team Providers Care Parking Lot Attendant Name Role Phone Ankur Main MD Primary Care Provider [phone] Iman Cuevas MD Primary Care Provider [phone] Reason for Visit * Reason Onset Date Comments Med Refill 02/19/2022 Encounter Details Date Type Department Care Team (Late st Contact Info) Description 02/19/2022 Refill [facility] Internal Medicine [address], [address]rd [place] [address] Ankur Main MD [address] [place] [address] Polyneuropathy associated with underlying disease [...] Description 04/18/2025 11:00 AM EDT Office Visit [facility] Medicine Specialties [address], 2[address] [place] [address] Juventino Costa MD [address] [place] [address] 05/04/2025 1:00 PM EST Appointment Medical Office Building Cardiac Diagnostic Testing Medical Office Building Echo Lab [address] [facility], [address] [place] [address] 05/04/2025 1:45 PM EST Office Visit [facility] [place] [address] [facility], [address] [place] [address] Ruslan Sanderson MD [address] [place] [address] 07/23/2025 2:00 PM EST Office Visit [facility] Sleep Disorder Center [address], 4th [place] [address] Kassandra Khan, APOLLO [address] [place] [address] 08/21/2025 3:30 PM EST [facility] [address], 1st [place] [address] Alicia Jennings MD [address] [place] [address] 09/10/2025 10:40 AM EDT Office Visit [facility] Medicine Specialties [address], 2nd [place] [address] Bushra Graf PA [address] [place] [address] documented as of this encounter Visit Diagnoses [...] documented as of this encounter Care Teams Parking Lot Attendant Relationship Specialty Start Date End Date Ankur Main MD [address] [place] [address] PCP - General 11/01/20 12/18/24 Iman Cuevas MD [address] [place] [address] PCP - General Internal Medicine 12/19/24 documented as of this encounter
--- OUTSIDE RECORDS SUMMARY | 2025-03-21 12:40 | XMS_ITS | Encounter Summary ---
Author Organization Healthcare Address [address] [place] [address] Care Team Providers Care Preventive Maintenance Coordinator Name Role Phone Iman Cuevas MD Primary Care Provider [phone] Reason for Visit * Reason Comments Med Refill Encounter Details Date Type Department Care Team ([facility] st Contact Info) Description 01/23/2025 Refill [facility] [place] [address] [facility], [address] [place] [address] Ruslan Sanderson MD [address] [place] [address] History of pulmonic valve replacement [...] Description 04/18/2025 11:00 AM EDT Office Visit [facility] Medicine Specialties [address], [address] [place] [address] Juventino Costa MD [address] [place] [address] 05/04/2025 1:00 PM EST Appointment Medical Office Building Cardiac Diagnostic Testing Medical Office Building Echo Lab [address] [facility], [address] [place] [address] 05/04/2025 1:45 PM EST Office Visit [facility] [place] [address] [facility], [address] [place] [address] Ruslan Sanderson MD [address] [place] [address] 07/23/2025 2:00 PM EST Office Visit [facility] Sleep Disorder Center [address], 4th [place] [address] Kassandra Khan, APOLLO [address] [place] [address] 08/21/2025 3:30 PM EST Office Visit [facility] [address], [address] [place] [address] Alicia Jennings MD [address] [place] [address] 09/10/2025 10:40 AM EDT Office Visit [facility] Medicine Specialties [address], [address] [place] [address] Bushra Graf PA [address] [place] [address] documented as of this encounter [...] documented as of this encounter Care Teams Preventive Maintenance Coordinator Relationship Specialty Start Date End Date Iman Cuevas MD [address] [place] [address] PCP - General Internal Medicine 12/19/24 documented as of this encounter
--- OUTSIDE RECORDS SUMMARY | 2025-03-21 12:40 | XMS_ITS | Clinical Summary ---
Author Organization Healthcare Address [address] [place] [address] Care Team Providers Care Dynamometer Tester Name Role Phone Iman Cuevas MD Primary Care Provider [phone] Allergies Active Allergy Reactions Criticality Noted Date Comments Wound Dressings Rash Low 09/10/2020 Rash/blisters Tetracycline Rash Low 10/05/2019 Medications aspirin 81 MG EC tablet Take by mouth in the morning. 04/04/20 20 Active levonorgestrel (Mirena, 52 MG,) 20 MCG/24HR IUD Take by mouth See administration instructions. Inserted on 09/04/2020 Lot Number: [id number] Expiration Date: Nov 2022 NDC: [id number] 09/05/19 21 Active magnesium oxide (Mag-Ox) 400 [...] needed for mild pain. Active nystatin (Mycostatin) 416890 UNIT/GM powderIndication s:Healthcare maintenance Apply topically 1 [...] bronchitis with COPD (chronic obstructive pulmonary disease) ([facility]),Modera te persistent asthma, unspecified whether complicated Inhale 2 puffs 4 (four) times a day. 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 Depression 06/28/2020 Lung nodule 05/29/2020 [...] Description 03/12/2025 10:20 AM EDT [facility] [address], [address] [place] [address] Bushra Graf, PA Chronic constipation (Primary Dx); Hemorrhage of rectum and anus; Obesity, Class III, BMI 40-49.9 (morbid obesity) 03/12/2025 Travel 02/28/2025 Telephone [facility] [place] [address] [facility], [address] [place] [address] Ruslan Sanderson MD HCN Clinical Concern/Question 01/23/2025 Refill [facility] [place] [address] [facility], [address] [place] [address] Ruslan Sanderson MD History of pulmonic valve replacement 01/08/2025 Telephone [facility] Medicine Specialties [address], [address] [place] [address] Marybel Dunne 01/05/2025 [facility] [address], [address] [place] [address] Calista Jacobs APRN Focal epilepsy ([facility]/H[facility]) 01/02/2025 Telephone [facility] Medicine Specialties [address], [address] [place] [address] Jocelyn Arevalo New Med Request [...] Danyelle Brody Colon cancer Maternal Grandmother Shelly Nora Diabetes Maternal Grandmother Shellydontae Barronddy Conversions - [...] place to sleep or slept in a long term (including now)? No 01/25/2024 PHQ-9 Answer Date [...] Description 04/18/2025 11:00 AM EDT [facility] [address], [address] [place] [address] Juventino Costa MD [address] [place] [address] 05/04/2025 1:00 PM EST Appointment Medical Office Building Cardiac Diagnostic Testing Medical Office Building Echo Lab [address] [facility], [address] [place] [address] 05/04/2025 1:45 PM EST Office Visit [facility] [place] [address], [address] [place] [address] Ruslan Sanderson MD [address] [place] [address] 07/23/2025 2:00 PM EST Office Visit [facility] Sleep Disorder Center [address], [address]th [place] [address] Kassandra Khan, PRESALES ENGINEER [address] [place] [address] 08/21/2025 3:30 PM EST [facility] [address], 1[address] [place] [address] Alicia Jennings MD [address] [place] [address] 09/10/2025 10:40 AM EDT Office Visit [facility] Medicine Specialties [address], [address] [place] [address] Bushra Graf PA [address] [place] [address] Health Maintenance Due Date Last Done Comments [facility]-Medic[facility] Annual Wellness (AWV) 1985 [facility]-Infant/Child/Adol SDOH Screenings 1985 [id number] Vaccine (#1) 02/02/1988 Diabetes: Dental Exam 1993 [...] Adults <6.0% Children and Adolescents <7.5% Source: [place] [employer]. Standards of medical care in diabetes,2017. Diabetes Care.2017:40 (suppl 1):S1-S135. HbA1c assay performed by an ion-exchange chromatography method that is certified traceable to the DCCT. Astrid Alvarez PRESALES ENGINEER LAB BLOOD ORDERABLES Kaley l Result [facility] [address] [place] [address] * HIV 1 & 2 Antibody/Antigen Screen (04/28/2022 1:47 PM EST) HIV 1 & 2 Antibody/Anti gen Screen Nonreactive Nonreactive 04/28/2022 4:48 PM EST [facility] Blood Venous blood specimen / Unknown Venipuncture / Unknown 04/28/2022 1:47 PM EST 04/28/2022 2:22 PM EST Carlos Rodriguez MD LAB BLOOD ORDERABLES Final Result [facility] [address] [place] [address] * Cytology (09/04/2020 12:00 AM EDT) 09/04/2020 09/05/2020 8:5 1 AM EDT Narrative COPATH - 09/12/2020 12:05 PM EDT [facility] MR #: [id number] [facility] [address] [place], [place] [address] 1985 (Age: 35) FW Collect Date: 09/04/2020 00:00 Receipt Date: 09/05/2020 08:51 Page 1 DEPARTMENT OF PATHOLOGY AND LABORATORY MEDICINE CYTOPATHOLOGY REPORT Email: [email or web address] ATTENDING MD/Practitioner: JOAN ROWE Service: PA0 Location: [facility] Reported: 09/12/2020 12:05 Collected: 09/04/2020 00:00 INTERPRETATION A. THIN PREP (CERVICAL/VAGINAL): ATYPICAL SQUAMOUS CELLS - UNDETERMINED SIGNIFICANCE(ASCUS) REACTIVE CELLULAR CHANGES. ORGANISMS PRESENT CONSISTENT WITH ACTINOMYCES SPECIES. SATISFACTORY FOR EVALUATION; ENDOCERVICAL/ TRANSFORMATION ZONE COMPONENT PRESENT. Slide scanned and imaged by [employer] ThinPrep Imaging System with manual review of [...] results is suggested (please call Microbiology at [phone] for results). CLINICAL INFORMATION: Menstrual History: Irregular [...] of cervix uteri F: A; DX IMAGE 87179, 44218 C\V (PO) SNOMED CODES: A; [id number] [id number] [id number] M- [id number] [id number] M-[id number] [id number] In cases where a pathologist has signed out the report, the service has been rendered in part by a resident. The signing pathologist has performed and is responsible for the reported pathologic evaluation. us Christie Chau PRESALES ENGINEER LAB PATHOLOGY ORDERABLES [facility] Result COPATH from Last 3 Months or [...] Citrobacter Freundii. 10/23/2019 11/12/2020 [place] [address] [place] Advance Directives Documents on File Type Date Recorded Patient Osd Clerk Expl anation Advance Directives and Living Will 12/31/2020 Care Teams Dynamometer Tester Relationship Specialty Start Date End Date Iman Cuevas MD [address] [phone] PCP - General Internal Medicine 12/19/24
--- OUTSIDE RECORDS SUMMARY | 2025-03-21 12:40 | XMS_ITS | Encounter Summary ---
Author Organization Healthcare Address [address] [place] [address] Care Team Providers Care Recreation Clerk Name Role Phone Ankur Main MD Primary Care Provider [phone] Iman Cuevas MD Primary Care Provider [phone] Reason for Visit * Reason Onset Date Comments Med Refill 01/24/2021 Encounter Details Date Type Department Care Team (Late st Contact Info) Description 01/24/2021 Refill [facility] Internal Medicine [address], [address]rd [place] [address] Ankur Main MD [address] [place] [address] Polyneuropathy associated with underlying disease [...] Upcoming Encounters Date Type Department Care Team ([facility] st Contact Info) Description 04/18/2025 11:00 AM EDT Office Visit [facility] Medicine Specialties [address], 2nd [place] [address] Juventino oCsta MD [address] [place] [address] 05/04/2025 1:00 PM EST Appointment Medical Office Building Cardiac Diagnostic Testing Medical Office Building Echo Lab [address] [facility], [address] [place] [address] 05/04/2025 1:45 PM EST Office Visit [facility] [place] [address] [facility], [address] [place] [address] Ruslan Sanderson MD [address] [place] [address] 07/23/2025 2:00 PM EST Office Visit [facility] Sleep Disorder Center [address], 4th [place] [address] Kassandra Khan, APOLLO [address] [place] [address] 08/21/2025 3:30 PM EST Office Visit [facility] [address], 1[address] [place] [address] Alicia Jennings MD [address] [place] [address] 09/10/2025 10:40 AM EDT Office Visit [facility] Medicine Specialties [address], [address] [place] [address] Bushra Graf, SHELBY [address] [place] [address] documented as of this encounter [...] documented as of this encounter Care Teams Recreation Clerk Relationship Specialty Start Date End Date Ankur Main MD [address] [place] [address] PCP - General 11/01/20 12/18/24 Iman Cuevas MD [address] [place] [address] PCP - General Internal Medicine 12/19/24 documented as of this encounter
--- OUTSIDE RECORDS SUMMARY | 2025-03-21 12:40 | XMS_ITS | Encounter Summary ---
Author Organization Healthcare Address [address] [place] [address] Care Team Providers Care Business Services Tech Name Role Phone Ankur Main MD Primary Care Provider [phone] Iman Cuevas MD Primary Care Provider [phone] Reason for Visit * Reason Onset Date Comments Med Refill 06/30/2021 Encounter Details Date Type Department Care Team (Late st Contact Info) Description 06/30/2021 Refill [facility] Medicine Specialties [address], [address] [place] [address] Juventino Costa MD [address] [place] [address] Moderate persistent asthma, unspecified whether [...] Visit [facility] Medicine Specialties [address], [address] [place] [address] Juventino Costa MD [address] [place] [address] 05/04/2025 1:00 PM EST Appointment Medical Office Building Cardiac Diagnostic Testing Medical Office Building Echo Lab [address] [facility], [address] [place] [address] 05/04/2025 1:45 PM EST Office Visit [facility] [place] [address] [facility], [address] [place] [address] Ruslan Sanderson MD [address] [place] [address] 07/23/2025 2:00 PM EST Office Visit [facility] Sleep Disorder Center [address], [address]th [place] [address] Kassandra Khan, TANK INSPECTOR [address] [place] [address] 08/21/2025 3:30 PM EST Office Visit [facility] [address], [address] [place] [address] Alicia Jennings MD [address] [place] [address] 09/10/2025 10:40 AM EDT Office Visit [facility] Medicine Specialties [address], [address] [place] [address] Bushra Graf, SHELBY [address] [place] [address] documented as of this encounter [...] documented as of this encounter Care Teams Business Services Tech Relationship Specialty Start Date End Date Ankur Main MD [address] [place] [address] PCP - General 11/01/20 12/18/24 Iman Cuevas MD [address] [place] [address] PCP - General Internal Medicine 12/19/24 documented as of this encounter
--- OUTSIDE RECORDS SUMMARY | 2025-03-21 12:40 | XMS_ITS | Encounter Summary ---
Author Organization Healthcare Address [address] [place] [address] Care Team Providers Care Certified Nuclear Medicine Technologist Name Role Phone Iman Cuevas MD Primary Care Provider [phone] Reason for Visit * Reason Onset Date Comments HCN Clinical Concern/Question 02/28/2025 Encounter Details Date Type Department Care Team ([facility] st Contact Info) Description 02/28/2025 Telephone [facility] [address] [facility] [facility], [address] [place] [address] Ruslan Sanderson MD [address] [place] [address] HCN Clinical Concern/Question Social History [...] 03/02/2025 8:21 AM EDT Letter faxed to [phone] * Telephone Encounter - Ruslan Sanderson MD - 03/01/2025 11:13 AM EDT Ok to proceed with surgery from cardiac stand point. * Telephone Encounter - Ilana Rolle - 02/28/2025 2:51 PM EDT Clinical Concern/Question Reason for Call: Patient is needing cardiac clearance for hysterectomy being done at [facility] on 03/14. FAX: [phone] Best contact number: [phone] (home) Optimal time of day to reach caller: ANYTIME Additional comments/information from caller: None Note: Please do not reply to this message. Follow-up communication and further actions as a result of this message need to be communicated with the patient directly, if the patient is not active onMyChart. If the patient is active on MyChart, they will receive notification of the communication/outcome via [employer]. documented in this encounter Plan of Treatment Upcoming Encounters Date Type Department Care Team (Late st Contact Info) Description 04/18/2025 11:00 AM EDT Office Visit [facility] Medicine Specialties [address], [address] [place] [address] Juventino Costa MD [address] [place] [address] 05/04/2025 1:00 PM EST Appointment Medical Office Building Cardiac Diagnostic Testing Medical Office Building Echo Lab [address] [facility], [address] [place] [address] 05/04/2025 1:45 PM EST Office Visit [facility] [address] [facility], [address] [place] [address] Ruslan Sanderson MD [address] [place] [address] 07/23/2025 2:00 PM EST Office Visit [facility] Sleep Disorder Center [address], [address]th [place] [address] Kassandra Khan APRN [address] [place] [address] 08/21/2025 3:30 PM EST [facility] [address], [address] [place] [address] Alicia Jennings MD [address] [place] [address] 09/10/2025 10:40 AM EDT [facility] [address], [address] [place] [address] Bushra Graf PA [address] [place] [address] documented as of this encounter [...] documented as of this encounter Care Teams Certified Nuclear Medicine Technologist Relationship Specialty Start Date End Date Iman Cuevas MD [address] [phone] PCP - General Internal Medicine 12/19/24 documented as of this encounter
--- OUTSIDE RECORDS SUMMARY | 2025-03-21 12:40 | XMS_ITS | Encounter Summary ---
Author Organization Healthcare Address [address] [place] [address] Care Team Providers Care Set Up Mechanic Crown Assembly Machine Name Role Phone Ankur Main MD Primary Care Provider [phone] Iman Cuevas MD Primary Care Provider [phone] Reason for Visit * Reason Onset Date Comments Med Refill 06/19/2021 Encounter Details Date Type Department Care Team (Late st Contact Info) Description 06/19/2021 Refill [facility] Internal Medicine [address], [address] [place] [address] Ankur Main MD [address] [place] [address] Social History Tobacco Use Types [...] Description 04/18/2025 11:00 AM EDT Office Visit [facility] Medicine Specialties [address], 2[address] [place] [address] Juventino Costa MD [address] [place] [address] 05/04/2025 1:00 PM EST Appointment Medical Office Building Cardiac Diagnostic Testing Medical Office Building Echo Lab [address] [facility], [address] [place] [address] 05/04/2025 1:45 PM EST Office Visit [facility] [place] [address] [facility], [address] [place] [address] Ruslan Sanderson MD [address] [place] [address] 07/23/2025 2:00 PM EST Office Visit [facility] Sleep Disorder Center [address], [address] [place] [address] Kassandra Khan APRN [address] [place] [address] 08/21/2025 3:30 PM EST Office Visit [facility] [address], 1[address] [place] [address] Alicia Jennings MD [address] [place] [address] 09/10/2025 10:40 AM EDT [facility]ties [address] [place] [address] Bushra Graf, PA [address] [place] [address] documented as of this encounter [...] documented as of this encounter Care Teams Set Up Mechanic Crown Assembly Machine Relationship Specialty Start Date End Date Ankur Main MD [address] [place] [address] PCP - General 11/01/20 12/18/24 Iman Cuevas MD [address] [place] [address] PCP - General Internal Medicine 12/19/24 documented as of this encounter
--- OUTSIDE RECORDS SUMMARY | 2025-03-21 12:40 | XMS_ITS | Encounter Summary ---
Author Organization Healthcare Address [address] [place] [address] Care Team Providers Care Sr Vice President Name Role Phone Iman Cuevas MD Primary Care Provider [phone] Encounter Details Date Type Department Care Team [...] the past 12 months has th e [employer] gas, oil, or water [employer] threatened to shut off services in your [...] Description 04/18/2025 11:00 AM EDT Office Visit [facility] Medicine Specialties [address], [address] [place] [address] Juventino Costa MD [address] [place] [address] 05/04/2025 1:00 PM EST Appointment Medical Office Building Cardiac Diagnostic Testing Medical Office Building Echo Lab [address] [facility], [address] [place] [address] 05/04/2025 1:45 PM EST Office Visit [facility] [place] [address], [address] [place] [address] Ruslan Sanderson MD [address] [place] [address] 07/23/2025 2:00 PM EST Office Visit [facility] Sleep Disorder Center [address], 4th [place] [address] Kassandra Khan, CHEMIST INTERN [address] [place] [address] 08/21/2025 3:30 PM EST Office Visit [facility] [address], 1[address] [place] [address] Alicia Jennings MD [address] [place] [address] 09/10/2025 10:40 AM EDT Office Visit [facility] Medicine Specialties [address], [address] [place] [address] Bushra Graf PA [address] [place] [address] documented as of this encounter [...] documented as of this encounter Care Teams Sr Vice President Relationship Specialty Start Date End Date Iman Cuevas MD [address] [place] [address] PCP - General Internal Medicine 12/19/24 documented as of this encounter
--- OUTSIDE RECORDS SUMMARY | 2025-03-21 12:40 | XMS_ITS | Encounter Summary ---
Author Organization Healthcare Address [address] [place] [address] Care Team Providers Care Body Artist Name Role Phone Ankur Main MD Primary Care Provider [phone] Iman Cuevas MD Primary Care Provider [phone] Reason for Visit * Reason Onset Date Comments Med Refill 02/28/2021 Encounter Details Date Type Department Care Team (Late st Contact Info) Description 02/28/2021 Refill [facility] Internal Medicine [address], [address] [place] [address] Roxana Abdul MD [address] [place] [address] Polyneuropathy associated with underlying disease [...] Description 04/18/2025 11:00 AM EDT Office Visit [facility] Medicine Specialties [address], [address] [place] [address] Juventino Costa MD [address] [place] [address] 05/04/2025 1:00 PM EST Appointment Medical Office Building Cardiac Diagnostic Testing Medical Office Building Echo Lab [address] [facility], [address] [place] [address] 05/04/2025 1:45 PM EST Office Visit [facility] [place] [address] [facility], [address] [place] [address] Ruslan Sanderson MD [address] [place] [address] 07/23/2025 2:00 PM EST Office Visit [facility] Sleep Disorder Center [address], [address] [place] [address] Kassandra Khan, ASSISTANT EDITOR [address] [place] [address] 08/21/2025 3:30 PM EST Office Visit [facility] [address] [place] [address] Alicia Jennings MD [address] [place] [address] 09/10/2025 10:40 AM EDT Office Visit [facility] Medicine Specialties [address], [address] [place] [address] Bushra Graf, PA [address] [place] [address] documented as of this encounter [...] documented as of this encounter Care Teams Body Artist Relationship Specialty Start Date End Date Ankur Main MD [address] [place] [address] PCP - General 11/01/20 12/18/24 Iman Cuevas MD [address] [place] [address] PCP - General Internal Medicine 12/19/24 documented as of this encounter
--- OUTSIDE RECORDS SUMMARY | 2025-03-21 12:40 | XMS_ITS | Encounter Summary ---
Author Organization Healthcare Address [address] [place] [address] Care Team Providers Care Metal Riveting Machine Operator Name Role Phone Ankur Main MD Primary Care Provider [phone] Iman Cuevas MD Primary Care Provider [phone] Encounter Details Date Type Department Care Team (Late st Contact Info) Description 01/24/2024 Orders Only External Location [address] [place] [address] Skip Tineo MD Social History Tobacco Use [...] a senior living (including now)? No 01/25/2024 Safety and Environment [...] Description 04/18/2025 11:00 AM EDT Office Visit [facility] Medicine Specialties [address], [address] [place] [address] Juventino Costa MD [address] [facility] [address] [place] [address] 05/04/2025 1:00 PM EST Appointment Medical Office Building Cardiac Diagnostic Testing Medical Office Building Echo Lab [address] [facility], [address] [place] [address] 05/04/2025 1:45 PM EST Office Visit [facility] [place] [address] [facility], [address] [place] [address] Ruslan Sanderson MD [address] [place] [address] 07/23/2025 2:00 PM EST Office Visit [facility] Sleep Disorder Center [address], [address] [place] [address] Kassandra Khan APRN [address] [place] [address] 08/21/2025 3:30 PM EST [facility] [address], [address] [place] [address] Alicia Jennings MD [address] [place] [address] 09/10/2025 10:40 AM EDT Office Visit [facility] Medicine Specialties [address], [address] [place] [address] Bushra Graf PA [address] [place] [address] documented as of this encounter [...] documented as of this encounter Care Teams Metal Riveting Machine Operator Relationship Specialty Start Date End Date Ankur Main MD [address] [place] [address] PCP - General 11/01/20 12/18/24 Iman Cuevas MD [address] [place] [address] PCP - General Internal Medicine 12/19/24 documented as of this encounter
--- NOTE | 2025-03-21 13:32 | EXP.DC.SUM ---
General Admission date:: 03/14/25 Discharge date: 03/21/25 HPI HPI HPI: Elizabeth Milian is a 40yo G0 who presents for hysterectomy. - she has tried and failed IUD insertion - She is not a great candidate for estrogen given her 3 pulmonary embolisms. - Reports she still having some lower pelvic pain. Discussed ovarian cyst and patint requets ovarian removal. she had epithelial cell cancer markers properatively that were negative. History from previous visit carried forward: - Reports she is having bleeding with her Mirena IUD. Reports that she has been bleeding heavily for the last 2 to 3 weeks and states that now she is just spotting. It was put in in 2020 at - Reports a history of 2 open heart surgeries, 3 lung surgeries, 3 pulmonary embolisms. 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 - Reports a family history of cervical, breast, and ovarian cancer - Reports her last Pap smear was in 2020. States that this was normal. Reports she does have a history of having something froze off of her cervix in 2018. - Endorses a history of hot flashes and night sweats. - Denies current use of tobacco, alcohol, illicit drug use. - Reports she is currently seeking treatment at a weight loss clinic - Reports that she is not sexually active. Reports she has a history of HPV but has since cleared up. Denies any history of other STIs. - Reports a history of hepatitis C reports that she was diagnosed twice and is unsure if she has ever been treated. She has been told that she has a low viral load to undetectable viral load. - The patient is on chronic Eliquis and follows with cardiology. She will need a cardiology visit for cardiac clearance prior to hysterectomy She received cardiac clearance for bariatric surgery as well as hernia surgery and has called her torpedo man to see if they will fax over cardiac clearance letter. She needs to see our hematology team prior to surgery in order to discuss anticoagulation and I discussed with the patient that this would likely require bridging therapy with Lovenox. I reviewed that her Abby score was benign and negative. The patient currently has a very large hernia below her diaphragm in the midline and in addition to this has had several surgeries. Hospital Course Hospital Course Hospital Course: On March 14, 2025 she underwent a total abdominal hysterectomy and bilateral salpingo-oophorectomy. She initially did well but has had a slow steady decline of her hemoglobin until the last couple of days. Over the last 3 days her hemoglobin has been stable. She has significant bruising on her anterior abdominal wall. This is especially present superiorly to the incision. On Wednesday, March 17 and early childhood coordinator hours I was asked to come and see the patient because she was bleeding from her incision. The bleeding was old blood and I suspect that she had a septal cutaneous hematoma that had released itself. I managed to press on her abdominal wall and try and express as much of the hematoma as possible. We were concerned that she had a continuing hematoma since her hemoglobin had dropped over the next couple of days but over the last 2 to 3 days her hemoglobin has been stable. We were considering a transfusion but given the fact that her hemoglobin is 8.9, I felt that she did not need a transfusion and she will increase her blood counts on her own. We had subsequently performed a CT scan that showed a seroma or more likely hematoma subcutaneously that measured 20 x 4 cm. She has had no further leakage from her incision and her incision continues to be clean and dry. On postoperative day 2 her creatinine and BUN were elevated and we elected to stop her Toradol. These have subsequently returned to normal levels. We were concerned about an acute kidney injury as result of her anti-inflammatory use. We have started her back on Lovenox 40 mg daily and I have suggested that she starts her Eliquis the day after her discharge now that her hemoglobin is stable. She has remained afebrile throughout her hospitalization. She is eating and drinking and ambulating. She is voiding well. Her pain is reasonably well-controlled. She denies any chest pain, shortness of breath or calf tenderness. At this point in time I believe we have maximized her treatment as an inpatient and we will send her home today. She will be discharged home today to follow-up with me in approximately [address] Landry is out of the office for the next week. She will continue with her home medications. She will start Eliquis tomorrow. We have given her Lovenox today. We will continue with her pain medicine and I will send her home with oxycodone 10 mg p.o. every 4 hours as needed as well as Tylenol. We have sent her home with Faiza to continue keeping her incision clean. Her mother is a nurse and will keep the incision clean. She will just apply a dry dressing after cleaning the incision. Exam Data for Last 24 hours Vital signs and Labs for Last 24 Hours: Temp Pulse Resp BP Pulse Ox O2 Del Method O2 Flow Rate 97.6 F 63 18 99/46 L 93 L Room Air 2 03/21/25 09:00 03/21/25 09:00 03/21/25 09:00 03/21/25 09:00 03/21/25 09:00 03/21/25 11:00 03/19/25 12:30 Laboratory Results - last 24 hr 03/20/25 11:03: Blood Type O Positive, Antibody Screen Positive 03/21/25 09:20: WBC 6.6, RBC 2.79 L, Hgb 8.8 L, Hct 27.4 L, MCV 98.2, MCH 31.5 H, MCHC 32.1, RDW 15.1, Plt Count 202, MPV 10.0, Neut % (Auto) 60.6, Lymph % (Auto) 21.1, [place] % (Auto) 10.4 H, Eos % (Auto) 5.0, Baso % (Auto) 0.3, Neut # (Auto) 4.0, Lymph # (Auto) 1.4, [place] # (Auto) 0.7, Eos # (Auto) 0.3, Baso # (Auto) 0.0 I & O for Last 24 hours: Intake & Output 03/19/25 03/20/25 03/21/25 03/22/25 11:59 11:59 11:59 11:59 Intake Total 1440 / 1440 1220 / 1220 720 / 720 Output Total 1900 / 1900 1000 / 1000 1550 / 1550 Balance -460 / -460 220 / 220 -830 / -830 Constitutional Constitutional: no acute distress and morbidly obese *Routine HEENT Exam Head: Present normocephalic *Routine Neck Exam Neck: Present supple *Routine Respiratory Exam Respiratory: Present CTA bilaterally and normal respiratory effort; Absent accessory muscle use *Routine Cardiovascular Exam Cardiovascular: Present RRR *Routine Abdominal Exam Abdominal: Present soft and normoactive bowel sounds; Absent distended, rebound or guarding Comments: She has significant bruising along her abdominal wall and these have been marked with a sharpie. She has no further extension of the bruising. *Routine Rectal Exam Patient deferred: visual exam and digital exam *Routine Exam Patient deferred: external exam, groin exam and perineal exam Results Data Completed and Pending Labs on day of discharge: Labs from last 24 hours 03/21/25 03/20/25 09:20 11:03 WBC 6.6 RBC 2.79 L Hgb 8.8 L Hct 27.4 L MCV 98.2 MCH 31.5 H MCHC 32.1 RDW 15.1 Plt Count 202 MPV 10.0 Neut % (Auto) 60.6 Lymph % (Auto) 21.1 [place] % (Auto) 10.4 H Eos % (Auto) 5.0 Baso % (Auto) 0.3 Neut # (Auto) 4.0 Lymph # (Auto) 1.4 [place] # (Auto) 0.7 Eos # (Auto) 0.3 Baso # (Auto) 0.0 Blood Type O Positive Antibody Screen Positive Antibody Identification Pending DS: Diagnosis Discharge Diagnosis (1) Hx of BSO (bilateral salpingo-oophorectomy): Status: Acute Code(s): Z90.79 - Acquired absence of other genital organ(s); Z90.722 - Acquired absence of ovaries, bilateral (2) H/O abdominal supracervical subtotal hysterectomy: Status: Acute Code(s): Z90.711 - Acquired absence of uterus with remaining cervical stump (3) Dysmenorrhea: Status: Acute Code(s): N94.6 - Dysmenorrhea, unspecified (4) Abnormal uterine bleeding (AUB): Status: Acute Code(s): N93.9 - Abnormal uterine and vaginal bleeding, unspecified (5) History of pulmonary embolism: Status: Acute Code(s): Z86.711 - Personal history of pulmonary embolism (6) Hypothyroid: Status: Acute Code(s): E03.9 - Hypothyroidism, unspecified Qualifiers: Hypothyroidism type: acquired Qualified Code(s): E03.9 - Hypothyroidism, unspecified (7) Diabetes mellitus: Status: Acute Code(s): E11.9 - Type 2 diabetes mellitus without complications Qualifiers: Diabetes mellitus complication detail: with other kidney complication Diabetes mellitus complication status: with kidney complications Diabetes mellitus watermelon harvesting supervisor insulin use: with custodial use Diabetes mellitus type: type 2 Qualified Code(s): E11.29 - Type 2 diabetes mellitus with other diabetic kidney complication; Z79.4 - [facility] (current) use of insulin (8) Hepatitis C: Status: Acute Code(s): B19.20 - Unspecified viral hepatitis C without hepatic coma Qualifiers: Hepatic coma status: without hepatic coma Viral hepatitis chronicity: chronic Qualified Code(s): B18.2 - Chronic viral hepatitis C (9) Obesity, morbid: Status: Acute Code(s): E66.01 - Morbid (severe) obesity due to excess calories (10) Aortic valve replaced: Status: Acute Code(s): Z95.2 - Presence of prosthetic heart valve (11) COPD (chronic obstructive pulmonary disease): Status: Acute Code(s): J44.9 - Chronic obstructive pulmonary disease, unspecified Qualifiers: COPD type: unspecified COPD Qualified Code(s): J44.9 - Chronic obstructive pulmonary disease, unspecified Meds Home Medications and Allergies Home Medications ?Medication ?Instructions ?Recorded ?Confirmed ?Type apixaban 5 mg tablet (Eliquis) 5 mg PO BID 12/10/23 03/14/25 History lamotrigine 100 mg tablet 50 mg PO BID 12/10/23 03/14/25 History levetiracetam 500 mg tablet 2,000 mg PO BID 12/10/23 03/14/25 History metoprolol tartrate 25 mg tablet 25 mg PO BID 12/10/23 03/14/25 History montelukast 10 mg tablet 10 mg PO HS 12/10/23 03/14/25 History sertraline 100 mg tablet 100 mg PO DAILY 12/10/23 03/14/25 History quetiapine 50 mg tablet 50 mg PO DAILY 10/10/24 03/14/25 History tiotropium 2.5 mcg-olodaterol 2.5 2 inh inhalation DAILY 11/14/24 03/14/25 History mcg/actuation mist for inhalation (Stiolto Respimat) prucalopride 2 mg tablet 2 mg PO DAILY 01/11/25 03/14/25 History empagliflozin 10 mg tablet 10 mg PO DAILY 90 days #90 tabs 02/05/25 03/14/25 Rx (Jardiance) folic acid 1 mg tablet 1 mg PO DAILY 90 days #90 tabs 02/05/25 03/14/25 Rx furosemide 40 mg tablet 80 mg (2 x 40 mg) PO BID 90 days 02/05/25 03/14/25 Rx #360 tabs potassium chloride 20 mEq 20 meq PO BID 90 days #180 tabs 02/05/25 03/14/25 Rx tablet,extended release(part/cryst) levothyroxine 100 mcg tablet 100 mcg PO DAILY 30 days #30 tabs 02/07/25 03/14/25 Rx gabapentin 300 mg capsule 300 mg PO TID #90 caps 03/07/25 03/14/25 Rx oxycodone 5 mg tablet 5 mg PO Q6H PRN pain #30 tabs 03/21/25 Rx New Prescriptions to Start Prescriptions: Thiago Harley Allergies Allergy/AdvReac Type Severity Reaction Status Date / Time tetracycline Allergy Hives Verified 03/07/25 13:18 Discharge Plan Disposition Patient Disposition: Home, Self-Care Discharge Order Discharge Orders: Discharge Order (Routine); Ordered 03/21/25 Ordered By: Thiago Sharp Follow up Plan Follow up with: Thiago Sharp MD [Staff Physician, ACADEMIC TUTOR] - 03/26/25 3:45 pm Prescriptions/Medication Reconciliation: New oxycodone 5 mg tablet 5 mg PO Q6H PRN (Reason: pain) Qty: 30 0RF Continued prucalopride 2 mg tablet 2 mg PO DAILY montelukast 10 mg tablet 10 mg PO HS Patient Comments: TAKE 1 TABLET 1 TIME EACH DAY IN THE EVENING lamotrigine 100 mg tablet 50 mg PO BID sertraline 100 mg tablet 100 mg PO DAILY Eliquis 5 mg tablet 5 mg PO BID metoprolol tartrate 25 mg tablet 25 mg PO BID Patient Comments: TAKE 1 TABLET 2 TIMES EACH DAY levetiracetam 500 mg tablet 2,000 mg PO BID Patient Comments: TAKE 4 TABLETS 2 TIMES EACH DAY quetiapine 50 mg tablet 50 mg PO DAILY Stiolto Respimat 2.5-2.5 mcg/actuation mist 2 inh inhalation DAILY Patient Comments: INHALE 2 PUFFS 1 TIME EACH DAY folic acid 1 mg tablet 1 mg PO DAILY 90 Days Qty: 90 0RF furosemide 40 mg tablet 80 mg PO BID 90 Days Qty: 360 0RF potassium chloride 20 mEq tablet,ER particles/crystals 20 meq PO BID 90 Days Qty: 180 0RF Jardiance 10 mg tablet 10 mg PO DAILY 90 Days Qty: 90 0RF levothyroxine 100 mcg tablet 100 mcg PO DAILY 30 Days Qty: 30 2RF gabapentin 300 mg capsule 300 mg PO TID Qty: 90 0RF Problem Reconciliation Problems Reviewed?: Yes Patient Discharge Instructions ACTIVITY: No heavy lifting DIET: diabetic diet Patient Instructions: How to Care for a Surgical Wound, DI for Hysterectomy Print Language: Burkinan Providers Primary Care Provider: Skip Tineo Admit Provider: Renea Landry Attending Provider: Renea Landry
== END 2025-03-21 16:45 | disposition home or self-care (01) | DRG 742 ==
LOC: OB 03-15 05:47
PROVIDERS: Nurse Practitioner Obstetrics & Gynecology; Admitting Provider Obstetrics & Gynecology; PCP Family Medicine; Visit Provider Obstetrics & Gynecology
PROC: 0UT90ZZ Resection of Uterus, Open Approach (ICD-10-PCS; CPT 58150; principal; 2025-03-14 07:30)
DX: N94.6 Dysmenorrhea, unspecified (principal); L76.32 Postprocedural hematoma of skin and subcutaneous tissue following other procedure; N17.9 Acute kidney failure, unspecified; Z68.41 Body mass index [BMI] 40.0-44.9, adult; N93.9 Abnormal uterine and vaginal bleeding, unspecified; N92.4 Excessive bleeding in the premenopausal period; N83.202 Unspecified ovarian cyst, left side; E03.9 Hypothyroidism, unspecified; E66.01 Morbid (severe) obesity due to excess calories; F31.9 Bipolar disorder, unspecified; N18.9 Chronic kidney disease, unspecified; J44.9 Chronic obstructive pulmonary disease, unspecified; B18.2 Chronic viral hepatitis C; E11.22 Type 2 diabetes mellitus with diabetic chronic kidney disease; K43.9 Ventral hernia without obstruction or gangrene; I95.9 Hypotension, unspecified; R00.1 Bradycardia, unspecified; Y83.6 Removal of other organ (partial) (total) as the cause of abnormal reaction of the patient, or of later complication, without mention of misadventure at the time of the procedure; Z95.2 Presence of prosthetic heart valve; Z86.711 Personal history of pulmonary embolism; Z80.41 Family history of malignant neoplasm of ovary; Z80.3 Family history of malignant neoplasm of breast; Z80.49 Family history of malignant neoplasm of other genital organs; Z87.891 Personal history of nicotine dependence; Z79.4 Long term (current) use of insulin; Z79.01 Long term (current) use of anticoagulants; Z79.84 Long term (current) use of oral hypoglycemic drugs; Z79.890 Hormone replacement therapy; Z79.899 Other long term (current) drug therapy; Z88.1 Allergy status to other antibiotic agents
CPT/HCPCS: 36415; 51702; 74176; 80053; 81001; 85025; 85384; 85610; 85730; 86850; 86870; 96374; J0612; J0665; J0666; J0690; J1100; J1171; J1200; J1650; J1836; J1885; J2003; J2250; J2270; J2405; J2704; J2919; J3010; J7120

== ENCOUNTER 2025-03-24 22:47 | Inpatient (IN) | payer MEDICARE, MEDICAID, SELFPAY ==
--- OUTSIDE RECORDS SUMMARY | 2025-03-12 10:20 | XMS_ITS | Encounter Summary ---
Author Organization Healthcare Address [address] [place] [address] Care Team Providers Care Un[employer] Roboticist Name Role Phone Iman Cuevas MD Primary Care Provider [phone] Reason for Referral * Consultation (Routine) - Authorized Specialty Diagnoses / Procedures Referred By Miah lucas Referred To Contact Diagnoses Chronic constipation Bushra Graf PA [address] [facility] [address] [place] [address] Phone: tel: fax: Referral ID Status Reason Start Date Expiration Date V isits Requested Visits Authorized [id number] Authorized 03/12/2025 09/11/2026 1 1 Reason for Visit * Reason Comments Chronic constipation * Consultation (Routine) - Closed Specialty Diagnoses / Procedures Referred By Miah lucas Referred To Contact Diagnoses Chronic constipation Bushra Graf PA [address] [facility] [address] [place] [address] Phone: tel: fax: Referral ID Status Reason Start Date Expiration Date Visits Re quested Visits Authorized [id number] Closed 10/16/2024 04/17/2026 1 1 Encounter Details Date Type Department Care Team (Late st Contact Info) Description 03/12/2025 10:20 AM EDT Office Visit [facility] Medicine Specialties [address]nd [place] [address] Bushra Graf, SHELBY [address] [place] [address] Chronic constipation (Primary Dx); Hemorrhage [...] Recorded In the past [address] [facility] [employer], gas, oil, or water [employer] threatened to shut off services in your [...] Patient confirms they are physically located in [place]? Yes If the patient is not physically located in [place], the provider has confirmed with [employer] [...] Care Team (Late st Contact Info) Description 04/18/2025 11:00 AM EDT Office Visit [facility] Medicine Specialties [address], [address] [place] [address] Juventino Costa MD [address] [place] [address] 05/04/2025 1:00 PM EST Appointment Medical Office Building Cardiac Diagnostic Testing Medical Office Building Echo Lab [address] [facility], [address] [place] [address] 05/04/2025 1:45 PM EST Office Visit [facility] [place] [address] [facility], [address] [place] [address] Ruslan Sanderson MD [address] [place] [address] 07/23/2025 2:00 PM EST Office Visit [facility] Sleep Disorder Center [address], [address] [place] [address] Kassandra Khan APRN [address] [place] [address] 08/21/2025 3:30 PM EST Office Visit [facility] [address], [address] [place] [address] Alicia Jennings MD [address] [place] [address] 09/10/2025 10:40 AM EDT Office Visit [facility] Medicine Specialties [address], [address] [place] [address] Bushra Graf, SHELBY [address] [place] [address] Scheduled Referrals Name Type Priority [...] documented as of this encounter Care Teams Unmanned Aircraft Systems Roboticist Relationship Specialty Start Date End Date Iman Cuevas MD [address] [place] [phone] PCP - General Internal Medicine 12/19/24 documented as of this encounter
--- OUTSIDE RECORDS SUMMARY | 2025-03-12 10:20 | XMS_ITS | Encounter Summary ---
Author Organization Healthcare Address [address] [place] [address] Care Team Providers Care Transport Rn Name Role Phone Iman Cuevas MD Primary Care Provider [phone] Reason for Referral * Consultation (Routine) - Authorized Specialty Diagnoses / Procedures Referred By Miah lucas Referred To Contact Diagnoses Chronic constipation Bushra Graf PA [address] [facility] [address] [place] [phone] Phone: tel: fax: Referral ID Status Reason Start Date Expiration Date V isits Requested Visits Authorized [id number] Authorized 03/12/2025 09/11/2026 1 1 Reason for Visit * Reason Comments Chronic constipation * Consultation (Routine) - Closed Specialty Diagnoses / Procedures Referred By Miah lucas Referred To Contact Diagnoses Chronic constipation Bushra Graf PA [address] [facility] [address] [place] [address] Phone: tel: fax: Referral ID Status Reason Start Date Expiration Date Visits Re quested Visits Authorized [id number] Closed 10/16/2024 04/17/2026 1 1 Encounter Details Date Type Department Care Team (Late st Contact Info) Description 03/12/2025 10:20 AM EDT Office Visit [place] [facility] Medicine [facility]ties [address] [place] [address] Bushra Graf, SHELBY [address] [place] [address] Chronic constipation (Primary Dx); Hemorrhage [...] Recorded In the past 12 months has [facility], gas, oil, or water [employer] threatened to shut off services in your [...] Patient confirms they are physically located in [place]? Yes If the patient is not physically located in [place], the provider has confirmed with [employer] [...] Description 04/18/2025 11:00 AM EDT Office Visit [facility] Medicine Specialties [address] [place] [address] Juventino Csota MD [address] [place] [address] 05/04/2025 1:00 PM EST Appointment Medical Office Building Cardiac Diagnostic Testing Medical Office Building Echo Lab [address] [facility], [address] [place] [address] 05/04/2025 1:45 PM EST Office Visit [facility] [place] [address] [facility], [address] [place] [address] Ruslan Sanderson MD [address] [place] [address] 07/23/2025 2:00 PM EST Office Visit [facility] Sleep Disorder Center [address] [place] [address] Kassandra Khan APRN [address] [place] [address] 08/21/2025 3:30 PM EST Office Visit [facility] [address] [place] [address] Alicia Jennings MD [address] [place] [address] 09/10/2025 10:40 AM EDT Office Visit [facility] Medicine [facility] [address] [place] [address] Bushra Graf, SHELBY [address] [place] [address] Scheduled Referrals Name Type Priority [...] documented as of this encounter Care Teams Transport Rn Relationship Specialty Start Date End Date Iman Cuevas MD [address] [place] [phone] PCP - General Internal Medicine 12/19/24 documented as of this encounter
--- OUTSIDE RECORDS SUMMARY | 2025-03-12 10:20 | XMS_ITS | Encounter Summary ---
Author Organization Healthcare Address [address] [place] [address] Care Team Providers Care Forest Pathologist Name Role Phone Iman Cuevas MD Primary Care Provider [phone] Reason for Referral * Consultation (Routine) - Authorized Specialty Diagnoses / Procedures Referred By Miah lucas Referred To Contact Diagnoses Chronic constipation Bushra Graf PA [address] [facility] [address] [place] [phone] Phone: tel: fax: Referral ID Status Reason Start Date Expiration Date V isits Requested Visits Authorized [id number] Authorized 03/12/2025 09/11/2026 1 1 Reason for Visit * Reason Comments Chronic constipation * Consultation (Routine) - Closed Specialty Diagnoses / Procedures Referred By Miah lucas Referred To Contact Diagnoses Chronic constipation Bushra Graf PA [address] [facility] [address] [place] [address] Phone: tel: fax: Referral ID Status Reason Start Date Expiration Date Visits Re quested Visits Authorized [id number] Closed 10/16/2024 04/17/2026 1 1 Encounter Details Date Type Department Care Team (Late st Contact Info) Description 03/12/2025 10:20 AM EDT Office Visit [place] [facility] Medicine [facility]ties [address] [place] [address] Bushra Graf, SHELBY [address] [place] [address] Chronic constipation (Primary Dx); Hemorrhage [...] place to sleep or slept in a care home (including now)? No 01/25/2024 PHQ-9 Answer Date [...] Recorded In the past 12 months has [facility] [employer], gas, oil, or water [employer] threatened to shut off services in your [...] Patient confirms they are physically located in [place]? Yes If the patient is not physically located in [place], the provider has confirmed with [employer] [...] Description 04/18/2025 11:00 AM EDT Office Visit [facility] Medicine Specialties [address] [place] [address] Juventino Costa MD [address] [place] [address] 05/04/2025 1:00 PM EST Appointment Medical Office Building Cardiac Diagnostic Testing Medical Office Building Echo Lab [address] [facility], [address] [place] [address] 05/04/2025 1:45 PM EST Office Visit [facility] [place] [address] [facility], [address] [place] [address] Ruslan Sanderson MD [address] [place] [address] 07/23/2025 2:00 PM EST Office Visit [facility] Sleep Disorder Center [address] [place] [address] Kassandra Khan APRN [address] [place] [address] 08/21/2025 3:30 PM EST Office Visit [facility] [address] [place] [address] Alicia Jennings MD [address] [place] [address] 09/10/2025 10:40 AM EDT [facility] [address] [place] [address] Bushra Graf, SHELBY [address] [place] [address] Scheduled Referrals Name Type Priority [...] documented as of this encounter Care Teams Forest Pathologist Relationship Specialty Start Date End Date Iman Cuevas MD [address] [place] [phone] PCP - General Internal Medicine 12/19/24 documented as of this encounter
--- NOTE | 2025-03-24 23:00 | HMH.EDGENADL ---
Discharge Plan Disposition Patient Disposition: Home, Self-Care Clinical Impressions Clinical Impression: Anasarca, Dehiscence of wound, Abdominal wall fluid collections Discharge ED Provider: Philippe Mcdonald Adult HPI General Chief complaint: Abdominal Pain Stated complaint: Post Op Bleed Time Seen by Provider: 03/24/25 23:00 Related Data Home Medications ?Medication ?Instructions ?Recorded ?Confirmed apixaban 5 mg tablet (Eliquis) 5 mg PO BID 12/10/23 03/25/25 lamotrigine 100 mg tablet 50 mg PO BID 12/10/23 03/25/25 levetiracetam 500 mg tablet 2,000 mg PO BID 12/10/23 03/25/25 metoprolol tartrate 25 mg tablet 25 mg PO BID 12/10/23 03/25/25 montelukast 10 mg tablet 10 mg PO HS 12/10/23 03/25/25 sertraline 100 mg tablet 100 mg PO DAILY 12/10/23 03/25/25 quetiapine 50 mg tablet 50 mg PO DAILY 10/10/24 03/25/25 tiotropium 2.5 mcg-olodaterol 2.5 2 inh inhalation DAILY 11/14/24 03/25/25 mcg/actuation mist for inhalation (Stiolto Respimat) prucalopride 2 mg tablet 2 mg PO DAILY 01/11/25 03/25/25 Previous Rx's ?Medication ?Instructions ?Recorded empagliflozin 10 mg tablet 10 mg PO DAILY 90 days #90 tabs 02/05/25 (Jardiance) folic acid 1 mg tablet 1 mg PO DAILY 90 days #90 tabs 02/05/25 furosemide 40 mg tablet 80 mg (2 x 40 mg) PO BID 90 days 02/05/25 #360 tabs potassium chloride 20 mEq 20 meq PO BID 90 days #180 tabs 02/05/25 tablet,extended release(part/cryst) levothyroxine 100 mcg tablet 100 mcg PO DAILY 30 days #30 tabs 02/07/25 gabapentin 300 mg capsule 300 mg PO TID #90 caps 03/07/25 oxycodone 5 mg tablet 5 mg PO Q6H PRN pain #30 tabs 03/21/25 Allergies Allergy/AdvReac Type Severity Reaction Status Date / Time tetracycline Allergy Hives Verified 03/07/25 13:18 [facility] Disclaimer: The information contained in this section may have been updated after the patient was seen, as this information can be updated by other users. Medical History Hypothyroid Diabetes mellitus Allergies Tachycardia Low potassium syndrome Bipolar 1 disorder Neuropathy Stroke Seizures Asthma Chronic kidney disease COPD (chronic obstructive pulmonary disease) Surgical History Aortic valve replaced History of lung surgery History of cholecystectomy History of open heart surgery Family History Other Family history of cancer Family history of diabetes mellitus type II Family history of myocardial infarction Social History (Updated 03/14/25 @ 14:24 by Ann Rondon RN) Smoking Status: Never smoker smoking status stop date: year of quit is 2019 alcohol intake: former substance use type: IV drugs current occupational status: unemployed Travel in the last 8 weeks?: None marital status: single do you feel safe at home: Yes victim of physical abuse: No victim of emotional abuse: No victim of sexual abuse: No Other Medical History Have you received the Flu Vaccine for this season: No Have you received the Pneumonia Vaccine: No ROS Obtained: Yes All systems reviewed & no additional complaints except as documented Physical Exam General General appearance: alert and in no apparent distress Head Head exam: atraumatic and normocephalic Eye Eye exam: Present normal appearance, PERRL and EOMI ENT ENT exam: Present normal oropharynx and normal external ear exam Neck Neck exam: Present normal inspection and full ROM Chest Chest inspection: Present normal inspection and symmetric chest wall rise; Absent tenderness Respiratory Respiratory exam: Present normal lung sounds bilaterally; Absent respiratory distress Cardiovascular Cardiovascular exam: Present regular rate and normal rhythm Abdominal Exam Abdominal exam: Present soft; Absent distention, tenderness or guarding Extremities Exam Extremities exam: Present normal inspection; Absent edema or joint swelling Back Exam Back exam: Present normal inspection; Absent tenderness Neurological Exam Neurological exam: Present alert and oriented X3; Absent motor sensory deficit Psychiatric Psychiatric exam: Present normal affect and normal mood Skin Skin exam: Present warm, dry and normal color Lymphatic Lymphatic Findings: no adenopathy Medical Decision Making Medical Records Medical records reviewed: Yes I reviewed the patient's medical records. Screening: Per USPSTF and CDC recommendations, given the prevalence of disease in our region, it is our hospital?s policy to screen for HIV and viral Hepatitis for all patients aged 18 and over and those with ongoing risk factors. Michele Inquiry Pt receiving controlled substance: No Michele was queried for this patient: No Vital Signs: 03/24/25 23:11 03/24/25 23:30 03/25/25 00:00 Temperature 98.5 F Temperature Source Oral Pulse Rate 59 L 64 Pulse Rate [Radial] 62 Respiratory Rate 20 16 15 Blood Pressure 106/62 L 99/67 L Blood Pressure [Right Arm] 109/58 L Blood Pressure Mean 73 74 Blood Pressure Mean [Right Arm] 75 Blood Pressure Position Blood Pressure Position [Right Arm] Sitting 02 Sat by Pulse Oximetry 95 98 96 Oxygen Delivery Method Room Air 03/25/25 00:31 03/25/25 00:45 03/25/25 01:00 Temperature Temperature Source Pulse Rate 65 65 65 Pulse Rate [Radial] Respiratory Rate 18 16 15 Blood Pressure 100/35 L 100/59 L 76/59 L Blood Pressure [Right Arm] Blood Pressure Mean 82 74 64 Blood Pressure Mean [Right Arm] Blood Pressure Position Blood Pressure Position [Right Arm] 02 Sat by Pulse Oximetry 97 96 93 L Oxygen Delivery Method 03/25/25 01:12 03/25/25 01:30 03/25/25 02:20 Temperature 98.5 F Temperature Source Pulse Rate 59 L 62 62 Pulse Rate [Radial] Respiratory Rate 14 13 12 Blood Pressure 104/60 L 94/59 L 95/52 L Blood Pressure [Right Arm] Blood Pressure Mean 74 Blood Pressure Mean [Right Arm] Blood Pressure Position Supine Blood Pressure Position [Right Arm] 02 Sat by Pulse Oximetry 94 L 95 Oxygen Delivery Method Room Air Lab Data Lab results reviewed: Yes I reviewed the patient's lab results. Lab Results 03/24/25 23:25: WBC 6.4, RBC 2.71 L, Hgb 8.7 L, Hct 28.2 L, MCV 104.1 H, MCH 32.1 H, MCHC 30.9 L, RDW 17.6 H, Plt Count 176, MPV 10.3, Neut % (Auto) 62.8, Lymph % (Auto) 20.4, [place] % (Auto) 10.0 H, Eos % (Auto) 4.4, Baso % (Auto) 0.5, Neut # (Auto) 4.0, Lymph # (Auto) 1.3, [place] # (Auto) 0.6, Eos # (Auto) 0.3, Baso # (Auto) 0.0, PT 11.5, INR 1.04, APTT 22.5 L, Sodium 138, Potassium 3.7, Chloride 103, Carbon Dioxide 28, Anion Gap 10.7, BUN 17, Creatinine 1.00, Estimated Creat Clear 115, Estimated GFR 61, Est GFR ( Amer) 74, Glucose 91, Calcium 7.5 L, Phosphorus 3.8, Magnesium 2.2, Total Bilirubin 1.5 H, AST 34, ALT 13, Alkaline Phosphatase 73, Troponin I < 0.01, NT-Pro-B Natriuret Pep 704 H, Total Protein 6.1 L, Albumin 3.5, Globulin 2.6, Albumin/Globulin Ratio 1.3, TSH 6.74 H, Thyroxine (T4) 7.9, Blood Type O Positive 03/24/25 23:25 03/24/25 23:25 Orders (Tests/Meds): ED MEDICATIONS Generic Name Dose Route Start Last Admin Trade Name Freq PRN Reason Stop Dose Admin Acetaminophen 650 mg 03/25/25 01:57 Acetaminophen 325mg Tab PO 04/24/25 01:56 Q6HP PRN Fever or Mild Pain (1-3) Sodium Chloride 10 ml 03/25/25 00:19 03/25/25 00:20 Sodium Chloride 0.9% 10ml Syr (Rad Only) IV 04/24/25 00:18 10 ml NEEDED PRN Administration Maintain IV Site Discontinued Medications Generic Name Dose Route Start Last Admin Trade Name Freq PRN Reason Stop Dose Admin Acetaminophen 1,000 mg 03/25/25 00:47 03/25/25 00:56 Acetaminophen 500mg Tab PO 03/25/25 00:48 1,000 mg ONCE ONE Administration Furosemide 80 mg 03/24/25 23:06 03/24/25 23:48 Furosemide 40mg/4ml Vial IV 03/24/25 23:07 80 mg ONCE ONE Administration Iopamidol 75 ml 03/25/25 00:19 03/25/25 00:19 Iopamidol-370 (76%);100ml Bottle IV 03/25/25 00:20 75 ml ONCE ONE Administration Morphine Sulfate 4 mg 03/25/25 00:47 03/25/25 00:55 Morphine 4mg/Ml Syringe IV 03/25/25 00:48 4 mg ONCE ONE Administration ORDERS Category Date Time Status Type and Screen Stat BBK 03/24/25 23:[address] abdomen pelvis w con Stat Cat Scan 03/24/25 23:07 Completed Consult to Hospitalist Service [CONS] Routine Cons 03/25/25 01:49 Ordered CXR --portable [XR chest portable] Stat Exams 03/24/25 23:08 Completed BNP [NT Pro Brain Natriuretic Pep.] Stat Lab 03/24/25 23:25 Completed CBC w/Auto Diff [Complete Blood Count Auto Diff] Stat Lab 03/24/25 23:25 Completed CMP [Comprehensive Metabolic Panel] Stat Lab 03/24/25 23:25 Completed INR [Prothrombin Time INR] Stat Lab 03/24/25 23:25 Completed Lactic Acid Stat Lab 03/25/25 01:41 Ordered Magnesium Stat Lab 03/24/25 23:25 Completed PTT [Activated Partial Thrombo Time] Stat Lab 03/24/25 23:25 Completed Phosphorous Stat Lab 03/24/25 23:25 Completed T4 (Thyroxine) Stat Lab 03/24/25 23:25 Completed TSH [Thyroid Stimulating Hormone] Stat Lab 03/24/25 23:25 Completed Troponin I Q3H Lab 03/24/25 23:25 Completed UA [Urinalysis and Microscopic] Stat Lab 03/25/25 00:00 Received ECG Data Tracing #1: I reviewed this ECG and interpreted as documented below: Sinus bradycardia with nonspecific T wave changes in the precordial leads. Ventricular rate of 59 ECG initial impression date: 03/24/25 ECG initial impression time: 23:20 HEART Score History (anamnesis): Slightly suspicious ECG: Normal Age: <45 years Risk factors: 1-2 risk factors Troponin: </= normal limit HEART Score: 1 Medical Decision Narrative: 40-year-old female with extensive cardiac history, history of PEs, COPD, bipolar on Eliquis presents for abdominal wall dehiscence with watery blood. She was recently admitted here for KADEEM/BSO. History was obtained via interactive discussion with patient, EMS, chart review. On arrival, patient is [afebrile, hemodynamically stable, satting appropriately, alert, oriented x4, GCS 15], moving all extremities spontaneously. Full physical exam performed and significant for diffuse anasarca, epigastric hernia that is easily reducible, small dehiscence in the abdominal incision that is leaking watery blood. Differential includes but is not limited to wound dehiscence, hematoma, active bleeding, heart failure, renal failure,. Patient was given 80 of IV Lasix, IV morphine, Tylenol for symptomatic management and correction of underlying abnormalities. Workup initiated including CBC CMP PT/INR CT abdomen pelvis with IV contrast urinalysis EKG BNP troponin. On re-evaluation, patient [remains afebrile, HD stable.] Laboratory workup independently interpreted by me and significant for stable hemoglobin from prior, normal renal function, normal platelet count, no significant electrolyte derangement, BNP mildly elevated, negative initial troponin. Imaging independently interpreted by me and significant for multiple findings. Patient has chronic abdominal wall hematomas that are not larger in size. No obvious abscess. She does have a complex intra-abdominal fluid, likely from recent surgery. There is some concern for gas in the portal venous system. On exam, patient's hernia has no evidence of strangulation or ischemia.. See radiology read for full review of final results. Given patient history, exam and workup, patient's presentation most likely represents surgical wound dehiscence secondary to anasarca, stable anemia. I called and spoke with Dr. Balbuena who accepted the patient. I also called and spoke with the hospital team for consultation. Procedures Risk/Benefits of Procedure(s) Were Explained: Yes Critical Care Critical Care Time Critical Care Time: No
--- NOTE | 2025-03-24 23:07 | CT_ITS ---
PROCEDURE INFORMATION: Exam: CT Abdomen And Pelvis With Contrast Exam date and time: 03/25/2025 12:14 AM Age: 40 years old Clinical indication: Abdominal pain; Prior surgery; Surgery date: 3-7 days post-operative; Surgery type: S/P vicki, ; additional info: S/P vicki, dehiscense with copious fluid and blood TECHNIQUE: Imaging protocol: Computed tomography of the abdomen and pelvis with contrast. Radiation optimization: All CT scans at this facility use at least one of these dose optimization techniques: automated exposure control; mA and/or kV adjustment per patient size (includes targeted exams where dose is matched to clinical indication); or iterative reconstruction. Contrast material: ISOVUE; Contrast volume: 75 ml; Contrast route: IV; COMPARISON: CT ABDOMEN PELVIS WO CON 03/19/2025 1:59 PM FINDINGS: Lungs: Chronic bandlike atelectasis or fibrosis in the lung bases. Heart: Heart size normal. Prior AV valve replacement. Esophagus: The visualized distal esophagus is largely contracted without gross abnormality. Liver: Hepatomegaly measuring 22 cm craniocaudal. Mild liver contour irregularity suspicious for changes of cirrhosis. No mass lesions. No intrahepatic biliary ductal dilatation. Trace peripheral air in the anterior left hepatic lobe concerning for small volume portal gas. Gallbladder and biliary ducts: Prior cholecystectomy with no significant dilatation of the common bile duct. Pancreas: Normal. No inflammatory changes or ductal dilation. Spleen: Mild splenomegaly measuring 13.9 cm. No focal splenic lesions. Adrenal glands: Normal. No adrenal mass. Kidneys and ureters: No acute abnormalities. No hydronephrosis or hydroureter. 5 mm nonobstructive right renal stone. 4 mm nonobstructive left renal stone. No ureteral stones. Stomach and bowel: Stomach is largely contracted. The small bowel is nondilated with no gross abnormality. Midline epigastric anterior abdominal wall hernia containing a short segment of transverse colon. There is mild wall thickening in the herniated segment, with no definite bowel wall pneumatosis although trace amounts of gas are present in the small mesenteric venous branches tracking from this segment which may indicate strangulated hernia, correlate clinically. Appendix: The appendix is normal in caliber with no evidence of appendicitis. Intraperitoneal space: No peritoneal free air. Small volume intrapelvic complex peritoneal fluid measuring 30 Hounsfield units which could represent small volume postoperative blood products or inflammatory exudates. No rim enhancing fluid collections suggestive of abscess are identified. Vasculature: No acute vascular abnormalities. Lymph nodes: Mildly enlarged bilateral inguinal and iliac nodes, nonspecific. Urinary bladder: Nagy catheter well positioned in the bladder lumen. Urinary bladder is Nagy contracted, limiting assessment. Question mild wall thickening and adjacent stranding, correlate clinically for evidence of cystitis. Reproductive: Prior hysterectomy. Right ovary is not identified. 5.3 x 3.0 x 2.9 cm ovoid left adnexal structure associated with the left gonadal vein probably represents left ovary, and appears mildly enlarged with adjacent stranding. Consider Doppler evaluation to exclude ovarian torsion. If the left ovary is known to be surgically absent, then this might represent a small intrapelvic hematoma near the vaginal cuff. Bones/joints: Prior median sternotomy. Soft tissues: Moderate-severe soft tissue stranding/edema in the peripheral subcutaneous tissues suggesting volume overload/systemic edema. Postoperative changes in the anterior abdominal wall with small volume postoperative hematomas along the lower anterior abdominal wall incision bed but no evidence of active hemorrhage. IMPRESSION: 1. Postoperative changes of recent prior hysterectomy. 2. Small volume postoperative hematomas tracking within the low anterior abdominal wall incision bed with no evidence of active hemorrhage. 3. Small volume complex peritoneal fluid in the pelvis near the vaginal cuff most consistent with a small amount of residual postoperative hemorrhage. No intraperitoneal free air. 4. Left adnexal ovoid 5.3 x 3.0 x 2.9 cm structure might represent additional extension of complex fluid but could represent an enlarged left ovary. If the left ovary has not been surgically removed, recommend Doppler assessment to exclude features of torsion. 5. Small volume portal venous gas in the left hepatic lobe. 6. Midline epigastric anterior abdominal wall hernia which contains a short segment of transverse colon. There is trace venous gas tracking in the SMV branches from the hernia and mild wall thickening in a portion of the herniated bowel segment although no douglas pneumatosis is appreciated. Correlate clinically for strangulated hernia. 7. Small bilateral nonobstructive renal stones. 8. Moderate-severe generalized anasarca/systemic edema. 9. Hepatic cirrhosis and hepatomegaly. 10. Mild splenomegaly. 11. Mildly enlarged bilateral inguinal and iliac nodes, nonspecific. 12. These findings initiated a critical results reporting process. An addendum will be issued at the time of clinician notification.
--- NOTE | 2025-03-24 23:08 | XR_ITS ---
PROCEDURE INFORMATION: Exam: XR Chest Exam date and time: 03/25/2025 12:22 AM Age: 40 years old Clinical indication: Other: Anisarca TECHNIQUE: Imaging protocol: Radiologic exam of the chest. Views: 1 view. COMPARISON: 1. CT CHEST WO CON 10/06/2020 8:[address] ABDOMEN PELVIS W CON 03/25/2025 12:14 AM FINDINGS: Lungs: Pulmonary vasculature grossly normal. Low lung volumes with mild bilateral hypoventilatory changes and patchy basilar atelectasis as seen on comparison abdomen CT. No gross pulmonary infiltrates or edema pattern. Pleural spaces: No pleural effusion. No pneumothorax. Heart/Mediastinum: Heart size upper limits of normal for technique. No tracheal/mediastinal shift. Bones/joints: Prior median sternotomy. No acute osseous abnormalities are identified. IMPRESSION: 1. No acute thoracic process. 2. Low lung volumes and hypoventilatory changes.
[2025-03-24 23:11] VITALS: BP 109/58; PULSE 62; RESP 20; TEMP 36.9; O2SAT 95; BMI 38.9
--- NOTE | 2025-03-24 23:20 | ECG_ITS ---
APPROVED REPORT Exam: Resting ECG HR:59 bpm ECG Measurements Heart Rate 59 AXES MA 145 P 51 QRSd 87 QRS 89 QT 479 T 15 QTc 477 Conclusion SINUS BRADYCARDIA LOW QRS VOLTAGE IN PRECORDIAL LEADS [QRS DEFLECTION < 1.0 mV IN CHEST LEADS] NONSPECIFIC ST & T-WAVE ABNORMALITY PROLONGED QT INTERVAL ABNORMAL ECG UNCONFIRMED REPORT Electronically signed by : KIM GREEN, 03/25/2025 23:58:14
--- OUTSIDE RECORDS SUMMARY | 2025-03-24 23:24 | XMS_ITS | Encounter Summary ---
Author Organization Healthcare Address [address] [place] [address] Care Team Providers Care Cambering Machine Operator Name Role Phone Ankur Main MD Primary Care Provider [phone] Iman Cuevas MD Primary Care Provider [phone] Reason for Visit * Reason Onset Date Comments Med Refill 06/30/2021 Encounter Details Date Type Department Care Team (Late st Contact Info) Description 06/30/2021 Refill [facility] Medicine Specialties [address], [address] [place] [address] Juventino Costa MD [address] [place] [address] Moderate persistent asthma, unspecified whether [...] Description 04/18/2025 11:00 AM EDT Office Visit [facility] Medicine Specialties [address], [address] [place] [address] Juventino Costa MD [address] [place] [address] 05/04/2025 1:00 PM EST Appointment Medical Office Building Cardiac Diagnostic Testing Medical Office Building Echo Lab [address] [facility] [place], [address] [place] [address] 05/04/2025 1:45 PM EST Office Visit [facility] [place] [address] [facility], [address] [place] [address] Ruslan Sanderson MD [address] [place] [address] 07/23/2025 2:00 PM EST Office Visit [facility] Sleep Disorder Center [address], [address]th [place] [address] Kassandra Khan, OIL AGENT [address] [place] [address] 08/21/2025 3:30 PM EST Office Visit [facility] [address], [address] [place] [address] Alicia Jennings MD [address] [place] [address] 09/10/2025 10:40 AM EDT Office Visit [facility] Medicine Specialties [address], [address] [place] [address] Bushra Graf, SHELBY [address] [place] [address] documented as of this encounter [...] documented as of this encounter Care Teams Cambering Machine Operator Relationship Specialty Start Date End Date Ankur Main MD [address] [place] [address] PCP - General 11/01/20 12/18/24 Iman Cuevas MD [address] [place] [address] PCP - General Internal Medicine 12/19/24 documented as of this encounter
--- OUTSIDE RECORDS SUMMARY | 2025-03-24 23:24 | XMS_ITS | Encounter Summary ---
Author Organization Healthcare Address [address] [place] [address] Care Team Providers Care Flooring Salesperson Name Role Phone Ankur Main MD Primary Care Provider [phone] Iman Cuevas MD Primary Care Provider [phone] Reason for Visit * Reason Onset Date Comments Med Refill 02/19/2022 Encounter Details Date Type Department Care Team (Late st Contact Info) Description 02/19/2022 Refill [facility] Internal Medicine [address], [address]rd [place] [address] Ankur Main MD [address] [place] [address] Polyneuropathy associated with underlying disease [...] Description 04/18/2025 11:00 AM EDT Office Visit [facility] Medicine Specialties [address], [address] [place] [address] Juventino Costa MD [address] [place] [address] 05/04/2025 1:00 PM EST Appointment Medical Office Building Cardiac Diagnostic Testing Medical Office Building Echo Lab [address] [facility], [address] [place] [address] 05/04/2025 1:45 PM EST Office Visit [facility] [place] [address] [facility], [address] [place] [address] Ruslan Sanderson MD [address] [place] [address] 07/23/2025 2:00 PM EST Office Visit [facility] Sleep Disorder Center [address]th [place] [address] Kassandra Khan, APOLLO [address] [place] [address] 08/21/2025 3:30 PM EST [facility] [address], [address] [place] [address] Alicia Jennings MD [address] [place] [address] 09/10/2025 10:40 AM EDT Office Visit [facility] Medicine Specialties [address], [address] [place] [address] Bushra Graf PA [address] [place] [address] documented as of this encounter Visit Diagnoses [...] documented as of this encounter Care Teams Flooring Salesperson Relationship Specialty Start Date End Date Ankur Main MD [address] [place] [address] PCP - General 11/01/20 12/18/24 Iman Cuevas MD [address] [place] [address] PCP - General Internal Medicine 12/19/24 documented as of this encounter
--- OUTSIDE RECORDS SUMMARY | 2025-03-24 23:24 | XMS_ITS | Encounter Summary ---
Author Organization Healthcare Address [address] [place] [address] Care Team Providers Care Head Wood Grinder Name Role Phone Iman Cuevas MD Primary Care Provider [phone] Encounter Details Date Type Department Care Team [...] the past 12 months has th e [email or web address], gas, oil, or water needmade threatened to shut off services in your [...] Description 04/18/2025 11:00 AM EDT Office Visit [facility] Medicine Specialties [address], [address] [place] [address] Juventino Costa MD [address] [place] [address] 05/04/2025 1:00 PM EST Appointment Medical Office Building Cardiac Diagnostic Testing Medical Office Building Echo Lab [address] [facility], [address] [place] [address] 05/04/2025 1:45 PM EST Office Visit [facility] [place] [address] [facility], [address] [place] [address] Ruslan Sanderson MD [address] [place] [address] 07/23/2025 2:00 PM EST Office Visit [facility] Sleep Disorder Center [address], [address]th [place] [address] Kassandra Khan, HOME CARE ASSOCIATE [address] [place] [address] 08/21/2025 3:30 PM EST Office Visit [facility] [address], [address] [place] [address] Alicia Jennings MD [address] [place] [address] 09/10/2025 10:40 AM EDT Office Visit [facility] Medicine Specialties [address], 2nd [place] [address] Bushra Grfa PA [address] [place] [address] documented as of this encounter [...] documented as of this encounter Care Teams Head Wood Grinder Relationship Specialty Start Date End Date Iman Cuevas MD [address] [place] [address] PCP - General Internal Medicine 12/19/24 documented as of this encounter
--- OUTSIDE RECORDS SUMMARY | 2025-03-24 23:24 | XMS_ITS | Encounter Summary ---
Author Organization Healthcare Address [address] [place] [address] Care Team Providers Care Crabbing Machine Operator Name Role Phone Ankur Main MD Primary Care Provider Iman Cuevas MD Primary Care Provider [phone] Reason for Visit * Reason Onset Date Comments Med Refill 06/19/2021 Encounter Details Date Type Department Care Team (Late st Contact Info) Description 06/19/2021 Refill [facility] Internal Medicine [address], [address]rd [place] [address] Ankur Main MD [address] [place] [address] Social History Tobacco Use Types [...] Description 04/18/2025 11:00 AM EDT Office Visit [facility] Medicine Specialties [address], [address] [place] [address] Juventino Costa MD [address] [place] [address] 05/04/2025 1:00 PM EST Appointment Medical Office Building Cardiac Diagnostic Testing Medical Office Building Echo Lab [address] [facility], [address] [place] [address] 05/04/2025 1:45 PM EST Office Visit [facility] [place] [address] [facility], [address] [place] [address] Ruslan Sanderson MD [address] [place] [address] 07/23/2025 2:00 PM EST Office Visit [facility] Sleep Disorder Center [address], 4th [place] [address] Kassandra Khan APRN [address] [place] [address] 08/21/2025 3:30 PM EST Office Visit [facility] [address], [address] [place] [address] Alicia Jennings MD [address] [place] [address] 09/10/2025 10:40 AM EDT Office Visit [facility] Medicine Specialties [address] [place] [address] Bushra Graf, PA [address] [place] [address] documented as of this encounter [...] documented as of this encounter Care Teams Crabbing Machine Operator Relationship Specialty Start Date End Date Ankur Main MD [address] [place] [address] PCP - General 11/01/20 12/18/24 Iman Cuevas MD [address] [place] [address] PCP - General Internal Medicine 12/19/24 documented as of this encounter
--- OUTSIDE RECORDS SUMMARY | 2025-03-24 23:24 | XMS_ITS | Encounter Summary ---
Author Organization Healthcare Address [address] [place] [address] Care Team Providers Care Beverage Host Name Role Phone Ankur Main MD Primary Care Provider [phone] Iman Cuevas MD Primary Care Provider [phone] Reason for Visit * Reason Onset Date Comments Med Refill 06/29/2021 Encounter Details Date Type Department Care Team (Late st Contact Info) Description 06/29/2021 Refill [facility] Medicine Specialties [address], [address] [place] [address] Juventino Costa MD [address] [place] [address] Moderate persistent asthma, unspecified whether [...] Description 04/18/2025 11:00 AM EDT Office Visit [facility] Medicine Specialties [address], [address] [place] [address] Juventino Costa MD [address] [place] [address] 05/04/2025 1:00 PM EST Appointment Medical Office Building Cardiac Diagnostic Testing Medical Office Building Echo Lab [address] [facility], [address] [place] [address] 05/04/2025 1:45 PM EST Office Visit [facility] [place] [address] [facility], [address] [place] [address] Ruslan Sanderson MD [address] [place] [address] 07/23/2025 2:00 PM EST Office Visit [facility] Sleep Disorder Center [address], 4th [place] [address] Kassandra Khan APRN [address] [place] [address] 08/21/2025 3:30 PM EST Office Visit [facility] [address], [address] [place] [address] Alicia Jennings MD [address] [place] [address] 09/10/2025 10:40 AM EDT Office [facility] Specialties [address], [address] [place] [address] Bushra Graf PA [address] [place] [address] documented as of this encounter [...] documented as of this encounter Care Teams Beverage Host Relationship Specialty Start Date End Date Ankur Main MD [address] [place] [address] PCP - General 11/01/20 12/18/24 Iman Cuevas MD [address] [place] [address] PCP - General Internal Medicine 12/19/24 documented as of this encounter
--- OUTSIDE RECORDS SUMMARY | 2025-03-24 23:24 | XMS_ITS | Encounter Summary ---
Author Organization Healthcare Address [address] [place] [address] Care Team Providers Care Ip Architect Name Role Phone Ankur Main MD Primary Care Provider [phone] Iman Cuevas MD Primary Care Provider [phone] Reason for Visit * Reason Onset Date Comments Med Refill 02/28/2021 Encounter Details Date Type Department Care Team (Late st Contact Info) Description 02/28/2021 Refill [facility] Internal Medicine [address], [address]rd [place] [address] Roxana Abdul MD [address] [place] [address] Polyneuropathy associated with underlying disease [...] Description 04/18/2025 11:00 AM EDT Office Visit [facility] Medicine Specialties [address], [address] [place] [address] Juventino Costa MD [address] [place] [address] 05/04/2025 1:00 PM EST Appointment Medical Office Building Cardiac Diagnostic Testing Medical Office Building Echo Lab [address] [facility], [address] [place] [address] 05/04/2025 1:45 PM EST Office Visit [facility] [employer] [place] [address] [facility], [address] [place] [address] Ruslan Sanderson MD [address] [place] [address] 07/23/2025 2:00 PM EST Office Visit [facility] Sleep Disorder Center [address], 4th [place] [address] Kassandra Khan, SENIOR STATISTICIAN [address] [place] [address] 08/21/2025 3:30 PM EST Office Visit [facility] [address], [address] [place] [address] Alicia Jennings MD [address] [place] [address] 09/10/2025 10:40 AM EDT Office Visit [facility] Medicine Specialties [address], [address] [place] [address] Bushra Graf, PA [address] [place] [address] documented as of this encounter [...] documented as of this encounter Care Teams Ip Architect Relationship Specialty Start Date End Date Ankur Main MD [address] [place] [address] PCP - General 11/01/20 12/18/24 Iman Cuevas MD [address] [place] [address] PCP - General Internal Medicine 12/19/24 documented as of this encounter
--- OUTSIDE RECORDS SUMMARY | 2025-03-24 23:24 | XMS_ITS | Clinical Summary ---
Author Organization Healthcare Address [address] [place] [address] Care Team Providers Care Managed Care Manager Name Role Phone Iman Cuevas MD Primary Care Provider [phone] Allergies Active Allergy Reactions Criticality Noted Date Comments Wound Dressings Rash Low 09/10/2020 Rash/blisters Tetracycline Rash Low 10/05/2019 Medications aspirin 81 MG EC tablet Take by mouth in the morning. 04/04/20 20 Active levonorgestrel (Mirena, 52 MG,) 20 MCG/24HR IUD Take by mouth See administration instructions. Inserted on 09/04/2020 Lot Number: [id number] Expiration Date: Nov 2022 NDC: [id number] 09/05/19 21 Active magnesium oxide (Mag-Ox) 400 [...] needed for mild pain. Active nystatin (Mycostatin) 061341 UNIT/GM powderIndication s:Healthcare maintenance Apply topically 1 [...] bronchitis with COPD (chronic obstructive pulmonary disease) ([facility]),Modera te persistent asthma, unspecified whether complicated Inhale 2 puffs 4 (four) times a day. 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 Depression 06/28/2020 Lung nodule 05/29/2020 [...] [facility] [address], [address] [place] [address] Bushra Graf, PA Chronic constipation (Primary Dx); Hemorrhage of rectum and anus; Obesity, Class III, BMI 40-49.9 (morbid obesity) 03/12/2025 Travel 02/28/2025 Telephone [facility] [place] [address] [facility], [address] [place] [address] Ruslan Sanderson MD HCN Clinical Concern/Question 01/23/2025 Refill [facility] [place] [address] [facility], [address] [place] [address] Rusaln Sanderson MD History of pulmonic valve replacement 01/08/2025 Telephone [facility] [address], [address] [place] [address] Marybel Dunne 01/05/2025 [facility] [address], [address] [place] [address] Cailsta Jacobs APRN Focal epilepsy ([facility]) 01/02/2025 Telephone [facility] [address], [address] [place] [address] Jocelyn Arevalo New Med Request [...] Danyelle Brody Colon cancer Maternal Grandmother Shelly Charlotte Diabetes Maternal Grandmother Shellydontae Barronddy Conversions - [...] [facility] [address], [address] [place] [address] Juventino Costa MD [address] [place] [address] 05/04/2025 1:00 PM EST Appointment Medical Office Building Cardiac Diagnostic Testing Medical Office Building Echo Lab [address] [facility], [address] [place] [address] 05/04/2025 1:45 PM EST Office Visit [facility] [place] [address], [address] [place] [address] Ruslan Sanderson MD [address] [place] [address] 07/23/2025 2:00 PM EST Office Visit [facility] [address]th [place] [address] Kassandra Khan, CRAB STEAMER [address] [place] [address] 08/21/2025 3:30 PM EST [facility] [address], [address] [place] [address] Alicia Jennings MD [address] [place] [address] 09/10/2025 10:40 AM EDT Office Visit [facility] [address], [address] [place] [address] Bushra Graf PA [address] [place] [address] Health Maintenance Due Date Last Done Comments [facility]Medic[facility] Annual Wellness (AWV) 1985 [facility]-Infant/Child/Adol SDOH Screenings 1985 [id number] Vaccine (#1) 02/02/1988 Diabetes: Dental Exam 1993 [...] 5.3 <5.7 % 05/10/2024 1:14 PM EST [facility] Blood Venous blood specimen / Unknown Venipuncture / Unknown 05/10/2024 10:37 AM EST 05/10/2024 10:38 AM EST Narrative [facility] - 05/10/2024 1:14 PM EST HA1C Interpretive Data: Diagnosis of Diabetes: Diabetic > or = 6.5% Pre-diabetic 5.7 to 6.4% Non-diabetic < or = 5.6% Glycemic Targets for Type I and Type II Diabetics: Non- Adults <7.0% Adults <6.0% Children and Adolescents <7.5% Source: [place] [employer]. Standards of medical care in diabetes,2017. Diabetes Care.2017:40 (suppl 1):S1-S135. HbA1c assay performed by an ion-exchange chromatography method that is certified traceable to the DCCT. Astrid Alvarez CRAB STEAMER LAB BLOOD ORDERABLES Kaley l Result [facility] [address] [place] [address] * HIV 1 & 2 Antibody/Antigen Screen (04/28/2022 1:47 PM EST) HIV 1 & 2 Antibody/Anti gen Screen Nonreactive Nonreactive 04/28/2022 4:48 PM EST [facility] Blood Venous blood specimen / Unknown Venipuncture / Unknown 04/28/2022 1:47 PM EST 04/28/2022 2:22 PM EST Carlos Rodriguez MD LAB BLOOD ORDERABLES Final Result [facility] [address] [place] [address] * Cytology (09/04/2020 12:00 AM EDT) 09/04/2020 09/05/2020 8:5 1 AM EDT Narrative COPATH - 09/12/2020 12:05 PM EDT [facility] MR #: [id number] [facility] [place] [place], [place] [address] 1985 (Age: 35) FW Collect Date: 09/04/2020 00:00 Receipt Date: 09/05/2020 08:51 Page 1 DEPARTMENT OF PATHOLOGY AND LABORATORY MEDICINE CYTOPATHOLOGY REPORT Email: [email or web address] ATTENDING MD/Practitioner: JOAN ROWE Service: [id number] Location: [facility] Reported: 09/12/2020 12:05 Collected: 09/04/2020 00:00 INTERPRETATION A. THIN PREP (CERVICAL/VAGINAL): ATYPICAL SQUAMOUS CELLS - UNDETERMINED SIGNIFICANCE(ASCUS) REACTIVE CELLULAR CHANGES. ORGANISMS PRESENT CONSISTENT WITH ACTINOMYCES SPECIES. SATISFACTORY FOR EVALUATION; ENDOCERVICAL/ TRANSFORMATION ZONE COMPONENT PRESENT. Slide scanned and imaged by [employer] ThinPrep Imaging System with manual review of [...] results is suggested (please call Microbiology at [phone] for results). CLINICAL INFORMATION: Menstrual History: Irregular [...] of cervix uteri F: A; DX IMAGE 54922, 00828 C\V (PO) SNOMED CODES: A; C0R856 E1070 [id number] M- 80455 [id number] M-[id number] M-[id number] In cases where a pathologist has signed out the report, the service has been rendered in part by a resident. The signing pathologist has performed and is responsible for the reported pathologic evaluation. us Christie Chau CRAB STEAMER LAB PATHOLOGY ORDERABLES [facility] Result COPATH from Last 3 Months or [...] Documents on File Type Date Recorded Patient Facility Security Officer Expl anation Advance Directives and Living Will 12/31/2020 Care Teams Managed Care Manager Relationship Specialty Start Date End Date Iman Cuevas MD [address] [phone] PCP - General Internal Medicine 12/19/24
--- OUTSIDE RECORDS SUMMARY | 2025-03-24 23:24 | XMS_ITS | Encounter Summary ---
Author Organization Healthcare Address [address] [place] [address] Care Team Providers Care Managing Principal Name Role Phone Ankur Main MD Primary Care Provider [phone] Nancy Hernandez [employer] Unavailable Unavailable Iman Cuevas MD Primary Care Provider [phone] Encounter Details Date Type Department Care Team (Late st Contact Info) Description 08/01/2018 Orders Only External Location [address] [place] [address] Social History Tobacco Use Types Packs/Day Years [...] Description 04/18/2025 11:00 AM EDT [facility] [address], [address] [place] [address] Juventino Costa MD [address] [place] [address] 05/04/2025 1:00 PM EST Appointment Medical Office Building Cardiac Diagnostic Testing Medical Office Building Echo Lab [address], [address] [place] [address] 05/04/2025 1:45 PM EST Office Visit [facility] [place] [address] [facility], [address] [place] [address] Ruslan Sanderson MD [address] [place] [address] 07/23/2025 2:00 PM EST Office Visit [facility] [address], [address]th [place] [address] Kassandra Khan APRN [address] [place] [address] 08/21/2025 3:30 PM EST Office Visit [facility] [address], [address] [place] [address] Alicia Jennings MD [address] [place] [address] 09/10/2025 10:40 AM EDT Office Visit [facility] [address], 2[address] [place] [address] Bushra Graf PA [address] [place] [address] documented as of this encounter [...] documented as of this encounter Care Teams Managing Principal Relationship Specialty Start Date End Date Ankur Main MD [address] [address] PCP - General 11/01/20 12/18/24 Iman Cuevas MD [address] [place] [place] [address] PCP - General Internal Medicine 12/19/24 Nancy Hernandez, [place] [id number] Huc Ob Sane Rn 03/25/20 03/25/20 documented as of this encounter
--- OUTSIDE RECORDS SUMMARY | 2025-03-24 23:24 | XMS_ITS | Encounter Summary ---
Author Organization Healthcare Address [address] [place] [address] Care Team Providers Care Long Filler Cigar Roller Machine Name Role Phone Ankur Main MD Primary Care Provider [phone] Iman Cuevas MD Primary Care Provider [phone] Reason for Visit * Reason Onset Date Comments Med Refill 01/24/2021 Encounter Details Date Type Department Care Team (Late st Contact Info) Description 01/24/[address] [facility] Internal Medicine [address]rd [place] [address] Ankur Main MD [address] [place] [address] Polyneuropathy associated with underlying disease [...] Upcoming Encounters Date Type Department Care Team ([facility] st Contact Info) Description 04/18/2025 11:00 AM EDT Office Visit [facility] Medicine Specialties [address], [address] [place] [address] Juventino Costa MD [address] [place] [address] 05/04/2025 1:00 PM EST Appointment Medical Office Building Cardiac Diagnostic Testing Medical Office Building Echo Lab [address] [facility], [address] [place] [address] 05/04/2025 1:45 PM EST Office Visit [facility] [place] [address] [facility], [address] [place] [address] Ruslan Sanderson MD [address] [place] [address] 07/23/2025 2:00 PM EST Office Visit [facility] Sleep Disorder Center [address] 4th [place] [address] Kassandra Khan, APOLLO [address] [place] [address] 08/21/2025 3:30 PM EST Office Visit [facility] [address] [place] [address] Alicia Jennings MD [address] [place] [address] 09/10/2025 10:40 AM EDT Office Visit [facility] Medicine Specialties [address], [address] [place] [address] Bushra Graf, SHELBY [address] [place] [address] documented as of this encounter [...] documented as of this encounter Care Teams Long Filler Cigar Roller Machine Relationship Specialty Start Date End Date Ankur Main MD [address] [place] [address] PCP - General 11/01/20 12/18/24 Iman Cuevas MD [address] [place] [address] PCP - General Internal Medicine 12/19/24 documented as of this encounter
--- OUTSIDE RECORDS SUMMARY | 2025-03-24 23:24 | XMS_ITS | Encounter Summary ---
Author Organization Healthcare Address [address] [place] [address] Care Team Providers Care Microbiological Analyst Name Role Phone Ankur Main MD Primary Care Provider [phone] Iman Cuevas MD Primary Care Provider [phone] Encounter Details Date Type Department Care Team (Late st Contact Info) Description 01/24/2024 Orders Only External Location [address] [place] [address] Skip Tineo MD Social History Tobacco Use [...] place to sleep or slept in a half-way (including now)? No 01/25/2024 Safety and Environment [...] Description 04/18/2025 11:00 AM EDT Office Visit [facility] Medicine Specialties [address], [address] [place] [address] Juventino Costa MD [address] [facility] [address] [place] [address] 05/04/2025 1:00 PM EST Appointment Medical Office Building Cardiac Diagnostic Testing Medical Office Building Echo Lab [address] [facility], [address] [place] [address] 05/04/2025 1:45 PM EST Office Visit [facility] [place] [address] [facility], [address] [place] [address] Ruslan Sanderson MD [address] [place] [address] 07/23/2025 2:00 PM EST Office Visit [facility] Sleep Disorder Center [address]th [place] [address] Kassandra Khan APRN [address] [place] [address] 08/21/2025 3:30 PM EST [facility] [address] [place] [address] Alicia Jennings MD [address] [place] [address] 09/10/2025 10:40 AM EDT Office Visit [facility] Medicine Specialties [address], [address] [place] [address] Bushra Graf PA [address] [place] [address] documented as of this encounter [...] documented as of this encounter Care Teams Microbiological Analyst Relationship Specialty Start Date End Date Ankur Main MD [address] [place] [address] PCP - General 11/01/20 12/18/24 Iman Cuevas MD [address] [place] [address] PCP - General Internal Medicine 12/19/24 documented as of this encounter
--- OUTSIDE RECORDS SUMMARY | 2025-03-24 23:24 | XMS_ITS | Encounter Summary ---
Author Organization Healthcare Address [address] [place] [address] Care Team Providers Care Steamer Gum Candy Name Role Phone Iman Cuevas MD Primary Care Provider Reason for Visit * Reason Onset Date Comments HCN Clinical Concern/Question 02/28/2025 Encounter Details Date Type Department Care Team ([facility] st Contact Info) Description 02/28/2025 Telephone [facility] [place] [address] [facility], [address] [place] [address] Ruslan Sanderson MD [address] [place] [address] HCN Clinical Concern/Question Social History [...] 03/02/2025 8:21 AM EDT Letter faxed to [phone] * Telephone Encounter - Ruslan Sanderson MD - 03/01/2025 11:13 AM EDT Ok to proceed with surgery from cardiac stand point. * Telephone Encounter - Ilana Rolle - 02/28/2025 2:51 PM EDT Clinical Concern/Question Reason for Call: Patient is needing cardiac clearance for hysterectomy being done at [facility] on 03/14. FAX: [phone] Best contact number: [phone] (home) Optimal time of day to reach caller: ANYTIME Additional comments/information from caller: None Note: Please do not reply to this message. Follow-up communication and further actions as a result of this message need to be communicated with the patient directly, if the patient is not active onMyChart. If the patient is active on MyChart, they will receive notification of the communication/outcome via NIhart. documented in this encounter Plan of Treatment Upcoming Encounters Date Type Department Care Team (Late st Contact Info) Description 04/18/2025 11:00 AM EDT Office Visit [facility] Medicine Specialties [address], [address]nd [place] [address] Juventino Costa MD [address] [place] [address] 05/04/2025 1:00 PM EST Appointment Medical Office Building Cardiac Diagnostic Testing Medical Office Building Echo Lab [address] [facility], [address] [place] [address] 05/04/2025 1:45 PM EST Office Visit [facility] [place] [address] [facility], [address] [place] [address] Ruslan Sanderson MD [address] [place] [address] 07/23/2025 2:00 PM EST Office Visit [facility] Sleep Disorder Center [address] [place] [address] Kassandra Khan APRN [address] [place] [address] 08/21/2025 3:30 PM EST [facility] [address] [place] [address] Alicia Jennings MD [address] [place] [address] 09/10/2025 10:40 AM EDT Office Visit [facility] [address], [address] [place] [address] Bushra Graf PA [address] [place] [address] documented as of this encounter [...] documented as of this encounter Care Teams Steamer Gum Candy Relationship Specialty Start Date End Date Iman Cuevas MD [address] [address] PCP - General Internal Medicine 12/19/24 documented as of this encounter
--- OUTSIDE RECORDS SUMMARY | 2025-03-24 23:24 | XMS_ITS | Encounter Summary ---
Author Organization Healthcare Address [address] [place] [address] Care Team Providers Care College Scouting Coordinator Name Role Phone Iman Cuevas MD Primary Care Provider [phone] Reason for Visit * Reason Comments Med Refill Encounter Details Date Type Department Care Team ([facility] st Contact Info) Description 01/23/2025 Refill [facility] [place] [address] [facility] [place] [address] Ruslan Sanderson MD [address] [place] [address] History of pulmonic valve replacement [...] Description 04/18/2025 11:00 AM EDT Office Visit [facility] Medicine Specialties [address], [address] [place] [address] Juventino Costa MD [address] [place] [address] 05/04/2025 1:00 PM EST Appointment Medical Office Building Cardiac Diagnostic Testing Medical Office Building Echo Lab [address] [facility], [address] [place] [address] 05/04/2025 1:45 PM EST Office Visit [facility] [place] [address] [facility], [address] [place] [address] Ruslan Sanderson MD [address] [place] [address] 07/23/2025 2:00 PM EST Office Visit [facility] Sleep Disorder Center [address]th [place] [address] Kassandra Khan, APOLLO [address] [place] [address] 08/21/2025 3:30 PM EST Office Visit [facility] [address], [address] [place] [address] Alicia Jennings MD [address] [place] [address] 09/10/2025 10:40 AM EDT Office Visit [facility] Medicine Specialties [address], [address] [place] [address] Bushra Graf PA [address] [place] [address] documented as of this encounter [...] documented as of this encounter Care Teams College Scouting Coordinator Relationship Specialty Start Date End Date Iman Cuevas MD [address] [place] [address] PCP - General Internal Medicine 12/19/24 documented as of this encounter
[2025-03-24 23:30] VITALS: BP 106/62; PULSE 59; RESP 16; O2SAT 98
[2025-03-24 23:43] LABS: Hematocrit 28.2 % (37.0-47.0); Hemoglobin 8.7 g/dL (12.2-16.2); Immature Granulocytes % 1.9 %; Mean Corpuscular HGB Conc 30.9 g/dL (31.8-35.4); Mean Corpuscular Hemoglobin 32.1 pg (27.0-31.2); Mean Corpuscular Volume 104.1 fl (81-99); Nucleated Red Blood Cells % 1.1 %; Platelet Count 176 K/mm3 (142-424); Red Blood Count 2.71 M/mm3 (4.20-5.40); Red Cell Distribution Width-SD 57.2 fL; White Blood Count 6.4 K/mm3 (4.8-10.8)
[2025-03-24] MEDS: FUROSEMIDE 40MG/4ML VIAL 80 MG IV (23:48)
[2025-03-24 23:54] LABS: Alanine Aminotransferase 13 U/L (12-78); Albumin Level 3.5 g/dl (3.5-5.0); Albumin/Globulin Ratio 1.3 (1.1-1.8); Alkaline Phosphatase 73 U/L (38-126); Anion Gap 10.7 mEq/L (5-15); Aspartate Amino Transferase 34 U/L (14-36); Bilirubin,Total 1.5 mg/dl (0.2-1.3); Blood Urea Nitrogen 17 mg/dl (7-17); Calcium 7.5 mg/dl (8.4-10.2); Carbon Dioxide 28 mmol/L (22.0-30.0); Chloride 103 mmol/L (98-107); Creatinine Clearance Estimated 115 mL/min (50-200); Creatinine,Serum 1.00 mg/dl (0.52-1.04); Estimated Glomerular Filt Rate 61 ml/min (>60); GFR (African American) 74 ML/MIN (>60); Globulin 2.6 g/dL (1.3-3.2); Glucose 91 mg/dl (74-100); Magnesium 2.2 mg/dl (1.6-2.3); Phosphorous 3.8 mg/dl (2.5-4.5); Potassium 3.7 mmoL/L (3.5-5.1); Sodium 138 mmol/L (136-145); Total Protein,Serum 6.1 g/dl (6.3-8.2)
[2025-03-24 23:56] LABS: INR 1.04 (0.9-1.1); Prothrombin Time 11.5 seconds (10.1-12.5)
[2025-03-25] VITALS (13 sets, daily range): BP systolic 76–109; BP diastolic 35–67; PULSE 59–80; RESP 12–20; TEMP 36.3–37.1; O2SAT 93–97
[2025-03-25 00:06] LABS: Microscopic, Urine URINE MICROSCOPIC (MICROSCOPIC)
[2025-03-25 00:11] LABS: NT Pro Brain Natriuretic Pep. 704 pg/mL (0-125); T4 (Thyroxine) 7.9 ug/dl (5.53-11.0); Troponin I < 0.01 ng/ml (0.00-0.034)
[2025-03-25 00:14] LABS: Activated Partial Thrombo Time 22.5 seconds (22.8-30.6)
[2025-03-25] MEDS: IOPAMIDOL-370 (76%);100ML BOTTLE 75 ML IV (00:19)
[2025-03-25] MEDS: SODIUM CHLORIDE 0.9% 10ML SYR (RAD ONLY) 10 ML IV ×2 (00:20→21:29)
[2025-03-25 00:24] LABS: Thyroid Stimulating Hormone 6.74 uIU/mL (0.465-4.68)
[2025-03-25] MEDS: MORPHINE 4MG/ML SYRINGE 4 MG IV (00:55)
[2025-03-25] MEDS: ACETAMINOPHEN 500MG TAB 1000 MG PO (00:56)
--- NOTE | 2025-03-25 02:20 | PC.NURSE ---
Pt arrived to room 279 via ED stretcher with this RN, Jamar Reynolds RN, and Antoine computer systems technician. Pt transfered to the bed independently. Pt alert and oriented and is oriented to the room. Nurse call light is within reach. Nagy is draining to gravity. IV #20G to right AC flushed with NS at this time.
--- NOTE | 2025-03-25 02:49 | PC.NURSE ---
Dr. Sharp notified of patient arrival to unit and admission orders obtained.
--- NOTE | 2025-03-25 02:54 | PC.NURSE ---
Hospitalist notified of consult needed.
[2025-03-25] MEDS: OXYCODONE 5MG IMMEDIATE RELEASE TABLET 5 MG PO ×2 (03:23→07:31)
--- NOTE | 2025-03-25 04:46 | EXP.MED.CON ---
History of Present Illness *Admission Date: 03/25/25 *Reason for visit:: Wound dehiscence *History of present illness: Patient is a 40-year-old female with past medical history of hypothyroidism diabetes mellitus, bipolar 1 disorder, seizures, asthma, CKD, COPD who recently had surgery by [employer] for hysterectomy. Patient presents to the hospital due to dehiscence of surgical wound, as well as bilateral lower extremity edema, pain and swelling and fluid drainage from wounds on further evaluation patient was noted to have anasarca due to possible new onset CHF, patient was admitted for further. At time of my evaluation patient denies active chest pain however patient mentions she has noticed bilateral lower extremity swelling as well as shortness of breath drainage from her wounds from surgery. Medicine was consulted for medical management. [facility] Disclaimer: The information contained in this section may have been updated after the patient was seen, as this information can be updated by other users. Medical History Hypothyroid Diabetes mellitus Allergies Tachycardia Low potassium syndrome Bipolar 1 disorder Neuropathy Stroke Seizures Asthma Chronic kidney disease COPD (chronic obstructive pulmonary disease) Surgical History Aortic valve replaced History of lung surgery History of cholecystectomy History of open heart surgery Family History Other Family history of cancer Family history of diabetes mellitus type II Family history of myocardial infarction Social History (Updated 03/14/25 @ 14:24 by Ann Rondon RN) Smoking Status: Never smoker smoking status stop date: year of quit is 2019 alcohol intake: former substance use type: IV drugs current occupational status: unemployed Travel in the last 8 weeks?: None marital status: single do you feel safe at home: Yes victim of physical abuse: No victim of emotional abuse: No victim of sexual abuse: No Review of Systems Review of Systems Review of systems:: pertinent systems reviewed and negative unless documented below Exam Data for Last 24 hours Vital signs and Labs for Last 24 Hours: Temp Pulse Resp BP Pulse Ox O2 Del Method 98.0 F 59 L 16 98/54 L 93 L Room Air 03/25/25 02:30 03/25/25 02:30 03/25/25 02:30 03/25/25 02:30 03/25/25 02:30 03/25/25 02:30 Laboratory Results - last 24 hr 03/24/25 23:25: WBC 6.4, RBC 2.71 L, Hgb 8.7 L, Hct 28.2 L, MCV 104.1 H, MCH 32.1 H, MCHC 30.9 L, RDW 17.6 H, Plt Count 176, MPV 10.3, Neut % (Auto) 62.8, Lymph % (Auto) 20.4, [place] % (Auto) 10.0 H, Eos % (Auto) 4.4, Baso % (Auto) 0.5, Neut # (Auto) 4.0, Lymph # (Auto) 1.3, [place] # (Auto) 0.6, Eos # (Auto) 0.3, Baso # (Auto) 0.0, PT 11.5, INR 1.04, APTT 22.5 L, Sodium 138, Potassium 3.7, Chloride 103, Carbon Dioxide 28, Anion Gap 10.7, BUN 17, Creatinine 1.00, Estimated Creat Clear 115, Estimated GFR 61, Est GFR ( Amer) 74, Glucose 91, Calcium 7.5 L, Phosphorus 3.8, Magnesium 2.2, Total Bilirubin 1.5 H, AST 34, ALT 13, Alkaline Phosphatase 73, Troponin I < 0.01, NT-Pro-B Natriuret Pep 704 H, Total Protein 6.1 L, Albumin 3.5, Globulin 2.6, Albumin/Globulin Ratio 1.3, TSH 6.74 H, Thyroxine (T4) 7.9, Blood Type O Positive 03/25/25 03:43: Lactate 0.8 I & O for Last 24 hours: Intake & Output 03/22/25 03/23/25 03/24/25 03/25/25 23:59 23:59 23:59 23:59 Output Total 1750 / 1750 Balance -1750 / -1750 Weight 99.79 kg Constitutional Constitutional: no acute distress *Routine HEENT Exam Head: Present normocephalic Eye: Present EOMI and PERRL ENT: Present mucous membranes moist *Routine Neck Exam Neck: Present supple; Absent lymphadenopathy *Routine Respiratory Exam Respiratory: Present CTA bilaterally *Routine Cardiovascular Exam Cardiovascular: Present RRR *Routine Abdominal Exam Abdominal: Present soft and normoactive bowel sounds; Absent tenderness Comments: has surgical wound at site of hysterectomy *Routine Extremities Exam Extremities: Present cyanosis and edema Comments: b/l LE edema *Routine Skin Exam Skin: Present warm; Absent rash *Routine Neurological Exam Neurological: Present alert and oriented X3 Meds Home Medications and Allergies Home Medications ?Medication ?Instructions ?Recorded ?Confirmed ?Type apixaban 5 mg tablet (Eliquis) 5 mg PO BID 12/10/23 03/25/25 History lamotrigine 100 mg tablet 50 mg PO BID 12/10/23 03/25/25 History levetiracetam 500 mg tablet 2,000 mg PO BID 12/10/23 03/25/25 History metoprolol tartrate 25 mg tablet 25 mg PO BID 12/10/23 03/25/25 History montelukast 10 mg tablet 10 mg PO HS 12/10/23 03/25/25 History sertraline 100 mg tablet 100 mg PO DAILY 12/10/23 03/25/25 History quetiapine 50 mg tablet 50 mg PO DAILY 10/10/24 03/25/25 History tiotropium 2.5 mcg-olodaterol 2.5 2 inh inhalation DAILY 11/14/24 03/25/25 History mcg/actuation mist for inhalation (Stiolto Respimat) prucalopride 2 mg tablet 2 mg PO DAILY 01/11/25 03/25/25 History empagliflozin 10 mg tablet 10 mg PO DAILY 90 days #90 tabs 02/05/25 03/25/25 Rx (Jardiance) folic acid 1 mg tablet 1 mg PO DAILY 90 days #90 tabs 02/05/25 03/25/25 Rx furosemide 40 mg tablet 80 mg (2 x 40 mg) PO BID 90 days 02/05/25 03/25/25 Rx #360 tabs potassium chloride 20 mEq 20 meq PO BID 90 days #180 tabs 02/05/25 03/25/25 Rx tablet,extended release(part/cryst) levothyroxine 100 mcg tablet 100 mcg PO DAILY 30 days #30 tabs 02/07/25 03/25/25 Rx gabapentin 300 mg capsule 300 mg PO TID #90 caps 03/07/25 03/25/25 Rx oxycodone 5 mg tablet 5 mg PO Q6H PRN pain #30 tabs 03/21/25 03/25/25 Rx New Prescriptions to Start Prescriptions: Allergies Allergy/AdvReac Type Severity Reaction Status Date / Time tetracycline Allergy Hives Verified 03/07/25 13:18 Results Labs 03/24/25 23:25 03/24/25 23:25 Labs: Abnormal lab results 03/24/25 Range/Units 23:25 RBC 2.71 L (4.20-5.40) M/mm3 Hgb 8.7 L (12.2-16.2) g/dL Hct 28.2 L (37.0-47.0) % MCV 104.1 H (81-99) fl MCH 32.1 H (27.0-31.2) pg MCHC 30.9 L (31.8-35.4) g/dL RDW 17.6 H (11.5-17.5) % [place] % (Auto) 10.0 H (1.7-9.3) % APTT 22.5 L (22.8-30.6) seconds Calcium 7.5 L (8.4-10.2) mg/dl Total Bilirubin 1.5 H (0.2-1.3) mg/dl NT-Pro-B Natriuret Pep 704 H (0-125) pg/mL Total Protein 6.1 L (6.3-8.2) g/dl TSH 6.74 H (0.465-4.68) uIU/mL H & H 03/24/25 Range/Units 23:25 Hgb 8.7 L (12.2-16.2) g/dL Hct 28.2 L (37.0-47.0) % Coagulation 03/24/25 Range/Units 23:25 INR 1.04 (0.9-1.1) All other labs normal. Assessment and Plan *Assessment and plan (1) Abdominal wall fluid collections: Status: Acute Category: Medical Code(s): R18.8 - Other ascites (2) Dehiscence of wound: Status: Acute Category: Medical Code(s): T81.30XA - Disruption of wound, unspecified, initial encounter (3) Anasarca: Status: Acute Category: Medical Code(s): R60.1 - Generalized edema (4) Hx of BSO (bilateral salpingo-oophorectomy): Status: Acute Category: Surgical Code(s): Z90.79 - Acquired absence of other genital organ(s); Z90.722 - Acquired absence of ovaries, bilateral (5) H/O abdominal supracervical subtotal hysterectomy: Status: Acute Category: Surgical Code(s): Z90.711 - Acquired absence of uterus with remaining cervical stump Plan Patient is a 40-year-old female with past medical history of hypothyroidism diabetes mellitus, bipolar 1 disorder, seizures, asthma, CKD, COPD who recently had surgery by [employer] for hysterectomy. Patient presents to the hospital due to dehiscence of surgical wound, as well as bilateral lower extremity edema, pain and swelling and fluid drainage from wounds on further evaluation patient was noted to have anasarca due to possible new onset CHF, patient was admitted for further. At time of my evaluation patient denies active chest pain however patient mentions she has noticed bilateral lower extremity swelling as well as shortness of breath drainage from her wounds from surgery. Medicine was consulted for medical management. Assessment and plan Anasarca, suspect acute exacerbation of CHF, unknown EF Fluid overload Order 40 IV twice daily Lasix proBNP checked 704 Check echocardiogram Consult cardiology Wound dehiscence recent hysterectomy surgery [employer] following CT abdomen pelvis was performed which did showSmall volume postoperative hematomas tracking within the low anterior abdominal wall incision bed with no evidence of active hemorrhage Left adnexal ovoid 5.3 x 3.0 x 2.9 cm structure might represent additional extension of complex fluid History of PE on Eliquis Closely monitor hemoglobin on Eliquis Anemia - suspect due to recent surgery, Hb stable History of seizures Resume home Keppra Hypothyroidism Resume home levothyroxine DM ISS ordered COPD - Ordered DVT prophylaxis-on Eliquis
[2025-03-25 05:07] LABS: Bilirubin,Urine Negative (Negative); Color,Urine YELLOW (Yellow); Glucose,Urine (UA) 2+ (Negative); Ketones,Urine Negative (Negative); Leukocyte Esterase,Urine Negative (Negative); PH,Urine 6.0 (5.0-8.5); Protein,Urine Negative (Negative); Specific Gravity, Urine 1.015 (1.005-1.030); Urobilinogen,Urine 0.2 EU/dl (0.2)
[2025-03-25 05:34] LABS: Squamous Epithelial Cell,Urine Occasional #/hpf (0-5)
[2025-03-25] MEDS: ACETAMINOPHEN 325MG TAB 650 MG PO (06:37)
--- NOTE | 2025-03-25 06:40 | PC.WOUNDNOTE ---
Abdominal dressing changed. Dirty dressing removed with lower half of ABD pad saturated with serosanguineous drainage. Incision site cleaned with hibaclens, dried thoroughly with 4x4. ABD pad placed on wound and secured with tape. Patient tolerated well.
--- NOTE | 2025-03-25 07:00 | PC.NURSE ---
Patient refused meal brought to her, contacted hospitalist and orders received for a regular diet.
[2025-03-25 07:01] LABS: POC Glucose,Bedside 90 gm/dL (70-110)
[2025-03-25] MEDS: OXYCODONE 5MG IMMEDIATE RELEASE TABLET 10 MG PO (08:18)
[2025-03-25] MEDS: EMPAGLIFLOZIN 10MG TABLET 10 MG PO (09:55)
[2025-03-25] MEDS: APIXABAN 5MG TABLET 5 MG PO ×2 (09:55→21:25)
[2025-03-25] MEDS: FOLIC ACID 1MG TABLET 1 MG PO (09:56)
[2025-03-25] MEDS: LEVOTHYROXINE 100MCG (0.1MG) TAB 100 MCG PO (09:56)
[2025-03-25] MEDS: SERTRALINE 100MG TABLET 100 MG PO (09:57)
[2025-03-25] MEDS: FUROSEMIDE 40MG/4ML VIAL 40 MG IV (09:57)
[2025-03-25] MEDS: GABAPENTIN 300MG CAPSULE 300 MG PO ×3 (09:58→21:20)
--- NOTE | 2025-03-25 10:05 | EXP.HP ---
History of Present Illness *Admission Date: 03/25/25 *History of present illness: Patient is a 40-year-old female with past medical history of hypothyroidism diabetes mellitus, bipolar 1 disorder, seizures, asthma, CKD, COPD who recently had surgery by [employer] for hysterectomy. She had a subtotal abdominal hysterectomy on March 14, 2025. The cervix was left in place secondary to the deep aspect of the pelvis and difficulty removing the cervix. She was at home standing in her kitchen when she had sudden onset of blood loss through her incision. Patient presents to the hospital due to dehiscence of surgical wound, as well as bilateral lower extremity edema, pain and swelling and fluid drainage from wounds on further evaluation patient was noted to have anasarca due to possible new onset CHF, patient was admitted for further. It was noted that she had increased edema all the way up to her chest. She denies active chest pain however patient mentions she has noticed bilateral lower extremity swelling as well as shortness of breath drainage from her wounds from surgery. [facility] Disclaimer: The information contained in this section may have been updated after the patient was seen, as this information can be updated by other users. Medical History Hypothyroid Left ovarian cyst Vasomotor symptoms due to menopause Hepatitis C IUD surveillance Abdominal pain Allergies Tachycardia Low potassium syndrome Bipolar 1 disorder Neuropathy Stroke Seizures Asthma Chronic kidney disease COPD (chronic obstructive pulmonary disease) Atypical chest pain Pleural effusion Surgical History Aortic valve replaced History of lung surgery History of cholecystectomy History of open heart surgery Family History Family history of cancer Family history of diabetes mellitus type II Family history of myocardial infarction Social History Smoking Status: Never smoker smoking status stop date: year of quit is 2019 alcohol intake: former substance use type: IV drugs current occupational status: unemployed Travel in the last 8 weeks?: None marital status: single do you feel safe at home: Yes victim of physical abuse: No victim of emotional abuse: No victim of sexual abuse: No Other Medical History Have you received the Flu Vaccine for this season: No (pt refused) Have you received the Pneumonia Vaccine: No Review of Systems Review of Systems Review of systems:: pertinent systems reviewed and negative unless documented below Meds Home Medications and Allergies Home Medications ?Medication ?Instructions ?Recorded ?Confirmed ?Type apixaban 5 mg tablet (Eliquis) 5 mg PO BID 12/10/23 03/25/25 History lamotrigine 100 mg tablet 50 mg PO BID 12/10/23 03/25/25 History levetiracetam 500 mg tablet 2,000 mg PO BID 12/10/23 03/25/25 History metoprolol tartrate 25 mg tablet 25 mg PO BID 12/10/23 03/25/25 History montelukast 10 mg tablet 10 mg PO HS 12/10/23 03/25/25 History sertraline 100 mg tablet 100 mg PO DAILY 12/10/23 03/25/25 History quetiapine 50 mg tablet 50 mg PO DAILY 10/10/24 03/25/25 History tiotropium 2.5 mcg-olodaterol 2.5 2 inh inhalation DAILY 11/14/24 03/25/25 History mcg/actuation mist for inhalation (Stiolto Respimat) prucalopride 2 mg tablet 2 mg PO DAILY 01/11/25 03/25/25 History empagliflozin 10 mg tablet 10 mg PO DAILY 90 days #90 tabs 02/05/25 03/25/25 Rx (Jardiance) folic acid 1 mg tablet 1 mg PO DAILY 90 days #90 tabs 02/05/25 03/25/25 Rx furosemide 40 mg tablet 80 mg (2 x 40 mg) PO BID 90 days 02/05/25 03/25/25 Rx #360 tabs potassium chloride 20 mEq 20 meq PO BID 90 days #180 tabs 02/05/25 03/25/25 Rx tablet,extended release(part/cryst) levothyroxine 100 mcg tablet 100 mcg PO DAILY 30 days #30 tabs 02/07/25 03/25/25 Rx gabapentin 300 mg capsule 300 mg PO TID #90 caps 03/07/25 03/25/25 Rx oxycodone 5 mg tablet 5 mg PO Q6H PRN pain #30 tabs 03/21/25 03/25/25 Rx New Prescriptions to Start Prescriptions: Allergies Allergy/AdvReac Type Severity Reaction Status Date / Time tetracycline Allergy Hives Verified 03/07/25 13:18 Exam Data for Last 24 hours Vital signs and Labs for Last 24 Hours: Temp Pulse Resp BP Pulse Ox O2 Del Method 97.9 F 65 20 90/44 L 95 Room Air 03/25/25 08:20 03/25/25 08:20 03/25/25 08:20 03/25/25 08:20 03/25/25 08:20 03/25/25 08:20 Laboratory Results - last 24 hr 03/24/25 23:25: WBC 6.4, RBC 2.71 L, Hgb 8.7 L, Hct 28.2 L, MCV 104.1 H, MCH 32.1 H, MCHC 30.9 L, RDW 17.6 H, Plt Count 176, MPV 10.3, Neut % (Auto) 62.8, Lymph % (Auto) 20.4, [place] % (Auto) 10.0 H, Eos % (Auto) 4.4, Baso % (Auto) 0.5, Neut # (Auto) 4.0, Lymph # (Auto) 1.3, [place] # (Auto) 0.6, Eos # (Auto) 0.3, Baso # (Auto) 0.0, PT 11.5, INR 1.04, APTT 22.5 L, Sodium 138, Potassium 3.7, Chloride 103, Carbon Dioxide 28, Anion Gap 10.7, BUN 17, Creatinine 1.00, Estimated Creat Clear 115, Estimated GFR 61, Est GFR ( Amer) 74, Glucose 91, Calcium 7.5 L, Phosphorus 3.8, Magnesium 2.2, Total Bilirubin 1.5 H, AST 34, ALT 13, Alkaline Phosphatase 73, Troponin I < 0.01, NT-Pro-B Natriuret Pep 704 H, Total Protein 6.1 L, Albumin 3.5, Globulin 2.6, Albumin/Globulin Ratio 1.3, TSH 6.74 H, Thyroxine (T4) 7.9, Blood Type O Positive, Antibody Screen Negative 03/25/25 00:00: Urine Color Yellow, Urine Appearance Clear, Urine pH 6.0, Ur Specific [place] 1.015, Urine Protein Negative, Urine Glucose (UA) 2+, Urine Ketones Negative, Urine Blood Negative, Urine Nitrate Negative, Urine Bilirubin Negative, Urine Urobilinogen 0.2, Ur Leukocyte Esterase Negative, Urine RBC None, Urine WBC None, Ur Squamous Epith Cells Occasional, Urine Bacteria None 03/25/25 03:43: Lactate 0.8 03/25/25 06:41: POC Glucose 90 I & O for Last 24 hours: Intake & Output 03/22/25 03/23/25 03/24/25 03/25/25 11:59 11:59 11:59 11:59 Output Total 3650 / 3650 Balance -3650 / -3650 Weight 220 lb Constitutional Constitutional: no acute distress, mild distress and morbidly obese *Routine HEENT Exam Head: Present normocephalic Eye: Present EOMI and PERRL ENT: Present mucous membranes moist *Routine Neck Exam Neck: Present supple; Absent lymphadenopathy *Routine Respiratory Exam Respiratory: Present CTA bilaterally *Routine Cardiovascular Exam Cardiovascular: Present RRR *Routine Abdominal Exam Abdominal: Present soft and normoactive bowel sounds; Absent tenderness Comments: She has an abdominal wall hernia just below her rib cage in the midline. She continues to have bruising on her abdominal wall but it is much improved since her discharge 4 days ago. There continues to be bloody drainage from her incision. No evidence of infection at this time. *Routine Rectal Exam Rectal:: deferred *Routine Genitalia Exam Genitalia:: deferred *Routine Extremities Exam Extremities: Present edema; Absent cyanosis or calf tenderness *Routine Skin Exam Skin: Present warm; Absent rash *Routine Neurological Exam Neurological: Present alert and oriented X3 Assessment and Plan *Assessment and plan (1) Abdominal wall fluid collections: Status: Acute Category: Medical Code(s): R18.8 - Other ascites (2) Dehiscence of wound: Status: Acute Category: Medical Code(s): T81.30XA - Disruption of wound, unspecified, initial encounter (3) Anasarca: Status: Acute Category: Medical Code(s): R60.1 - Generalized edema (4) Hx of BSO (bilateral salpingo-oophorectomy): Status: Acute Category: Surgical Code(s): Z90.79 - Acquired absence of other genital organ(s); Z90.722 - Acquired absence of ovaries, bilateral (5) H/O abdominal supracervical subtotal hysterectomy: Status: Acute Category: Surgical Code(s): Z90.711 - Acquired absence of uterus with remaining cervical stump (6) Obesity, morbid: Status: Acute Category: Medical Code(s): E66.01 - Morbid (severe) obesity due to excess calories (7) History of pulmonary embolism: Status: Acute Category: Medical Code(s): Z86.711 - Personal history of pulmonary embolism (8) Aortic valve replaced: Status: Acute Category: Surgical Code(s): Z95.2 - Presence of prosthetic heart valve (9) Bipolar 1 disorder: Status: Acute Category: Medical Code(s): F31.9 - Bipolar disorder, unspecified (10) COPD (chronic obstructive pulmonary disease): Status: Acute Qualifiers: COPD type: unspecified COPD Qualified Code(s): J44.9 - Chronic obstructive pulmonary disease, unspecified Category: Medical Code(s): J44.9 - Chronic obstructive pulmonary disease, unspecified Plan 1. She is admitted for resolution of her anasarca and severe edema. Her BNP is elevated and she likely has early CHF. We have consulted our hospitalist and we will manage her CHF with Lasix for now. EKG was normal. 2. She has some drainage from her incision that appears to be bloody and initially was serous. We will get a wound culture and consult our in-hospital wound care people tomorrow. We will order a general surgery consult as well to look at her incision and review her CT scan. 3. Her blood work is normal with a slightly low hemoglobin at 8.7 but this is the same as it was on discharge. We will repeat her CBC, Chem-12 and BNP tomorrow. 4. She complains of pain and she does not seem to get much relief with the oxycodone. We will try changing to hydrocodone and see if this makes a difference. We will order her Tylenol 650 mg every 6 hours. 5. I had initially considered giving her a daily banana bag of vitamins but since we want to limit her fluids we will go ahead and just start a daily oral multivitamin. 6. She currently has a Nagy catheter and I would like to have this removed today because she is at risk for urinary tract infection with the indwelling Ngay. She is able to get up and ambulate. If necessary we will give her a bedside commode. We will continue to monitor her ins and outs. 7. We will continue with daily weights.
--- NOTE | 2025-03-25 10:15 | PC.WOUNDNOTE ---
Dr. Sharp in room assessing incision site. ABD pad x2 noted to be saturated with serosanguineous drainage, Active drainage of serosanguineous fluid noted when MD touches and presses lightly against wound edges and surrounding skin. Site cleansed with Hibiclens, x6 4x4 with ABD pad x1 applied and held in place with silk tape. Pt. tolerating well.
--- NOTE | 2025-03-25 10:28 | HMH.PHAINT1 ---
Pharmacy Intervention Comments: MEDICATION RECONCILIATION COMPLETED ON PATIENT USING EXTERNAL FILL HISTORY FROM PHARMACY AND DISCHARGE SUMMARY FROM PREVIOUS ADMISSION. -KELLY COLUNGA, VALD
[2025-03-25] MEDS: APAP/HYDROCODONE 325MG/7.5MG TAB 2 TAB PO ×3 (11:06→23:26)
[2025-03-25 13:21] LABS: Anion Gap 13.3 mEq/L (5-15); Blood Urea Nitrogen 14 mg/dl (7-17); Calcium 7.4 mg/dl (8.4-10.2); Carbon Dioxide 26 mmol/L (22.0-30.0); Chloride 102 mmol/L (98-107); Creatinine Clearance Estimated 128 mL/min (50-200); Creatinine,Serum 0.90 mg/dl (0.52-1.04); Estimated Glomerular Filt Rate 69 ml/min (>60); GFR (African American) 83 ML/MIN (>60); Glucose 107 mg/dl (74-100); Magnesium 2.3 mg/dl (1.6-2.3); Potassium 3.3 mmoL/L (3.5-5.1); Sodium 138 mmol/L (136-145)
--- NOTE | 2025-03-25 13:27 | PC.WOUNDNOTE ---
LTV dressing noted to be saturated and seeping on to bedding and gown. Dressing removed. 4X4 X3 with ABD pad x2 applied and held in place with silk tape. Pt. tolerating well.
[2025-03-25] MEDS: FUROSEMIDE 100MG/10ML VIAL 80 MG IV (16:48)
--- NOTE | 2025-03-25 18:20 | PC.WOUNDNOTE ---
Dressing noted be saturated with serosanguineous drainage. Dressing removed, Wound Culture obtained site cleansed with Hibiclens, 2nd would culture obtained. Pt. tolerated well, 3 4x4 with x2 ABD pads applied. Silk tape applied. Pt. tolerated dressing change well.
[2025-03-25] MEDS: MONTELUKAST SODIUM 10MG TAB 10 MG PO (21:20)
[2025-03-25] MEDS: QUETIAPINE 100MG TABLET 50 MG PO (21:26)
[2025-03-25] MEDS: NITROFURANTOIN 100MG CAPSULE 100 MG PO (21:32)
[2025-03-26] VITALS: BP 93/40; PULSE 73; RESP 18; TEMP 36.7; O2SAT 94
[2025-03-26 04:00] VITALS: BP 93/48; PULSE 75; RESP 18; TEMP 36.6; O2SAT 93
[2025-03-26] MEDS: APAP/HYDROCODONE 325MG/7.5MG TAB 2 TAB PO ×3 (05:22→20:26)
--- NOTE | 2025-03-26 06:07 | CA_ITS ---
APPROVED REPORT EXAM: Comprehensive 2D, Doppler, and color-flow Echocardiogram Parachute Folder: Purnima Miramontes RVT Ht: 5 ft 3 in Wt: 220lbs BSA: 2.01 BP: 98/44 mmHg Indications: EDEMA,PULMONIC AND TRICUSPID REPLACEMENTS,SHORTNESS OF BREATH 2D Dimensions IVSd 1.33 cm F: 0.6-1.0 LVEF (Visual) 66.10 % PWd 1.06 cm F: 0.6 - 1.0 LA Volume 31.80 mL LVDd 3.33 cm F: 3.9 - 5.3 LA Volume Index 15.74 mL/m2 (M/F) 16-34 LVDs 2.15 cm F: 2.2 - 3.5 M-Mode Dimensions LA Diam 3.70 cm (1.9-4.0) LV Diastology E Decel Time 240 (160-240 msec) E/A Ratio 1.1 Aortic Valve AMANUEL Index 1.05 cm2/m2 AoV Peak Renny. 176.0 (50-130 cm/s) AO Peak GR. 12.40 mmHg AO Mean GR. 6.80 (<5 mmHg) AO VTI 35.7 (18-25 cm) AMANUEL (VTI) 2.16 (2.5-4.5 cm2) Mitral Valve MV E Max Renny. 101.0 (40-130 cm/s) MV A Velocity 89.0 (40-130 cm/s) E/A Ratio 1.13 MV PHT 70.0 ms Pulmonary Valve PV Peak Velocity 319.0 (50-150 cm/s) Tricuspid Valve TR P. Velocity 271.00 cm/s RAP Estimate 8.00 mmHg TV Vmax 163.00 (30-100 cm/s) RVSP 37.50 mmHg Left Ventricle The left ventricle is normal size. Left ventricular systolic function is normal. The left ventricular ejection fraction is within the normal range. There is normal left ventricular wall thickness. There is normal LV segmental wall motion. The left ventricular diastolic function is indeterminate. LVEF is 55% Right Ventricle The right ventricle is mildly dilated. The right ventricular systolic function is normal. Atria The left atrium is mildly dilated. The right atrium is mildly dilated. There is no color Doppler evidence of interatrial shunt. Aortic Valve The aortic valve is mildly thickened. There is no hemodynamically significant aortic valvular stenosis. Trace aortic regurgitation is present. Mitral Valve The mitral valve is mildly thickened. No evidence of mitral valve stenosis. Mild mitral regurgitation is present. Tricuspid Valve s/p bioprosthetic tricuspid valve replacement (TVR) with annuloplasty ring. The prosthetic leaflet mobility is not well visualized. Severe tricuspid stenosis is present. Mean TV gradient is 12 mmHg. Mild tricuspid regurgitation. RVSP is 20-25 mmHg. No obvious evidence of mobile echodensities or masses. Pulmonic Valve s/p bioprosthetic pulmonic valve replacement (PVR). The prosthetic leaflet mobility is not well visualized. Peak velocity 2.8 m/s. Mean PV gradient is 14 mmHg. Max PV gradient is 32 mmHg. Mild pulmonic valve regurgitation is present. Great Vessels The aortic root is normal in size. IVC is normal in size and collapses >50% with inspiration. Pericardium There is no pericardial effusion. Other Information Study Quality: Fair Conclusion Normal biventricular systolic function. Mild RV dilation. Mild biatrial dilation. Mild MR. s/p bioprosthetic TVR with annuloplasty ring. Mild TR. Severe tricuspid stenosis is present. Mean TV gradient is 12 mmHg. s/p bioprosthetic PVR. Mild PI. Peak velocity 2.8 m/s. Mean PV gradient is 14 mmHg. Max PV gradient is 32 mmHg. Clinical correlation is required. Acquisition of prior TTE's may be suggested as no comparison TTE is available for the study. Further evaluation with outpatient SAMUEL for echodensities or vegetations is suggested for both TVR and PVR in the setting of elevated gradients. Early referral for CT surgical evaluation is also suggested. Electronically signed by : Mckayla Kang MD 03/26/2025 13:02:29
[2025-03-26] MEDS: LEVOTHYROXINE 100MCG (0.1MG) TAB 100 MCG PO (06:14)
[2025-03-26 06:30] LABS: Hematocrit 29.4 % (37.0-47.0); Hemoglobin 9.2 g/dL (12.2-16.2); Immature Granulocytes % 0.9 %; Mean Corpuscular HGB Conc 31.3 g/dL (31.8-35.4); Mean Corpuscular Hemoglobin 31.6 pg (27.0-31.2); Mean Corpuscular Volume 101.0 fl (81-99); Nucleated Red Blood Cells % 0.3 %; Platelet Count 199 K/mm3 (142-424); Red Blood Count 2.91 M/mm3 (4.20-5.40); Red Cell Distribution Width-SD 60.3 fL; White Blood Count 6.8 K/mm3 (4.8-10.8)
--- NOTE | 2025-03-26 08:20 | PC.NURSE ---
Dr. Sharp at bedside
[2025-03-26] MEDS: FUROSEMIDE 100MG/10ML VIAL 80 MG IV ×2 (08:26→16:46)
[2025-03-26] MEDS: FOLIC ACID 1MG TABLET 1 MG PO (08:27)
[2025-03-26] MEDS: APIXABAN 5MG TABLET 5 MG PO ×2 (08:27→20:25)
[2025-03-26] MEDS: SERTRALINE 100MG TABLET 100 MG PO (08:27)
[2025-03-26] MEDS: EMPAGLIFLOZIN 10MG TABLET 10 MG PO (08:28)
[2025-03-26] MEDS: NITROFURANTOIN 100MG CAPSULE 100 MG PO ×2 (08:28→20:25)
[2025-03-26] MEDS: GABAPENTIN 300MG CAPSULE 300 MG PO ×3 (08:28→20:26)
[2025-03-26 08:33] LABS: Albumin Level 3.4 g/dl (3.5-5.0); Chloride 100 mmol/L (98-107); Potassium 3.4 mmoL/L (3.5-5.1); Sodium 138 mmol/L (136-145)
[2025-03-26 08:34] VITALS: BP 106/58; PULSE 72; RESP 18; TEMP 36.6; O2SAT 92
[2025-03-26 08:36] LABS: Alanine Aminotransferase 16 U/L (12-78); Albumin/Globulin Ratio 1.1 (1.1-1.8); Alkaline Phosphatase 67 U/L (38-126); Anion Gap 12.4 mEq/L (5-15); Aspartate Amino Transferase 25 U/L (14-36); Bilirubin,Total 1.3 mg/dl (0.2-1.3); Blood Urea Nitrogen 13 mg/dl (7-17); Calcium 8.2 mg/dl (8.4-10.2); Carbon Dioxide 29 mmol/L (22.0-30.0); Creatinine Clearance Estimated 128 mL/min (50-200); Creatinine,Serum 0.90 mg/dl (0.52-1.04); Estimated Glomerular Filt Rate 69 ml/min (>60); GFR (African American) 83 ML/MIN (>60); Globulin 3.1 g/dL (1.3-3.2); Glucose 106 mg/dl (74-100); Total Protein,Serum 6.5 g/dl (6.3-8.2)
--- NOTE | 2025-03-26 08:40 | PC.NURSE ---
dressing saturated with serosanguineous drainage, dressing removed and incision cleaned with hibiclens, new abd pad applied and secured with silk tape. patient tolerated well.
[2025-03-26 08:42] LABS: NT Pro Brain Natriuretic Pep. 476 pg/mL (0-125)
--- NOTE | 2025-03-26 08:43 | PC.NURSE ---
PT at patients bedside for evaluation.
--- NOTE | 2025-03-26 09:26 | HMH.OTEV ---
OT Evaluation Rehab OT IP Evaluation Start: 03/25/25 04:50 Freq: ONCE Status: Active Protocol: [facility]26[facility]25 09[facility]22 [facility] (Rec: 03/26/25 09:26 [facility] [id number]) Rehab OT IP Assessment Subjective History Pt oriented x 3 on arrival. Pt agreeable to engage in therapy evaluation. Pt admitted on due to anasarca. History and physical: Patient is a 40-year-old female with past medical history of hypothyroidism diabetes mellitus, bipolar 1 disorder, seizures, asthma, CKD, COPD who recently had surgery by [employer] for hysterectomy. She had a subtotal abdominal hysterectomy on March 14, 2025. The cervix was left in place secondary to the deep aspect of the pelvis and difficulty removing the cervix. She was at home standing in her kitchen when she had sudden onset of blood loss through her incision. Patient presents to the hospital due to dehiscence of surgical wound, as well as bilateral lower extremity edema, pain and swelling and fluid drainage from wounds on further evaluation patient was noted to have anasarca due to possible new onset CHF, patient was admitted for further. It was noted that she had increased edema all the way up to her chest. She denies active chest pain however patient mentions she has noticed bilateral lower extremity swelling as well as shortness of breath drainage from her wounds from surgery. Subjective Prior to being in the hospital, pt lived at home with her boyfriend and her mother. Pt claims normally she is independent with all ADLs and IADLs. She does not require any type of AE during functional transfers. She no longer drives due to her seizure disorder. Therapist instructed patient on bed mobility to go from supine to sitting at eob with sba. Pt able to don socks independently in order to complete lower body dressing. Pt demonstrated good dynamic sitting balance with sba. Pt then engaged in functional mobility task of ~200 feet with cga. Pt demonstrated good activity tolerance and no LOB noted. Pt returned to eob and went from sitting to supine in bed with sba. Objective Patient Orientation Person,Place,Birthday Right Upper WFL Extremity Gross ROM Left Upper Extremity WFL Gross ROM Bed Mobility bed mobility-scooting,bed mobility - supine/sit Assist Level Supervision/Stand by Transfer Training Sit/Stand Transfer Assist Level Supervision/Stand by Chair Transfer Sit to/from Ambulatory Technique Lower Body Dressing Standby Assistance Ability Rehab OT IP prob,goals,plan Problems Date of Evaluation: 03/26/25 Rehab Potential Rehab Potential Innapropriate for Skilled Therapy Discharge Plan OT Discharge Plan Pt appears to be at her baseline with functional transfers and ADL independence. Pt can return home with family once she is medically stable per physician. Eval Complexity Eval Charge Codes 46669 - Moderate Complexity PHYSICIAN CERTIFICATION: I certify the specified therapy services for Elizabeth Milian are required, authorized, and reviewed every 30 days.
--- NOTE | 2025-03-26 09:28 | EXP.SURG.CON ---
History of Present Illness *Admission Date: 03/25/25 *Reason for visit:: Look at dehiscence of incision and CT scan of abdomen. *History of present illness: Patient is a 40-year-old female from [place] with history of hypothyroidism, diabetes, bipolar, seizures, COPD/asthma, chronic kidney disease, hepatitis C. She has a known complex epigastric hernia present for several years and had previously been referred to [facility] for this. She has a history of aortic valve replacement and is on chronic apixaban anticoagulation. Also has reported history of pulmonary embolism. Patient underwent total abdominal hysterectomy with bilateral salpingo-oophorectomy and cystoscopy on 03/14/2025 via Pfannenstiel incision for abnormal uterine bleeding. Skin was closed with the INSORB stapler. She remained in inpatient until 03/21/2025 due to some pain and bleeding from her incision. On postoperative day #3 she was noted to have some blood oozing from the right side of her incision with a small 1 cm opening. It was felt that she had subcutaneous hematoma. She did have a CT scan done while she was in inpatient and this revealed increased body wall edema and herniated transverse colon into the supraumbilical hernia with possible seroma or hematoma of the anterior pelvic wall. She was discharged on 03/21/2025 and resumed her Eliquis. Patient presented to the emergency department in the very late evening of 03/24/25 due to the fact that she had sudden onset of blood loss from her incision. She underwent thorough evaluation in the emergency department. Examination at that time revealed stable epigastric hernia which was reducible. Recent surgical incision was clean with a an area of superficial dehiscence on the right side draining thin bloody fluid. She had a CT scan done in the emergency department on 03/24/2025. This reveals expected postoperative changes from recent hysterectomy with postoperative hematomas tracking within the low anterior abdominal wall incision bed. Small amount residual postoperative hematoma in the pelvis. There was left adnexal ovoid 5.3 x 3.0 x 2.9 cm structure this was felt to be extension of possible complex fluid collection. Interestingly he was also reported small volume portal venous gas in the left hepatic lobe. Midline epigastric abdominal wall hernia noted with short segment of transverse colon with trace of venous gas tracking in the SMV branches from the hernia and mild wall thickening and a portion of the herniated bowel segment . There was moderate severe generalized anasarca and systemic edema. Evidence of hepatic cirrhosis and hepatomegaly with mild splenomegaly. Several additional nonspecific chronic findings. She was admitted for inpatient management. Surgical consultation was ordered for wound assessment. Patient is on a regular diet. . [facility] Disclaimer: The information contained in this section may have been updated after the patient was seen, as this information can be updated by other users. 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 History of tricuspid valve replacement History of pulmonic valve replacement History of lung surgery History of cholecystectomy History of open heart surgery Family History Family history of cancer Family history of diabetes mellitus type II Family history of myocardial infarction Social History Smoking Status: Never smoker smoking status stop date: year of quit is 2019 alcohol intake: former substance use type: IV drugs current occupational status: unemployed Travel in the last 8 weeks?: None marital status: single do you feel safe at home: Yes victim of physical abuse: No victim of emotional abuse: No victim of sexual abuse: No Meds Home Medications and Allergies Home Medications ?Medication ?Instructions ?Recorded ?Confirmed ?Type apixaban 5 mg tablet (Eliquis) 5 mg PO BID 12/10/23 03/25/25 History lamotrigine 100 mg tablet 50 mg PO BID 12/10/23 03/25/25 History levetiracetam 500 mg tablet 2,000 mg PO BID 12/10/23 03/25/25 History metoprolol tartrate 25 mg tablet 25 mg PO BID 12/10/23 03/25/25 History montelukast 10 mg tablet 10 mg PO HS 12/10/23 03/25/25 History sertraline 100 mg tablet 100 mg PO DAILY 12/10/23 03/25/25 History quetiapine 50 mg tablet 50 mg PO HS 10/10/24 03/25/25 History tiotropium 2.5 mcg-olodaterol 2.5 2 inh inhalation DAILY 11/14/24 03/25/25 History mcg/actuation mist for inhalation (Stiolto Respimat) prucalopride 2 mg tablet 2 mg PO DAILY 01/11/25 03/25/25 History empagliflozin 10 mg tablet 10 mg PO DAILY 90 days #90 tabs 02/05/25 03/25/25 Rx (Jardiance) folic acid 1 mg tablet 1 mg PO DAILY 90 days #90 tabs 02/05/25 03/25/25 Rx furosemide 40 mg tablet 80 mg (2 x 40 mg) PO BID 90 days 02/05/25 03/25/25 Rx #360 tabs potassium chloride 20 mEq 20 meq PO BID 90 days #180 tabs 02/05/25 03/25/25 Rx tablet,extended release(part/cryst) levothyroxine 100 mcg tablet 100 mcg PO DAILY 30 days #30 tabs 02/07/25 03/25/25 Rx gabapentin 300 mg capsule 300 mg PO TID #90 caps 03/07/25 03/25/25 Rx oxycodone 5 mg tablet 5 mg PO Q6H PRN pain #30 tabs 03/21/25 03/25/25 Rx New Prescriptions to Start Prescriptions: Allergies Allergy/AdvReac Type Severity Reaction Status Date / Time tetracycline Allergy Hives Verified 03/07/25 13:18 Exam (Inpt) Vital signs and Labs for Last 24 Hours: Temp Pulse Resp BP Pulse Ox O2 Del Method 97.9 F 72 18 106/58 L 92 L Room Air 03/26/25 08:34 03/26/25 08:34 03/26/25 08:34 03/26/25 08:34 03/26/25 08:34 03/26/25 08:34 Laboratory Results - last 24 hr 03/25/25 12:30: Sodium 138, Potassium 3.3 L, Chloride 102, Carbon Dioxide 26, Anion Gap 13.3, BUN 14, Creatinine 0.90, Estimated Creat Clear 128, Estimated GFR 69, Est GFR ( Amer) 83, Glucose 107 H, Calcium 7.4 L, Magnesium 2.3 03/26/25 06:10: WBC 6.8, RBC 2.91 L, Hgb 9.2 L, Hct 29.4 L, MCV 101.0 H, MCH 31.6 H, MCHC 31.3 L, RDW 18.3 H, Plt Count 199, MPV 9.9, Neut % (Auto) 65.4, Lymph % (Auto) 21.9, Dare % (Auto) 6.2, Eos % (Auto) 5.3, Baso % (Auto) 0.3, Neut # (Auto) 4.4, Lymph # (Auto) 1.5, Dare # (Auto) 0.4, Eos # (Auto) 0.4, Baso # (Auto) 0.0, Sodium 138, Potassium 3.4 L, Chloride 100, Carbon Dioxide 29, Anion Gap 12.4, BUN 13, Creatinine 0.90, Estimated Creat Clear 128, Estimated GFR 69, Est GFR ( Amer) 83, Glucose 106 H, Calcium 8.2 L, Total Bilirubin 1.3, AST 25 D, ALT 16, Alkaline Phosphatase 67, NT-Pro-B Natriuret Pep 476 H, Total Protein 6.5, Albumin 3.4 L, Globulin 3.1, Albumin/Globulin Ratio 1.1 I & O for Labs for Last 24 Hours: Intake & Output 03/23/25 03/24/25 03/25/25 03/26/25 11:59 11:59 11:59 11:59 Intake Total 740 / 740 1560 / 1560 Output Total 4651 / 4651 4150 / 4150 Balance -3911 / -3911 -2590 / -2590 Weight 220 lb Microbiology Reports for the Last 24 Hours: Microbiology 03/25/25 18:30 Incision Gram Stain - Final Comments:: She has a resolving bruising on her lower abdomen. There is some edema. She has palpable hematoma. Incision is clean with minimal superficial dehiscence bilateral edges. Results Labs 03/26/25 06:10 03/26/25 06:10 Labs: Laboratory Results - last 24 hr 03/25/25 12:30: Sodium 138, Potassium 3.3 L, Chloride 102, Carbon Dioxide 26, Anion Gap 13.3, BUN 14, Creatinine 0.90, Estimated Creat Clear 128, Estimated GFR 69, Est GFR ( Amer) 83, Glucose 107 H, Calcium 7.4 L, Magnesium 2.3 03/26/25 06:10: WBC 6.8, RBC 2.91 L, Hgb 9.2 L, Hct 29.4 L, MCV 101.0 H, MCH 31.6 H, MCHC 31.3 L, RDW 18.3 H, Plt Count 199, MPV 9.9, Neut % (Auto) 65.4, Lymph % (Auto) 21.9, Dare % (Auto) 6.2, Eos % (Auto) 5.3, Baso % (Auto) 0.3, Neut # (Auto) 4.4, Lymph # (Auto) 1.5, Dare # (Auto) 0.4, Eos # (Auto) 0.4, Baso # (Auto) 0.0, Sodium 138, Potassium 3.4 L, Chloride 100, Carbon Dioxide 29, Anion Gap 12.4, BUN 13, Creatinine 0.90, Estimated Creat Clear 128, Estimated GFR 69, Est GFR ( Amer) 83, Glucose 106 H, Calcium 8.2 L, Total Bilirubin 1.3, AST 25 D, ALT 16, Alkaline Phosphatase 67, NT-Pro-B Natriuret Pep 476 H, Total Protein 6.5, Albumin 3.4 L, Globulin 3.1, Albumin/Globulin Ratio 1.1 Assessment and Plan *Assessment and plan (1) Dehiscence of wound: Status: Acute Category: Medical Code(s): T81.30XA - Disruption of wound, unspecified, initial encounter Plan CT scan reveals no evidence of any hernia or deep fascial dehiscence at the recent surgical site. She would be at somewhat increased risk however and observation will need to be continued for this. This appears to be subcutaneous hematoma which likely became somewhat liquefied and had spontaneous drainage. No need to pack the wound as the areas of dehiscence appear to be superficial and quite small. There is always a possibility that this dehiscence could extend and if so may need more involved dressing changes. The chronic epigastric hernia is soft and reducible. Her abdomen is soft and she has no complaints of diffuse abdominal pain. No evidence of any strangulated ventral hernia. CT reading of portal venous gas in the hepatic lobe likely artifact. May consider a follow-up CT scan with IV and oral contrast for confirmation.
--- NOTE | 2025-03-26 09:40 | PC.NURSE ---
Wound care at bedside assessing patients incision.
--- OUTSIDE RECORDS SUMMARY | 2025-03-26 09:57 | XMS_ITS | Encounter Summary ---
Author Organization Healthcare Address [address] [place] [address] Care Team Providers Care Hydraulic Elevator Constructor Name Role Phone Ankur Main MD Primary Care Provider [phone] Iman Cuevas MD Primary Care Provider [phone] Reason for Visit * Reason Onset Date Comments Med Refill 06/29/2021 Encounter Details Date Type Department Care Team (Late st Contact Info) Description 06/29/2021 Refill [facility] Medicine Specialties [address], [address] [place] [address] Juventino Costa MD [address] [place] [address] Moderate persistent asthma, unspecified whether [...] 11:00 AM EDT Office Visit [facility] Medicine Specialties [address], [address] [place] [address] Juventino Costa MD [address] [place] [address] 05/04/2025 1:00 PM EST Appointment Medical Office Building Cardiac Diagnostic Testing Medical Office Building Echo Lab [address], [address] [place] [address] 05/04/2025 1:45 PM EST Office Visit [facility] [place] [address], [address] [place] [address] Ruslan Sanderson MD [address] [place] [address] 07/23/2025 2:00 PM EST Office Visit [facility] Sleep Disorder Center [address], [address]th [place] [address] Kassandra hKan APRN [address] [place] [address] 08/21/2025 3:30 PM EST Office Visit [facility] [address], [address] [place] [address] Alicia Jennings MD [address] [place] [address] 09/10/2025 10:40 AM EDT [facility] [address], [address] [place] [address] Bushra Graf PA [address] [place] [address] documented as of this encounter [...] documented as of this encounter Care Teams Hydraulic Elevator Constructor Relationship Specialty Start Date End Date Ankur Main MD [address] [place] [address] PCP - General 11/01/20 12/18/24 Iman Cuevas MD [address] [place] [address] PCP - General Internal Medicine 12/19/24 documented as of this encounter
--- OUTSIDE RECORDS SUMMARY | 2025-03-26 09:57 | XMS_ITS | Encounter Summary ---
Author Organization Healthcare Address [address] [place] [address] Care Team Providers Care Circulation Crew Leader Name Role Phone Iman Cuevas MD Primary Care Provider [phone] Encounter Details Date Type Department Care Team [...] the past 12 months has th e [employer], gas, oil, or water Supramed threatened to shut off services in your [...] Description 04/18/2025 11:00 AM EDT Office Visit [facility] Medicine Specialties [address] [place] [address] Juventino Costa MD [address] [place] [address] 05/04/2025 1:00 PM EST Appointment Medical Office Building Cardiac Diagnostic Testing Medical Office Building Echo Lab [address] [facility] [facility], [address] [place] [phone] 05/04/2025 1:45 PM EST Office Visit [facility] [place] [facility] [address], [address] [place] [phone] Ruslan Sanderson MD [address] [place] [address] 07/23/2025 2:00 PM EST Office Visit [facility] Sleep Disorder Center [address]th [place] [phone] Kassandra Khan, DIRECTOR COLLEGE [address] [place] [address] 08/21/2025 3:30 PM EST Office Visit [facility] [address] [place] [address] Alicia Jennings MD [address] [place] [address] 09/10/2025 10:40 AM EDT Office Visit [facility] Medicine Specialties [address], [address] [place] [address] Bushra Graf PA [address] [place] [address] documented as of this encounter [...] documented as of this encounter Care Teams Circulation Crew Leader Relationship Specialty Start Date End Date Iman Cuevas MD [address] [place] [phone] PCP - General Internal Medicine 12/19/24 documented as of this encounter
--- OUTSIDE RECORDS SUMMARY | 2025-03-26 09:57 | XMS_ITS | Encounter Summary ---
Author Organization Healthcare Address [address] [place] [address] Care Team Providers Care Business Transformation Analyst Name Role Phone Ankur Main MD Primary Care Provider [phone] Iman Cuevas MD Primary Care Provider [phone] Reason for Visit * Reason Onset Date Comments Med Refill 06/19/2021 Encounter Details Date Type Department Care Team (Late st Contact Info) Description 06/19/2021 Refill [facility] Internal Medicine [address]rd [place] [address] Ankur Main MD [address] [place] [address] Social History Tobacco Use Types [...] Description 04/18/2025 11:00 AM EDT Office Visit [facility] Medicine Specialties [address], [address] [place] [address] Juventino Costa MD [address] [place] [address] 05/04/2025 1:00 PM EST Appointment Medical Office Building Cardiac Diagnostic Testing Medical Office Building Echo Lab [address], [address] [place] [address] 05/04/2025 1:45 PM EST Office Visit [facility] [place] [address], [address] [place] [address] Ruslan Sanderson MD [address] [place] [address] 07/23/2025 2:00 PM EST Office Visit [facility] Sleep Disorder Center [address] [place] [address] Kassandra Khan APRN [address] [place] [address] 08/21/2025 3:30 PM EST Office Visit [facility] [address] [place] [address] Alicia Jennings MD [address] [place] [address] 09/10/2025 10:40 AM EDT Office Visit [facility] Medicine Specialties [address] [place] [address] Bushra Graf, PA [address] [place] [address] documented as of this encounter [...] as of this encounter Care Teams Business Transformation Analyst Relationship Specialty Start Date End Date Ankur Main MD [address] [place] [address] PCP - General 11/01/20 12/18/24 Iman Cuevas MD [address] [place] [address] PCP - General Internal Medicine 12/19/24 documented as of this encounter
--- OUTSIDE RECORDS SUMMARY | 2025-03-26 09:57 | XMS_ITS | Encounter Summary ---
Author Organization Healthcare Address [address] [place] [address] Care Team Providers Care Turning Sander Operator Name Role Phone Ankur Main MD Primary Care Provider [phone] Iman Cuevas MD Primary Care Provider [phone] Reason for Visit * Reason Onset Date Comments Med Refill 06/30/2021 Encounter Details Date Type Department Care Team (Late st Contact Info) Description 06/30/2021 Refill [facility] Medicine Specialties [address] [place] [address] Juventino Costa MD [address] [place] [address] Moderate persistent asthma, unspecified whether [...] Description 04/18/2025 11:00 AM EDT Office Visit [facility] Medicine Specialties [address] [place] [address] Juventino Costa MD [address] [place] [address] 05/04/2025 1:00 PM EST Appointment Medical Office Building Cardiac Diagnostic Testing Medical Office Building Echo Lab [address], [address] [place] [address] 05/04/2025 1:45 PM EST Office Visit [facility] [place] [address], [address] [place] [address] Ruslan Sanderson MD [address] [place] [address] 07/23/2025 2:00 PM EST Office Visit [facility] Sleep Disorder Center [address]th [place] [phone] Kassandra Khan, RDA [address] [place] [address] 08/21/2025 3:30 PM EST Office Visit [facility] [address] [place] [address] Alicia Jennings MD [address] [place] [address] 09/10/2025 10:40 AM EDT Office Visit [facility] Medicine Specialties [address] [place] [address] Bushra Graf, SHELBY [address] [place] [address] documented as of this encounter [...] documented as of this encounter Care Teams Turning Sander Operator Relationship Specialty Start Date End Date Ankur Main MD [address] [place] [address] PCP - General 11/01/20 12/18/24 Iman Cuevas MD [address] [place] [address] PCP - General Internal Medicine 12/19/24 documented as of this encounter
--- OUTSIDE RECORDS SUMMARY | 2025-03-26 09:58 | XMS_ITS | Encounter Summary ---
Author Organization Healthcare Address [address] [place] [address] Care Team Providers Care Cold Roll Inspector Name Role Phone Ankur Main MD Primary Care Provider [phone] Iman Cuevas MD Primary Care Provider [phone] Encounter Details Date Type Department Care Team (Late st Contact Info) Description 01/24/2024 Orders Only External Location [address] [place] [address] Skip Tineo MD Social History Tobacco Use [...] Behavior (Lifetime) No 3:17 PM EDT Ever iMx documented as of this encounter Plan of Treatment Upcoming Encounters Date Type Department Care Team (Late st Contact Info) Description 04/18/2025 11:00 AM EDT Office Visit [facility] Medicine Specialties [address] [place] [address] Juventino Costa MD [address] [place] [address] 05/04/2025 1:00 PM EST Appointment Medical Office Building Cardiac Diagnostic Testing Medical Office Building Echo Lab [address], [address] [place] [address] 05/04/2025 1:45 PM EST Office Visit [facility] [place] [address], [address] [place] [address] Ruslan Sanderson MD [address] [place] [address] 07/23/2025 2:00 PM EST Office Visit [facility] Sleep Disorder Center [address] [place] [address] Kassandra Khan APRN [address] [place] [address] 08/21/2025 3:30 PM EST [facility] [address] [place] [address] Alicia Jennings MD [address] [place] [address] 09/10/2025 10:40 AM EDT Office Visit [facility] Medicine Specialties [address] [place] [address] Bushra Graf PA [address] [place] [address] documented as of this encounter [...] documented as of this encounter Care Teams Cold Roll Inspector Relationship Specialty Start Date End Date Ankur Main MD [address] [place] [address] PCP - General 11/01/20 12/18/24 Iman Cuevas MD [address] [place] [address] PCP - General Internal Medicine 12/19/24 documented as of this encounter
--- OUTSIDE RECORDS SUMMARY | 2025-03-26 09:58 | XMS_ITS | Encounter Summary ---
Author Organization Healthcare Address [address] [place] [address] Care Team Providers Care Conservation Educator Name Role Phone Ankur Main MD Primary Care Provider Iman Cuevas MD Primary Care Provider [phone] Reason for Visit * Reason Onset Date Comments Med Refill 02/28/2021 Encounter Details Date Type Department Care Team (Late st Contact Info) Description 02/28/2021 Refill [facility] Internal Medicine [address], 3rd [place] [address] Roxana Abdul MD [address] [place] [address] Polyneuropathy associated with underlying disease [...] [facility] Medicine Specialties [address], 2nd [place] [address] Juventino Costa MD [address] [place] [address] 05/04/2025 1:00 PM EST Appointment Medical Office Building Cardiac Diagnostic Testing Medical Office Building Echo Lab [address] [facility], [address] [place] [address] 05/04/2025 1:45 PM EST Office Visit [facility] [place] [address] [facility], [address] [place] [address] Ruslan Sanderson MD [address] [place] [address] 07/23/2025 2:00 PM EST Office Visit [facility] Sleep Disorder Center [address], 4th [place] [address] Kassandra Khan, RECREATIONAL LEADER [address] [place] [address] 08/21/2025 3:30 PM EST Office Visit [facility] [address], 1st [place] [address] Alicia Jennings MD [address] [place] [address] 09/10/2025 10:40 AM EDT Office Visit [facility] Medicine Specialties [address], 2nd [place] [address] Bushra Graf, PA [address] [place] [address] documented as of this [...] as of this encounter Care Teams Conservation Educator Relationship Specialty Start Date End Date Ankur Main MD [address] [place] [address] PCP - General 11/01/20 12/18/24 Iman Cuevas MD [address] [place] [address] PCP - General Internal Medicine 12/19/24 documented as of this encounter
--- OUTSIDE RECORDS SUMMARY | 2025-03-26 09:58 | XMS_ITS | Clinical Summary ---
Author Organization Healthcare Address [address] [place] [address] Care Team Providers Care Marine Pipe Welder Name Role Phone Iman Cuevas MD Primary Care Provider [phone] Allergies Active Allergy Reactions Criticality Noted Date Comments Wound Dressings Rash Low 09/10/2020 Rash/blisters Tetracycline Rash Low 10/05/2019 Medications aspirin 81 MG EC tablet Take by mouth in the morning. 04/04/20 20 Active levonorgestrel (Mirena, 52 MG,) 20 MCG/24HR IUD Take by mouth See administration instructions. Inserted on 09/04/2020 Lot Number: [id number] Expiration Date: Nov 2022 NDC: [id number] 09/05/19 21 Active magnesium oxide (Mag-Ox) 400 [...] needed for mild pain. Active nystatin (Mycostatin) 180598 UNIT/GM powderIndication s:Healthcare maintenance Apply topically 1 [...] bronchitis with COPD (chronic obstructive pulmonary disease) ([facility]),Modera te persistent asthma, unspecified whether complicated Inhale 2 puffs 4 (four) times a day. 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 Depression 06/28/2020 Lung nodule 05/29/2020 [...] Description 03/12/2025 10:20 AM EDT [facility] Medicine Specialties [address], [address]nd [place] [address] Bushra Graf, PA Chronic constipation (Primary Dx); Hemorrhage of rectum and anus; Obesity, Class III, BMI 40-49.9 (morbid obesity) 03/12/2025 Travel 02/28/2025 Telephone [facility] [place] [address] [facility], [address] [place] [address] Ruslan Sanderson MD HCN Clinical Concern/Question 01/23/2025 Refill [facility] [place] [address] [facility], [address] [place] [address] Ruslan Sanderson MD History of pulmonic valve replacement 01/08/2025 Telephone [facility] Medicine Specialties [address], [address] [place] [address] Marybel Dunne 01/05/2025 [facility]ill [facility] [address], [address] [place] [address] Calista Jacobs APRN Focal epilepsy ([facility]) 01/02/2025 Telephone [facility] Medicine Specialties [address], [address] [place] [address] Jocelyn Arevalo New Med Request [...] Danyelle Brody Colon cancer Maternal Grandmother Shelly [place] Diabetes Maternal Grandmother Shellydontae Barronddy Conversions - [...] place to sleep or slept in a long-term (including now)? No 01/25/2024 PHQ-9 Answer Date [...] Description 04/18/2025 11:00 AM EDT [facility] Medicine Specialties [address], 2[address] [place] [address] Juventino Costa MD [address] [place] [address] 05/04/2025 1:00 PM EST Appointment Medical Office Building Cardiac Diagnostic Testing Medical Office Building Echo Lab [address] [facility], [address] [place] [address] 05/04/2025 1:45 PM EST Office Visit [facility] [place] [address], [address] [place] [address] Ruslan Sanderson MD [address] [place] [address] 07/23/2025 2:00 PM EST Office Visit [facility] Sleep Disorder Center [address], [address]th [place] [address] Kassandra Khan, KIDNEY TRIMMER [address] [place] [address] 08/21/2025 3:30 PM EST [facility] [address], 1[address] [place] [address] Alicia Jennings MD [address] [place] [address] 09/10/2025 10:40 AM EDT Office Visit [facility] Medicine Specialties [address], [address] [place] [address] Bushra Graf PA [address] [place] [address] Health Maintenance Due Date Last Done Comments [facility]-Medicare Annual Wellness (AWV) 1985 [facility]-Infant/Child/Adol SDOH Screenings 1985 [id number] Vaccine (#1) 02/02/1988 Diabetes: Dental Exam 1993 [...] 5.3 <5.7 % 05/10/2024 1:14 PM EST [facility] Blood Venous blood specimen / Unknown Venipuncture / Unknown 05/10/2024 10:37 AM EST 05/10/2024 10:38 AM EST Narrative [facility] - 05/10/2024 1:14 PM EST HA1C Interpretive Data: Diagnosis of Diabetes: Diabetic > or = 6.5% Pre-diabetic 5.7 to 6.4% Non-diabetic < or = 5.6% Glycemic Targets for Type I and Type II Diabetics: Non- Adults <7.0% Adults <6.0% Children and Adolescents <7.5% Source: [place] [employer]. Standards of medical care in diabetes,2017. Diabetes Care.2017:40 (suppl 1):S1-S135. HbA1c assay performed by an ion-exchange chromatography method that is certified traceable to the DCCT. Astrid Alvarez KIDNEY TRIMMER LAB BLOOD ORDERABLES Kaley l Result [facility] [address] [place] [address] * HIV 1 & 2 Antibody/Antigen Screen (04/28/2022 1:47 PM EST) HIV 1 & 2 Antibody/Anti gen Screen Nonreactive Nonreactive 04/28/2022 4:48 PM EST [facility] Blood Venous blood specimen / Unknown Venipuncture / Unknown 04/28/2022 1:47 PM EST 04/28/2022 2:22 PM EST Carlos Rodriguez MD LAB BLOOD ORDERABLES Final Result [facility] [address] [place] [address] * Cytology (09/04/2020 12:00 AM EDT) 09/04/2020 09/05/2020 8:5 1 AM EDT Narrative COPATH - 09/12/2020 12:05 PM EDT [facility] MR #: [id number] [facility] [address] [place], [place] [address] 1985 (Age: 35) FW Collect Date: 09/04/2020 00:00 Receipt Date: 09/05/2020 08:51 Page 1 DEPARTMENT OF PATHOLOGY AND LABORATORY MEDICINE CYTOPATHOLOGY REPORT Email: [phone] ATTENDING MD/Practitioner: JOAN ROWE Service: [email or web address] Location: [facility] Reported: 09/12/2020 12:05 Collected: 09/04/2020 00:00 INTERPRETATION A. THIN PREP (CERVICAL/VAGINAL): ATYPICAL SQUAMOUS CELLS - UNDETERMINED SIGNIFICANCE(ASCUS) REACTIVE CELLULAR CHANGES. ORGANISMS PRESENT CONSISTENT WITH ACTINOMYCES SPECIES. SATISFACTORY FOR EVALUATION; ENDOCERVICAL/ TRANSFORMATION ZONE COMPONENT PRESENT. Slide scanned and imaged by [employer] ThinPrep Imaging System with manual review of [...] results is suggested (please call Microbiology at [phone] for results). CLINICAL INFORMATION: Menstrual History: Irregular [...] of cervix uteri F: A; DX IMAGE [id number], 23434 C\V (PO) SNOMED CODES: A; [id number] M- 48608 [id number] [id number] [id number] In cases where a pathologist has signed out the report, the service has been rendered in part by a resident. The signing pathologist has performed and is responsible for the reported pathologic evaluation. 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
--- OUTSIDE RECORDS SUMMARY | 2025-03-26 09:58 | XMS_ITS | Encounter Summary ---
Author Organization Healthcare Address [address] [place] [address] Care Team Providers Care Silk Screen Operator Name Role Phone Ankur Main MD Primary Care Provider [phone] Nancy Hernandez SUPERVISOR COMPOSING ROOM Unavailable Unavailable Iman Cuevas MD Primary Care Provider [phone] Encounter Details Date Type Department Care Team (Late st Contact Info) Description 08/01/2018 Orders Only External Location [address] [place] [address] Social History Tobacco Use Types Packs/Day Years [...] Description 04/18/2025 11:00 AM EDT Office Visit [facility] Medicine Specialties [address], 2nd [place] [address] Juventino Costa MD [address] [place] [address] 05/04/2025 1:00 PM EST Appointment Medical Office Building Cardiac Diagnostic Testing Medical Office Building Echo Lab [address], [address] [place] [address] 05/04/2025 1:45 PM EST Office Visit [facility] [place] [address] [facility], [address] [place] [address] Ruslan Sanderson MD [address] [place] [address] 07/23/2025 2:00 PM EST Office Visit [facility] [address], 4th [place] [address] Kassandra Khan APRN [address] [place] [address] 08/21/2025 3:30 PM EST Office Visit [facility] [address], 1st [place] [address] Alicia Jennings MD [address] [place] [address] 09/10/2025 10:40 AM EDT Office Visit [facility] Medicine Specialties [address], 2[address] [place] [address] Bushra Graf PA [address] [place] [address] documented as of this encounter [...] documented as of this encounter Care Teams Silk Screen Operator Relationship Specialty Start Date End Date Ankur Main MD [address] [address] PCP - General 11/01/20 12/18/24 Iman Cuevas MD [address] [place] [address] PCP - General Internal Medicine 12/19/24 Nancy Hernandez, [place] [id number] Plant Physiologist Drywall Sprayer 03/25/20 03/25/20 documented as of this encounter
--- OUTSIDE RECORDS SUMMARY | 2025-03-26 09:58 | XMS_ITS | Encounter Summary ---
Author Organization Healthcare Address [address] [place] [address] Care Team Providers Care Neurophysiological Technician Name Role Phone Ankur Main MD Primary Care Provider [phone] Iman Cuevas MD Primary Care Provider [phone] Reason for Visit * Reason Onset Date Comments Med Refill 02/19/2022 Encounter Details Date Type Department Care Team (Late st Contact Info) Description 02/19/2022 Refill [facility] Internal Medicine [address], [address]rd [place] [address] Ankur Main MD [address] [place] [address] Polyneuropathy associated with underlying disease [...] [facility] [address], [address] [place] [address] Juventino Costa MD [address] [place] [address] 05/04/2025 1:00 PM EST Appointment Medical Office Building Cardiac Diagnostic Testing Medical Office Building Echo Lab [address] [facility], [address] [place] [address] 05/04/2025 1:45 PM EST Office Visit [facility] [place] [address] [facility], [address] [place] [address] Ruslan Sanderson MD [address] [place] [address] 07/23/2025 2:00 PM EST Office Visit [facility] Sleep Disorder Center [address], 4th [place] [address] Kassandra Khan, APOLLO [address] [place] [address] 08/21/2025 3:30 PM EST [facility] [address], 1[address] [place] [address] Alicia Jennings MD [address] [place] [address] 09/10/2025 10:40 AM EDT Office Visit [facility] Medicine Specialties [address], 2nd [place] [address] Bushra Graf PA [address] [place] [address] documented as of this encounter Visit Diagnoses [...] documented as of this encounter Care Teams Neurophysiological Technician Relationship Specialty Start Date End Date Ankur Main MD [address] [place] [address] PCP - General 11/01/20 12/18/24 Iman Cuevas MD [address] [place] [address] PCP - General Internal Medicine 12/19/24 documented as of this encounter
--- OUTSIDE RECORDS SUMMARY | 2025-03-26 09:58 | XMS_ITS | Encounter Summary ---
Author Organization Healthcare Address [address] [place] [address] Care Team Providers Care Odd Bundle Worker Name Role Phone Ankur Main MD Primary Care Provider [phone] Iman Cuevas MD Primary Care Provider [phone] Reason for Visit * Reason Onset Date Comments Med Refill 01/24/2021 Encounter Details Date Type Department Care Team (Late st Contact Info) Description 01/24/[address] [facility] Internal Medicine [address], [address]rd [place] [address] Ankur Main MD [address] [place] [address] Polyneuropathy associated with underlying disease [...] Upcoming Encounters Date Type Department Care Team ([facility] st Contact Info) Description 04/18/2025 11:00 AM EDT Office Visit [facility] Medicine Specialties [address], [address] [place] [address] Juventino Costa MD [address] [place] [address] 05/04/2025 1:00 PM EST Appointment Medical Office Building Cardiac Diagnostic Testing Medical Office Building Echo Lab [address] [facility], [address] [place] [address] 05/04/2025 1:45 PM EST Office Visit [facility] [place] [address] [facility], [address] [place] [address] Ruslan Sanderson MD [address] [place] [address] 07/23/2025 2:00 PM EST Office Visit [facility] Sleep Disorder Center [address], 4th [place] [address] Kassandra Khan, APOLLO [address] [place] [address] 08/21/2025 3:30 PM EST Office Visit [facility] [address], [address] [place] [address] Alicia Jennings MD [address] [place] [address] 09/10/2025 10:40 AM EDT Office Visit [facility] Medicine Specialties [address], [address]nd [place] [address] Bushra Graf, SHELBY [address] [place] [address] documented as of this encounter [...] documented as of this encounter Care Teams Odd Bundle Worker Relationship Specialty Start Date End Date Ankur Main MD [address] [place] [address] PCP - General 11/01/20 12/18/24 Iman Cuevas MD [address] [place] [address] PCP - General Internal Medicine 12/19/24 documented as of this encounter
--- OUTSIDE RECORDS SUMMARY | 2025-03-26 09:58 | XMS_ITS | Encounter Summary ---
Author Organization Healthcare Address [address] [place] [address] Care Team Providers Care Green Building Materials Designer Name Role Phone Iman Cuevas MD Primary Care Provider [phone] Reason for Visit * Reason Onset Date Comments HCN Clinical Concern/Question 02/28/2025 Encounter Details Date Type Department Care Team ([facility] st Contact Info) Description 02/28/2025 Telephone [facility] [place] [address] [facility], [address] [place] [address] Ruslan Sanderson MD [address] [place] [address] HCN Clinical Concern/Question Social History [...] 03/02/2025 8:21 AM EDT Letter faxed to [phone] * Telephone Encounter - Ruslan Sanderson MD - 03/01/2025 11:13 AM EDT Ok to proceed with surgery from cardiac stand point. * Telephone Encounter - Ilana Rolle - 02/28/2025 2:51 PM EDT Clinical Concern/Question Reason for Call: Patient is needing cardiac clearance for hysterectomy being done at [facility] on 03/14. FAX: [phone] Best contact number: [phone] (home) Optimal time of day to reach caller: ANYTIME Additional comments/information from caller: None Note: Please do not reply to this message. Follow-up communication and further actions as a result of this message need to be communicated with the patient directly, if the patient is not active onMyChart. If the patient is active on MyChart, they will receive notification of the communication/outcome via [employer]. documented in this encounter Plan of Treatment Upcoming Encounters Date Type Department Care Team (Late st Contact Info) Description 04/18/2025 11:00 AM EDT Office Visit [facility] Medicine Specialties [address], [address]nd [place] [address] Juventino Costa MD [address] [place] [address] 05/04/2025 1:00 PM EST Appointment Medical Office Building Cardiac Diagnostic Testing Medical Office Building Echo Lab [address] [facility], [address] [place] [address] 05/04/2025 1:45 PM EST Office Visit [facility] [place] [address] [facility], [address] [place] [address] Ruslan Sanderson MD [address] [place] [address] 07/23/2025 2:00 PM EST Office Visit [facility] Sleep Disorder Center [address], 4th [place] [address] Kassandra Khan APRN [address] [place] [address] 08/21/2025 3:30 PM EST [facility] [address], [address] [place] [address] Alicia Jennings MD [address] [place] [address] 09/10/2025 10:40 AM EDT [facility] Medicine Specialties [address], [address] [place] [address] Bushra Graf PA [address] [place] [address] documented as of this encounter [...] documented as of this encounter Care Teams Green Building Materials Designer Relationship Specialty Start Date End Date Iman Cuevas MD [address] [address] PCP - General Internal Medicine 12/19/24 documented as of this encounter
--- NOTE | 2025-03-26 10:47 | HMH.PTEV ---
Physical Therapy Evaluation Rehab PT IP Evaluation Start: 03/25/25 04:50 Freq: ONCE Status: Active Protocol: Document 03/26/25 10:45 PEDRO (Rec: 03/26/25 10:47 PEDRO [id number]) Subjective/History History History Per H&P: Patient is a 40-year-old female with past medical history of hypothyroidism diabetes mellitus, bipolar 1 disorder, seizures, asthma, CKD, COPD who recently had surgery by ENGINEERING CONSULTANT for hysterectomy. She had a subtotal abdominal hysterectomy on March 14, 2025. The cervix was left in place secondary to the deep aspect of the pelvis and difficulty removing the cervix. She was at home standing in her kitchen when she had sudden onset of blood loss through her incision . Patient presents to the hospital due to dehiscence of surgical wound, as well as bilateral lower extremity edema, pain and swelling and fluid drainage from wounds on further evaluation patient was noted to have anasarca due to possible new onset CHF, patient was admitted for further. It was noted that she had increased edema all the way up to her chest. She denies active chest pain however patient mentions she has noticed bilateral lower extremity swelling as well as shortness of breath drainage from her wounds from surgery. Subjective Subjective Pt reports she lives wit her mother and BF. Pt normally IND with all mobility without AD use. Pt lives in a single-story home Pt does not drive. New diagnosis of No cancer in past 12 months? [facility] How much help from another person do you currently need... Turning from your None back to your side while in a flat bed without using bedrails? Moving from lying on None back to sitting on the side of a flat bed without using bedrails? Moving to and from a None bed to a chair ( including a wheelchair)? Standing up from a None chair using your arms? (e.g., wheelchair, bedside chair) Walking in hospital None room? Climbing 3-5 steps A little with a railing? Mobility Score 23 Mobility Level [facility] Mobility Walk 25 feet or more Mobility Calculator Rehab PT IP Eval Objective Appearance Patient Behavior Appropriate,Cooperative Patient Orientation Person,Place,Situation Difficulty following none instructions Speech Pattern Clear Ambulation Patient Able to Yes Ambulate Ambulation Observation IP General Gait Wide Based Gait Pattern Observation Ambulation Distance 120 (feet) Ambulation Assistive None Device Ambulation Ability Contact Guard/Hand Hold Balance Ability to Arise Able, uses arms to help Sitting Balance Steady, safe Standing Balance Steady, wide stance Dynamic Sitting Good Balance Ability Dynamic Standing Good Balance Ability Transfers Bed Transfer Ability Supervision/Stand by Chair Transfer Supervision/Stand by Ability Sit to Stand Bed Supervision/Stand by Transfer Ability Rehab PT IP prob,goals,plan Problems Date of Evaluation: 03/26/25 Rehab Potential Rehab Potential Innapropriate for Skilled Therapy Discharge Plan PT Discharge Plan Pt most appropriate to d/c home when deemed medically necessary d/t current level of mobility, home set-up, and family support. Pt not appropriate for skilled acute care PT at this time d/t pt?s mobility being at baseline. Eval Complexity Eval Charge Codes 82491 - Moderate Complexity PHYSICIAN CERTIFICATION: I certify the specified therapy services for Elizabeth Milian are required, authorized, and reviewed every 30 days.
--- NOTE | 2025-03-26 12:00 | HMH.PTWOUND ---
Rehab Wound Evaluation Rehab IP Wound Evaluation Start: 03/25/25 10:21 Freq: ONCE Status: Active Protocol: Document 03/26/25 11:12 PEDRO (Rec: 03/26/25 11:49 PEDRO [id number]) Rehab PT Wound Assessment Subjective Subjective Per H&P: Patient is a 40-year-old female with past medical history of hypothyroidism diabetes mellitus, bipolar 1 disorder, seizures, asthma, CKD, COPD who recently had surgery by ADVERTISING REPRESENTATIVE for hysterectomy. She had a subtotal abdominal hysterectomy on March 14, 2025. The cervix was left in place secondary to the deep aspect of the pelvis and difficulty removing the cervix. She was at home standing in her kitchen when she had sudden onset of blood loss through her incision . Patient presents to the hospital due to dehiscence of surgical wound, as well as bilateral lower extremity edema, pain and swelling and fluid drainage from wounds on further evaluation patient was noted to have anasarca due to possible new onset CHF, patient was admitted for further. It was noted that she had increased edema all the way up to her chest. She denies active chest pain however patient mentions she has noticed bilateral lower extremity swelling as well as shortness of breath drainage from her wounds from surgery. Pt agreeable to wound care consult and reports some discomfort along incision throughout evaluation. Wound Lower Abdomen Wound Type Incision Is This a Chronic No Wound Wound Length (cm) 0.1 Wound Width (cm) 4.8 Wound Depth (cm) 3.9 Wound Bed Appearance [place] Wound Margins Well Defined Description Surrounding Tissue [place] Appearance Wound Drainage Serosanguineous Description Drainage Amount Moderate Drainage Odor No Odor Dressing Status Changed Primary Dressing Abdominal gauze pad Dressing Change Tolerated Well Patient Tolerance Plan/Recommendation Comment Pt presents with an area of dehiscence on her surgical incision measuring 0.1cm (L) x 4.8cm (W) x 3.9 cm deep. PT cleaned wound with Hibiclens antiseptic and dressed the wound in an abdominal pad secured with silk tape. Nursing staff to continue wound dressing changes as needed. PT educated nursing staff on recommendation for possibly packing pt's wound to assist with managing drainage pending general surgery's recommendation. Nursing staff verbalized understanding and will follow up with physician. Eval Complexity Eval Charge Codes [id number] - Moderate Complexity PHYSICIAN CERTIFICATION: I certify the specified therapy services for Elizabeth Rukhsana are required, authorized, and reviewed every 30 days.
[2025-03-26 12:09] LABS: Free T4 (Free Thyroxine) 1.19 ng/dl (0.78-2.19)
--- NOTE | 2025-03-26 12:44 | EXP.CARD.CON ---
History of Present Illness History of Present Illness Consult date: 03/26/25 Requesting physician: David Hall Consult reason: congestive heart failure Chief complaint: CHF, history of bioprosthetic valves Additional Medical History:: 1. 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 History of tricuspid valve repair and pulmonary valve replacement approximately 2017 [place] B. Relapsed drug use with subsequent tricuspid and pulmonic valve replacement, Dr. Fontana, , 2019 2. History of brainstorm after cardiac surgery in 2019 with patient reporting stroke due to hypertensive event and seizure activity with lifelong Keppra use 3. Abdominal hysterectomy 02/2025 with subsequent anasarca/abdominal swelling and wound dehiscence, 03/2025 4. Hypothyroidism 5. Diabetes mellitus 6. Bipolar disorder 7. History of pulmonary embolism A. On Eliquis 5 mg twice daily History of present illness: Patient is a 40-year-old female with past medical history of hypothyroidism diabetes mellitus, bipolar 1 disorder, seizures, asthma, CKD, COPD who recently had surgery by LEHR CUTTER for hysterectomy. She had a subtotal abdominal hysterectomy on March 14, 2025. The cervix was left in place secondary to the deep aspect of the pelvis and difficulty removing the cervix. She was at home standing in her kitchen when she had sudden onset of blood loss through her incision. Patient presents to the hospital due to dehiscence of surgical wound, as well as bilateral lower extremity edema, pain and swelling and fluid drainage from wounds on further evaluation patient was noted to have anasarca due to possible new onset CHF, patient was admitted for further. It was noted that she had increased edema all the way up to her chest. She denies active chest pain however patient mentions she has noticed bilateral lower extremity swelling as well as shortness of breath drainage from her wounds from surgery. The above per Dr. Balbuena Cardiology consulted for new onset CHF in the setting of history of valve replacement. Patient relates taking 160 mg of Lasix daily for several years. She diuresed over 8 L after IV Lasix 80 mg twice daily here in the hospital. At the time of my exam she is feeling much better. [facility] Disclaimer: The information contained in this section may have been updated after the patient was seen, as this information can be updated by other users. 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 History of tricuspid valve replacement History of pulmonic valve replacement History of lung surgery History of cholecystectomy History of open heart surgery Family History Family history of cancer Family history of diabetes mellitus type II Family history of myocardial infarction Social History Smoking Status: Never smoker smoking status stop date: year of quit is 2019 alcohol intake: former substance use type: IV drugs current occupational status: unemployed Travel in the last 8 weeks?: None marital status: single do you feel safe at home: Yes victim of physical abuse: No victim of emotional abuse: No victim of sexual abuse: No Review of Systems Review of Systems Review of systems:: pertinent systems reviewed and negative unless documented below *Cardiovascular Cardiovascular: Denies chest pain, Reports dyspnea on exertion and Reports leg edema *Respiratory Respiratory: Reports dyspnea on exertion Exam Data for Last 24 hours Vital signs and Labs for Last 24 Hours: Temp Pulse Resp BP Pulse Ox O2 Del Method 97.9 F 72 18 106/58 L 92 L Room Air 03/26/25 08:34 03/26/25 08:34 03/26/25 08:34 03/26/25 08:34 03/26/25 08:34 03/26/25 11:11 Laboratory Results - last 24 hr 03/25/25 12:30: Sodium 138, Potassium 3.3 L, Chloride 102, Carbon Dioxide 26, Anion Gap 13.3, BUN 14, Creatinine 0.90, Estimated Creat Clear 128, Estimated GFR 69, Est GFR ( Amer) 83, Glucose 107 H, Calcium 7.4 L, Magnesium 2.3 03/26/25 06:10: WBC 6.8, RBC 2.91 L, Hgb 9.2 L, Hct 29.4 L, MCV 101.0 H, MCH 31.6 H, MCHC 31.3 L, RDW 18.3 H, Plt Count 199, MPV 9.9, Neut % (Auto) 65.4, Lymph % (Auto) 21.9, [place] % (Auto) 6.2, Eos % (Auto) 5.3, Baso % (Auto) 0.3, Neut # (Auto) 4.4, Lymph # (Auto) 1.5, [place] # (Auto) 0.4, Eos # (Auto) 0.4, Baso # (Auto) 0.0, Sodium 138, Potassium 3.4 L, Chloride 100, Carbon Dioxide 29, Anion Gap 12.4, BUN 13, Creatinine 0.90, Estimated Creat Clear 128, Estimated GFR 69, Est GFR ( Amer) 83, Glucose 106 H, Calcium 8.2 L, Total Bilirubin 1.3, AST 25 D, ALT 16, Alkaline Phosphatase 67, NT-Pro-B Natriuret Pep 476 H, Total Protein 6.5, Albumin 3.4 L, Globulin 3.1, Albumin/Globulin Ratio 1.1, Free T4 1.19 I & O for Last 24 hours: Intake & Output 03/24/25 03/25/25 03/26/25 03/27/25 11:59 11:59 11:59 11:59 Intake Total 740 / 740 1560 / 1560 Output Total 4651 / 4651 6150 / 6150 Balance -3911 / -3911 -4590 / -4590 Weight 220 lb Microbiology Reports for the Last 24 Hours: Microbiology 03/25/25 18:30 Incision Gram Stain - Final Constitutional Constitutional: no acute distress and obese *Routine Respiratory Exam Respiratory: Present decreased breath sounds and rales; Absent wheezes *Routine Cardiovascular Exam Cardiovascular: Present RRR and murmur; Absent gallop or rubs *Routine Extremities Exam Extremities: Present edema Meds Home Medications and Allergies Home Medications ?Medication ?Instructions ?Recorded ?Confirmed ?Type apixaban 5 mg tablet (Eliquis) 5 mg PO BID 12/10/23 03/25/25 History lamotrigine 100 mg tablet 50 mg PO BID 12/10/23 03/25/25 History levetiracetam 500 mg tablet 2,000 mg PO BID 12/10/23 03/25/25 History metoprolol tartrate 25 mg tablet 25 mg PO BID 12/10/23 03/25/25 History montelukast 10 mg tablet 10 mg PO HS 12/10/23 03/25/25 History sertraline 100 mg tablet 100 mg PO DAILY 12/10/23 03/25/25 History quetiapine 50 mg tablet 50 mg PO HS 10/10/24 03/25/25 History tiotropium 2.5 mcg-olodaterol 2.5 2 inh inhalation DAILY 11/14/24 03/25/25 History mcg/actuation mist for inhalation (Stiolto Respimat) prucalopride 2 mg tablet 2 mg PO DAILY 01/11/25 03/25/25 History empagliflozin 10 mg tablet 10 mg PO DAILY 90 days #90 tabs 02/05/25 03/25/25 Rx (Jardiance) folic acid 1 mg tablet 1 mg PO DAILY 90 days #90 tabs 02/05/25 03/25/25 Rx furosemide 40 mg tablet 80 mg (2 x 40 mg) PO BID 90 days 02/05/25 03/25/25 Rx #360 tabs potassium chloride 20 mEq 20 meq PO BID 90 days #180 tabs 02/05/25 03/25/25 Rx tablet,extended release(part/cryst) levothyroxine 100 mcg tablet 100 mcg PO DAILY 30 days #30 tabs 02/07/25 03/25/25 Rx gabapentin 300 mg capsule 300 mg PO TID #90 caps 03/07/25 03/25/25 Rx oxycodone 5 mg tablet 5 mg PO Q6H PRN pain #30 tabs 03/21/25 03/25/25 Rx New Prescriptions to Start Prescriptions: Allergies Allergy/AdvReac Type Severity Reaction Status Date / Time tetracycline Allergy Hives Verified 03/07/25 13:18 Assessment and Plan *Assessment and plan (1) Anasarca: Status: Acute Category: Medical Code(s): R60.1 - Generalized edema (2) Dehiscence of wound: Status: Acute Category: Medical Code(s): T81.30XA - Disruption of wound, unspecified, initial encounter (3) History of prosthetic tricuspid valve replacement: Status: Acute Category: Surgical Code(s): Z95.2 - Presence of prosthetic heart valve (4) History of prosthetic pulmonic valve replacement: Status: Acute Category: Surgical Code(s): Z95.2 - Presence of prosthetic heart valve (5) History of pulmonary embolism: Status: Acute Category: Medical Code(s): Z86.711 - Personal history of pulmonary embolism (6) Obesity, morbid: Status: Acute Category: Medical Code(s): E66.01 - Morbid (severe) obesity due to excess calories (7) Bipolar 1 disorder: Status: Acute Category: Medical Code(s): F31.9 - Bipolar disorder, unspecified Plan 1. Elevated BNP with Anasarca post surgery -good diuresis of over 8 L with IV lasix -check echo to assess valve status 2. Wound dehiscence -defer to Dr. Sharp 3. Prosthetic tricuspid and pulmonic valves -echo pending -On metoprolol and Lasix daily at home 4. History of pulmonary embolism - Continue Eliquis 5. Morbid obesity 6. History of bipolar disorder -on lamictal 7. Hypokalemia -add replacement 8. History of seizure disorder -on Keppra Continue IV Lasix while monitoring renal function Supplement potassium Echo shows normal biventricular systolic with mild RV dilation and severe tricuspid stenosis. She will need outpatient SAMUEL and possible referral back to [facility] cardiovascular surgery for further evaluation.
[2025-03-26] MEDS: POTASSIUM CHLORIDE 20MEQ TAB 20 MEQ PO ×3 (13:24→20:24)
--- NOTE | 2025-03-26 13:42 | EXP.ACUTE.PN ---
Subjective *Date: 03/26/25 *Time: 13:42 Interval history: She is much improved today. She was seen by general surgery, wound care and cardiology. She is having an echocardiogram today. Her BNP has decreased significantly overnight. Her hemoglobin has improved as well. We will continue with close observation overnight and likely plan to send her home tomorrow. Medical Exam Vital signs and Labs for Last 24 Hours: Vital Signs Temp Pulse Resp BP Pulse Ox O2 Del Method 03/26/25 13:00 Room Air 03/26/25 12:00 Room Air 03/26/25 11:11 Room Air 03/26/25 10:00 Room Air 03/26/25 09:00 Room Air 03/26/25 08:34 97.9 F 72 18 106/58 L 92 L Room Air 03/26/25 08:34 92 L Room Air 03/26/25 08:34 Room Air 03/26/25 07:00 Room Air 03/26/25 06:00 Room Air 03/26/25 05:00 Room Air 03/26/25 04:00 93 L Room Air 03/26/25 04:00 97.8 F 75 18 93/48 L 93 L Room Air 03/26/25 04:00 Room Air 03/26/25 03:00 Room Air 03/26/25 02:00 Room Air 03/26/25 00:00 98.1 F 73 18 93/40 L 94 L Room Air 03/26/25 00:00 Room Air 03/25/25 23:00 Room Air 03/25/25 22:00 Room Air 03/25/25 21:00 Room Air 03/25/25 20:00 Room Air 03/25/25 20:00 98.5 F 79 20 106/60 L 93 L Room Air 03/25/25 20:00 93 L Room Air 03/25/25 19:15 Room Air 03/25/25 18:38 Room Air 03/25/25 17:36 Room Air 03/25/25 16:45 96 Room Air 03/25/25 16:45 98.0 F 67 12 109/56 L 96 Room Air 03/25/25 16:45 Room Air 03/25/25 15:38 Room Air 03/25/25 14:38 Room Air Intake and Output 03/26/25 03/26/25 03/26/25 03:59 11:59 19:59 Intake Total 240 / 1560 360 / 1560 Output Total 750 / 6150 2850 / 6150 300 / 300 Balance -510 / -4590 -2490 / -4590 -300 / -300 Intake: Intake, Oral Amount 240 / 1560 360 / 1560 Output: Output, Urine Amount 750 / 1400 650 / 1400 300 / 300 Output, Urine Amount (Catheter) 2200 / 4750 Nagy 2200 / 4750 Laboratory Results - last 24 hr 03/26/25 06:10: WBC 6.8, RBC 2.91 L, Hgb 9.2 L, Hct 29.4 L, MCV 101.0 H, MCH 31.6 H, MCHC 31.3 L, RDW 18.3 H, Plt Count 199, MPV 9.9, Neut % (Auto) 65.4, Lymph % (Auto) 21.9, [place] % (Auto) 6.2, Eos % (Auto) 5.3, Baso % (Auto) 0.3, Neut # (Auto) 4.4, Lymph # (Auto) 1.5, [place] # (Auto) 0.4, Eos # (Auto) 0.4, Baso # (Auto) 0.0, Sodium 138, Potassium 3.4 L, Chloride 100, Carbon Dioxide 29, Anion Gap 12.4, BUN 13, Creatinine 0.90, Estimated Creat Clear 128, Estimated GFR 69, Est GFR ( Amer) 83, Glucose 106 H, Calcium 8.2 L, Total Bilirubin 1.3, AST 25 D, ALT 16, Alkaline Phosphatase 67, NT-Pro-B Natriuret Pep 476 H, Total Protein 6.5, Albumin 3.4 L, Globulin 3.1, Albumin/Globulin Ratio 1.1, Free T4 1.19 I & O for Labs for Last 24 Hours: Intake & Output 03/24/25 03/25/25 03/26/25 03/27/25 11:59 11:59 11:59 11:59 Intake Total 740 / 740 1560 / 1560 Output Total 4651 / 4651 6150 / 6150 300 / 300 Balance -3911 / -3911 -4590 / -4590 -300 / -300 Weight 220 lb Microbiology Reports for the Last 24 Hours: Microbiology 03/25/25 18:30 Incision Gram Stain - Final Head: Present atraumatic Neck: Present normal inspection Respiratory: Present CTA bilaterally and normal respiratory effort; Absent accessory muscle use Cardiac: Present Reg Rate and Rhythm GI: Present soft; Absent distention Comments:: The on her abdominal wall is improving daily. (female): Present deferred Assessment and Plan *Assessment and plan (1) History of prosthetic pulmonic valve replacement: Status: Acute Category: Surgical Code(s): Z95.2 - Presence of prosthetic heart valve (2) History of prosthetic tricuspid valve replacement: Status: Acute Category: Surgical Code(s): Z95.2 - Presence of prosthetic heart valve (3) Abdominal wall fluid collections: Status: Acute Category: Medical Code(s): R18.8 - Other ascites (4) Dehiscence of wound: Status: Acute Category: Medical Code(s): T81.30XA - Disruption of wound, unspecified, initial encounter (5) Hx of BSO (bilateral salpingo-oophorectomy): Status: Acute Category: Surgical Code(s): Z90.79 - Acquired absence of other genital organ(s); Z90.722 - Acquired absence of ovaries, bilateral (6) Anasarca: Status: Acute Category: Medical Code(s): R60.1 - Generalized edema (7) H/O abdominal supracervical subtotal hysterectomy: Status: Acute Category: Surgical Code(s): Z90.711 - Acquired absence of uterus with remaining cervical stump (8) History of pulmonary embolism: Status: Acute Category: Medical Code(s): Z86.711 - Personal history of pulmonary embolism (9) Obesity, morbid: Status: Acute Category: Medical Code(s): E66.01 - Morbid (severe) obesity due to excess calories (10) Abdominal wall hernia: Status: Acute Category: Medical Code(s): K43.9 - Ventral hernia without obstruction or gangrene (11) Hypothyroid: Status: Acute Qualifiers: Hypothyroidism type: acquired Qualified Code(s): E03.9 - Hypothyroidism, unspecified Category: Medical Code(s): E03.9 - Hypothyroidism, unspecified (12) Bipolar 1 disorder: Status: Acute Category: Medical Code(s): F31.9 - Bipolar disorder, unspecified (13) COPD (chronic obstructive pulmonary disease): Status: Acute Qualifiers: COPD type: unspecified COPD Qualified Code(s): J44.9 - Chronic obstructive pulmonary disease, unspecified Category: Medical Code(s): J44.9 - Chronic obstructive pulmonary disease, unspecified Plan 1. She was seen by general surgery today and felt that her incision could be managed as an outpatient and that it did not need packing. 2. Her edema has significantly improved along with her BNP. 3. She is slightly hypokalemic and we will restart her potassium supplements. 4. She was seen by our wound care specialists and they agreed with general surgery that she does not need any packing and just needs daily dressing changes. 5. She is ambulating well and was seen by Occupational Therapy. 6. Her pain is well-controlled with oral pain medicine. 7. She should be able to go home tomorrow.
[2025-03-26 13:49] LABS: Vitamin B12 307 pg/mL (239-931)
[2025-03-26 16:45] VITALS: BP 108/57; PULSE 73; RESP 18; TEMP 36.7; O2SAT 94
--- NOTE | 2025-03-26 16:45 | PC.NURSE ---
Patient sitting up in bed, vitals have been stable this shift, lung sounds clear bilaterally, bowel sounds active in all quadrants, pt has ambulated to bathroom and back without difficulty, pt has voided without difficulty, pts pain is well controlled with PO medications. dressing intact, small amount of serosanguineous drainage noted on right side of dressing, pt denies needs at this time.
[2025-03-26 17:06] LABS: Thyroid Stimulating Hormone 7.14 uIU/mL (0.465-4.68)
--- NOTE | 2025-03-26 19:00 | PC.NURSE ---
Report received from Sania Wellington RN
[2025-03-26 19:45] VITALS: BP 107/57; PULSE 76; RESP 16; TEMP 36.6; O2SAT 94
[2025-03-26] MEDS: QUETIAPINE 100MG TABLET 50 MG PO (20:25)
[2025-03-26] MEDS: MONTELUKAST SODIUM 10MG TAB 10 MG PO (20:26)
--- NOTE | 2025-03-26 22:00 | PC.WOUNDNOTE ---
Pt showered independently and cleansed her skin with Hibicleanse. She removed the existing dressing once it was soaked in the shower. There was noted to be a small amount of serosanguinous drainage on that abd pad. Pt then dried her incision and dressed. Her bed linen was changed. This RN cleansed the incision with Hibicleanse and dried it with 4x4s. No active drainage is noted and there is no odor noted. New abd pads x3 applied to incision and silk tape used. Pt tolerated this well.
[2025-03-27] VITALS: BP 119/61; PULSE 73; RESP 16; TEMP 36.4; O2SAT 94
[2025-03-27] MEDS: APAP/HYDROCODONE 325MG/7.5MG TAB 2 TAB PO ×2 (02:24→08:52)
[2025-03-27 04:00] VITALS: BP 132/77; PULSE 65; RESP 18; TEMP 36.3; O2SAT 94
[2025-03-27 04:28] VITALS: BMI 46.9
[2025-03-27] MEDS: LEVOTHYROXINE 100MCG (0.1MG) TAB 100 MCG PO (06:55)
--- NOTE | 2025-03-27 07:11 | PC.NURSE ---
Report given to Jamar Burns RN
--- NOTE | 2025-03-27 07:58 | PC.NURSE ---
SHELBY Liu at bedside speaking with patient, reports she needs to follow up in 2 weeks with cardiology outpatient.
[2025-03-27 08:11] LABS: Hematocrit 30.5 % (37.0-47.0); Hemoglobin 9.4 g/dL (12.2-16.2); Immature Granulocytes % 0.7 %; Mean Corpuscular HGB Conc 30.8 g/dL (31.8-35.4); Mean Corpuscular Hemoglobin 31.3 pg (27.0-31.2); Mean Corpuscular Volume 101.7 fl (81-99); Nucleated Red Blood Cells % 0 %; Platelet Count 207 K/mm3 (142-424); Red Blood Count 3.00 M/mm3 (4.20-5.40); Red Cell Distribution Width-SD 62.4 fL; White Blood Count 7.3 K/mm3 (4.8-10.8)
--- NOTE | 2025-03-27 08:23 | P.PN_ITS ---
Subjective Subjective Date: 03/27/25 Time: 08:24 Principal diagnosis: CHF, Tricuspid stenosis Interval history: 40-year-old white female lying in bed in no acute distress. No specific complaints but does states she is tired. Results of echocardiogram discussed including tricuspid stenosis and need for further evaluation. Patient has a appointment with her specimen transporter at early next month. Exam Data for Last 24 hours Vital signs and Labs for Last 24 Hours: Temp Pulse Resp BP Pulse Ox O2 Del Method 97.4 F L 65 18 132/77 94 L Room Air 03/27/25 04:00 03/27/25 04:00 03/27/25 04:00 03/27/25 04:00 03/27/25 04:00 03/27/25 06:00 Laboratory Results - last 24 hr 03/26/25 06:10: Sodium 138, Potassium 3.4 L, Chloride 100, Carbon Dioxide 29, Anion Gap 12.4, BUN 13, Creatinine 0.90, Estimated Creat Clear 128, Estimated GFR 69, Est GFR ( Amer) 83, Glucose 106 H, Calcium 8.2 L, Total Bilirubin 1.3, AST 25 D, ALT 16, Alkaline Phosphatase 67, NT-Pro-B Natriuret Pep 476 H, Total Protein 6.5, Albumin 3.4 L, Globulin 3.1, Albumin/Globulin Ratio 1.1, Vitamin B12 307, TSH 7.14 H, Free T4 1.19 03/27/25 06:11: WBC 7.3, RBC 3.00 L, Hgb 9.4 L, Hct 30.5 L, MCV 101.7 H, MCH 3 1.3 H, MCHC 30.8 L, RDW 17.6 H, Plt Count 207, MPV 10.2, Neut % (Auto) 64.0, Lymph % (Auto) 22.7, [place] % (Auto) 7.3, Eos % (Auto) 4.9, Baso % (Auto) 0.4, Neut # (Auto) 4.7, Lymph # (Auto) 1.7, [place] # (Auto) 0.5, Eos # (Auto) 0.4, Baso # (Auto) 0.0 I & O for Last 24 hours: Intake & Output 10/04/25 10/05/25 10/06/25 10/07/25 11:59 11:59 11:59 11:59 Intake Total 740 / 740 1560 / 1560 956 / 956 Output Total 4651 / 4651 6150 / 6150 6550 / 6550 Balance -3911 / -3911 -4590 / -4590 -5594 / -5594 Weight 220 lb 265 lb Constitutional Constitutional: no acute distress *Routine Respiratory Exam Respiratory: Present decreased breath sounds and diminished air movement; Absent rhonchi *Routine Cardiovascular Exam Cardiovascular: Present RRR and murmur; Absent gallop or rubs *Routine Extremities Exam Extremities: Present edema Progress Note: A&P Assessment and plan (1) History of prosthetic pulmonic valve replacement: Status: Acute (2) History of prosthetic tricuspid valve replacement: Status: Acute (3) Abdominal wall fluid collections: Status: Acute (4) Dehiscence of wound: Status: Acute (5) Hx of BSO (bilateral salpingo-oophorectomy): Status: Acute (6) Anasarca: Status: Acute (7) H/O abdominal supracervical subtotal hysterectomy: Status: Acute (8) History of pulmonary embolism: Status: Acute (9) Obesity, morbid: Status: Acute (10) Abdominal wall hernia: Status: Acute (11) Hypothyroid: Status: Acute (12) Bipolar 1 disorder: Status: Acute (13) COPD (chronic obstructive pulmonary disease): Status: Acute Assessment and Plan Assessment and Plan for All Diagnoses:: 1. Elevated BNP with Anasarca post surgery -good diuresis of over 14 L with IV lasix - Echo shows normal LV function with evidence of severe tricuspid stenosis 2. Wound dehiscence -defer to Dr. Sharp 3. Prosthetic tricuspid and pulmonic valves -echo shows severe tricuspid stenosis with appropriate function of pulmonic valve and normal biventricular systolic function -On metoprolol and Lasix daily at home 4. History of pulmonary embolism - Continue Eliquis 5. Morbid obesity 6. History of bipolar disorder -on lamictal 7. Hypokalemia -add replacement 8. History of seizure disorder -on Keppra Today's labs are pending. Nothing further to add from a cardiac standpoint. She will keep her appointment with [facility]ology next month. Continue home doses of metoprolol, furosemide and Eliquis at discharge with close follow up of renal and potassium functions.
--- NOTE | 2025-03-27 08:26 | EXP.SURG.PN ---
Subjective Patient reports: no new complaints Narrative: Feels tired . Exam Data for Last 24 hours Vital signs and Labs for Last 24 Hours: Temp Pulse Resp BP Pulse Ox O2 Del Method 97.4 F L 65 18 132/77 94 L Room Air 03/27/25 04:00 03/27/25 04:00 03/27/25 04:00 03/27/25 04:00 03/27/25 04:00 03/27/25 06:00 Laboratory Results - last 24 hr 03/26/25 06:10: Sodium 138, Potassium 3.4 L, Chloride 100, Carbon Dioxide 29, Anion Gap 12.4, BUN 13, Creatinine 0.90, Estimated Creat Clear 128, Estimated GFR 69, Est GFR ( Amer) 83, Glucose 106 H, Calcium 8.2 L, Total Bilirubin 1.3, AST 25 D, ALT 16, Alkaline Phosphatase 67, NT-Pro-B Natriuret Pep 476 H, Total Protein 6.5, Albumin 3.4 L, Globulin 3.1, Albumin/Globulin Ratio 1.1, Vitamin B12 307, TSH 7.14 H, Free T4 1.19 03/27/25 06:11: WBC 7.3, RBC 3.00 L, Hgb 9.4 L, Hct 30.5 L, MCV 101.7 H, MCH 31.3 H, MCHC 30.8 L, RDW 17.6 H, Plt Count 207, MPV 10.2, Neut % (Auto) 64.0, Lymph % (Auto) 22.7, [place] % (Auto) 7.3, Eos % (Auto) 4.9, Baso % (Auto) 0.4, Neut # (Auto) 4.7, Lymph # (Auto) 1.7, [place] # (Auto) 0.5, Eos # (Auto) 0.4, Baso # (Auto) 0.0 I & O for Last 24 hours: Intake & Output 03/24/25 03/25/25 03/26/25 03/27/25 11:59 11:59 11:59 11:59 Intake Total 740 / 740 1560 / 1560 956 / 956 Output Total 4651 / 4651 6150 / 6150 6550 / 6550 Balance -3911 / -3911 -1469 / -4513 -8196 / -5594 Weight 220 lb 265 lb *Routine Abdominal Exam Abdominal: Present soft Comments: Hernia soft reducible. Stable bruising. Progress Note: A&P Assessment and plan (1) History of prosthetic pulmonic valve replacement: Status: Acute (2) History of prosthetic tricuspid valve replacement: Status: Acute (3) Abdominal wall fluid collections: Status: Acute (4) Dehiscence of wound: Status: Acute Assessment and plan: No new recommendations. (5) Hx of BSO (bilateral salpingo-oophorectomy): Status: Acute (6) Anasarca: Status: Acute (7) H/O abdominal supracervical subtotal hysterectomy: Status: Acute (8) History of pulmonary embolism: Status: Acute (9) Obesity, morbid: Status: Acute (10) Abdominal wall hernia: Status: Acute (11) Hypothyroid: Status: Acute (12) Bipolar 1 disorder: Status: Acute (13) COPD (chronic obstructive pulmonary disease): Status: Acute
[2025-03-27] MEDS: GABAPENTIN 300MG CAPSULE 300 MG PO ×2 (08:44→13:30)
[2025-03-27] MEDS: FUROSEMIDE 40 MG TABLET PO ×2 (08:44→11:27)
[2025-03-27] MEDS: POTASSIUM CHLORIDE 20MEQ TAB 20 MEQ PO ×2 (08:44→13:30)
[2025-03-27] MEDS: NITROFURANTOIN 100MG CAPSULE 100 MG PO (08:44)
[2025-03-27] MEDS: APIXABAN 5MG TABLET 5 MG PO (08:45)
[2025-03-27] MEDS: EMPAGLIFLOZIN 10MG TABLET 10 MG PO (08:45)
[2025-03-27] MEDS: SERTRALINE 100MG TABLET 100 MG PO (08:45)
[2025-03-27] MEDS: FOLIC ACID 1MG TABLET 1 MG PO (08:45)
[2025-03-27 08:46] LABS: Chloride 100 mmol/L (98-107)
[2025-03-27 08:47] LABS: Albumin Level 3.4 g/dl (3.5-5.0); Potassium 3.9 mmoL/L (3.5-5.1); Sodium 135 mmol/L (136-145)
[2025-03-27] MEDS: METOPROLOL TARTRATE 25MG TABLET 25 MG PO (08:48)
--- NOTE | 2025-03-27 08:49 | EXP.DC.SUM ---
General Admission date:: 03/25/25 Discharge date: 03/27/25 HPI HPI HPI: Patient is a 40-year-old female from [place] with history of hypothyroidism, diabetes, bipolar, seizures, COPD/asthma, chronic kidney disease, hepatitis C. She has a known complex epigastric hernia present for several years and had previously been referred to [facility] for this. She has a history of aortic valve replacement and is on chronic apixaban anticoagulation. Also has reported history of pulmonary embolism. Patient underwent total abdominal hysterectomy with bilateral salpingo-oophorectomy and cystoscopy on 03/14/2025 via Pfannenstiel incision for abnormal uterine bleeding. Skin was closed with the INSORB stapler. She remained in inpatient until 03/21/2025 due to some pain and bleeding from her incision. On postoperative day #3 she was noted to have some blood oozing from the right side of her incision with a small 1 cm opening. It was felt that she had subcutaneous hematoma. She did have a CT scan done while she was in inpatient and this revealed increased body wall edema and herniated transverse colon into the supraumbilical hernia with possible seroma or hematoma of the anterior pelvic wall. She was discharged on 03/21/2025 and resumed her Eliquis. Patient presented to the emergency department in the very late evening of 03/24/25 due to the fact that she had sudden onset of blood loss from her incision. She underwent thorough evaluation in the emergency department. Examination at that time revealed stable epigastric hernia which was reducible. Recent surgical incision was clean with a an area of superficial dehiscence on the right side draining thin bloody fluid. She had a CT scan done in the emergency department on 03/24/2025. This reveals expected postoperative changes from recent hysterectomy with postoperative hematomas tracking within the low anterior abdominal wall incision bed. Small amount residual postoperative hematoma in the pelvis. There was left adnexal ovoid 5.3 x 3.0 x 2.9 cm structure this was felt to be extension of possible complex fluid collection. Interestingly he was also reported small volume portal venous gas in the left hepatic lobe. Midline epigastric abdominal wall hernia noted with short segment of transverse colon with trace of venous gas tracking in the SMV branches from the hernia and mild wall thickening and a portion of the herniated bowel segment . There was moderate severe generalized anasarca and systemic edema. Evidence of hepatic cirrhosis and hepatomegaly with mild splenomegaly. Several additional nonspecific chronic findings. She was admitted for inpatient management. Surgical consultation was ordered for wound assessment. Patient is on a regular diet. . Hospital Course Hospital Course Hospital Course: She was admitted to hospital with pain and anasarca. She was having some bleeding from her incision. She was seen in consultation by our material analyst and started on IV Lasix. She subsequently was diuresed and her swelling has gone down significantly. Initial BNP was elevated to 704 and has subsequently decreased to 476. She is feeling much better. She denies shortness of breath, chest pain or calf tenderness. She did have a slightly low potassium of 3.4 which was expected after her diuresis. She does take potassium supplementation at home and she was restarted on this while hospitalized. Potassium on the day of discharge is 3.9. She was seen by cardiology and had an echocardiogram that showed some pulmonary and tricuspid regurgitation. There was also some increased pressures over the valves and it was suggested that she have a SAMUEL. She has an appointment at the [facility] in 1 month. She was seen by general surgery and they felt that she did not need packing of her incision and suggested keeping the incision clean with daily dressing changes. She was also seen by our process improvement specialist and they felt the same thing that she did not need any packing or special care of her incision other than keeping it clean and regular daily wound dressings. We are working with our secondary social studies teacher to see if we can get home health to come in and do these daily dressing changes. The patient's mother is a nurse and said she is capable of doing the daily dressing changes if necessary. She was seen by Occupational Therapy and they felt that her condition was well enough to go home and she was able to perform her normal daily activities. Postsurgery she had significant bruising on her abdominal wall and this has markedly improved over the course of the last week. Her pain has significantly improved. She was prescribed Lortab 7.52 tabs every 6 hours for her pain and she feels much better with this pain medication. We will plan to send her home with a prescription and I have encouraged her to just take 1 tablet rather than 2 tablets. She will be discharged home today to follow-up with Dr. Landry next week. She will continue with all of her home medications. She was given the usual instructions with respect to limiting her activity, driving and sexual activity. She was given instructions with respect to wound care. She will be given some supplies for wound care on discharge as well. Exam Data for Last 24 hours Vital signs and Labs for Last 24 Hours: Temp Pulse Resp BP Pulse Ox O2 Del Method 97.4 F L 65 18 132/77 94 L Room Air 03/27/25 04:00 03/27/25 04:00 03/27/25 04:00 03/27/25 04:00 03/27/25 04:00 03/27/25 06:00 Laboratory Results - last 24 hr 03/26/25 06:10: Vitamin B12 307, TSH 7.14 H, Free T4 1.19 03/27/25 06:11: WBC 7.3, RBC 3.00 L, Hgb 9.4 L, Hct 30.5 L, MCV 101.7 H, MCH 31.3 H, MCHC 30.8 L, RDW 17.6 H, Plt Count 207, MPV 10.2, Neut % (Auto) 64.0, Lymph % (Auto) 22.7, [place] % (Auto) 7.3, Eos % (Auto) 4.9, Baso % (Auto) 0.4, Neut # (Auto) 4.7, Lymph # (Auto) 1.7, [place] # (Auto) 0.5, Eos # (Auto) 0.4, Baso # (Auto) 0.0 I & O for Last 24 hours: Intake & Output 03/24/25 03/25/25 03/26/25 03/27/25 11:59 11:59 11:59 11:59 Intake Total 740 / 740 1560 / 1560 956 / 956 Output Total 4651 / 4651 6150 / 6150 6550 / 6550 Balance -3911 / -3911 -4590 / -4590 -2294 / -5594 Weight 220 lb 265 lb Constitutional Constitutional: no acute distress and morbidly obese *Routine HEENT Exam Head: Present normocephalic *Routine Respiratory Exam Respiratory: Present CTA bilaterally and normal respiratory effort; Absent accessory muscle use *Routine Abdominal Exam Abdominal: Present soft; Absent tenderness or distended Comments: Her incision still has a small 3 to 4 cm opening on the right side. No evidence of infection. Still a small amount of bloody discharge. *Routine Rectal Exam Patient deferred: visual exam and digital exam *Routine Exam Patient deferred: external exam, groin exam and perineal exam Results Data Completed and Pending Labs on day of discharge: Labs from last 24 hours 03/27/25 03/26/25 06:11 06:10 WBC 7.3 RBC 3.00 L Hgb 9.4 L Hct 30.5 L MCV 101.7 H MCH 31.3 H MCHC 30.8 L RDW 17.6 H Plt Count 207 MPV 10.2 Neut % (Auto) 64.0 Lymph % (Auto) 22.7 [place] % (Auto) 7.3 Eos % (Auto) 4.9 Baso % (Auto) 0.4 Neut # (Auto) 4.7 Lymph # (Auto) 1.7 [place] # (Auto) 0.5 Eos # (Auto) 0.4 Baso # (Auto) 0.0 Vitamin B12 307 TSH 7.14 H Free T4 1.19 DS: Diagnosis Discharge Diagnosis (1) History of prosthetic pulmonic valve replacement: Status: Acute Code(s): Z95.2 - Presence of prosthetic heart valve (2) History of prosthetic tricuspid valve replacement: Status: Acute Code(s): Z95.2 - Presence of prosthetic heart valve (3) Abdominal wall fluid collections: Status: Acute Code(s): R18.8 - Other ascites (4) Dehiscence of wound: Status: Acute Code(s): T81.30XA - Disruption of wound, unspecified, initial encounter (5) Hx of BSO (bilateral salpingo-oophorectomy): Status: Acute Code(s): Z90.79 - Acquired absence of other genital organ(s); Z90.722 - Acquired absence of ovaries, bilateral (6) Anasarca: Status: Acute Code(s): R60.1 - Generalized edema (7) H/O abdominal supracervical subtotal hysterectomy: Status: Acute Code(s): Z90.711 - Acquired absence of uterus with remaining cervical stump (8) History of pulmonary embolism: Status: Acute Code(s): Z86.711 - Personal history of pulmonary embolism (9) Obesity, morbid: Status: Acute Code(s): E66.01 - Morbid (severe) obesity due to excess calories (10) Abdominal wall hernia: Status: Acute Code(s): K43.9 - Ventral hernia without obstruction or gangrene (11) Hypothyroid: Status: Acute Code(s): E03.9 - Hypothyroidism, unspecified Qualifiers: Hypothyroidism type: acquired Qualified Code(s): E03.9 - Hypothyroidism, unspecified (12) Bipolar 1 disorder: Status: Acute Code(s): F31.9 - Bipolar disorder, unspecified (13) COPD (chronic obstructive pulmonary disease): Status: Acute Code(s): J44.9 - Chronic obstructive pulmonary disease, unspecified Qualifiers: COPD type: unspecified COPD Qualified Code(s): J44.9 - Chronic obstructive pulmonary disease, unspecified Meds Home Medications and Allergies Home Medications ?Medication ?Instructions ?Recorded ?Confirmed ?Type apixaban 5 mg tablet (Eliquis) 5 mg PO BID 12/10/23 03/25/25 History lamotrigine 100 mg tablet 50 mg PO BID 12/10/23 03/25/25 History levetiracetam 500 mg tablet 2,000 mg PO BID 12/10/23 03/25/25 History metoprolol tartrate 25 mg tablet 25 mg PO BID 12/10/23 03/25/25 History montelukast 10 mg tablet 10 mg PO HS 12/10/23 03/25/25 History sertraline 100 mg tablet 100 mg PO DAILY 12/10/23 03/25/25 History quetiapine 50 mg tablet 50 mg PO HS 10/10/24 03/25/25 History tiotropium 2.5 mcg-olodaterol 2.5 2 inh inhalation DAILY 11/14/24 03/25/25 History mcg/actuation mist for inhalation (Stiolto Respimat) prucalopride 2 mg tablet 2 mg PO DAILY 01/11/25 03/25/25 History empagliflozin 10 mg tablet 10 mg PO DAILY 90 days #90 tabs 02/05/25 03/25/25 Rx (Jardiance) folic acid 1 mg tablet 1 mg PO DAILY 90 days #90 tabs 02/05/25 03/25/25 Rx furosemide 40 mg tablet 80 mg (2 x 40 mg) PO BID 90 days 02/05/25 03/25/25 Rx #360 tabs potassium chloride 20 mEq 20 meq PO BID 90 days #180 tabs 02/05/25 03/25/25 Rx tablet,extended release(part/cryst) levothyroxine 100 mcg tablet 100 mcg PO DAILY 30 days #30 tabs 02/07/25 03/25/25 Rx gabapentin 300 mg capsule 300 mg PO TID #90 caps 03/07/25 03/25/25 Rx hydrocodone 7.5 mg-acetaminophen 1 tab PO Q6H PRN moderate to 03/27/25 Rx 325 mg tablet severe pain #20 tabs New Prescriptions to Start Prescriptions: hydrocodone-acetaminophen Thiago Sharp Allergies Allergy/AdvReac Type Severity Reaction Status Date / Time tetracycline Allergy Hives Verified 03/07/25 13:18 Discharge Plan Disposition Patient Disposition: Home, Self-Care Discharge Order Discharge Orders: Discharge Order (Routine); Ordered 03/27/25 Ordered By: Thiago Sharp Follow up Plan Prescriptions/Medication Reconciliation: New hydrocodone-acetaminophen 7.5-325 mg Tablet 1 tab PO Q6H PRN (Reason: moderate to severe pain) Qty: 20 0RF Continued prucalopride 2 mg tablet 2 mg PO DAILY montelukast 10 mg tablet 10 mg PO HS Patient Comments: TAKE 1 TABLET 1 TIME EACH DAY IN THE EVENING lamotrigine 100 mg tablet 50 mg PO BID sertraline 100 mg tablet 100 mg PO DAILY Eliquis 5 mg tablet 5 mg PO BID metoprolol tartrate 25 mg tablet 25 mg PO BID Patient Comments: TAKE 1 TABLET 2 TIMES EACH DAY levetiracetam 500 mg tablet 2,000 mg PO BID Patient Comments: TAKE 4 TABLETS 2 TIMES EACH DAY quetiapine 50 mg tablet 50 mg PO HS Stiolto Respimat 2.5-2.5 mcg/actuation mist 2 inh inhalation DAILY Patient Comments: INHALE 2 PUFFS 1 TIME EACH DAY folic acid 1 mg tablet 1 mg PO DAILY 90 Days Qty: 90 0RF furosemide 40 mg tablet 80 mg PO BID 90 Days Qty: 360 0RF potassium chloride 20 mEq tablet,ER particles/crystals 20 meq PO BID 90 Days Qty: 180 0RF Jardiance 10 mg tablet 10 mg PO DAILY 90 Days Qty: 90 0RF levothyroxine 100 mcg tablet 100 mcg PO DAILY 30 Days Qty: 30 2RF gabapentin 300 mg capsule 300 mg PO TID Qty: 90 0RF Discontinued oxycodone 5 mg tablet 5 mg PO Q6H PRN (Reason: pain) Qty: 30 0RF Problem Reconciliation Problems Reviewed?: Yes Patient Discharge Instructions ACTIVITY: No heavy lifting DIET: continue same diet Print Language: Citizen Of [place] Providers Primary Care Provider: Provider,Referral Admit Provider: Thiago Sharp Attending Provider: Thiago Sharp
[2025-03-27 08:50] LABS: Alanine Aminotransferase 11 U/L (12-78); Albumin/Globulin Ratio 1.2 (1.1-1.8); Alkaline Phosphatase 71 U/L (38-126); Anion Gap 10.9 mEq/L (5-15); Aspartate Amino Transferase 28 U/L (14-36); Bilirubin,Total 1.0 mg/dl (0.2-1.3); Blood Urea Nitrogen 15 mg/dl (7-17); Calcium 8.8 mg/dl (8.4-10.2); Carbon Dioxide 28 mmol/L (22.0-30.0); Creatinine Clearance Estimated 64 mL/min (50-200); Creatinine,Serum 0.90 mg/dl (0.52-1.04); Estimated Glomerular Filt Rate 69 ml/min (>60); GFR (African American) 83 ML/MIN (>60); Globulin 2.9 g/dL (1.3-3.2); Glucose 91 mg/dl (74-100); Magnesium 2.3 mg/dl (1.6-2.3); Total Protein,Serum 6.3 g/dl (6.3-8.2)
--- NOTE | 2025-03-27 08:52 | PC.NURSE ---
Medicated with Lortab (2) 7.5/325 for pain of 6/10.
[2025-03-27 08:58] VITALS: BP 103/64; PULSE 71; RESP 18; TEMP 36.3; O2SAT 97
--- NOTE | 2025-03-27 09:04 | PC.NURSE ---
Tori ([facility]) here to see pt.
--- NOTE | 2025-03-27 09:21 | SW/DCPLANNER ---
Addendum entered by Radha Torrez 03/27/25 13:22: [facility] is able to accpet patient. Hugo Steel Addendum entered by Radha Torrez 03/27/25 11:36: [facility] is not able to accept patient. I faxed patient's information to [facility] and will update once i hear back if they can accept or not. Hugo Steel Original Note: Spoke with patient once she is medically stable and ready for discharge regarding home health services. Patient stated that she is interested in home health and that she does not have a preference in what agency i send her information to. I will fax patient's information to [facility] and will update once i hear back if they can accept the patient or not. Hugo Steel
--- OUTSIDE RECORDS SUMMARY | 2025-03-27 09:52 | XMS_ITS | Clinical Summary ---
Author Organization Healthcare Address [address] [place] [address] Care Team Providers Care Cp Bleacher Operator Name Role Phone Iman Cuevas MD Primary Care Provider [phone] Allergies Active Allergy Reactions Criticality Noted Date Comments Wound Dressings Rash Low 09/10/2020 Rash/blisters Tetracycline Rash Low 10/05/2019 Medications aspirin 81 MG EC tablet Take by mouth in the morning. 04/04/20 20 Active levonorgestrel (Mirena, 52 MG,) 20 MCG/24HR IUD Take by mouth See administration instructions. Inserted on 09/04/2020 Lot Number: [id number] Expiration Date: Nov 2022 NDC: [id number] 09/05/19 21 Active magnesium oxide (Mag-Ox) 400 [...] needed for mild pain. Active nystatin (Mycostatin) [id number] UNIT/GM powderIndication s:Healthcare maintenance Apply topically 1 [...] bronchitis with COPD (chronic obstructive pulmonary disease) ([facility]),Modera te persistent asthma, unspecified whether complicated Inhale 2 puffs 4 (four) times a day. 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 Depression 06/28/2020 Lung nodule 05/29/2020 [...] Description 03/12/2025 10:20 AM EDT [facility] [address] [place] [address] Bushra Graf, PA Chronic constipation (Primary Dx); Hemorrhage of rectum and anus; Obesity, Class III, BMI 40-49.9 (morbid obesity) 03/12/2025 Travel 02/28/2025 Telephone [facility] [place] [facility] [address], [address] [place] [address] Ruslan Sanderson MD HCN Clinical Concern/Question 01/23/2025 Refill [facility] [address], [address] [place] [address] Ruslan Sanderson MD History of pulmonic valve replacement 01/08/2025 Telephone [facility] [address] [place] [address] Marybel Dunne 01/05/2025 [facility]ill [facility] [address] [place] [address] Calista Jacobs APRN Focal epilepsy ([facility]) 01/02/2025 Telephone [facility] [address] [place] [address] Jocelyn Arevalo New Med Request from Last 3 Months Immunizations Immunization Administration Dates Next Due Influenza, injectable, quadr ivalent, preservative free 03/09/2023,06/09/2022,04/22/2021,05/28 Influenza, seasonal, injectable 04/20/2019,03/09 Influenza, seasonal, injecta ble, preservative free 04/21/2024 Pneumococcal 20-giovanan Conj Vaccine 08/01/2024 Pneumococcal Polysaccharide PPV23 01/26/2019 Tdap 06/09/2022 Family History Medical History Relation Name Comments Conversions - Other Father endocard itis Breast cancer Father's Sister Diabetes Maternal Grandfather Danyelle Brody Colon cancer Maternal Grandmother Shelly Melville Diabetes Maternal Grandmother Shellydontae Barronddy Conversions - [...] Description 04/18/2025 11:00 AM EDT [facility] [address] [place] [address] Juventino Costa MD [address] [place] [id number] 05/04/2025 1:00 PM EST Appointment Medical Office Building Cardiac Diagnostic Testing Medical Office Building Echo Lab [address], [address] [place] [address] 05/04/2025 1:45 PM EST Office Visit [facility] [place] [facility] [address], [address] [place] [address] Ruslan Sanderson MD [address] [place] [address] 07/23/2025 2:00 PM EST Office Visit [facility] [address] [place] [address] Kassandra Khan, [employer] W[employer] FINISHER [address] [place] [address] 08/21/2025 3:30 PM EST Office Visit [facility] [address] [place] [address] Alicia Jennings MD [address] [place] [address] 09/10/2025 10:40 AM EDT Office Visit [facility] [address] [place] [address] Bushra Graf PA [address] [place] [address] Health Maintenance Due Date Last Done Comments [facility]-Medicare Annual Wellness (AWV) 1985 [facility]-Infant/Child/Adol SDOH Screenings 1985 [id number] Vaccine (#1) 02/02/1988 Diabetes: Dental Exam 1993 [...] <5.7 % 05/10/2024 1:[address] [facility] Blood Venous blood specimen / Unknown Venipuncture / Unknown 05/10/2024 10:37 AM EST 05/10/2024 10:[address] [facility] - 05/10/2024 1:14 PM EST HA1C Interpretive Data: Diagnosis of Diabetes: Diabetic > or = 6.5% Pre-diabetic 5.7 to 6.4% Non-diabetic < or = 5.6% Glycemic Targets for Type I and Type II Diabetics: Non- Adults <7.0% Adults <6.0% Children and Adolescents <7.5% Source: [place] [employer]. Standards of medical care in diabetes,2017. Diabetes Care.2017:40 (suppl 1):S1-S135. HbA1c assay performed by an ion-exchange chromatography method that is certified traceable to the DCCT. Astrid Alvarez [employer] FINISH[employer] LAB BLOOD ORDERABLES Kaley l Result [facility] [address] [place] [address] * HIV 1 & 2 Antibody/Antigen Screen (04/28/2022 1:47 PM EST) HIV 1 & 2 Antibody/Anti gen Screen Nonreactive Nonreactive 04/28/2022 4:48 PM EST [facility] Blood Venous blood specimen / Unknown Venipuncture / Unknown 04/28/2022 1:47 PM EST 04/28/2022 2:22 PM EST Carlos Rodriguez MD LAB BLOOD ORDERABLES Final Result [facility] [address] [place] [address] * Cytology (09/04/2020 12:00 AM EDT) 09/04/2020 09/05/2020 8:5 1 AM EDT Narrative COPATH - 09/12/2020 12:05 PM EDT [facility] MR #: [id number] [facility] [address] [place], [place] [address] 1985 (Age: 35) FW Collect Date: 09/04/2020 00:00 Receipt Date: 09/05/2020 08:51 Page 1 DEPARTMENT OF PATHOLOGY AND LABORATORY MEDICINE CYTOPATHOLOGY REPORT Email: [email or web address] ATTENDING MD/Practitioner: JOAN ROWE Service: [id number] Location: [facility] Reported: 09/12/2020 12:05 Collected: 09/04/2020 00:00 INTERPRETATION A. THIN PREP (CERVICAL/VAGINAL): ATYPICAL SQUAMOUS CELLS - UNDETERMINED SIGNIFICANCE(ASCUS) REACTIVE CELLULAR CHANGES. ORGANISMS PRESENT CONSISTENT WITH ACTINOMYCES SPECIES. SATISFACTORY FOR EVALUATION; ENDOCERVICAL/ TRANSFORMATION ZONE COMPONENT PRESENT. Slide scanned and imaged by [employer] ThinPrep Imaging System with manual review of [...] results is suggested (please call Microbiology at [phone] for results). CLINICAL INFORMATION: Menstrual History: Irregular [...] of cervix uteri F: A; DX IMAGE 11789, 94496 C\V (PO) SNOMED CODES: A; [id number] [id number] M- 18202 [id number] In cases where a pathologist has signed out the report, the service has been rendered in part by a resident. The signing pathologist has performed and is responsible for the reported pathologic evaluation. us Christie Chau [employer] FINISH[employer] LAB PATHOLOGY ORDERABLES [facility] Result COPATH from Last 3 Months or [...] Documents on File Type Date Recorded Patient Ladle Repairer Expl anation Advance Directives and Living Will 12/31/2020 Care Teams Cp Bleacher Operator Relationship Specialty Start Date End Date Iman Cuevas MD [address] [phone] PCP - General Internal Medicine 12/19/24
--- OUTSIDE RECORDS SUMMARY | 2025-03-27 09:52 | XMS_ITS | Encounter Summary ---
Author Organization Healthcare Address [address] [place] [address] Care Team Providers Care Extrusion Die Repair Manager Name Role Phone Iman Cuevas MD Primary Care Provider [phone] Reason for Visit * Reason Onset Date Comments HCN Clinical Concern/Question 02/28/2025 Encounter Details Date Type Department Care Team ([facility] st Contact Info) Description 02/28/2025 Telephone [facility] [place] [address], [address] [place] [address] Ruslan Sanderson MD [address] [place] [address] HCN Clinical Concern/Question Social History [...] 03/02/2025 8:21 AM EDT Letter faxed to [phone] * Telephone Encounter - Ruslan Sanderson MD - 03/01/2025 11:13 AM EDT Ok to proceed with surgery from cardiac stand point. * Telephone Encounter - Ilana Rolle - 02/28/2025 2:51 PM EDT Clinical Concern/Question Reason for Call: Patient is needing cardiac clearance for hysterectomy being done at [facility] on 03/14. FAX: [phone] Best contact number: [phone] (home) Optimal time of day to reach caller: ANYTIME Additional comments/information from caller: None Note: Please do not reply to this message. Follow-up communication and further actions as a result of this message need to be communicated with the patient directly, if the patient is not active onMyChart. If the patient is active on MyChart, they will receive notification of the communication/outcome via Qoolhart. documented in this encounter Plan of Treatment Upcoming Encounters Date Type Department Care Team (Late st Contact Info) Description 04/18/2025 11:00 AM EDT Office Visit [facility] Medicine Specialties [address], 2nd [place] [address] Juventino Costa MD [address] [place] [address] 05/04/2025 1:00 PM EST Appointment Medical Office Building Cardiac Diagnostic Testing Medical Office Building Echo Lab [address] [facility], [address] [place] [address] 05/04/2025 1:45 PM EST Office Visit [facility] [place] [address] [facility], [address] [place] [address] Ruslan Sanderson MD [address] [place] [address] 07/23/2025 2:00 PM EST Office Visit [facility] Sleep Disorder Center [address], 4th [place] [address] Kassandra Khan APRN [address] [place] [address] 08/21/2025 3:30 PM EST Office Visit [facility] [address], 1st [place] [address] Alicia Jennings MD [address] [place] [address] 09/10/2025 10:40 AM EDT Office Visit [facility] Medicine Specialties [address], 2nd [place] [address] Bushra Graf PA [address] [place] [address] documented as of this encounter [...] documented as of this encounter Care Teams Extrusion Die Repair Manager Relationship Specialty Start Date End Date Iman Cuevas MD [address] [phone] PCP - General Internal Medicine 12/19/24 documented as of this encounter
--- OUTSIDE RECORDS SUMMARY | 2025-03-27 09:52 | XMS_ITS | Encounter Summary ---
Author Organization Healthcare Address [address] [place] [address] Care Team Providers Care Mantel Craftsman Name Role Phone Ankur Main MD Primary Care Provider [phone] Iman Cuevas MD Primary Care Provider [phone] Reason for Visit * Reason Onset Date Comments Med Refill 06/29/2021 Encounter Details Date Type Department Care Team (Late st Contact Info) Description 06/29/2021 Refill [facility] Medicine Specialties [address], 2nd [place] [address] Juventino Costa MD [address] [place] [address] Moderate persistent asthma, unspecified whether [...] Description 04/18/2025 11:00 AM EDT Office Visit [facility] Medicine Specialties [address], 2nd [place] [address] Juventino Costa MD [address] [place] [address] 05/04/2025 1:00 PM EST Appointment Medical Office Building Cardiac Diagnostic Testing Medical Office Building Echo Lab [address] [facility] [address] [facility], [address] [place] [address] 05/04/2025 1:45 PM EST Office Visit [facility] [place] [address] [address] [facility], [address] [place] [address] Ruslan Sanderson MD [address] [place] [address] 07/23/2025 2:00 PM EST Office Visit [facility] Sleep Disorder Center [address], 4th [place] [address] Kassandra Khan APRN [address] [place] [address] 08/21/2025 3:30 PM EST Office Visit [facility] [address], 1st [place] [address] Alicia Jennings MD [address] [place] [address] 09/10/2025 10:40 AM EDT Office Visit [facility] Medicine Specialties [address], 2nd [place] [address] Bushra Graf PA [address] [place] [address] documented as of this encounter [...] documented as of this encounter Care Teams Mantel Craftsman Relationship Specialty Start Date End Date Ankur Main MD [address] [place] [address] PCP - General 11/01/20 12/18/24 Iman Cuevas MD [address] [place] [address] PCP - General Internal Medicine 12/19/24 documented as of this encounter
--- OUTSIDE RECORDS SUMMARY | 2025-03-27 09:52 | XMS_ITS | Encounter Summary ---
Author Organization Healthcare Address [address] [place] [address] Care Team Providers Care Solderer Production Line Name Role Phone Ankur Main MD Primary Care Provider [phone] Nancy Hernandez AGRONOMY PROFESSOR Unavailable Unavailable Iman Cuevas MD Primary Care Provider [phone] Encounter Details Date Type Department Care Team (Late st Contact Info) Description 08/01/2018 Orders Only External Location [address] [place] [address] Social History Tobacco Use Types Packs/Day Years [...] Description 04/18/2025 11:00 AM EDT Office Visit [facility] Medicine Specialties [address], 2nd [place] [address] Juventino Costa MD [address] [place] [address] 05/04/2025 1:00 PM EST Appointment Medical Office Building Cardiac Diagnostic Testing Medical Office Building Echo Lab [address], [address] [place] [address] 05/04/2025 1:45 PM EST Office Visit [facility] [place] [address] [facility], [address] [place] [address] Ruslan Sanderson MD [address] [place] [address] 07/23/2025 2:00 PM EST Office Visit [facility] Sleep Disorder Center [address], 4th [place] [address] Kassandra Khan APRN [address] [place] [address] 08/21/2025 3:30 PM EST Office Visit [facility] [address], 1st [place] [address] Alicia Jennings MD [address] [place] [address] 09/10/2025 10:40 AM EDT Office Visit [facility] Medicine Specialties [address], 2nd [place] [address] Bushra Graf PA [address] [place] [address] documented as of this encounter [...] documented as of this encounter Care Teams Solderer Production Line Relationship Specialty Start Date End Date Ankur Main MD [address] [address] PCP - General 11/01/20 12/18/24 Iman Cuevas MD [address] [place] [address] PCP - General Internal Medicine 12/19/24 Nancy Hernandez, [place] [id number] Probation Agent Clip Coater 03/25/20 03/25/20 documented as of this encounter
--- OUTSIDE RECORDS SUMMARY | 2025-03-27 09:52 | XMS_ITS | Encounter Summary ---
Author Organization Healthcare Address [address] [place] [address] Care Team Providers Care Seamless Tube Drawer Name Role Phone Ankur Main MD Primary Care Provider [phone] Iman Cuevas MD Primary Care Provider [phone] Reason for Visit * Reason Onset Date Comments Med Refill 02/19/2022 Encounter Details Date Type Department Care Team (Late st Contact Info) Description 02/19/2022 Refill [facility] Internal Medicine [address], 3rd [place] [address] Ankur Main MD [address] [place] [address] Polyneuropathy associated with underlying disease [...] 04/18/2025 11:00 AM EDT Office Visit [facility] Medicine Specialties [address], 2nd [place] [address] Juventino Costa MD [address] [place] [address] 05/04/2025 1:00 PM EST Appointment Medical Office Building Cardiac Diagnostic Testing Medical Office Building Echo Lab [address] [facility], [address] [place] [address] 05/04/2025 1:45 PM EST Office Visit [facility] [place] [address] [facility] [address], [address] [place] [address] Ruslan Sanderson MD [address] [place] [address] 07/23/2025 2:00 PM EST Office Visit [facility] Sleep Disorder Center [address], 4th [place] [address] Kassandra Khan, APOLLO [address] [place] [address] 08/21/2025 3:30 PM EST [facility] [address], 1st [place] [address] Alicia Jennings MD [address] [place] [address] 09/10/2025 10:40 AM EDT Office Visit [facility] Medicine Specialties [address], 2nd [place] [address] Bushra Graf PA [address] [place] [address] documented as of this encounter Visit Diagnoses [...] documented as of this encounter Care Teams Seamless Tube Drawer Relationship Specialty Start Date End Date Ankur Main MD [address] [place] [address] PCP - General 11/01/20 12/18/24 Iman Cuevas MD [address] [place] [address] PCP - General Internal Medicine 12/19/24 documented as of this encounter
--- OUTSIDE RECORDS SUMMARY | 2025-03-27 09:52 | XMS_ITS | Encounter Summary ---
Author Organization Healthcare Address [address] [place] [address] Care Team Providers Care Cash Sales Audit Clerk Name Role Phone Ankur Main MD Primary Care Provider [phone] Iman Cuevas MD Primary Care Provider [phone] Reason for Visit * Reason Onset Date Comments Med Refill 01/24/2021 Encounter Details Date Type Department Care Team (Late st Contact Info) Description 01/24/2021 Refill [facility] Internal Medicine [address], 3rd [place] [address] Ankur Main MD [address] [place] [address] Polyneuropathy associated with underlying disease [...] Upcoming Encounters Date Type Department Care Team ([facility] st Contact Info) Description 04/18/2025 11:00 AM EDT Office Visit [facility] Medicine Specialties [address], 2nd [place] [address] Juventino Costa MD [address] [place] [address] 05/04/2025 1:00 PM EST Appointment Medical Office Building Cardiac Diagnostic Testing Medical Office Building Echo Lab [address] [facility] [address] [facility], [address] [place] [address] 05/04/2025 1:45 PM EST Office Visit [facility] [place] [address] [facility] [address] [facility], [address] [place] [address] Ruslan Sanderson MD [address] [place] [address] 07/23/2025 2:00 PM EST Office Visit [facility] Sleep Disorder Center [address], 4th [place] [address] Kassandra Khan, APOLLO [address] [place] [address] 08/21/2025 3:30 PM EST Office Visit [facility] [address], 1st [place] [address] Alicia Jennings MD [address] [place] [address] 09/10/2025 10:40 AM EDT Office Visit [facility] Medicine Specialties [address], 2nd [place] [address] Bushra Graf, SHELBY [address] [place] [address] documented as of this encounter [...] documented as of this encounter Care Teams Cash Sales Audit Clerk Relationship Specialty Start Date End Date Ankur Main MD [address] [place] [address] PCP - General 11/01/20 12/18/24 Iman Cuevas MD [address] [place] [address] PCP - General Internal Medicine 12/19/24 documented as of this encounter
--- OUTSIDE RECORDS SUMMARY | 2025-03-27 09:52 | XMS_ITS | Encounter Summary ---
Author Organization Healthcare Address [address] [place] [address] Care Team Providers Care Pin Machine Tender Name Role Phone Ankur Main MD Primary Care Provider [phone] Iman Cuevas MD Primary Care Provider [phone] Reason for Visit * Reason Onset Date Comments Med Refill 06/30/2021 Encounter Details Date Type Department Care Team (Late st Contact Info) Description 06/30/2021 Refill [facility] Medicine Specialties [address], 2nd [place] [address] Juventino Costa MD [address] [place] [address] Moderate persistent asthma, unspecified whether [...] [facility] Medicine [facility] [address], 2nd [place] [address] Juventino Costa MD [address] [place] [address] 05/04/2025 1:00 PM EST Appointment Medical Office Building Cardiac Diagnostic Testing Medical Office Building Echo Lab [address] [facility], [address] [place] [address] 05/04/2025 1:45 PM EST Office Visit [facility] [place] [address] [facility], [address] [place] [address] Ruslan Sanderson MD [address] [place] [address] 07/23/2025 2:00 PM EST Office Visit [facility] Sleep Disorder Center [address], 4th [place] [address] Kassandra Khan, DIRECTOR DESIGN [address] [place] [address] 08/21/2025 3:30 PM EST Office Visit [facility] [address], 1st [place] [address] Alicia Jennings MD [address] [place] [address] 09/10/2025 10:40 AM EDT Office Visit [facility] Medicine Specialties [address], 2nd [place] [address] Bushra Graf, SHELBY [address] [place] [address] documented as of this encounter [...] documented as of this encounter Care Teams Pin Machine Tender Relationship Specialty Start Date End Date Ankur Main MD [address] [place] [address] PCP - General 11/01/20 12/18/24 Iman Cuevas MD [address] [place] [address] PCP - General Internal Medicine 12/19/24 documented as of this encounter
--- OUTSIDE RECORDS SUMMARY | 2025-03-27 09:52 | XMS_ITS | Encounter Summary ---
Author Organization Healthcare Address [address] [place] [address] Care Team Providers Care Refrigerator Glazier Name Role Phone Iman Cuevas MD Primary Care Provider [phone] Encounter Details Date Type Department Care Team [...] the past 12 months has th e [employer], gas, oil, or water [employer] threatened to shut off services in your [...] Description 04/18/2025 11:00 AM EDT Office Visit [facility] Medicine Specialties [address], 2nd [place] [address] Juventino Costa MD [address] [place] [address] 05/04/2025 1:00 PM EST Appointment Medical Office Building Cardiac Diagnostic Testing Medical Office Building Echo Lab [address] [facility], [address] [place] [address] 05/04/2025 1:45 PM EST Office Visit [facility] [place] [address] [facility] [address], [address] [place] [address] Ruslan Sanderson MD [address] [place] [address] 07/23/2025 2:00 PM EST Office Visit [facility] Sleep Disorder Center [address], 4th [place] [address] Kassandra Khan, ACID CONDITIONING WORKER [address] [place] [address] 08/21/2025 3:30 PM EST Office Visit [facility] [address], 1st [place] [address] Alicia Jennings MD [address] [place] [address] 09/10/2025 10:40 AM EDT Office Visit [facility] Medicine Specialties [address], 2nd [place] [address] Bushra Graf PA [address] [place] [address] documented as of this encounter [...] documented as of this encounter Care Teams Refrigerator Glazier Relationship Specialty Start Date End Date Iman Cuevas MD [address] [place] [address] PCP - General Internal Medicine 12/19/24 documented as of this encounter
--- OUTSIDE RECORDS SUMMARY | 2025-03-27 09:52 | XMS_ITS | Encounter Summary ---
Author Organization Healthcare Address [address] [place] [address] Care Team Providers Care Manganese Breaker Name Role Phone Ankur Main MD Primary Care Provider [phone] Iman Cuevas MD Primary Care Provider Encounter Details Date Type Department Care Team (Late st Contact Info) Description 01/24/2024 Orders Only External Location [address] [place] [address] Skip Tineo MD Social History Tobacco Use [...] in a usp (including now)? No 01/25/2024 Safety and Environment [...] Description 04/18/2025 11:00 AM EDT Office Visit [facility] Medicine Specialties [address], 2nd [place] [address] Juventino Costa MD [address] [facility] [address] [place] [address] 05/04/2025 1:00 PM EST Appointment Medical Office Building Cardiac Diagnostic Testing Medical Office Building Echo Lab [address] [facility], [address] [place] [address] 05/04/2025 1:45 PM EST Office Visit [facility] [place] [address] [facility], [address] [place] [address] Ruslan Sanderson MD [address] [place] [address] 07/23/2025 2:00 PM EST Office Visit [facility] Sleep Disorder Center [address], 4th [place] [address] Kassandra Khan APRN [address] [place] [address] 08/21/2025 3:30 PM EST [facility] [address], 1st [place] [address] Alicia Jennings MD [address] [place] [address] 09/10/2025 10:40 AM EDT Office Visit [facility] Medicine Specialties [address], 2nd [place] [address] Bushra Graf PA [address] [place] [address] documented as of this encounter [...] documented as of this encounter Care Teams Manganese Breaker Relationship Specialty Start Date End Date Ankur Main MD [address] [place] [address] PCP - General 11/01/20 12/18/24 Iman Cuevas MD [address] [place] [address] PCP - General Internal Medicine 12/19/24 documented as of this encounter
--- OUTSIDE RECORDS SUMMARY | 2025-03-27 09:52 | XMS_ITS | Encounter Summary ---
Author Organization Healthcare Address [address] [place] [address] Care Team Providers Care Poacher Operator Name Role Phone Ankur Main MD Primary Care Provider [phone] Iman Cuevas MD Primary Care Provider [phone] Reason for Visit * Reason Onset Date Comments Med Refill 06/19/2021 Encounter Details Date Type Department Care Team (Late st Contact Info) Description 06/19/2021 Refill [facility] Internal Medicine [address], 3rd [place] [address] Ankur Main MD [address] [place] [address] Social History Tobacco Use Types [...] [facility] Medicine Specialties [address], 2nd [place] [address] Juventino Costa MD [address] [place] [address] 05/04/2025 1:00 PM EST Appointment Medical Office Building Cardiac Diagnostic Testing Medical Office Building Echo Lab [address] [facility], [address] [place] [address] 05/04/2025 1:45 PM EST Office Visit [facility] [place] [address] [facility], [address] [place] [address] Ruslan Sanderson MD [address] [place] [address] 07/23/2025 2:00 PM EST Office Visit [facility] Sleep Disorder Center [address], 4th [place] [address] Kassandra Khan APRN [address] [place] [address] 08/21/2025 3:30 PM EST Office Visit [facility] [address], 1st [place] [address] Alicia Jennings MD [address] [place] [address] 09/10/2025 10:40 AM EDT Office Visit [facility] Medicine Specialties [address], 2[address] [place] [address] Bushra Graf, PA [address] [place] [address] documented as of this encounter [...] documented as of this encounter Care Teams Poacher Operator Relationship Specialty Start Date End Date Ankur Main MD [address] [place] [address] PCP - General 11/01/20 12/18/24 Iman Cuevas MD [address] [place] [address] PCP - General Internal Medicine 12/19/24 documented as of this encounter
--- OUTSIDE RECORDS SUMMARY | 2025-03-27 09:52 | XMS_ITS | Encounter Summary ---
Author Organization Healthcare Address [address] [place] [address] Care Team Providers Care Sports Marketing Coordinator Name Role Phone Ankur Main MD Primary Care Provider Iman Cuevas MD Primary Care Provider [phone] Reason for Visit * Reason Onset Date Comments Med Refill 02/28/2021 Encounter Details Date Type Department Care Team (Late st Contact Info) Description 02/28/2021 Refill [facility] Internal Medicine [address], 3rd [place] [address] Roxana Abdul MD [address] [place] [address] Polyneuropathy associated with underlying disease [...] Description 04/18/2025 11:00 AM EDT Office Visit [facility] Medicine Specialties [address], [address] [place] [address] Juventino Costa MD [address] [place] [address] 05/04/2025 1:00 PM EST Appointment Medical Office Building Cardiac Diagnostic Testing Medical Office Building Echo Lab [address] [facility], [address] [place] [address] 05/04/2025 1:45 PM EST Office Visit [facility] [place] [address] [facility], [address] [place] [address] Ruslan Sanderson MD [address] [place] [address] 07/23/2025 2:00 PM EST Office Visit [facility] Sleep Disorder Center [address], 4th [place] [address] Kassandra Khan, SUPERVISOR PRODUCT INSPECTION [address] [place] [address] 08/21/2025 3:30 PM EST Office Visit [facility] [address], 1[address] [place] [address] Alicia Jennings MD [address] [place] [address] 09/10/2025 10:40 AM EDT Office Visit [facility] Medicine Specialties [address], 2[address] [place] [address] Bushra Graf, PA [address] [place] [address] documented as of this encounter [...] as of this encounter Care Teams Sports Marketing Coordinator Relationship Specialty Start Date End Date Ankur Main MD [address] [place] [address] PCP - General 11/01/20 12/18/24 Iman Cuevas MD [address] [place] [address] PCP - General Internal Medicine 12/19/24 documented as of this encounter
[2025-03-27 10:50] LABS: Folate > 20.00 ng/mL
--- NOTE | 2025-03-27 12:50 | PC.NURSE ---
Discharged home with sig other. Assisted to private vehicle via by BONI Frazier.
--- NOTE | 2025-03-27 14:24 | PC.NURSE ---
Wound care performed per protocol. Incision cleansed with diluted Hibiclens and covered with ABD pads and tape. Incision looks good, no active drainage or bleeding. No s/s of infection. Tolerated wound care well. Wound care supplies also provided to last pt until Home Health could see her.
--- NOTE | 2025-03-27 15:39 | EXP.PN ---
Subjective *Date: 03/27/25 *Time: 15:39 Exam Data for Last 24 hours Vital signs and Labs for Last 24 Hours: Temp Pulse Resp BP Pulse Ox O2 Del Method 97.4 F L 71 18 103/64 L 97 Room Air 03/27/25 08:58 03/27/25 08:58 03/27/25 08:58 03/27/25 08:58 03/27/25 08:58 03/27/25 08:58 Laboratory Results - last 24 hr 03/26/25 06:10: TSH 7.14 H 03/27/25 06:11: WBC 7.3, RBC 3.00 L, Hgb 9.4 L, Hct 30.5 L, MCV 101.7 H, MCH 31.3 H, MCHC 30.8 L, RDW 17.6 H, Plt Count 207, MPV 10.2, Neut % (Auto) 64.0, Lymph % (Auto) 22.7, [place] % (Auto) 7.3, Eos % (Auto) 4.9, Baso % (Auto) 0.4, Neut # (Auto) 4.7, Lymph # (Auto) 1.7, [place] # (Auto) 0.5, Eos # (Auto) 0.4, Baso # (Auto) 0.0, Sodium 135 L, Potassium 3.9, Chloride 100, Carbon Dioxide 28, Anion Gap 10.9, BUN 15, Creatinine 0.90, Estimated Creat Clear 64, Estimated GFR 69, Est GFR ( Amer) 83, Glucose 91, Calcium 8.8, Magnesium 2.3, Total Bilirubin 1.0, AST 28, ALT 11 L D, Alkaline Phosphatase 71, Total Protein 6.3, Albumin 3.4 L, Globulin 2.9, Albumin/Globulin Ratio 1.2, Folate > 20.00 I & O for Last 24 hours: Intake & Output 03/24/25 03/25/25 03/26/25 03/27/25 23:59 23:59 23:59 23:59 Intake Total 194 / 1940 1076 / 1076 2160 / 2160 Output Total 7951 / 7951 7800 / 8400 2300 / 2300 Balance -6011 / -6011 -6724 / -7324 -140 / -140 Weight 99.79 kg 120.202 kg
--- NOTE | 2025-03-28 10:50 | SW/DCPLANNER ---
Spoke with patient on the phone. Patient stated that she is doing good. Patient stated that she is aware of her upcoming appointment. Patient stated that she was able to get her new medicine picked up from clinic pharmacy. Patient stated that she is waiting on home health to call her. Patient stated that she has no concerns or questions at this time. Hugo Steel
== END 2025-03-27 15:00 | disposition home or self-care (01) | DRG 920 ==
LOC: ER 03-25 01:59 → OB 03-26 05:20
PROVIDERS: Internal Medicine Adolescent Medicine; Student in an Organized Health Care Education/Training Program; Admitting Provider Nurse Practitioner Obstetrics & Gynecology; Emergency Provider Emergency Medicine; Visit Provider Nurse Practitioner Obstetrics & Gynecology
DX: T81.31XA Disruption of external operation (surgical) wound, not elsewhere classified, initial encounter (principal); L76.32 Postprocedural hematoma of skin and subcutaneous tissue following other procedure; N99.840 Postprocedural hematoma of a genitourinary system organ or structure following a genitourinary system procedure; T82.857A Stenosis of other cardiac prosthetic devices, implants and grafts, initial encounter; R18.8 Other ascites; E66.01 Morbid (severe) obesity due to excess calories; J44.9 Chronic obstructive pulmonary disease, unspecified; E11.22 Type 2 diabetes mellitus with diabetic chronic kidney disease; E03.9 Hypothyroidism, unspecified; K43.9 Ventral hernia without obstruction or gangrene; I50.813 Acute on chronic right heart failure; F31.9 Bipolar disorder, unspecified; K74.60 Unspecified cirrhosis of liver; E87.6 Hypokalemia; I37.1 Nonrheumatic pulmonary valve insufficiency; I07.2 Rheumatic tricuspid stenosis and insufficiency; N18.9 Chronic kidney disease, unspecified; R16.2 Hepatomegaly with splenomegaly, not elsewhere classified; Y83.6 Removal of other organ (partial) (total) as the cause of abnormal reaction of the patient, or of later complication, without mention of misadventure at the time of the procedure; Y83.2 Surgical operation with anastomosis, bypass or graft as the cause of abnormal reaction of the patient, or of later complication, without mention of misadventure at the time of the procedure; Z68.38 Body mass index [BMI] 38.0-38.9, adult; Z87.891 Personal history of nicotine dependence; Z95.2 Presence of prosthetic heart valve; Z86.711 Personal history of pulmonary embolism; Z86.69 Personal history of other diseases of the nervous system and sense organs; Z90.79 Acquired absence of other genital organ(s); Z90.711 Acquired absence of uterus with remaining cervical stump; Z90.722 Acquired absence of ovaries, bilateral; Z88.1 Allergy status to other antibiotic agents; Z79.01 Long term (current) use of anticoagulants; Z79.890 Hormone replacement therapy; Z79.84 Long term (current) use of oral hypoglycemic drugs; Z79.899 Other long term (current) drug therapy
CPT/HCPCS: 36415; 51702; 71045; 74177; 80048; 80053; 81001; 82607; 82746; 82962; 83605; 83735; 83880; 84100; 84436; 84439; 84443; 84484; 85025; 85610; 85730; 86850; 87070; 87205; 93005; 93306; 97162; 97166; 99285; J1938; J2270; Q9967

== ENCOUNTER 2025-04-24 16:38 | Outpatient (CLI) | payer MEDICARE, MEDICAID, SELFPAY ==
--- OUTSIDE RECORDS SUMMARY | 2025-03-12 09:20 | XMS_ITS | Encounter Summary ---
Author Organization Healthcare Address [address] [place] [address] Care Team Providers Care Project Manager Finance Name Role Phone Iman Cuevas MD Primary Care Provider [phone] Reason for Referral * Consultation (Routine) - Authorized Specialty Diagnoses / Procedures Referred By Miah lucas Referred To Contact Diagnoses Chronic constipation Bushra Graf PA [address] [facility] [address] [place] [address] Phone: tel: fax: Referral ID Status Reason Start Date Expiration Date V isits Requested Visits Authorized [id number] Authorized 03/12/2025 09/11/2026 1 1 Reason for Visit * Reason Comments Chronic constipation * Consultation (Routine) - Closed Specialty Diagnoses / Procedures Referred By Miah lucas Referred To Contact Diagnoses Chronic constipation Bushra Graf PA [address] [facility] [address] [place] [address] Phone: tel: fax: Referral ID Status Reason Start Date Expiration Date Visits Re quested Visits Authorized [id number] Closed 10/16/2024 04/17/2026 1 1 Encounter Details Date Type Department Care Team (Late st Contact Info) Description 03/12/2025 10:20 AM EDT [facility] Visit [facility] Medicine Specialties [address], [address] [place] [address] Bushra Graf, SHELBY [address] [place] [address] Chronic constipation (Primary Dx); Hemorrhage of rectum and anus; Obesity, Class III, BMI 40-49.9 (morbid obesity) Social History Tobacco Use Types Packs/Day Years [...] Date Recorded Patient Health Questionnaire-2 Score 0 03/12/2025 Hunger Vital Sign Answer Date Recorded Within [...] Date Recorded Patient Health Questionnaire-9 Score 0 03/12/2025 Safety and Environment Answer Date Carlos rded [...] Recorded In the past 12 months has [facility] [employer], gas, oil, or water [employer] threatened to shut off services in your [...] PM EDT documented as of this encounter Last Filed Vital Signs Vital Sign Reading Time Taken Comments Blood Pressure - - Pulse - - Temperature - - Respiratory Rate - - Oxygen Saturation - - Inhaled Oxygen Concentration - - Weight 107 kg (235 lb) 03/12/2025 10:39 AM EDT Height 160 cm (5' 3 ) 03/12/2025 10:39 AM EDT Body Mass Index 41.63 03/12/2025 10:39 AM EDT documented in this encounter Functional Status * Over the past 2 weeks, how often have you been bothered by any of the following problems? Question Answer Date of Assessment Author Little interest or pleasure in doing things Not at all 03/12/2025 10:36 AM EDT Harvey Hurtado Feeling down, depressed, or hopeless Not at all 03/12/2025 10:36 AM EDT Harvey Hurtado Patient Health Questionnaire -2 Score 0 03/12/2025 10:36 AM EDT Harvey Hurtado * Question Answer Date of Assessment Author Trouble falling or staying asleep, or sleeping too much Not at all 03/12/2025 10:36 AM EDT Blas Hurtado Feeling tired or having leigh le energy Not at all 03/12/2025 10:36 AM EDT Harvey Hurtado Poor appetite or overeating Not at all 03/12/2025 10 :36 AM EDT Blas Hurtado Feeling bad about yourself - or that you are a failure or have let yourself or your family down Not at all 03/12/2025 10:36 AM EDT Blas Breen Trouble concentrating on thi ngs, such as reading the newspaper or watching television Not at all 03/12/2025 10:36 AM EDT Harvey Hurtado Moving or speaking so slowly that other people could have noticed? Or the opposite - being so fidgety or restless that you have been moving around a lot more than usual. Not at all 03/12/2025 10:36 AM EDT Harvey Hurtado Thoughts that you would be better off or hurting yourself in some way Not at all 03/12/2025 10:36 AM EDT Ina Hurtado Patient Health Questionnaire -9 Score 0 03/12/2025 10:36 AM EDT Harvey Hurtado * How difficult have these problems made it for you to do your work, take care of things at home, or get along with other people? Answer Date of Assessment Author Not difficult at all 03/12/2025 10:36 AM EDT Blas Breen documented as of this encounter Miscellaneous Notes * Assessment & Plan Note - Bushra Graf PA - 03/12/2025 10:20 AM EDT Associated Problem(s): Obesity, Class III, BMI 40-49.9 (morbid obesity) - Recommend weight loss for overall health. * Progress Notes - Bushra Graf PA - 03/12/2025 10:20 AM EDT Telehealth Visit Subjective Patient ID: Elizabeth Milian is a 40 y.o. female. Chief Complaint Patient presents with Chronic constipation Ms. 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 Elizabeth reports constipation has been a lifelong issue. At time of consultation appointment she reported going up to two weeks without BM despite trials of supplemental fiber, MOM, stool softeners, Miralax, and suppositories. Therefore, bowel clean- out was recommended followed by daily linaclotide. The medication initially worked well but then lost effectiveness. She is therefore now treated with prucalopride, which she states is working great. Her bowel frequency has improved to one BM every 1-2 days from previously reported 10-12 days without BM. Her abdominal pain has overall improved, but she does acknowledge some discomfort relatedto hernia. She denies evidence of melena and hematochezia, N/V, decreased appetite, unintentional weight loss, and fevers. Her energy level varies. Elizabeth reports family history of colon cancer in her maternal grandmother who was diagnosed at age 60. Colonoscopy from 09/01/2024 reviewed and normal, but prep was inadequate. Abdominal Pain This is a recurrent problem. The current episode started more than 1 year ago. The onset quality isgradual. The problem occurs daily. The most recent episode lasted 2 days. The problem has been gradually improving. The pain is located in the generalized abdominal region. The pain is at a severity of 6/10. The quality of the pain is cramping, dull, a sensation of fullness and sharp. The abdominal pain does not radiate. Associated symptoms include constipation. Pertinent negatives include no anorexia, arthralgias, belching, diarrhea, dysuria, fever, flatus, frequency, headaches, hematochezia, hematuria, melena, myalgias, nausea, vomiting or weight loss. Nothing aggravates the pain. The pain is relieved by Bowel movements. The following portions of the chart were reviewed this encounter and updated as appropriate: Tobacco Allergies Meds Problems Med Hx Surg Hx Fam Hx Review of Systems Constitutional: Positive for fatigue. Negative for appetite change, chills, fever, unexpected weight change and weight loss. Gastrointestinal: Positive for abdominal pain and constipation. Negative for anorexia, blood in stool, diarrhea, flatus, hematochezia, melena, nausea and vomiting. Genitourinary: Negative for dysuria, frequency and hematuria. Musculoskeletal: Negative for arthralgias and myalgias. Neurological: Negative for headaches. All other systems reviewed and are negative. Objective Physical Exam Vitals reviewed. Constitutional: Appearance: Normal appearance. She is obese. HENT: Head: Normocephalic. Nose: Nose normal. Pulmonary: Effort: Pulmonary effort is normal. Neurological: Mental Status: She is alert and oriented to person, place, and time. Psychiatric: Mood and Affect: Mood normal. Behavior: Behavior normal. Thought Content: Thought content normal. Judgment: Judgment normal. Assessment/Plan Assessment & Plan Chronic constipation - Suspect IBS given negative work-up thus far. Specifically, labs from consultation appointment didnot indicate anemia, thyroid dysfunction, or Celiac disease. - Symptoms significantly improved with prucalopride. - We have previously discussed option of arranging sitz- marker study at time of consultation, but patient was resistant. - Low FODMAPs diet has previously been reviewed with patient. - Follow-up in 6 months. Orders: Follow Up GI; Future Hemorrhage of rectum and anus -Normal colonoscopy 08/2024. Obesity, Class III, BMI 40-49.9 (morbid obesity) - Recommend weight loss for overall health. Telehealth Statement Patient Verification Patient identity has been confirmed using name and date of ? Yes Authorizations and Agreements/Telemedicine Consent sent and consent confirmed? Yes Patient Location: Home/Other Patient confirms they are physically located in [place]? Yes If the patient is not physically located in [place], the provider has confirmed with [employer] thatthe provider is authorized to provide services in patient's stated location? N/A Provider Location: home Audio and video or audio only? Audio and video Total visit time: A total of 30 minutes was spent discussing patient's symptoms and plan of care, reviewing records, entering orders, and documenting. documented in this encounter Plan of Treatment Upcoming Encounters Date Type Department Care Team (Late st Contact Info) Description 05/04/2025 1:00 PM EST Appointment Medical Office Building Cardiac Diagnostic Testing Medical Office Building Echo Lab [address] [facility], [address] [place] [address] 05/04/2025 1:45 PM EST Office Visit [facility] [place] [address] [facility], [address] [place] [address] Ruslan Sanderson MD [address] [place] [address] 07/23/2025 2:00 PM EST Office Visit [facility] Sleep Disorder Center [address]th [place] [address] Kassandra Khan APRN [address] [place] [address] 08/21/2025 3:30 PM EST [facility] [address], [address] [place] [address] Alicia Jennings MD [address] [place] [address] 09/10/2025 10:40 AM EDT Office Visit [facility] Medicine Specialties [address], [address] [place] [address] Bushra Graf PA [address] [place] [address] 10/17/2025 9:30 AM EDT Appointment [facility] [address] [place] [address] 10/17/2025 10:30 AM EDT [facility] Medicine Specialties [address], [address] [place] [address] Juventino Costa MD [address] [place] [address] Scheduled Referrals Name Type Priority Associated Diagnoses Orde r Schedule Follow Up GI Outpatient Referral Routine Chronic constipation Expected: 09/09/2025, Expires: 04/11/2026 documented as of this encounter Visit Diagnoses Diagnosis Chronic constipation- Primary Unspecified constipation Hemorrhage of rectum and anus Obesity, Class III, BMI 40-49.9 (morbid obesity) documented in this encounter Additional Health Concerns [...] Noted Time PHQ-9 Depression Total Score: 0 03/12/20 10:36 AM EDT A fall risk assessment has been complete d for the patient 03/12/2025 10:37 AM EDT A Body Mass Index follow-up plan has been documented for the patient 03/12/2025 2:36 PM EDT documented as of this encounter Care Teams Project Manager Finance Relationship Specialty Start Date End Date Iman Cuevas MD [address] [place] [address] PCP - General Internal Medicine 12/19/24 documented as of this encounter
--- OUTSIDE RECORDS SUMMARY | 2025-04-18 10:00 | XMS_ITS | Encounter Summary ---
Author Organization Healthcare Address [address] [place] [address] Care Team Providers Care Superintendent Storage Area Name Role Phone Iman Cuevas MD Primary Care Provider [phone] Reason for Referral * Consultation (Routine) - Authorized Specialty Diagnoses / Procedures Referred By Miah t Referred To Contact Diagnoses Morbid obesity (CMS/HCC) Chronic obstructive pulmonary disease, unspecified COPD type (CMS/HCC) Theresa Dunne APRN [address] [address] Phone: tel: fax: Referral ID Status Reason Start Date Expiration Date V isits Requested Visits Authorized [id number] Authorized 04/18/2025 10/18/2026 1 1 * Imaging (Routine) - Pending Review Specialty Diagnoses / Procedures Referred By Contac t Referred To Contact Radiology Diagnoses Morbid obesity (CMS/HCC) Chronic obstructive pulmonary disease, unspecified COPD type (CMS/HCC) Procedures CT Chest wo IV Contrast Theresa Dunne APRN [address] [address] Phone: tel: fax: Referral ID Status Reason Start Date Expiration Date V isits Requested Visits Authorized [id number] Pending Review 04/18/2025 10/18/2026 1 1 Reason for Visit * Reason Comments Asthma Follow-up COPD * Consultation (Routine) - Closed Specialty Diagnoses / Procedures Referred By Miah lucas Referred To Contact Diagnoses Encounter for pre-operative respiratory clearance Chronic obstructive pulmonary disease, unspecified COPD type (CMS/HCC) Juventino Costa MD [address] [facility] [address] [place] [address] Phone: tel: fax: Referral ID Status Reason Start Date Expiration Date Visits Re quested Visits Authorized [id number] Closed 10/11/2024 04/12/2026 1 1 Encounter Details Date Type Department Care Team (Late st Contact Info) Description 04/18/2025 11:00 AM EDT Office Visit [facility] [address] [place] [address] Juventino Costa MD [id number] [place] [address] Morbid obesity (CMS/HCC) (Primary Dx); Chronic obstructive pulmonary disease, unspecified COPD type (CMS/HCC); Chronic bronchitis with COPD (chronic obstructive pulmonary [...] Sign Reading Time Taken Comments Blood Pressure 92/65 04/18/2025 10:44 AM EDT Pulse 57 04/18/2025 10:44 AM EDT Temperature 36.7 C (98.1 F) 04/18/2025 10:44 AM EDT Respiratory Rate 18 04/18/2025 10:44 AM EDT Oxygen Saturation 93% 04/18/2025 10:44 AM EDT RA Inhaled Oxygen Concentration - - Weight 113 kg (248 lb 7.3 oz) 04/18/2025 10:44 A M EDT Height 160 cm (5' 3 ) 04/18/2025 10:44 AM EDT Body Mass Index 44.01 04/18/2025 10:44 AM EDT documented in this encounter Miscellaneous Notes * Progress Notes - Theresa Dunne, WING COVERER - 04/18/2025 11:00 AM EDT PULMONARY FOLLOW-UP VISIT: Elizabeth Milian is a 40 y.o. female who was last seen in this pulmonary clinic on 10/11/24 andis presenting today for follow up of COPD. 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 She was previously seen for bariatric surgery clearance. INTERVAL HISTORY Today patient reports Doing ok, other than the fact that she had to have a hysterectomy 03/14/25. Due to having her hysterectomy and the complications that came with it, she decided to put her weight loss surgery on hold. She is concerned with her previous surgical complications and being on blood thinners, she is concerned that she is at increased risk for complications with bariatric surgery. She has not had any complications with her breathing. She is using her Stiolto as prescribed. Not needing her albuterol often. Recent hospitalizations: Recent URI/PNA/Exacerbations: none Dyspnea: none Cough/Sputum: none Wheezing: With exercise she wheezes but very light. Night time symptoms: nothing. Seasonal Allergies: Will take benadryl if needed. Takes Singulair and flonase as needed. GERD: No complaints. DANYELLE/Overnight O2: Using CPAP at night. Oxygen use: none Smoking: Quit smoking 5 years ago. Smoked a pack a day at that time. -Every once in a while she smokes marijuana when she is stressed but that is very rare. Inhaler/Medication Compliance: Stilolto two puffs daily. Using albuterol 2-3 times per week on average. Will use it more if she is exercising. She is trying to exercise more to help her lose weight. After her surgery last month, she hasn't been as active as she was. F/C/NS: Up to date on Flu vaccine. Declines covid vaccine. Social/Exposure/Pertinent Pulmonary History: PMHx, Surgical Hx, Family Hx, and Social Hx Reviewed in EMR. Significant Changes Noted Above. Immunizations: Immunization History Administered Date(s) Administered Influenza, injectable, quadrivalent, preservative free 05/28/2020, 04/22/2021, 06/09/2022, 03/09/2023 Influenza, seasonal, injectable 03/09/2018, 04/20/2019 Influenza, seasonal, injectable, preservative free 04/21/2024 Pneumococcal 20-giovanna Conj Vaccine 08/01/2024 Pneumococcal Polysaccharide PPV23 01/26/2019 Tdap 06/09/2022 VACCINE / DOSE DATE DATE DATE DATE DATE DATE Flu 04/20/2019 05/28/2020 04/22/2021 06/09/2022 03/09/2023 04/21/2024 Tetanus 06/09/2022 Pneumovax 01/26/2019 Shingles Allergies: Allevyn adhesive [wound dressings] and Tetracycline Medications: Current Medications[1] REVIEW OF SYSTEMS Review of Systems HENT: Negative for congestion and postnasal drip. Respiratory: Positive for shortness of breath (With exercise) and wheezing (With exercise). Negative for cough and chest tightness. Cardiovascular: Negative for chest pain and leg swelling. Assessment Scales: CAT: COPD ASSESSMENT (CAT) How often do you cough?: 3 Do you have phelgm (mucus) in your chest?: 2 Do you have tightness in your chest?: 3 Do you feel breathless walking up a hill or stairs?: 2 Are you limited to doing activities at home?: 3 Are you confident in leaving home despite your lung condition?: 0 Confident leaving home Do you have the ability to sleep soundly despite your lung condition?: 2 How are your energy levels?: 3 COPD Score Score: 18 PHYSICAL EXAMINATION Visit Vitals BP 92/65 (BP Location: Right arm, Patient Position: Sitting) Pulse 57 Temp 36.7 ??C (98.1 ??F) (Oral) Ht 1.6 m (5' 3 ) Wt 113 kg (248 lb 7.3 oz) SpO2 93% Comment: RA BMI 44.01 kg/m?? Physical Exam Constitutional: Appearance: She is obese. HENT: Head: Normocephalic. Cardiovascular: Rate and Rhythm: Normal rate and regular rhythm. Pulses: Normal pulses. Heart sounds: Murmur heard. Pulmonary: Effort: Pulmonary effort is normal. Breath sounds: Normal breath sounds. Neurological: Mental Status: She is alert. DATA Data Reviewed (personally by me this visit): Laboratory Studies: I personally reviewed recent lab work in EMR. Lab Results Component Value Date WBC 8.48 05/10/2024 HGB 14.7 05/10/2024 HCT 43.4 05/10/2024 MCV 90 05/10/2024 PLT 246 05/10/2024 Radiology Results: I have personally reviewed the images in EMR. IMPRESSION 1. Morbid obesity (CMS/HCC) 2. Chronic obstructive pulmonary disease, unspecified COPD type (CMS/HCC) 3. Chronic bronchitis with COPD (chronic obstructive pulmonary disease) (CMS/HCC) 4. Moderate persistent asthma, unspecified whether complicated Orders Placed This Encounter Procedures CT Chest wo IV Contrast Standing Status: Future Expected Date: 10/17/2025 Expiration Date: 10/20/2026 Specific protocol needed?: Lung Nodule/Low Dose Is this exam for research?: No Is the patient ?: No What is the patient's sedation requirement?: No Sedation Results Release Delay - 72 Hours: 72 Hours Follow Up Pulm With Dr. Costa Standing Status: Future Expected Date: 10/17/2025 Expiration Date: 05/19/2026 Referral Priority: Routine Referral Type: Consultation Number of Visits Requested: 1 DISCUSSION/SUMMARY Elizabeth Milian is a 40 y.o. female presenting today for COPD. She is doing well on current inhaler protocol and instructed her to continue using her inhalers as prescribed. Will do a repeat CTto reevaluate the previously seen nodules with her next visit in 6 months, Discussed the importanceof weight loss. Advised to consult with PCP on starting a GLP-1 in leiu of her no longer wanting weight loss surgery. Chronic obstructive pulmonary disease, unspecified COPD type (CMS/HCC) -Follow up in 6 months -Continue Stiolto -Continue Albuterol as needed Morbid obesity (CMS/HCC) Exertional asthma Lung nodule -Repeat CT in 6 months. Pulmonary Health Maintenance: Influenza Vaccination: Up to date COVID Vaccination: Declined RSV Vaccination: N/A I will follow-up with the patient in 6 months, or sooner if needed. The patient was agreeable to the above plan, and all questions were answered accordingly. I spent 55 minutes performing all or some of the following: Reviewing the history , performing an examination and evaluation, entering clinical information into the EHR, interpreting the results, counseling family/patient/caregiver, reviewing x-rays and laboratories, ordering medications, tests andprocedures, referring and communicating with consulting health intensive care ambulance paramedic and care coordination. Juventino Costa MD [facility] Phone number: [phone] Fax number: [phone] Note to patient: The [employer] Act makes medical notes like these available to patients inthe interest of transparency. However, be advised this is a medical document. It is intended as peer to peer communication. It is written in medical language and may contain abbreviations or verbiagethat are unfamiliar. It may appear blunt or direct. Medical documents are intended to carry relevant information, facts as evident, and the clinical opinion of the practitioner. [1] Current Outpatient Medications Medication Sig Dispense Refill acetaminophen (Tylenol) 500 MG tablet Take 1 tablet (500 mg) by mouth every 6 hours as needed for mild pain. albuterol (Proventil) (2.5 MG/3ML) 0.083% nebulizer solution Take 3 mL by nebulization every 6 hours as needed for shortness of breath. 75 mL 11 albuterol (Ventolin HFA) 108 (90 Base) MCG/ACT inhaler Inhale 2 puffs 4 times a day. 18 g 3 alpha tocopherol (Vitamin E) 400 units capsule Take 1 capsule (400 Units) by mouth in the morning. aspirin 81 MG EC tablet Take by mouth in the morning. cholecalciferol (Vitamin D-3) 25 MCG (1000 UT) tablet Take by mouth in the morning. cyanocobalamin (Vitamin B-12) 500 MCG tablet Take 1 tablet (500 mcg) by mouth in the morning. Eliquis 5 MG tablet TAKE 1 TABLET TWICE DAILY 180 tablet 3 empagliflozin (Jardiance) 10 MG Take 1 tablet (10 mg) by mouth 1 (one) time each day. 90 tablet 3 fluticasone (Flonase) 50 MCG/ACT nasal spray Administer 1 spray into each nostril 1 (one) time eachday. Shake gently. Before first use, prime pump. After use, clean tip and replace cap. Use at bedtime 16 g 12 folic acid (Folvite) 1 MG tablet Take 1 tablet (1 mg) by mouth 1 (one) time each day. 90 tablet 3 furosemide (Lasix) 40 MG tablet Take 2 tablets (80 mg) by mouth 2 (two) times a day. Patient is taking 80mg am and 80mg in pm 360 tablet 3 gabapentin (Neurontin) 300 MG capsule Take 1 capsule (300 mg) by mouth 3 (three) times a day. 90 capsule 5 hydrOXYzine pamoate (Vistaril) 25 MG capsule Take 1 capsule (25 mg) by mouth 3 (three) times a day if needed for itching. 270 capsule 0 lamoTRIgine (LaMICtal) 100 MG tablet Take 0.5 tablets (50 mg) by mouth in the morning and 0.5 tablets (50 mg) before bedtime. levETIRAcetam (Keppra) 500 MG tablet Take 4 tablets by mouth 2 times a day. 240 tablet 2 levothyroxine (Synthroid, Levoxyl) 100 MCG tablet Take 1 tablet (100 mcg) by mouth 1 (one) time each day before breakfast. 90 tablet 3 magnesium oxide (Mag-Ox) 400 (241.3 Mg) MG tablet Take by mouth in the morning and before bedtime. melatonin 3 MG tablet Take by mouth nightly. metoprolol tartrate (Lopressor) 25 MG tablet TAKE 1 TABLET 2 TIMES EACH DAY 180 tablet 3 montelukast (Singulair) 10 MG tablet Take 1 tablet by mouth nightly. Patient needs to be seen by Ella for any additional refills. 90 tablet 3 nystatin (Mycostatin) 768344 UNIT/GM powder Apply topically 1 (one) time each day. 60 g 11 potassium chloride CR (Klor-Con M20) 20 MEQ ER tablet Take 1 tablet (20 mEq) by mouth 2 (two) timesa day. DO NOT CRUSH OR CHEW. 180 tablet 3 Prucalopride Succinate (Motegrity) 2 MG tablet Take 1 tablet by mouth daily. 90 tablet 3 QUEtiapine (SEROquel) 50 MG tablet Take 1 tablet (50 mg) by mouth in the morning. sertraline (Zoloft) 100 MG tablet Take 1 tablet (100 mg) by mouth in the morning. tiotropium-olodaterol (Stiolto Respimat) 2.5-2.5 MCG/ACT aerosol solution inhaler Inhale 2 Inhalations daily. 4 g 11 triamcinolone (Kenalog) 0.025 % ointment Apply to hands 1-2 times daily as needed for dry skin. Mayuse consistently up to two weeks and then as needed 454 g 1 levonorgestrel (Mirena, 52 MG,) 20 MCG/24HR IUD Take by mouth See administration instructions. Inserted on 09/04/2020 Lot Number: [id number] Expiration Date: Nov 2022 [facility]: [id number] (Patient not taking: Reported on 04/18/2025) No current facility-administered medications for this visit. Cosigned by Juventino Costa MD at 04/19/2025 1:56 PM EDT Associated attestation - Juventino Costa MD - 04/19/2025 1:56 PM EDT I attest to being involved in providing substantive part of the medical decision making in patient care. documented in this encounter Plan of Treatment Upcoming Encounters Date Type Department Care Team (Late st Contact Info) Description 05/04/2025 1:00 PM EST Appointment Medical Office Building Cardiac Diagnostic Testing Medical Office Building Echo Lab [address], [address] [place] [phone] 05/04/2025 1:45 PM EST Office Visit [facility] [place] [address], [address] [place] [address] Ruslan Sanderson MD [address] [place] [address] 07/23/2025 2:00 PM EST Office Visit [facility] Sleep Disorder Center [address] [place] [phone] Kassandra Khan, WING COVERER [address] [place] [address] 08/21/2025 3:30 PM EST Office Visit [facility] [address] [place] [address] Alicia Jennings MD [address] [place] [address] 09/10/2025 10:40 AM EDT Office Visit [facility] Medicine Specialties [address] [place] [address] Bushra Graf PA [address] [place] [phone] 10/17/2025 9:30 AM EDT Appointment [facility] [address] [place] [address] 10/17/2025 10:30 AM EDT [facility] [address] [place] [address] Juventino Costa MD [address] [place] [address] Scheduled Orders Name Type Priority Associated Diagnoses Orde r Schedule CT Chest wo IV Contrast Imaging Routine Morbid obesity (CMS/HCC) Chronic obstructive pulmonary disease, unspecified COPD type (CMS/HCC) Expected: 10/17/2025 (Approximate), Expires: 10/20/2026 Scheduled Referrals Name Type Priority Associated Diagnoses Orde r Schedule Follow Up Pulm Outpatient Referral Routine Morbid obesity (CMS/HCC) Chronic obstructive pulmonary disease, unspecified COPD type (CMS/HCC) Expected: 10/17/2025, Expires: 05/19/2026 documented as of this encounter Visit Diagnoses Diagnosis Morbid obesity (CMS/HCC)- Primary Morbid obesity Chronic obstructive pulmonary disease, unspecified COPD type (CMS/HCC) Chronic bronchitis with COPD (chronic obstructive pulmonary [...] has been complete d for the patient 04/18/2025 10:46 AM EDT A Body Mass Index follow-up plan has been documented for the patient 04/19/2025 1:56 PM EDT documented as of this encounter Care Teams Superintendent Storage Area Relationship Specialty Start Date End Date Iman Cuevas MD [address] [address] PCP - General Internal Medicine 12/19/24 documented as of this encounter
--- OUTSIDE RECORDS SUMMARY | 2025-04-24 16:40 | XMS_ITS | Encounter Summary ---
Author Organization Healthcare Address [address] [place] [address] Care Team Providers Care [employer] Packages Tester Name Role Phone Ankur Main MD Primary Care Provider [phone] Iman Cuevas MD Primary Care Provider [phone] Reason for Visit * Reason Onset Date Comments Med Refill 06/19/2021 Encounter Details Date Type Department Care Team (Late st Contact Info) Description 06/19/2021 Refill [facility] Internal Medicine [address] [place] [address] Ankur Main MD [address] [place] [address] Social History Tobacco Use Types [...] Building Echo Lab [address], [address] [place] [address] 05/04/2025 1:45 PM EST Office Visit [facility] [address], [address] [place] [address] Ruslan Sanderson MD [address] [place] [address] 07/23/2025 2:00 PM EST Office Visit [facility] Sleep Disorder Center [address] [place] [phone] Kassandra Khan APRN [address] [place] [address] 08/21/2025 3:30 PM EST Office Visit [facility] [address] [place] [address] Alicia Jennings MD [address] [place] [address] 09/10/2025 10:40 AM EDT Office Visit [facility] Medicine Specialties [address] [place] [address] Bushra Graf PA [address] [place] [address] 10/17/2025 9:30 AM EDT Appointment [facility] [address] [place] [address] 10/17/2025 10:30 AM EDT [facility] [address] [place] [address] Juventino Costa MD [address] [place] [address] documented as of this encounter [...] documented as of this encounter Care Teams [employer] Packages Tester Relationship Specialty Start Date End Date Ankur Main MD [address] [place] [phone] PCP - General 11/01/20 12/18/24 Iman Cuevas MD [address] [place] [address] PCP - General Internal Medicine 12/19/24 documented as of this encounter
--- OUTSIDE RECORDS SUMMARY | 2025-04-24 16:40 | XMS_ITS | Encounter Summary ---
Author Organization Healthcare Address [address] [place] [address] Care Team Providers Care Odd [employer] Day Worker Name Role Phone Ankur Main MD Primary Care Provider [phone] Iman Cuevas MD Primary Care Provider [phone] Reason for Visit * Reason Onset Date Comments Med Refill 02/28/2021 Encounter Details Date Type Department Care Team (Late st Contact Info) Description 02/28/2021 Refill [facility] Internal Medicine [address] [place] [address] Roxana Abdul MD [address] [place] [address] Polyneuropathy associated with underlying disease [...] Medical Office Building Echo Lab [address] [place] [address] 05/04/2025 1:45 PM EST Office Visit [facility] [place] [facility] [address] [place] [address] Ruslan Sanderson MD [address] [place] [address] 07/23/2025 2:00 PM EST Office Visit [facility] [address] [place] [phone] Kassandra Khan APRN [address] [place] [address] 08/21/2025 3:30 PM EST [facility] [address] [place] [address] Alicia Jennings MD [address] [place] [address] 09/10/2025 10:40 AM EDT [facility] Medicine Special[facility] [address] [place] [address] Bushra Graf PA [address] [place] [address] 10/17/2025 9:30 AM EDT Appointment [facility] [address] [place] [address] 10/17/2025 10:30 AM EDT Office [facility] [address] [place] [address] Juventino Costa MD [address] [facility] [address] [place] [address] documented as of this encounter Visit Diagnoses [...] as of this encounter Care Teams Odd Jobs Day Worker Relationship Specialty Start Date End Date Ankur Main MD [address] [id number] PCP - General 11/01/20 12/18/24 Iman Cuevas MD [address] [facility] [address] [place] [address] PCP - General Internal Medicine 12/19/24 documented as of this encounter
--- OUTSIDE RECORDS SUMMARY | 2025-04-24 16:40 | XMS_ITS | Encounter Summary ---
Author Organization Healthcare Address [address] [place] [address] Care Team Providers Care Harness Fitter Name Role Phone Ankur Main MD Primary Care Provider [phone] Iman Cuevas MD Primary Care Provider [phone] Encounter Details Date Type Department Care Team (Late st Contact Info) Description 01/24/2024 Orders Only External Location [address] [place] [address] Skip Tineo MD Social History Tobacco Use [...] in a penitentiary (including now)? No 01/25/2024 Safety and Environment [...] [address] [facility], [address] [place] [address] 05/04/2025 1:45 PM EST Office Visit [facility] [place] [address] [facility], [address] [place] [address] Ruslan Sanderson MD [address] [place] [address] 07/23/2025 2:00 PM EST Office Visit [facility] Sleep Disorder Center [address], [address]th [place] [address] Kassandra Khan APRN [address] [place] [address] 08/21/2025 3:30 PM EST Office Visit [facility] [address], [address] [place] [address] Alicia Jennings MD [address] [place] [address] 09/10/2025 10:40 AM EDT Office Visit [facility] Medicine Specialties [address], 2nd [place] [phone] Bushra Graf PA [address] [facility] [address] [place] [address] 10/17/2025 9:30 AM EDT Appointment [facility] [address] [place] [address] 10/17/2025 10:30 AM EDT Office Visit [facility] [address], [facility] [address] Juventino Costa MD [address] [facility] [address] [place] [address] documented as of this encounter Procedures Procedure [...] Noted Time PHQ-9 Depression Total Score: 18 08/2 021 9:41 AM EDT A fall risk assessment has been complete d for the patient 11/10/2023 11:37 AM EDT A Body Mass Index follow-up plan has been documented for the patient 11/10/2023 12:15 PM EDT documented as of this encounter Care Teams Harness Fitter Relationship Specialty Start Date End Date Ankur Main MD [address] [place] [address] PCP - General 11/01/20 12/18/24 Iman Cuevas MD [address] [place] [address] PCP - General Internal Medicine 12/19/24 documented as of this encounter
--- OUTSIDE RECORDS SUMMARY | 2025-04-24 16:40 | XMS_ITS | Encounter Summary ---
Author Organization Healthcare Address [address] [place] [address] Care Team Providers Care Allergist/Pediatric Pulmonologist Name Role Phone Ankur aMin MD Primary Care Provider [phone] Nancy Hernandez EMPLOYMENT MANAGER Unavailable Unavailable Iman Cuevas MD Primary Care Provider [phone] Encounter Details Date Type Department Care Team (Late st Contact Info) Description 08/01/2018 Orders Only External Location [address] [place] [address] Social History Tobacco Use Types Packs/Day Years [...] [address] [facility], [address] [place] [address] 05/04/2025 1:45 PM EST Office Visit [facility] [place] [address] [facility], [address] [place] [address] Ruslan Sanderson MD [address] [place] [address] 07/23/2025 2:00 PM EST Office Visit [facility] [address], [address]th [place] [address] Kassandra Khan APRN [address] [place] [address] 08/21/2025 3:30 PM EST Office Visit [facility] [address], 1st [place] [address] Alicia Jennings MD [address] [place] [address] 09/10/2025 10:40 AM EDT Office Visit [facility] Medicine Specialties [address], 2nd [place] [address] Bushra Graf PA [address] [place] [address] 10/17/2025 9:30 AM EDT Appointment [facility] [address] [place] [address] 10/17/2025 10:30 AM EDT Office Visit [facility] [place] [address], [address]nd [place] [address] Juventino Costa MD [address] [place] [address] documented as of this encounter Procedures Procedure [...] documented as of this encounter Care Teams Allergist/Pediatric Pulmonologist Relationship Specialty Start Date End Date Ankur Main MD [address] [place] [address] PCP - General 11/01/20 12/18/24 Iman Cuevas MD [address] [place] [address] PCP - General Internal Medicine 12/19/24 Nancy Hernandez, [place] [address] Scrubber System Attendant Assistant Basketball Coach 03/25/20 03/25/20 documented as of this encounter
--- OUTSIDE RECORDS SUMMARY | 2025-04-24 16:40 | XMS_ITS | Encounter Summary ---
Author Organization Healthcare Address [address] [place] [address] Care Team Providers Care Supervisor Waterproofing Name Role Phone Ankur Main MD Primary Care Provider [phone] Iman Cuevas MD Primary Care Provider [phone] Reason for Visit * Reason Onset Date Comments Med Refill 01/24/2021 Encounter Details Date Type Department Care Team (Late st Contact Info) Description 01/24/2021 Refill [facility] Internal Medicine [address], 3rd [place] [address] Ankur Main MD [address] [place] [address] Polyneuropathy associated with underlying disease [...] E [facility], [address] [place] [address] 05/04/2025 1:45 PM EST Office Visit [facility] [place] [address] [facility], [address] [place] [address] Ruslan Sanderson MD [address] [place] [address] 07/23/2025 2:00 PM EST Office Visit [facility] [address], 4th [place] [address] Kassandra Khan APRN [address] [place] [address] 08/21/2025 3:30 PM EST Office Visit [facility] [address], 1st [place] [address] Alicia Jennings MD [address] [place] [address] 09/10/2025 10:40 AM EDT Office [facility] [address], 2[address] [place] [address] Bushra Graf PA [address] [place] [address] 10/17/2025 9:30 AM EDT Appointment [facility] [address] [place] [address] 10/17/2025 10:30 AM EDT Office [facility] [address], 2nd [place] [address] Juventino Costa MD [address] [place] [address] documented as of this encounter Visit Diagnoses [...] as of this encounter Care Teams Supervisor Waterproofing Relationship Specialty Start Date End Date Ankur Main MD [address] [place] [address] PCP - General 11/01/20 12/18/24 Iman Cuevas MD [address] [place] [address] PCP - General Internal Medicine 12/19/24 documented as of this encounter
--- OUTSIDE RECORDS SUMMARY | 2025-04-24 16:40 | XMS_ITS | Encounter Summary ---
Author Organization Healthcare Address [address] [place] [address] Care Team Providers Care Base Loader Name Role Phone Ankur Main MD Primary Care Provider [phone] Iman Cuevas MD Primary Care Provider [phone] Reason for Visit * Reason Onset Date Comments Med Refill 02/19/2022 Encounter Details Date Type Department Care Team (Late st Contact Info) Description 02/19/2022 Refill [facility] Internal Medicine [address], 3rd [place] [address] Ankur Main MD [address] [place] [address] Polyneuropathy associated with underlying disease [...] E [facility], [address] [place] [address] 05/04/2025 1:45 PM EST Office Visit [facility] [place] [address] [facility], [address] [place] [address] Ruslan Sanderson MD [address] [place] [address] 07/23/2025 2:00 PM EST Office Visit [facility] [address], 4th [place] [address] Kassandra Khan APRN [address] [place] [address] 08/21/2025 3:30 PM EST Office Visit [facility] [address], 1st [place] [address] Alicia Jennings MD [address] [place] [address] 09/10/2025 10:40 AM EDT Office Visit [facility] [address], 2nd [place] [address] Bushra Graf PA [address] [place] [address] 10/17/2025 9:30 AM EDT Appointment [facility] [address] [place] [address] 10/17/2025 10:30 AM EDT Office Visit [facility] [address], 2nd [place] [address] Juventino Costa MD [address] [place] [address] documented as of this encounter [...] documented as of this encounter Care Teams Base Loader Relationship Specialty Start Date End Date Aknur Main MD [address] [facility] [address] [place] [address] PCP - General 11/01/20 12/18/24 Iman Cuevas MD [address] [place] [address] PCP - General Internal Medicine 12/19/24 documented as of this encounter
--- OUTSIDE RECORDS SUMMARY | 2025-04-24 16:40 | XMS_ITS | Encounter Summary ---
Author Organization Healthcare Address [address] [place] [address] Care Team Providers Care Well Puller Name Role Phone Iman Cuevas MD Primary Care Provider [phone] Encounter Details Date Type Department Care Team [...] the past 12 months has th e [employer], gas, oil, or water [employer] threatened to shut off services in your [...] E [facility], [address] [place] [address] 05/04/2025 1:45 PM EST Office Visit [facility] [place] [address] [facility], [address] [place] [address] Ruslan Sanderson MD [address] [place] [address] 07/23/2025 2:00 PM EST Office Visit [facility] [address], 4th [place] [address] Kassandra Khan APRN [address] [place] [address] 08/21/2025 3:30 PM EST Office Visit [facility] [address], 1st [place] [address] Alicia Jennings MD [address] [place] [address] 09/10/2025 10:40 AM EDT Office Visit [facility] Medicine Specialties [address], 2[address] [place] [address] Bushra Graf PA [address] [place] [address] 10/17/2025 9:30 AM EDT Appointment [facility] [address] [place] [address] 10/17/2025 10:30 AM EDT Office Visit [facility] Medicine Specialties [address], 2nd [place] [address] Juventino Costa MD [address] [place] [address] documented as of this encounter Visit Diagnoses [...] documented as of this encounter Care Teams Well Puller Relationship Specialty Start Date End Date Iman Cuevas MD [address] [place] [address] PCP - General Internal Medicine 12/19/24 documented as of this encounter
--- OUTSIDE RECORDS SUMMARY | 2025-04-24 16:40 | XMS_ITS | Encounter Summary ---
Author Organization Healthcare Address [address] [place] [address] Care Team Providers Care Distribution Systems Serviceperson Name Role Phone Iman Cuevas MD Primary Care Provider [phone] Reason for Visit * Reason Onset Date Comments HCN Clinical Concern/Question 02/28/2025 Encounter Details Date Type Department Care Team ([facility] st Contact Info) Description 02/28/2025 Telephone [facility] [place] [address] [facility], [address] [place] [address] Ruslan Sanderson MD [address] [place] [address] HCN Clinical Concern/Question Social History [...] 03/02/2025 8:21 AM EDT Letter faxed to [phone] * Telephone Encounter - Ruslan Sanderson MD - 03/01/2025 11:13 AM EDT Ok to proceed with surgery from cardiac stand point. * Telephone Encounter - Ilana Rolle - 02/28/2025 2:51 PM EDT Clinical Concern/Question Reason for Call: Patient is needing cardiac clearance for hysterectomy being done at [facility] on 03/14. FAX: [phone] Best contact number: [phone] (home) Optimal time of day to reach caller: ANYTIME Additional comments/information from caller: None Note: Please do not reply to this message. Follow-up communication and further actions as a result of this message need to be communicated with the patient directly, if the patient is not active onMyChart. If the patient is active on MyChart, they will receive notification of the communication/outcome via Rixtyhart. documented in this encounter Plan of Treatment Upcoming Encounters Date Type Department Care Team (Late st Contact Info) Description 05/04/2025 1:00 PM EST Appointment Medical Office Building Cardiac Diagnostic Testing Medical Office Building Echo Lab [address] [facility], [address] [place] [address] 05/04/2025 1:45 PM EST Office Visit [facility] [place] [address] [facility], [address] [place] [address] Ruslan Sanderson MD [address] [place] [address] 07/23/2025 2:00 PM EST Office [facility] [address], 4th [place] [address] Kassandra Khan, AP[place]LLO [address] [place] [address] 08/21/2025 3:30 PM EST Office Visit [facility] [address], 1st [place] [address] Alicia Jennings MD [address] [place] [address] 09/10/2025 10:40 AM EDT Office Visit [facility] Medicine Specialties [address], [address] [place] [address] Bushra Graf PA [address] [place] [address] 10/17/2025 9:30 AM EDT Appointment [facility] [address] [place] [address] 10/17/2025 10:30 AM EDT Office Visit [facility] Medicine Specialties [address], 2nd [place] [address] Juventino Costa MD [address] [place] [address] documented as of this encounter [...] documented as of this encounter Care Teams Distribution Systems Serviceperson Relationship Specialty Start Date End Date Iman Cuevas MD [address] [address] PCP - General Internal Medicine 12/19/24 documented as of this encounter
--- OUTSIDE RECORDS SUMMARY | 2025-04-24 16:40 | XMS_ITS | Encounter Summary ---
Author Organization Healthcare Address [address] [place] [address] Care Team Providers Care Air Conditioner Installer Helper Name Role Phone Ankur Main MD Primary Care Provider [phone] Iman Cuevas MD Primary Care Provider [phone] Reason for Visit * Reason Onset Date Comments Med Refill 06/29/2021 Encounter Details Date Type Department Care Team (Late st Contact Info) Description 06/29/2021 Refill [facility] [address], 2nd [place] [address] Juventino Costa MD [address] [place] [address] Moderate persistent asthma, unspecified whether [...] Medical Office Building Echo Lab [address] [facility], [address] [place] [address] 05/04/2025 1:45 PM EST Office Visit [facility] [place] [address] [facility], [address] [place] [address] Ruslan Sanderson MD [address] [place] [address] 07/23/2025 2:00 PM EST Office Visit [facility] Sleep Disorder Center [address], 4th [place] [address] Kassandra Khan, APOLLO [address] [place] [address] 08/21/2025 3:30 PM EST [facility] [address], 1st [place] [address] Alicia Jennings MD [address] [place] [address] 09/10/2025 10:40 AM EDT Office Visit [facility] Medicine Specialties [address], 2nd [place] [address] Bushra Graf PA [address] [place] [address] 10/17/2025 9:30 AM EDT Appointment [facility] [address] [place] [address] 10/17/2025 10:30 AM EDT [facility] [address], 2nd [place] [address] Juventino Costa MD [address] [place] [address] documented as of this encounter [...] Noted Time PHQ-9 Depression Total Score: 18 08//2 021 9:41 AM EDT A fall risk assessment has been complete d for the patient 02/25/2021 7:04 PM EDT documented as of this encounter Care Teams Air Conditioner Installer Helper Relationship Specialty Start Date End Date Ankur Main MD [address] [place] [address] PCP - General 11/01/20 12/18/24 Iman Cuevas MD [address] [place] [address] PCP - General Internal Medicine 12/19/24 documented as of this encounter
--- OUTSIDE RECORDS SUMMARY | 2025-04-24 16:40 | XMS_ITS | Encounter Summary ---
Author Organization Healthcare Address [address] [place] [address] Care Team Providers Care Refinisher Name Role Phone Ankur Main MD Primary Care Provider [phone] Iman Cuevas MD Primary Care Provider [phone] Reason for Visit * Reason Onset Date Comments Med Refill 06/30/2021 Encounter Details Date Type Department Care Team (Late st Contact Info) Description 06/30/2021 Refill [facility] [address], [address]nd [place] [address] Juventino Costa MD [address] [place] [address] Moderate persistent asthma, unspecified whether [...] Medical Office Building Echo Lab [address] [facility], [address] [place] [address] 05/04/2025 1:45 PM EST Office Visit [facility] [place] [address] [facility], [address] [place] [address] Ruslan Sanderson MD [address] [place] [address] 07/23/2025 2:00 PM EST Office [facility] [address], 4th [place] [address] Kassandra Khan, APOLLO [address] [place] [address] 08/21/2025 3:30 PM EST Office [facility] [address], 1[address] [place] [address] Alicia Jennings MD [address] [place] [address] 09/10/2025 10:40 AM EDT Office [facility] [address], 2nd [place] [address] Bushra Graf PA [address] [place] [address] 10/17/2025 9:30 AM EDT Appointment [facility] [address] [place] [address] 10/17/2025 10:30 AM EDT Office Visit [facility] [address], 2nd [place] [address] Juventino Costa MD [address] [place] [address] documented as of this encounter Visit Diagnoses [...] documented as of this encounter Care Teams Refinisher Relationship Specialty Start Date End Date Ankur Main MD [address] [facility] [address] [place] [address] PCP - General 11/01/20 12/18/24 Iman Cuevas MD [address] [place] [address] PCP - General Internal Medicine 12/19/24 documented as of this encounter
--- OUTSIDE RECORDS SUMMARY | 2025-04-24 16:41 | XMS_ITS | Clinical Summary ---
Author Organization Healthcare Address [address] [place] [address] Care Team Providers Care Master Automotive Technician Name Role Phone Iman Cuevas MD [...] Number: [id number] Expiration Date: Nov 2022 NDC: [id number] 09/05/19 21 Active magnesium oxide (Mag-Ox) 400 [...] needed for mild pain. Active nystatin (Mycostatin) 197952 UNIT/GM powderIndication s:Healthcare maintenance Apply topically 1 (one) time each day. 60 g 11 11/01/19 22 Active lamoTRIgine (LaMICtal) 100 MG tablet Take 0.5 tablets (50 mg) by mouth in the morning and 0.5 tablets (50 mg) before bedtime. 06/04/20 22 Active sertraline (Zoloft) 100 MG tablet Take 1 tablet (100 mg) by mouth in the morning. 05/06/20 23 Active furosemide (Lasix) 40 MG tabletIndication s:Congestive [...] for itching. 270 capsule 08/01/19 25 Active metoprolol tartrate (Lopressor) 25 MG tabletIndication s:Chronic systolic (congestive) heart failure TAKE 1 TABLET 2 TIMES EACH DAY 180 tablet 3 11/07/19 25 Active montelukast (Singulair) 10 MG tabletIndication s:Chronic bronchitis with COPD (chronic obstructive pulmonary disease) ([facility]),Modera te persistent asthma, unspecified whether complicated Take 1 tablet by mouth nightly. Patient needs to be seen by Ella for any additional refills. 90 tablet 3 11/07/19 25 026 Active Prucalopride Succinate (Motegrity) 2 MG tabletIndication s:Chronic idiopathic constipation Take 1 tablet by mouth daily. 90 tablet 3 01/04/20 25 026 Active levETIRAcetam (Keppra) 500 MG tabletIndication s:Focal epilepsy ([facility]) Take 4 tablets by mouth 2 times a day. 240 tablet 2 01/06/20 25 Active Eliquis 5 MG tabletIndication s:History of pulmonic valve replacement TAKE 1 TABLET TWICE DAILY 180 tablet 3 01/24/20 25 Active albuterol (Proventil) (2.5 MG/3ML) 0.083% nebulizer solutionIndicati ons:Chronic bronchitis with COPD (chronic obstructive pulmonary disease) ([facility]),Modera te persistent asthma, unspecified whether complicated Take 3 mL by nebulization every 6 hours as needed for shortness of breath. 75 mL 11 04/18/20 25 026 Active albuterol (Ventolin HFA) 108 (90 Base) MCG/ACT inhalerIndicatio ns:Chronic bronchitis with COPD (chronic obstructive pulmonary disease) ([facility]),Modera te persistent asthma, unspecified whether complicated Inhale 2 puffs 4 times a day. 18 g 3 04/18/20 25 026 Active tiotropium-oloda terol (Stiolto Respimat) 2.5-2.5 MCG/ACT aerosol solution inhalerIndicatio ns:Chronic obstructive pulmonary disease, unspecified COPD type ([facility]) Inhale 2 Inhalations daily. 4 g 11 04/18/20 25 Active albuterol (Ventolin HFA) 108 (90 Base) MCG/ACT inhalerIndicatio ns:Chronic bronchitis with COPD (chronic obstructive pulmonary disease) ([facility]),Modera te persistent asthma, unspecified whether complicated Inhale 2 puffs 4 (four) times a day. 18 g 3 11/10/19 24 025 Discontin ued(Reord er) albuterol (2.5 MG/3ML) 0.083% nebulizer solutionIndicati ons:Chronic bronchitis with COPD (chronic obstructive pulmonary disease) ([facility]),Modera te persistent asthma, unspecified whether complicated Take 3 mL (2.5 mg) by nebulization every 6 (six) hours if needed for shortness of breath. 75 mL 11 11/10/19 24 025 Discontin ued(Reord er) tiotropium-oloda terol (Stiolto Respimat) 2.5-2.5 MCG/ACT aerosol solution inhalerIndicatio ns:Chronic obstructive pulmonary disease, unspecified COPD type ([facility]) Inhale 2 Inhalations daily. 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 Depression 06/28/2020 Lung nodule 05/29/2020 [...] 05/12/2018 Opioid use disorder, severe, dependence 03/29/20 Septic pulmonary embolism 03/18/2018 Hypokalemia 12/23/2017 Resolved Problems Problem Noted Date Diagnosed Date Resolved Date Pain in throat 12/10/2023 03/11/2025 Cardiomegaly 04/09/2023 03/11/2025 Pneumonia 07/18/2018 03/11/2025 Abdominal pain 06/03/2018 03/11/2025 Tobacco use disorder 01/11/2018 022 Encounters Date Type Department Care Team Description 04/18/2025 11:00 AM EDT Office Visit [facility] [address] [place] [address] Juventino Costa MD Morbid obesity ([facility]) (Primary Dx); Chronic obstructive pulmonary disease, unspecified COPD type ([facility]); Chronic bronchitis with COPD (chronic obstructive pulmonary disease) ([facility]); Moderate persistent asthma, unspecified whether complicated 04/18/2025 Travel 03/12/2025 10:20 AM EDT Office Visit [facility] [address] [place] [address] Bushra Graf PA Chronic constipation (Primary Dx); Hemorrhage of rectum and anus; Obesity, Class III, BMI 40-49.9 (morbid obesity) 03/12/2025 Travel 02/28/2025 Telephone [facility] [place] [facility] [address], [address] [place] [address] Ruslan Sanderson MD HCN Clinical Concern/Question 01/23/2025 Refill [facility] [place] [facility] [address], [address] [place] [address] Ruslan Sanderson MD History of pulmonic valve replacement from Last 3 Months Immunizations Immunization Administration [...] Mass Index 44.01 04/18/2025 10:44 AM EDT Plan of Treatment Upcoming Encounters Date Type Department Care Team (Late st Contact Info) Description 05/04/2025 1:00 PM EST Appointment Medical Office Building Cardiac Diagnostic Testing Medical Office Building Echo Lab [address], [address] [place] [address] 05/04/2025 1:45 PM EST Office Visit [facility] [place] [address], [address] [place] [phone] Ruslan Sanderson MD [address] [place] [address] 07/23/2025 2:00 PM EST Office Visit [facility] Sleep Disorder Center [address] [place] [phone] Kassandra Khan APRN [address] [place] [address] 08/21/2025 3:30 PM EST Office Visit [facility] [address] [place] [address] Alicia Jennings MD [address] [place] [address] 09/10/2025 10:40 AM EDT Office Visit [facility] [address] [place] [address] Bushra Graf PA [address] [place] [address] 10/17/2025 9:30 AM EDT Appointment [facility] [address] [place] [address] 10/17/2025 10:30 AM EDT Office Visit [facility] [address] [place] [address] Juventino Costa MD [address] [place] [address] Health Maintenance Due Date Last Done Comments [facility]-Medicare Annual Wellness (AWV) 1985 [facility]-/Child/Adol SDOH Screenings 1985 [id number] Vaccine (#1) 02/02/1988 Diabetes: Dental Exam 1993 [facility]- SDOH Screenings 2001 [facility]-Adult SDOH Screenings 2001 [facility]-Hepatitis A Vaccines (1 of 2 - Risk 2-dose series) 2002 [facility]-Hepatitis B Vaccines (1 of 3 - 19+ 3-dose series) 2002 HPV Vaccines (1 - 3-dose SCDM series) 2010 [facility]-Diabetes: Hemoglobin A1C 11/07/2024 05/10/2024, 01/25/2024, 06/08/2023, Additional history exists [facility]-Depression Screening 03/12/2026 025, 03/12/2025, 10/11/2024, Additional history exists [facility]-DTaP,Tdap,and Td Vaccines (2 - Td or Tdap) 06/09/2032 06/09/2022 [facility]-Zoster Vaccines (1 of 2) 2033 [facility]-Cervical Cancer Screening Discontinued [facility]-HPV/Cotest Discontinued 09/04/2020, 09/04/2020 [facility]-Pap Smear Discontinued 09/04/2020 [facility]-HIV Screening Completed 04/28/2022, , 12/02/2019, Additional history exists [facility]-Pneumococcal Vaccine: Pediatrics (0 to 5 Years) and At-Risk Patients (6 to 49 Years) Completed 08/01/2024, 01/26/2019 [facility]-Influenza Vaccine Completed 04/11/2025 , 04/21/2024, 03/09/2023, Additional history exists [facility]-Obesity Intervention Completed 025, 03/12/2025, 10/19/2024, Additional history exists [facility]-HIB Vaccines Aged Out [...] AM EST 05/10/2024 10:38 AM EST Narrative [facility] - 05/10/2024 1:14 PM EST HA1C Interpretive Data: Diagnosis of Diabetes: Diabetic > or = 6.5% Pre-diabetic 5.7 to 6.4% Non-diabetic < or = 5.6% Glycemic Targets for Type I and Type II Diabetics: Non- Adults <7.0% Adults <6.0% Children and Adolescents <7.5% Source: [place] [employer]. Standards of medical care in diabetes,2017. Diabetes Care.2017:40 (suppl 1):S1-S135. HbA1c assay performed by an ion-exchange chromatography method that is certified traceable to the DCCT. us Astrid Alvarez APRN LAB BLOOD ORDERABLES Kaley l Result [facility] [address] [place] [address] * HIV 1 & 2 Antibody/Antigen Screen (04/28/2022 1:47 PM EST) HIV 1 & 2 Antibody/Anti gen Screen Nonreactive Nonreactive 04/28/2022 4:48 PM EST [facility] Blood Venous blood specimen / Unknown Venipuncture / Unknown 04/28/2022 1:47 PM EST 04/28/2022 2:22 PM EST Carlos Rodriguez MD LAB BLOOD ORDERABLES Final Result Performing Organization Address City/[facility] Co de Phone Number [facility] [address] [place] [address] * Cytology (09/04/2020 12:00 AM EDT) 09/04/2020 09/05/2020 8:5 1 AM EDT Narrative [facility] - 09/12/2020 12:05 PM EDT [facility] MR #: [id number] [facility] [address] [place] [id number] 1985 (Age: 35) FW Collect Date: 09/04/2020 00:00 Receipt Date: 09/05/2020 08:51 Page 1 DEPARTMENT OF PATHOLOGY AND LABORATORY MEDICINE CYTOPATHOLOGY REPORT Email: [email or web address] [email or web address] ATTENDING MD/Practitioner: JOAN ROWE Service: CA0 Location: [facility] Reported: 09/12/2020 12:05 Collected: 09/04/2020 00:00 INTERPRETATION A. THIN PREP (CERVICAL/VAGINAL): ATYPICAL SQUAMOUS CELLS - UNDETERMINED SIGNIFICANCE(ASCUS) REACTIVE CELLULAR CHANGES. ORGANISMS PRESENT CONSISTENT WITH ACTINOMYCES SPECIES. SATISFACTORY FOR EVALUATION; ENDOCERVICAL/ TRANSFORMATION ZONE COMPONENT PRESENT. Slide scanned and imaged by [employer] ThinPrep Imaging System with manual review of [...] results is suggested (please call Microbiology at [phone] for results). CLINICAL INFORMATION: Menstrual History: Irregular [...] of cervix uteri F: A; DX IMAGE 40715, 62532 C\V (PO) SNOMED CODES: A; [id number] M- 05038 [id number] [id number] [id number] In cases where a pathologist has signed out the report, the service has been rendered in part by a resident. The signing pathologist has performed and is responsible for the reported pathologic evaluation. Christie Chau [facility] PATHOLOGY ORDERABLES Fi nal Result COPATH [...] Documents on File Type Date Recorded Patient Ict Account Manager Expl anation Advance Directives and Living Will 12/31/2020 Care Teams Master Automotive Technician Relationship Specialty Start Date End Date Iman Cuevas MD [address] [address] PCP - General Internal Medicine 12/19/24
--- OUTSIDE RECORDS SUMMARY | 2025-04-24 16:41 | XMS_ITS | Encounter Summary ---
Author Organization Healthcare Address [address] [place] [address] Care Team Providers Care Patient Financial Representative Name Role Phone Iman Cuevas MD Primary Care Provider [phone] Encounter Details Date Type Department Care Team (Latest Contact Info) Description 04/18/2025 Travel Social History Tobacco Use Types Packs/Day [...] the past 12 months has th e [employer], gas, oil, or water [employer] threatened to shut off services in your [...] Lab [address], [address] [place] [address] 05/04/2025 1:45 PM EST Office Visit [facility] [place] [address], [address] [place] [address] Ruslan Sanedrson MD [address] [place] [address] 07/23/2025 2:00 PM EST Office Visit [facility] [address] [place] [address] Kassandra Khan APRN [address] [place] [address] 08/21/2025 3:30 PM EST Office Visit [facility] [address] [place] [address] Alicia Jennings MD [address] [place] [address] 09/10/2025 10:40 AM EDT Office Visit [facility] [address] [place] [address] Bushra Graf PA [address] [place] [address] 10/17/2025 9:30 AM EDT Appointment [facility] [address] [place] [address] 10/17/2025 10:30 AM EDT Office Visit [facility] [address] [place] [address] Juventino Costa MD [address] [place] [address] documented as of this encounter Visit Diagnoses [...] documented as of this encounter Care Teams Patient Financial Representative Relationship Specialty Start Date End Date Iman Cuevas MD [address] [place] [address] PCP - General Internal Medicine 12/19/24 documented as of this encounter
[2025-04-24 17:21] LABS: Hematocrit 42.9 % (37.0-47.0); Hemoglobin 14.2 g/dL (12.2-16.2); Immature Granulocytes % 0.1 %; Mean Corpuscular HGB Conc 33.1 g/dL (31.8-35.4); Mean Corpuscular Hemoglobin 31.0 pg (27.0-31.2); Mean Corpuscular Volume 93.7 fl (81-99); Nucleated Red Blood Cells % 0 %; Platelet Count 181 K/mm3 (142-424); Red Blood Count 4.58 M/mm3 (4.20-5.40); Red Cell Distribution Width-SD 46.7 fL; White Blood Count 6.7 K/mm3 (4.8-10.8)
[2025-04-24 17:59] LABS: Albumin Level 5.6 g/dl (3.5-5.0); Chloride 100 mmol/L (98-107); Sodium 143 mmol/L (136-145)
[2025-04-24 18:00] LABS: Potassium 3.6 mmoL/L (3.5-5.1)
[2025-04-24 18:02] LABS: Alanine Aminotransferase 24 U/L (12-78); Albumin/Globulin Ratio 1.8 (1.1-1.8); Anion Gap 13.6 mEq/L (5-15); Aspartate Amino Transferase 38 U/L (14-36); Blood Urea Nitrogen 16 mg/dl (7-17); Carbon Dioxide 33 mmol/L (22.0-30.0); Creatinine,Serum 1.20 mg/dl (0.52-1.04); Estimated Glomerular Filt Rate 49 ml/min (>60); GFR (African American) 60 ML/MIN (>60); Globulin 3.1 g/dL (1.3-3.2); Total Protein,Serum 8.7 g/dl (6.3-8.2)
[2025-04-24 18:03] LABS: Alkaline Phosphatase 75 U/L (38-126); Bilirubin,Total 1.3 mg/dl (0.2-1.3); Calcium 9.0 mg/dl (8.4-10.2); Cholesterol 193 mg/dl (140-200); Glucose 89 mg/dl (74-100); HDL Cholesterol 32 mg/dl (40-60); Triglycerides 147 mg/dl (30-150)
[2025-04-24 18:34] LABS: Thyroid Stimulating Hormone 1.82 uIU/mL (0.465-4.68)
== END 2025-04-24 23:59 | disposition home or self-care (01) ==
LOC: LAB 16:39
PROVIDERS: PCP Family Medicine; Visit Provider Family Medicine
DX: E03.9 Hypothyroidism, unspecified (principal)
CPT/HCPCS: 36415; 80053; 80061; 84443; 85025

== ENCOUNTER 2025-05-29 13:01 | Outpatient (CLI) | payer MEDICARE, MEDICAID, SELFPAY ==
[2025-05-29 13:41] LABS: Hematocrit 45.8 % (37.0-47.0); Hemoglobin 14.9 g/dL (12.2-16.2); Immature Granulocytes % 0.1 %; Mean Corpuscular HGB Conc 32.5 g/dL (31.8-35.4); Mean Corpuscular Hemoglobin 29.1 pg (27.0-31.2); Mean Corpuscular Volume 89.5 fl (81-99); Nucleated Red Blood Cells % 0 %; Platelet Count 232 K/mm3 (142-424); Red Blood Count 5.12 M/mm3 (4.20-5.40); Red Cell Distribution Width-SD 42.9 fL; White Blood Count 6.8 K/mm3 (4.8-10.8)
[2025-05-29 14:05] LABS: Alanine Aminotransferase 30 U/L (12-78); Albumin Level 5.0 g/dl (3.5-5.0); Albumin/Globulin Ratio 1.2 (1.1-1.8); Alkaline Phosphatase 84 U/L (38-126); Anion Gap 17.9 mEq/L (5-15); Aspartate Amino Transferase 35 U/L (14-36); Bilirubin,Total 1.3 mg/dl (0.2-1.3); Blood Urea Nitrogen 16 mg/dl (7-17); Calcium 9.8 mg/dl (8.4-10.2); Carbon Dioxide 29 mmol/L (22.0-30.0); Chloride 99 mmol/L (98-107); Cholesterol 237 mg/dl (140-200); Creatinine,Serum 1.20 mg/dl (0.52-1.04); Estimated Glomerular Filt Rate 49 ml/min (>60); GFR (African American) 60 ML/MIN (>60); Globulin 4.1 g/dL (1.3-3.2); Glucose 87 mg/dl (74-100); HDL Cholesterol 38 mg/dl (40-60); Potassium 3.9 mmoL/L (3.5-5.1); Sodium 142 mmol/L (136-145); Total Protein,Serum 9.1 g/dl (6.3-8.2); Triglycerides 143 mg/dl (30-150)
[2025-05-29 14:20] LABS: Free T4 (Free Thyroxine) 1.60 ng/dl (0.78-2.19)
[2025-05-29 14:27] LABS: Amphetamine/Metha Screen,Urine Negative ng/ml (<1000); Barbiturates Screen,Urine Negative ng/ml (<200); Benzodiazepines Screen,Urine Negative ng/ml (<200); Methadone Screen,Urine Negative ng/ml (<300); Opiate Screen,Urine Negative ng/ml (<300); Phencyclidine Screen,Urine Negative ng/ml (<25)
[2025-05-29 14:34] LABS: Thyroid Stimulating Hormone 1.63 uIU/mL (0.465-4.68)
== END 2025-05-29 23:59 | disposition home or self-care (01) ==
LOC: LAB 13:02
PROVIDERS: PCP Family Medicine; Visit Provider Nurse Practitioner Family
DX: Z01.89 Encounter for other specified special examinations (principal)
CPT/HCPCS: 36415; 80053; 80061; 80307; 84439; 84443; 85025